=== PATIENT | female | born 1995 | race Hispanic/Latino ===

== ENCOUNTER 2018-01-03 14:25 | Emergency (ER) | payer SELFPAY ==
[2018-01-03] MEDS ORDERED: ACETAMINOPHEN 500 MG TAB ONE (14:41)
[2018-01-03 15:05] LABS: Urine Blood 2+ (NEG); Urine Glucose TRACE (NEG); Urine Protein 1+ (NEG); Urine Specific Gravity 1.015 (1.005-1.030)
[2018-01-03] MEDS ORDERED: KETOROLAC 30 MG/ML INJ ONE (15:08)
[2018-01-03] MEDS ORDERED: ONDANSETRON 4 MG/2 ML VIAL ONE (15:09)
[2018-01-03] MEDS ORDERED: NA CHLORIDE 0.9% 1,000 ML ONE (15:09)
[2018-01-03 15:26] LABS: Absolute Monocytes 1.3 K/uL (0.1-1.3); Absolute Neutrophil 11.9 K/uL (1.8-8.0); Basophils % 0.4 % (0-1.3); Eosinophils % 0.2 % (0-4.4); Hematocrit 41.2 % (36.0-45.0); Lymphocytes % 6.9 % (15.3-44.8); MCH 30.7 pg (27.0-35.0); MCV 90.1 fL (80-100); MPV 7.6 fL (7.6-11.3); RBC Red Blood Cell Count 4.57 M/uL (3.86-4.86)
[2018-01-03 15:37] LABS: Bicarbonate 29 mEq/L (21-31); Glucose Level 103 mg/dL (65-120); Potassium 3.9 mEq/L (3.6-5.0); Sodium Level 135 mEq/L (135-145)
[2018-01-03 15:38] LABS: BUN Blood Urea Nitrogen 9 mg/dL (6-20)
--- NOTE | 2018-01-03 16:20 | RAD REPORT ---
EXAM DESCRIPTION: CTAbdomen Pelvis W Contrast - 01/03/2018 4:13 pm CLINICAL HISTORY: Abdominal pain. COMPARISON: 07/21/2017, 04/25/2016 TECHNIQUE: Biphasic CT imaging of the abdomen and pelvis was performed with 100 ml non-ionic IV cont rast. All CT scans are performed using dose optimization technique as appropriate and may include automated exposure control or mA/KV adjustment according to patient size. FINDINGS: The lung bases are clear. The liver, spleen, pancreas, adrenal glands and kidneys are within normal limits. No bowel obstruction, free air, free fluid or abscess. Appendectomy clips noted. No evidence of sig nificant lymphadenopathy. No suspicious bony findings. IMPRESSION: No acute intra-abdominal or pelvic finding.
[2018-01-03 16:33] LABS: Blood Morphology Comment NOT SEEN (NOT SEEN); Platelet Estimate ADEQ; Urine White Blood Cell Casts OK
[2018-01-03 17:12] LABS: Urine Bacteria 20-50 /HPF (<20); Urine Culture Reflex Order REFLEXED
--- NOTE | 2018-01-03 17:21 | ER ---
Nurse's Notes [facility] Name: Kaela Gonzales Age: 22 yrs Sex: Female : 1995 Arrival Date: 01/03/2018 Time: 14:31 Bed 27 Private MD: Diagnosis: Urinary tract infection, site not specified Presentation: 01/03 14:32 Presenting complaint: Patient states: i am having sharp pain in my lower abdomin and my tw2 back hurts, i cant eat or drink, since tuesday. Transition of care: patient was not received from another setting of care. Onset of symptoms was January 03, 2018. Risk Assessment: Do you want to hurt yourself or someone else? Patient reports no desire to harm self or others. Care prior to arrival: None. 14:32 Method Of Arrival: Ambulatory tw 14:32 Acuity: ANNABELLE 3 tw2 15:25 Initial Sepsis Screen: Does the patient meet any 2 criteria? Temp <36.0*C (96.8*F)) or mb3 > 38.3*C (100.4*F). HR > 90 bpm. Yes Does the patient have a suspected source of infection? Yes: Dysuria/Frequency/Urgency/UTI. 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 - Social history:: Smoking status: Patient uses tobacco products, 5 cigarette a week, Patient uses street drugs, marijuana, last time i used was a week ago. - Ebola Screening: : Patient denies exposure to infectious person. Screenin:05 Abuse screen: Denies threats or abuse. Nutritional screening: No deficits noted. mb3 Tuberculosis screening: No symptoms or risk factors identified. Fall Risk None identified. Assessment: 15:01 General: Appears uncomfortable, ill, obese, Behavior is calm, cooperative, appropriate mb3 for age. Pain: Complains of pain in right lower quadrant and left lower quadrant Pain radiates to low back area, left low back and right low back. Neuro: No deficits noted. Level of Consciousness is awake, alert, obeys commands, Oriented to person, place, time, situation, Appropriate for age. Cardiovascular: No deficits noted. Heart tones S1 S2 present Capillary refill < 3 seconds Rhythm is sinus tachycardia. Respiratory: No deficits noted. Airway is patent Respiratory effort is even, unlabored, Respiratory pattern is regular, symmetrical, Breath sounds are clear bilaterally. GI: Bowel sounds present X 4 quads. Abd is soft Abdomen is tender to palpation in right lower quadrant and left lower quadrant Reports lower abdominal pain, nausea. : Reports urgency, since Tuesday, feels like she always has to go pee. EENT: No signs and/or symptoms were reported regarding the EENT system. Derm: No signs and/or symptoms reported regarding the dermatologic system. Musculoskeletal: No signs and/or symptoms reported regarding the musculoskeletal system. Capillary refill < 3 seconds, Range of motion: intact in all extremities. 16:27 Reassessment: Patient appears in no apparent distress at this time. Patient and/or mb3 family updated on plan of care and expected duration. Pain level reassessed. Patient is alert, oriented x 3, equal unlabored respirations, skin warm/dry/pink. Patient states feeling better. Patient states symptoms have improved. Vital Signs: 14:33 BP 128 / 87; Pulse 127; Resp 18; Temp 101.5(O); Pulse Ox 97% on R/A; Weight 113.4 kg tw2 (R); Height 5 ft. 6 in. (167.64 cm); Pain 8/10; 16:23 BP 117 / 76; Pulse 98; Resp 16; Temp 98.8; Pulse Ox 98% on R/A; mb3 14:33 Body Mass Index 40.35 (113.40 kg, 167.64 cm) tw2 ED Course: 14:31 Patient arrived in ED. sb2 14:33 Triage completed. tw2 14:34 Arm band placed on. tw2 14:47 Jhony High, KIZZY is Primary Nurse. mb3 14:48 Carmelina Lopez FNP-C is PHCP. kb 14:48 Antonio Sunshine MD is Attending Physician. kb 15:25 Inserted saline lock: 20 gauge in right antecubital area, using aseptic technique. mb3 Blood collected. 15:28 Patient has correct armband on for positive identification. Bed in low position. Call mb3 light in reach. Side rails up X 1. 15:[address] via wheelchair. nj 16:13 CT Abd/Pelvis - W/Contrast In Process Unspecified. EDMS 16:13 CT completed. Patient tolerated procedure well. Patient moved back from CT. nj 17:30 No provider procedures requiring assistance completed. IV discontinued, intact, mb3 bleeding controlled, No redness/swelling at site. Pressure dressing applied. Administered Medications: 14:41 Drug: Tylenol 1000 mg Route: PO; tw2 15:18 Drug: NS 0.9% 1000 ml Route: IV; Rate: 1000 ml; Site: right antecubital; mb3 17:29 Follow up: Response: No adverse reaction; IV Status: Completed infusion; IV Intake: mb3 1000ml 15:24 Drug: Zofran 4 mg Route: IVP; Site: right antecubital; mb3 17:29 Follow up: Response: No adverse reaction mb3 15:24 Drug: TORadol 30 mg Route: IVP; Site: right antecubital; mb3 17:28 Follow up: Response: No adverse reaction mb3 Intake: 17:29 IV: 1000ml; Total: 1000ml. mb3 Outcome: 17:20 Discharge ordered by . kb 17:31 Discharged to home ambulatory. mb3 17:31 Condition: stable 17:31 Discharge instructions given to patient, Instructed on discharge instructions, follow up and referral plans. medication usage, Demonstrated understanding of instructions, follow-up care, medications, Prescriptions given X 2. 17:31 Patient left the ED. mb3 Signatures: Dispatcher [employer] EDMS Carmelina Lopez, INSTRUMENT SHOP SUPERVISOR-C INSTRUMENT SHOP SUPERVISOR-Kimberly Cano RN RN tw2 Raj Melissa Sheri sb2 Jhony High RN RN mb3 Corrections: (The following items were deleted from the chart) 14:37 14:33 Pulse 127bpm; Resp 18bpm; Pulse Ox 97% RA; Temp 101.5F Oral; 113.4 kg Reported; tw2 Height 5 ft. 6 in.; BMI: 40.3; Pain 8/10; tw2
--- NOTE | 2018-01-03 17:21 | EDPHYS ---
Physician Documentation [facility] Name: Kaela Gonzales Age: 22 yrs Sex: Female : 1995 Arrival Date: 01/03/2018 Time: 14:31 Bed 27 Private MD: ED Physician Antonio Sunshine HPI: 01/03 17:00 This 22 yrs old Female presents to ER via Ambulatory with complaints of kb Abdominal Pain, Back Pain, Nausea. 17:00 The patient presents with abdominal pain in the lower abdomen. Onset: The kb symptoms/episode began/occurred 5 day(s) ago. The symptoms radiate to both flanks. Associated signs and symptoms: Pertinent positives: fever, nausea. The symptoms are described as constant. Modifying factors: The symptoms are alleviated by nothing, the symptoms are aggravated by pressure. Severity of pain: At its worst the pain was moderate in the emergency department the pain is unchanged. The patient has not experienced similar symptoms in the past. The patient has not recently seen a physician. 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 - Social history:: Smoking status: Patient uses tobacco products, 5 cigarette a week, Patient uses street drugs, marijuana, last time i used was a week ago. - Ebola Screening: : Patient denies exposure to infectious person. ROS: 16:59 Constitutional: Negative for fever, chills, and weight loss, Cardiovascular: Negative kb for chest pain, palpitations, and edema, Respiratory: Negative for shortness of breath, cough, wheezing, and pleuritic chest pain, Back: Negative for injury and pain, MS/Extremity: Negative for injury and deformity, Skin: Negative for injury, rash, and discoloration, Neuro: Negative for headache, weakness, numbness, tingling, and seizure. 16:59 Abdomen/GI: Positive for abdominal pain, nausea, Negative for vomiting, diarrhea, constipation, abdominal cramps, abdominal distension, anorexia. 16:59 : Positive for flank pain, urinary frequency. Exam: 16:59 Constitutional: This is a well developed, well nourished patient who is awake, alert, kb and in no acute distress. Head/Face: Normocephalic, atraumatic. Chest/axilla: Normal chest wall appearance and motion. Nontender with no deformity. No lesions are appreciated. Cardiovascular: Regular rate and rhythm with a normal S1 and S2. No gallops, murmurs, or rubs. Normal PMI, no JVD. No pulse deficits. Respiratory: Lungs have equal breath sounds bilaterally, clear to auscultation and percussion. No rales, rhonchi or wheezes noted. No increased work of breathing, no retractions or nasal flaring. Abdomen/GI: Soft, non-tender, with normal bowel sounds. No distension or tympany. No guarding or rebound. No evidence of tenderness throughout. Skin: Warm, dry with normal turgor. Normal color with no rashes, no lesions, and no evidence of cellulitis. MS/ Extremity: Pulses equal, no cyanosis. Neurovascular intact. Full, normal range of motion. Neuro: Awake and alert, GCS 15, oriented to person, place, time, and situation. Cranial nerves II-XII grossly intact. Motor strength 5/5 in all extremities. Sensory grossly intact. Cerebellar exam normal. Normal gait. 16:59 Back: CVA tenderness, that is moderate, is noted bilaterally. Vital Signs: 14:33 BP 128 / 87; Pulse 127; Resp 18; Temp 101.5(O); Pulse Ox 97% on R/A; Weight 113.4 kg tw2 (R); Height 5 ft. 6 in. (167.64 cm); Pain 8/10; 16:23 BP 117 / 76; Pulse 98; Resp 16; Temp 98.8; Pulse Ox 98% on R/A; mb3 14:33 Body Mass Index 40.35 (113.40 kg, 167.64 cm) tw2 MDM: 14:48 Patient medically screened. kb 16:59 Data reviewed: vital signs, nurses notes. Data interpreted: Pulse oximetry: on room air kb is 98 %. Interpretation: normal. Counseling: I had a detailed discussion with the patient and/or guardian regarding: the historical points, exam findings, and any diagnostic results supporting the discharge/admit diagnosis, lab results, radiology results, the need for outpatient follow up, a family practitioner, to return to the emergency department if symptoms worsen or persist or if there are any questions or concerns that arise at home. 01/03 14:48 Order name: Urine Microscopic Only; Complete Time: 17:14 kb 01/03 14:55 Order name: CBC with Diff; Complete Time: 16:38 kb 01/03 14:55 Order name: Basic Metabolic Panel; Complete Time: 15:38 kb 01/03 14:57 Order name: Urine Dipstick--Ancillary (enter results); Complete Time: 15:09 bd 01/03 14:57 Order name: Urine --Ancillary (enter results); Complete Time: 15:09 bd 01/03 16:33 Order name: CBC Smear Scan; Complete Time: 16:38 EDMS 01/03 14:48 Order name: Urine Test (obtain specimen); Complete Time: 15:06 kb 01/03 14:48 Order name: Urine Dipstick-Ancillary (obtain specimen); Complete Time: 15:06 kb 01/03 15:39 Order name: CT Abd/Pelvis - W/Contrast; Complete Time: 16:22 kb 01/03 17:13 Order name: Urine Culture EDHI 01/03 14:55 Order name: IV Start; Complete Time: 15:24 kb Administered Medications: 14:41 Drug: Tylenol 1000 mg Route: PO; tw2 15:18 Drug: NS 0.9% 1000 ml Route: IV; Rate: 1000 ml; Site: right antecubital; mb3 17:29 Follow up: Response: No adverse reaction; IV Status: Completed infusion; IV Intake: mb3 1000ml 15:24 Drug: Zofran 4 mg Route: IVP; Site: right antecubital; mb3 17:29 Follow up: Response: No adverse reaction mb3 15:24 Drug: TORadol 30 mg Route: IVP; Site: right antecubital; mb3 17:28 Follow up: Response: No adverse reaction mb3 Disposition: 17:41 Co-signature as Attending Physician, Antonio Sunshine MD. rn Disposition: 01/03/18 17:20 Discharged to Home. Impression: Urinary tract infection, site not specified. - Condition is Stable. - Discharge Instructions: Urinary Tract Infection, [id number]. - Prescriptions for Zofran 4 mg Oral Tablet - take 1 tablet by ORAL route every 6 hours As needed; 20 tablet. Cipro 500 mg Oral Tablet - take 1 tablet by ORAL route every 12 hours for 7 days; 14 tablet. - Medication Reconciliation Form, Thank You Letter, Antibiotic Education, Prescription Opioid Use form. - Follow up: Emergency Department; When: As needed; Reason: Worsening of condition. Follow up: Private Physician; When: 2 - 3 days; Reason: Recheck today's complaints, Continuance of care, Re-evaluation by your physician. Signatures: Dispatcher [employer] EDMS Carmelina Lopez, GROUND WOOD SUPERVISOR-C GROUND WOOD SUPERVISOR-Ckb Antonio Sunshine MD MD rn Wise, Tara, RN RN 2 Jhony High RN RN mb3 Corrections: (The following items were deleted from the chart) 17:31 17:20 01/03/2018 17:20 Discharged to Home. Impression: Urinary tract infection, site mb3 not specified. Condition is Stable. Forms are Medication Reconciliation Form, Thank You Letter, Antibiotic Education, Prescription Opioid Use. Follow up: Emergency Department; When: As needed; Reason: Worsening of condition. Follow up: Private Physician; When: 2 - 3 days; Reason: Recheck today's complaints, Continuance of care, Re-evaluation by your physician. kb
[2018-01-03 17:44] VITALS: BP 117/76; TEMP 98.8; O2SAT 98
== END 2018-01-03 17:31 | disposition home or self-care (01) ==
LOC: ER 14:25
DX: N39.0 Urinary tract infection, site not specified (principal); F17.210 Nicotine dependence, cigarettes, uncomplicated
CPT/HCPCS: 36415; 74177; 80048; 81003; 81015; 81025; 85025; 87086; 87088; 96361; 96374; 96375; 99285; J2405; J7030; Q9967

== ENCOUNTER 2018-01-06 00:50 | Emergency (ER) | payer SELFPAY ==
[2018-01-06 01:46] LABS: Absolute Lymphocytes (CBC) 1.4 K/uL (0.7-4.9); Absolute Monocytes 1.2 K/uL (0.1-1.3); Absolute Neutrophil 10.7 K/uL (1.8-8.0); Basophils % 0.2 % (0-1.3); Hematocrit 38.5 % (36.0-45.0); Lymphocytes % 10.3 % (15.3-44.8); MCH 30.1 pg (27.0-35.0); MCV 90.5 fL (80-100); Monocytes % 9.2 % (3.3-12.3); RBC Red Blood Cell Count 4.25 M/uL (3.86-4.86)
[2018-01-06] MEDS ORDERED: PROMETHAZINE 25 MG/ML VIAL ONE (01:48)
[2018-01-06] MEDS ORDERED: NA CHLORIDE 0.9% 1,000 ML ONE ×2 (01:49→02:47)
[2018-01-06] MEDS ORDERED: MORPHINE 4 MG/ML SYR ONE (01:49)
[2018-01-06 01:54] LABS: Bicarbonate 22 mEq/L (21-31); Glucose Level 108 mg/dL (65-120); Lipase 17 U/L (22-51); Potassium 3.5 mEq/L (3.6-5.0); Sodium Level 133 mEq/L (135-145)
[2018-01-06 02:00] LABS: ALT/SGPT 20 IU/L (10-60); AST/SGOT 21 IU/L (10-42); Albumin 3.9 g/dL (3.2-5.5); Alkaline Phosphatase 84 IU/L (42-121); BUN Blood Urea Nitrogen 11 mg/dL (6-20); Bilirubin Direct 0.1 mg/dL (0-0.2); Bilirubin Total 0.8 mg/dL (0.3-1.2); Protein, Total 8.4 g/dL (6.0-8.3)
[2018-01-06 02:27] LABS: Urine Blood 2+ (NEG); Urine Glucose NEGATIVE (NEG); Urine Protein 1+ (NEG)
[2018-01-06] MEDS ORDERED: CEFTRIAXONE/SWI 1gm 1 GM/10 ML SYR ONE (03:29)
[2018-01-06 03:31] LABS: Urine Culture Reflex Order NOT NEEDED
[2018-01-06 03:32] LABS: Urine Bacteria 20-50 /HPF (<20)
--- NOTE | 2018-01-06 03:39 | EDPHYS ---
Physician Documentation [facility] Name: Kaela Gonzales Age: 22 yrs Sex: Female : 1995 Arrival Date: 01/06/2018 Time: 01:00 Bed 17 Private MD: ED Physician Julain Orellana HPI: 01/06 02:53 This 22 yrs old Female presents to ER via EMS with complaints of Flank pain. pm1 02:53 The patient complains of pain in the left low back and right low back. The pain pm1 radiates to the right and left groin. Onset: The symptoms/episode began/occurred 1 week(s) ago. Modifying factors: The symptoms are alleviated by nothing. the symptoms are aggravated by nothing. Associated signs and symptoms: Pertinent positives: nausea, Vomiting x 4, Pertinent negatives: diarrhea, dysuria, fever. Severity of pain: in the emergency department the pain is actually worse. The patient has been recently seen at the [facility] Emergency Department, 3 days ago with the same complaint of bilateral flank pain with radiation to bilateral groin area. Patient with onset of nausea and vomiting today. Patient with 4 episodes of vomiting. 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 - Social history:: Smoking status: Patient/guardian denies using tobacco. - Ebola Screening: : No symptoms or risks identified at this time. ROS: 02:58 Constitutional: Negative for fever, chills, and weight loss, Eyes: Negative for injury, pm1 pain, redness, and discharge, ENT: Negative for injury, pain, and discharge, Neck: Negative for injury, pain, and swelling, Cardiovascular: Negative for chest pain, palpitations, and edema, Respiratory: Negative for shortness of breath, cough, wheezing, and pleuritic chest pain. 02:58 : Negative for injury, bleeding, discharge, and swelling, MS/Extremity: Negative for injury and deformity, Skin: Negative for injury, rash, and discoloration, Neuro: Negative for headache, weakness, numbness, tingling, and seizure. 02:58 Abdomen/GI: Positive for nausea and vomiting, Negative for abdominal pain, diarrhea, constipation. 02:58 Back: Positive for flank pain, bilaterally. Exam: 02:58 Constitutional: This is a well developed, well nourished patient who is awake, alert, pm1 and in no acute distress. Head/Face: Normocephalic, atraumatic. Eyes: Pupils equal round and reactive to light, extra-ocular motions intact. Lids and lashes normal. Conjunctiva and sclera are non-icteric and not injected. Cornea within normal limits. Periorbital areas with no swelling, redness, or edema. ENT: Nares patent. No nasal discharge, no septal abnormalities noted. Tympanic membranes are normal and external auditory canals are clear. Oropharynx with no redness, swelling, or masses, exudates, or evidence of obstruction, uvula midline. Mucous membranes moist. Neck: Trachea midline, no thyromegaly or masses palpated, and no cervical lymphadenopathy. Supple, full range of motion without nuchal rigidity, or vertebral point tenderness. No Meningismus. Chest/axilla: Normal chest wall appearance and motion. Nontender with no deformity. No lesions are appreciated. Cardiovascular: Regular rate and rhythm with a normal S1 and S2. No gallops, murmurs, or rubs. Normal PMI, no JVD. No pulse deficits. Respiratory: Lungs have equal breath sounds bilaterally, clear to auscultation and percussion. No rales, rhonchi or wheezes noted. No increased work of breathing, no retractions or nasal flaring. Abdomen/GI: Soft, non-tender, with normal bowel sounds. No distension or tympany. No guarding or rebound. No evidence of tenderness throughout. 02:58 Skin: Warm, dry with normal turgor. Normal color with no rashes, no lesions, and no evidence of cellulitis. MS/ Extremity: Pulses equal, no cyanosis. Neurovascular intact. Full, normal range of motion. 02:58 Back: CVA tenderness, that is mild, is noted bilaterally. 02:58 Neuro: Orientation: is normal, Motor: is normal, moves all fours. Vital Signs: 01:03 BP 142 / 84; Pulse 103; Resp 19 S; Temp 98.4(O); Pulse Ox 99% on R/A; Weight 126.1 kg jd3 (R); Height 5 ft. 6 in. (167.64 cm) (R); Pain 9/10; 03:00 BP 126 / 71; Pulse 80; Resp 17 S; Pulse Ox 97% on R/A; jd3 03:39 BP 126 / 69; Pulse 79; Resp 18 S; Pulse Ox 97% on R/A; Pain 0/10; jd3 01:03 Body Mass Index 44.87 (126.10 kg, 167.64 cm) jd3 MDM: 01:08 Patient medically screened. pm1 02:59 Data reviewed: vital signs. Data interpreted: Pulse oximetry: on room air is 99 %. pm1 Interpretation: normal. 03:34 ED course: Patient resting quietly in bed without any vomiting. Patient's current urine pm1 micro with 20-50 bacteria present. It was a straight cath specimen Prior urine culture contaminated with squamous epithelial cells on 01/03/2018 visit and it was a clean catch specimen. Will treat patient with Rocephin and discharge home with Augmentin pending cultures. 03:40 ED course: Patient with decreased WBC on CBC. Patient pain improved and not vomiting. pm1 Patient resting comfortably in bed. 01/06 01:15 Order name: Lipase; Complete Time: 02:13 pm01/06 01:15 Order name: Basic Metabolic Panel; Complete Time: 02:13 pm01/06 01:15 Order name: CBC with Diff; Complete Time: 01:53 pm01/06 01:15 Order name: Hepatic Function; Complete Time: 02:13 pm01/06 01:15 Order name: Urine Microscopic Only; Complete Time: 03:34 pm01/06 02:21 Order name: Urine Culture pm1 01/06 02:22 Order name: Urine Culture EDME 01/06 02:23 Order name: Urine Dipstick--Ancillary (enter results); Complete Time: 02:33 mw2 01/06 02:23 Order name: Urine --Ancillary (enter results); Complete Time: 02:33 mw2 01/06 01:15 Order name: IV Saline Lock; Complete Time: 01:16 pm01/06 01:15 Order name: Labs collected and sent; Complete Time: 01:16 pm01/06 01:15 Order name: Urine Dipstick-Ancillary (obtain specimen); Complete Time: 02:51 pm1 01/06 01:16 Order name: Urine Test (obtain specimen); Complete Time: 02:51 pm1 01/06 01:59 Order name: Straight Cath - Urine; Complete Time: 02:51 pm1 Administered Medications: 01:55 Drug: NS 0.9% 1000 ml Route: IV; Rate: 1000 ml; Site: left antecubital; jd3 03:52 Follow up: Response: No adverse reaction; IV Status: Completed infusion; IV Intake: jd3 1000ml 01:55 Drug: morphine 4 mg Route: IVP; Site: left antecubital; jd3 03:35 Follow up: Response: No adverse reaction; Pain is decreased jd3 01:55 Drug: Phenergan 12.5 mg Route: IVP; Site: left antecubital; jd3 03:35 Follow up: Response: No adverse reaction; Nausea is decreased jd3 02:51 Drug: NS 0.9% 1000 ml Route: IV; Rate: 1000 ml; Site: left antecubital; jd3 03:52 Follow up: Response: No adverse reaction; IV Status: Completed infusion; IV Intake: jd3 1000ml 03:34 Drug: Rocephin 1 grams Route: IV; Rate: calculated rate; Site: left antecubital; jd3 03:52 Follow up: Response: No adverse reaction; IV Status: Completed infusion jd3 Disposition: 04:06 Co-signature as Attending Physician, Julian Orellana MD. Disposition: 01/06/18 03:38 Discharged to Home. Impression: Urinary tract infection, site not specified. - Condition is Stable. - Discharge Instructions: Urinary Tract Infection. - Prescriptions for Augmentin 875- 125 mg Oral Tablet - take 1 tablet by ORAL route every 12 hours for 10 days; 20 tablet. Tylenol- Codeine #3 300-30 mg Oral Tablet - take 2 tablets by ORAL route every 6 hours As needed; 20 tablet. promethazine 25 mg Oral Tablet - take 1 tablet by ORAL route every 6 hours As needed; 20 tablet. - Medication Reconciliation Form, Thank You Letter, Antibiotic Education, Prescription Opioid Use form. - Follow up: Emergency Department; When: As needed; Reason: Worsening of condition. Follow up: Private Physician; When: 2 - 3 days; Reason: Recheck today's complaints, Continuance of care, Re-evaluation by your physician. - Problem is new. - Symptoms have improved. Signatures: Dispatcher [employer] EDMS Garcia Fam, CREMATORY OPERATOR CREMATORY OPERATOR pm1 Julian Orellana MD MD gs Davies, Jonathon RN RN jd3 Corrections: (The following items were deleted from the chart) 03:53 03:38 01/06/2018 03:38 Discharged to Home. Impression: Urinary tract infection, site jd3 not specified. Condition is Stable. Discharge Instructions: Urinary Tract Infection. Prescriptions for Augmentin 875-125 mg Oral Tablet - take 1 tablet by ORAL route every 12 hours for 10 days; 20 tablet, promethazine 25 mg Oral Tablet - take 1 tablet by ORAL route every 6 hours As needed; 20 tablet, Tylenol-Codeine #3 300-30 mg Oral Tablet - take 2 tablets by ORAL route every 6 hours As needed; 20 tablet. and Forms are Medication Reconciliation Form, Thank You Letter, Antibiotic Education, Prescription Opioid Use. Follow up: Emergency Department; When: As needed; Reason: Worsening of condition. Follow up: Private Physician; When: 2 - 3 days; Reason: Recheck today's complaints, Continuance of care, Re-evaluation by your physician. Problem is new. Symptoms have improved. pm1
--- NOTE | 2018-01-06 03:39 | ER ---
Nurse's Notes [facility] Name: Kaela Gonzales Age: 22 yrs Sex: Female : 1995 Arrival Date: 01/06/2018 Time: 01:00 Bed 17 Private MD: Diagnosis: Urinary tract infection, site not specified Presentation: 01/06 01:00 Presenting complaint: EMS states: "she has been having abdominal/flank pain today as jd3 well as nausea and vomiting.". Transition of care: patient was not received from another setting of care. Onset of symptoms was January 06, 2018. Risk Assessment: Do you want to hurt yourself or someone else? Patient reports no desire to harm self or others. Initial Sepsis Screen: Does the patient meet any 2 criteria? No. Patient's initial sepsis screen is negative. Does the patient have a suspected source of infection? No. Patient's initial sepsis screen is negative. Care prior to arrival: None. 01:00 Method Of Arrival: EMS: [facility] jd3 01:00 Acuity: ANNABELLE 3 jd3 MAILROOM MESSENGER: 01:03 LMP 12/09/2017 jd3 Historical: - Allergies: 01:03 No Known Allergies; jd3 - Home Meds: 01:03 None [Active]; jd3 - PMHx: 01:03 GERD; jd3 - PSHx: 01:03 Appendectomy; jd3 - Immunization history:: Adult Immunizations unknown. - Social history:: Smoking status: Patient/guardian denies using tobacco. - Ebola Screening: : No symptoms or risks identified at this time. Screenin:06 Abuse screen: Denies threats or abuse. Nutritional screening: No deficits noted. jd3 Tuberculosis screening: No symptoms or risk factors identified. Fall Risk IV access (20 points). Gait- Normal/Bed Rest/Wheelchair (0 pts) Mental Status- Oriented to own ability (0 pts). Total Camacho Fall Scale indicates No Risk (0-24 pts). Assessment: 01:04 General: Appears uncomfortable, Behavior is cooperative, appropriate for age. Pain: jd3 Complains of pain in epigastric area, anterior aspect of right lateral abdomen and anterior aspect of left lateral abdomen Pain currently is 9 out of 10 on a pain scale. Quality of pain is described as sharp, shooting, Is continuous, Also complains of nausea. Neuro: Level of Consciousness is awake, alert, obeys commands, Oriented to person, place, time, situation. Cardiovascular: Heart tones S1 S2 present Capillary refill < 3 seconds Patient's skin is warm and dry. Respiratory: Airway is patent Respiratory effort is even, unlabored, Respiratory pattern is regular, symmetrical, Breath sounds are clear bilaterally. GI: Abdomen is round obese, Bowel sounds present X 4 quads. Abd is soft and non tender X 4 quads. Reports lower abdominal pain, upper abdominal pain, diarrhea, nausea, vomiting. : No signs and/or symptoms were reported regarding the genitourinary system. EENT: No signs and/or symptoms were reported regarding the EENT system. Derm: Skin is intact, Skin is dry, Skin is normal, Skin temperature is warm. Musculoskeletal: Circulation, motion, and sensation intact. Range of motion: intact in all extremities. 02:00 Reassessment: Patient appears in no apparent distress at this time. Patient and/or jd3 family updated on plan of care and expected duration. Pain level reassessed. Patient is alert, oriented x 3, equal unlabored respirations, skin warm/dry/pink. 03:01 Reassessment: Patient appears in no apparent distress at this time. Patient and/or jd3 family updated on plan of care and expected duration. Pain level reassessed. Patient is alert, oriented x 3, equal unlabored respirations, skin warm/dry/pink. pt resting with eyes closed even and unlabored respirations, call crouch in reach, no distress noted at this time. 03:40 Reassessment: Patient appears in no apparent distress at this time. Patient and/or jd3 family updated on plan of care and expected duration. Pain level reassessed. Patient is alert, oriented x 3, equal unlabored respirations, skin warm/dry/pink. Patient states feeling better. 03:51 Reassessment: Patient appears in no apparent distress at this time. Patient and/or jd3 family updated on plan of care and expected duration. Pain level reassessed. Patient is alert, oriented x 3, equal unlabored respirations, skin warm/dry/pink. pt reported understanding of discharge instructions, even and steady gait upon discharge. Patient states feeling better. Vital Signs: 01:03 BP 142 / 84; Pulse 103; Resp 19 S; Temp 98.4(O); Pulse Ox 99% on R/A; Weight 126.1 kg jd3 (R); Height 5 ft. 6 in. (167.64 cm) (R); Pain 9/10; 03:00 BP 126 / 71; Pulse 80; Resp 17 S; Pulse Ox 97% on R/A; jd3 03:39 BP 126 / 69; Pulse 79; Resp 18 S; Pulse Ox 97% on R/A; Pain 0/10; jd3 01:03 Body Mass Index 44.87 (126.10 kg, 167.64 cm) jd3 ED Course: 01:00 Patient arrived in ED. jd3 01:01 Inserted saline lock: 22 gauge in left antecubital area, using aseptic technique. Blood mt collected. 01:02 Triage completed. jd3 01:04 Arm band placed on. jd3 01:07 Da Wills, RN is Primary Nurse. jd3 01:07 Patient has correct armband on for positive identification. Placed in gown. Bed in low jd3 position. Call light in reach. Side rails up X 1. Adult w/ patient. 01:08 Garcia Fam NP is PHCP. pm1 01:08 Julian Orellana MD is Attending Physician. pm1 03:49 No provider procedures requiring assistance completed. IV discontinued, intact, jd3 bleeding controlled, No redness/swelling at site. Pressure dressing applied. Administered Medications: 01:55 Drug: NS 0.9% 1000 ml Route: IV; Rate: 1000 ml; Site: left antecubital; jd3 03:52 Follow up: Response: No adverse reaction; IV Status: Completed infusion; IV Intake: jd3 1000ml 01:55 Drug: morphine 4 mg Route: IVP; Site: left antecubital; jd3 03:35 Follow up: Response: No adverse reaction; Pain is decreased jd3 01:55 Drug: Phenergan 12.5 mg Route: IVP; Site: left antecubital; jd3 03:35 Follow up: Response: No adverse reaction; Nausea is decreased jd3 02:51 Drug: NS 0.9% 1000 ml Route: IV; Rate: 1000 ml; Site: left antecubital; jd3 03:52 Follow up: Response: No adverse reaction; IV Status: Completed infusion; IV Intake: jd3 1000ml 03:34 Drug: Rocephin 1 grams Route: IV; Rate: calculated rate; Site: left antecubital; jd3 03:52 Follow up: Response: No adverse reaction; IV Status: Completed infusion jd3 Intake: 03:52 IV: 1000ml; Total: 1000ml. jd3 03:52 IV: 1000ml; Total: 2000ml. jd3 Outcome: 03:38 Discharge ordered by MD. pm1 03:49 Discharged to home ambulatory, with family. jd3 03:49 Condition: stable 03:49 Discharge instructions given to patient, family, Instructed on discharge instructions, follow up and referral plans. medication usage, Demonstrated understanding of instructions, follow-up care, medications, Prescriptions given X 3. 03:53 Patient left the ED. jd3 Signatures: Garcia Fam NP SOLE INKER pm1 Odilia Diaz mt, Jonathon RN RN jd3
[2018-01-06 03:57] VITALS: TEMP 98.4
[2018-01-06 03:58] VITALS: O2SAT 97
[2018-01-06 04:00] VITALS: BP 126/69
== END 2018-01-06 03:53 | disposition home or self-care (01) ==
LOC: ER 00:50
DX: N39.0 Urinary tract infection, site not specified (principal); R11.2 Nausea with vomiting, unspecified
CPT/HCPCS: 36415; 80048; 80076; 81003; 81015; 81025; 83690; 85025; 87086; 87088; 96361; 96365; 96375; 99284; J0696; J2550; J7030

== ENCOUNTER 2018-01-18 15:36 | Emergency (ER) | payer SELFPAY ==
[2018-01-18 16:14] LABS: Absolute Lymphocytes (CBC) 2.4 K/uL (0.7-4.9); Absolute Monocytes 0.8 K/uL (0.1-1.3); Basophils % 0.7 % (0-1.3); Eosinophils % 1.1 % (0-4.4); Hematocrit 40.2 % (36.0-45.0); Lymphocytes % 23.4 % (15.3-44.8); MCH 30.2 pg (27.0-35.0); MCV 89.1 fL (80-100); MPV 7.9 fL (7.6-11.3); Monocytes % 7.6 % (3.3-12.3); RBC Red Blood Cell Count 4.51 M/uL (3.86-4.86)
[2018-01-18 16:26] LABS: Bicarbonate 27 mEq/L (21-31); Glucose Level 97 mg/dL (65-120); Potassium 3.7 mEq/L (3.6-5.0); Sodium Level 136 mEq/L (135-145)
[2018-01-18 16:32] LABS: ALT/SGPT 38 IU/L (10-60); AST/SGOT 27 IU/L (10-42); Alkaline Phosphatase 69 IU/L (42-121); BUN Blood Urea Nitrogen 9 mg/dL (6-20); Bilirubin Direct 0.1 mg/dL (0-0.2); Bilirubin Total 0.5 mg/dL (0.3-1.2); Protein, Total 7.8 g/dL (6.0-8.3)
[2018-01-18 16:33] LABS: Alcohol Serum/Plasma < 10 mg/dl; Protime INR 0.99
[2018-01-18 16:42] LABS: Barbiturates NEGATIVE (NEGATIVE); Benzodiazepines NEGATIVE (NEGATIVE); Cocaine NEGATIVE (NEGATIVE); METHAMPHETAM NEGATIVE (NEGATIVE); Opiates NEGATIVE (NEGATIVE); Phencyclidine NEGATIVE (NEGATIVE); THC Cannibis POSITIVE (NEGATIVE)
--- NOTE | 2018-01-18 19:45 | EDPHYS ---
Physician Documentation [facility] Name: Kaela Gonzales Age: 22 yrs Sex: Female : 1995 Arrival Date: 01/18/2018 Time: 15:40 Bed 8 Private MD: Cammy Taveras L ED Physician Asa Lopes HPI: 01/18 16:02 This 22 yrs old Female presents to ER via Wheelchair with complaints of rn Possible Overdose. 16:02 The patient presents to the emergency department after a known overdose. Severity of rn symptoms: At their worst the symptoms were mild in the emergency department the symptoms are unchanged. The patient has not experienced similar symptoms in the past. Reports trying to harm herself today, took 11 pills, counted them, states were her anxiety medication, took approx 1 hour ago, doesn't know the name of pills, mother went back home to look for them, off her meds for some time, no hallucinations, not homicidal, no specific trigger. . COMFORT ADVISOR: 15:46 "about a month ago" dm5 Historical: - Allergies: 15:46 No Known Allergies; dm5 - PMHx: 15:46 GERD; dm5 - PSHx: 15:46 Appendectomy; dm5 - Immunization history:: Adult Immunizations up to date. - Social history:: Smoking status: Patient uses tobacco products, denies chronic smoking, but will smoke occasionally. - Ebola Screening: : Patient negative for fever greater than or equal to 101.5 degrees Fahrenheit, and additional compatible Ebola Virus Disease symptoms Patient denies exposure to infectious person Patient denies travel to an Ebola-affected area in the 21 days before illness onset No symptoms or risks identified at this time. - Family history:: not pertinent. - Hospitalizations: : No recent hospitalization is reported. ROS: 16:02 Constitutional: Negative for fever, chills, and weight loss, Eyes: Negative for injury, rn pain, redness, and discharge, Neck: Negative for injury, pain, and swelling, Cardiovascular: Negative for chest pain, palpitations, and edema, Respiratory: Negative for shortness of breath, cough, wheezing, and pleuritic chest pain, Abdomen/GI: Negative for vomiting, diarrhea, and constipation, MS/Extremity: Negative for injury and deformity, Skin: Negative for injury, rash, and discoloration, Neuro: Negative for headache, weakness, numbness, tingling, and seizure. Exam: 16:02 Constitutional: This is a well developed, well nourished patient who is awake, alert, rn and in no acute distress. Head/Face: Normocephalic, atraumatic. Eyes: Pupils equal round and reactive to light, extra-ocular motions intact. Lids and lashes normal. Conjunctiva and sclera are non-icteric and not injected. Cornea within normal limits. Periorbital areas with no swelling, redness, or edema. Cardiovascular: Regular rate and rhythm with a normal S1 and S2. No gallops, murmurs, or rubs. Normal PMI, no JVD. No pulse deficits. Respiratory: Lungs have equal breath sounds bilaterally, clear to auscultation and percussion. No rales, rhonchi or wheezes noted. No increased work of breathing, no retractions or nasal flaring. Abdomen/GI: Soft, non-tender, with normal bowel sounds. No distension or tympany. No guarding or rebound. No evidence of tenderness throughout. Skin: Warm, dry with normal turgor. Normal color with no rashes, no lesions, and no evidence of cellulitis. MS/ Extremity: Pulses equal, no cyanosis. Neurovascular intact. Full, normal range of motion. Equal circumference. Neuro: Awake and alert, GCS 15, oriented to person, place, time, and situation. Cranial nerves II-XII grossly intact. Motor strength 5/5 in all extremities. Sensory grossly intact. Cerebellar exam normal. Normal gait. Vital Signs: 15:46 BP 143 / 92; Pulse 85; Resp 18; Pulse Ox 96% on R/A; Weight 126.1 kg (R); Height 5 ft. dm5 6 in. (167.64 cm); Pain 8/10; 16:25 Temp 98.9(TE); hb 17:00 BP 118 / 84; Pulse 79; Resp 16; Temp 98.2; Pulse Ox 98% ; Pain 0/10; ap 17:30 BP 119 / 66; Pulse 68; Resp 20; Temp 97.8; Pulse Ox 98% ; Pain 8/10; ap 18:05 BP 131 / 93; Pulse 76; Resp 16; Pulse Ox 100% on R/A; hb 18:08 BP 139 / 89; Pulse 79; Resp 18; Temp 97.6; Pulse Ox 98% ; Pain 0/10; ap 18:37 BP 123 / 85; Pulse 75; Resp 19; Temp 98.4; Pulse Ox 100% ; Pain 0/10; ap 19:12 BP 133 / 82; Pulse 78; Resp 18; Temp 97.8; Pulse Ox 100% ; Pain 0/10; cc 19:44 BP 133 / 79; Pulse 73; Resp 16; Temp 97(TE); Pulse Ox 99% ; Pain 0/10; tl2 15:46 Body Mass Index 44.87 (126.10 kg, 167.64 cm) dm5 [place] Coma Score: 16:39 Eye Response: spontaneous(4). Verbal Response: oriented(5). Motor Response: obeys hb commands(6). Total: 15. MDM: 15:43 Patient medically screened. rn 16:23 ED course: Mother returned, reports took sertraline, 50mg. rn 19:43 Data reviewed: vital signs, nurses notes, lab test result(s), EKG. [facility] 01/18 15:47 Order name: Acetaminophen; Complete Time: 16:55 01/18 15:47 Order name: Basic Metabolic Panel; Complete Time: 16:55 01/18 15:47 Order name: CBC with Diff; Complete Time: 16:55 01/18 15:47 Order name: ETOH Level; Complete Time: 16:55 01/18 15:47 Order name: Hepatic Function; Complete Time: 16:55 01/18 15:47 Order name: PT-INR; Complete Time: 16:55 01/18 15:47 Order name: Ptt, Activated; Complete Time: 16:55 01/18 15:47 Order name: Salicylate; Complete Time: 16:55 01/18 15:47 Order name: Urine Drug Screen; Complete Time: 16:55 01/18 15:47 Order name: EKG; Complete Time: 15:48 01/18 15:47 Order name: EKG - Nurse/Tech; Complete Time: 17:37 01/18 15:47 Order name: IV Saline Lock; Complete Time: 17:37 01/18 15:47 Order name: Labs collected and sent; Complete Time: 17:37 rn Administered Medications: No medications were administered Disposition: 01/18/18 19:45 Discharged to Home. Impression: Suicide attempt, Suicidal ideations, Major depressive disorder, recurrent. - Condition is Stable. - Discharge Instructions: Depression, Adult, Helping Someone Who is Suicidal, No-harm Safety Contract, Depression, Adult, [id number]. - Medication Reconciliation Form, Thank You Letter, Antibiotic Education, Prescription Opioid Use form. - Follow up: Cammy Taveras MD; When: Tomorrow; Reason: Recheck today's complaints, Continuance of care, Re-evaluation by your physician. - Problem is new. - Symptoms have improved. Signatures: Dispatcher [employer] EDMS Rylee Farrar RN RN dm5 Asa Lopes MD MD cha Nieto, Roman, MD MD rn Knox, Taylor, RN RN tl2 Corrections: (The following items were deleted from the chart) 20:07 19:45 01/18/2018 19:45 Discharged to Home. Impression: Suicide attempt; Suicidal tl2 ideations; Major depressive disorder, recurrent. Condition is Stable. Forms are Medication Reconciliation Form, Thank You Letter, Antibiotic Education, Prescription Opioid Use. Follow up: Cammy Taveras; When: Tomorrow; Reason: Recheck today's complaints, Continuance of care, Re-evaluation by your physician. Problem is new. Symptoms have improved. stephania
--- NOTE | 2018-01-18 19:45 | ER ---
Nurse's Notes [facility] Name: Kaela Gonzales Age: 22 yrs Sex: Female : 1995 Arrival Date: 01/18/2018 Time: 15:40 Bed 8 Private MD: Cammy Taveras L Diagnosis: Suicide attempt;Suicidal ideations;Major depressive disorder, recurrent Presentation: 01/18 15:41 Presenting complaint: Patient states: "I took 11 "anxiety pills"". Mom is looking for dm5 the bottle of pills. Pills were prescribed to patient "a year ago but I haven't taken them". Pt states she took the pills because she was trying to kill herself. Transition of care: patient was not received from another setting of care. Onset of symptoms was January 18, 2018. Risk Assessment: Do you want to hurt yourself or someone else? Patient reports desire/thoughts of hurting themselves or someone else. Provider notified. Initial Sepsis Screen: Does the patient meet any 2 criteria? No. Patient's initial sepsis screen is negative. Does the patient have a suspected source of infection? No. Patient's initial sepsis screen is negative. Note Pt states that she took the pills about 1 hour ago. Care prior to arrival: None. 15:41 Method Of Arrival: Wheelchair dm5 15:41 Acuity: ANNABELLE 2 dm5 Triage Assessment: 15:46 General: Appears distressed, "emotional". Behavior is calm, cooperative. Pain: dm5 Complains of pain in chest and abdomen Pain currently is 8 out of 10 on a pain scale. Pain began gradually. Neuro: Level of Consciousness is awake, alert, obeys commands, Oriented to person, place, time. Cardiovascular: Denies chest pain. Respiratory: Reports shortness of breath at rest Airway is patent Respiratory effort is even, unlabored, relaxed. GI: Reports lower abdominal pain, upper abdominal pain, nausea, "i tried to throw up to fmake my stomacH feel better". CLAY MODELER: 15:46 "about a month ago" dm5 Historical: - Allergies: 15:46 No Known Allergies; dm5 - PMHx: 15:46 GERD; dm5 - PSHx: 15:46 Appendectomy; dm5 - Immunization history:: Adult Immunizations up to date. - Social history:: Smoking status: Patient uses tobacco products, denies chronic smoking, but will smoke occasionally. - Ebola Screening: : Patient negative for fever greater than or equal to 101.5 degrees Fahrenheit, and additional compatible Ebola Virus Disease symptoms Patient denies exposure to infectious person Patient denies travel to an Ebola-affected area in the 21 days before illness onset No symptoms or risks identified at this time. - Family history:: not pertinent. - Hospitalizations: : No recent hospitalization is reported. Screenin:39 Abuse screen: Denies threats or abuse. Denies injuries from another. Nutritional hb screening: No deficits noted. Tuberculosis screening: No symptoms or risk factors identified. Fall Risk No fall in past 12 months (0 pts). Secondary diagnosis (15 points) reported overdose with risk of possible seizures. IV access (20 points). Ambulatory Aid- None/Bed Rest/Nurse Assist (0 pts). Gait- Normal/Bed Rest/Wheelchair (0 pts) Mental Status- Oriented to own ability (0 pts). Total Camacho Fall Scale indicates Low Risk Score (25-44 pts). Fall prevention measures have been instituted. 1:1 attendant Assigned to Pt. Frequent Obs/Assesments occuring Family Present and informed to notify staff if they need to leave bedside. Assessment: 15:45 General: See triage assessment. jl7 16:36 Reassessment: Poison control contacted, Niru reports to watch pt for drowsiness, jl7 dizziness, N/V, tachycardic, increased liver enzymes, serotonin syndrome, seizures. Recommended baseline EKG, cardiac monitoring for 12 hours, and baseline BMP and CBC, and tox labs. 16:39 Reassessment: No changes from previously documented assessment. Patient and/or family hb updated on plan of care and expected duration. Pain level reassessed. Patient is alert, oriented x 3, equal unlabored respirations, skin warm/dry/pink. pt resting comfortably at this time. Family left room but states they will return. Sitter present at this time.. 17:30 Reassessment: Patient appears in no apparent distress at this time. No changes from hb previously documented assessment. Patient and/or family updated on plan of care and expected duration. Pain level reassessed. Patient is alert, oriented x 3, equal unlabored respirations, skin warm/dry/pink. 18:05 Reassessment: Pt c/o headache and nausea. Dr. Sunshine notified, no new orders at this hb time. Family and sitter remain at bedside. VSS. 20:04 Reassessment: Dr. Lopes stated that pt can be discharged as long as mother agrees to tl2 take pt home. Mother agreed to take pt and verbalized understanding on signs and symptoms to watch for and when to return to ED. Pt verbalized understanding as well. Vital Signs: 15:46 BP 143 / 92; Pulse 85; Resp 18; Pulse Ox 96% on R/A; Weight 126.1 kg (R); Height 5 ft. dm5 6 in. (167.64 cm); Pain 8/10; 16:25 Temp 98.9(TE); hb 17:00 BP 118 / 84; Pulse 79; Resp 16; Temp 98.2; Pulse Ox 98% ; Pain 0/10; ap 17:30 BP 119 / 66; Pulse 68; Resp 20; Temp 97.8; Pulse Ox 98% ; Pain 8/10; ap 18:05 BP 131 / 93; Pulse 76; Resp 16; Pulse Ox 100% on R/A; hb 18:08 BP 139 / 89; Pulse 79; Resp 18; Temp 97.6; Pulse Ox 98% ; Pain 0/10; ap 18:37 BP 123 / 85; Pulse 75; Resp 19; Temp 98.4; Pulse Ox 100% ; Pain 0/10; ap 19:12 BP 133 / 82; Pulse 78; Resp 18; Temp 97.8; Pulse Ox 100% ; Pain 0/10; cc 19:44 BP 133 / 79; Pulse 73; Resp 16; Temp 97(TE); Pulse Ox 99% ; Pain 0/10; tl2 15:46 Body Mass Index 44.87 (126.10 kg, 167.64 cm) dm5 [place] Coma Score: 16:39 Eye Response: spontaneous(4). Verbal Response: oriented(5). Motor Response: obeys hb commands(6). Total: 15. ED Course: 15:40 Patient arrived in ED. sb2 15:40 Cammy Taveras MD is Private Physician. sb2 15:43 Antonio Sunshine MD is Attending Physician. rn 15:44 Triage completed. dm5 15:46 Arm band placed on right wrist. dm5 16:18 EKG done, by health tech. reviewed by Antonio Sunshine MD. 3 16:30 Safety checks: Items removed: Other: vital sign chords still in room Door open/sign ap placed on door: yes. Family/friend present: yes. 16:39 Safety Checks: Items have not been removed from patient due to or because: cardiac and hb vital sign monitoring left in place due to ingestion risk. Sitter present at this time. 16:39 Patient has correct armband on for positive identification. Placed in gown. Bed in low hb position. Side rails up X 1. Adult w/ patient. monitoring analyst on. Pulse ox on. monitoring and cables left in place due to risks related to sertraline ingestion. 16:39 One on one care I have been present with patient since arrival approximately 1 hour. hb AML ANALYST from floor now present as sitter. 16:39 No provider procedures requiring assistance completed. Inserted saline lock: 20 gauge hb in left antecubital area, using aseptic technique. Blood collected. 16:45 Safety checks: Items removed: Other: vital sign chords still in room Door open/sign ap placed on door: yes. Family/friend present: no. 17:00 Safety checks: Items removed: Other: vital sign chords are still in room. Door ap open/sign placed on door: yes. Family/friend present: no. 17:15 Safety checks: Items removed: Other: vital sign chords are still in the room Door ap open/sign placed on door: yes. Family/friend present: no. 17:24 Nano Wakefield, RN is Primary Nurse. hb 17:30 Safety checks: Items removed: Other: vital sign chords are still in room Door open/sign ap placed on door: yes. Family/friend present: yes. Family/friends encouraged to stay with patient. 17:45 Safety checks: Items removed: Other: vital sign chords still in room Door open/sign ap placed on door: yes. Family/friend present: yes. Family/friends encouraged to stay with patient. 18:00 Safety checks: Items removed: Other: vital sign chords still in room Door open/sign ap placed on door: Family/friend present: yes. Family/friends encouraged to stay with patient. 18:15 Safety checks: Items removed: Other: vital sign chords still in room Door open/sign ap placed on door: yes. Family/friend present: yes. Family/friends encouraged to stay with patient. 18:30 Safety checks: Items removed: Other: vital signs chords are still in room Door ap open/sign placed on door: yes. Family/friend present: yes. Family/friends encouraged to stay with patient. 18:45 Safety checks: Items removed: Other: vital sign chords still in room Door open/sign ap placed on door: yes. Family/friend present: no. 19:00 Safety checks: Items removed: yes. Door open/sign placed on door: yes. Family/friend cc present: no. 19:14 Safety checks: Items removed: yes. Door open/sign placed on door: yes. Family/friend cc present: no. 19:20 Attending Physician role handed off by Antonio Sunshine MD cha 19:20 Asa Lopes MD is Attending Physician. [facility] 19:43 Cammy Taveras MD is Referral Physician. [facility] 19:44 IV discontinued, intact, bleeding controlled, No redness/swelling at site. Pressure tl2 dressing applied. 19:45 Safety checks: Items removed: yes. Door open/sign placed on door: yes. Family/friend cc present: no. 19:46 Safety Checks: Items have not been removed Sitter present at this time. bp Administered Medications: No medications were administered Outcome: 19:44 Discharged to home ambulatory, with family. tl2 19:44 Condition: stable 19:44 Discharge instructions given to patient, family, Instructed on discharge instructions, follow up and referral plans. safety practices, Demonstrated understanding of instructions, follow-up care. 19:45 Discharge ordered by . [facility] 20:07 Patient left the ED. tl2 Signatures: Rylee Farrar, RN RN dm5 Asa Lopes MD MD cha Nieto, Roman, MD MD rn Christian, Chelsea cc Janelle Cruz Heather, RN RN hb Knox, Taylor, RN RN tl2 Aristeo Milligan RN RN jl7 Praveen Salinas RN RN bp Rosibel Gong sb2 Lenore Lamar sm3 Corrections: (The following items were deleted from the chart) 20:05 19:44 BP 133 / 79; Pulse 73bpm; Resp 16bpm; Pulse Ox 99%; Pain 0/10; cc tl2
[2018-01-18 20:22] VITALS: BP 133/79; TEMP 97; O2SAT 99
--- NOTE | 2018-01-18 22:38 | EKG ---
Test Date: 2018-01-18 Test Time: 16:12:33 Back Maker: MEET MEASUREMENT RESULTS: Intervals: Rate: 71 OK: 140 QRSD: 82 QT: 378 QTc: 410 [place]: P: 15 OK: 140 QRS: 34 T: 47 INTERPRETIVE STATEMENTS: Normal sinus rhythm Normal ECG Compared to ECG 08/01/2015 09:11:14 Sinus tachycardia no longer present Electronically Signed On 01-18-18 22:38:22 CDT by Hunter Novoa
== END 2018-01-18 20:07 | disposition home or self-care (01) ==
LOC: ER 15:36
DX: T50.902A Poisoning by unspecified drugs, medicaments and biological substances, intentional self-harm, initial encounter (principal); Y92.019 Unspecified place in single-family (private) house as the place of occurrence of the external cause; K21.9 Gastro-esophageal reflux disease without esophagitis; F17.210 Nicotine dependence, cigarettes, uncomplicated; F33.9 Major depressive disorder, recurrent, unspecified
CPT/HCPCS: 36415; 80048; 80076; 80307; 80320; 80329; 85025; 85610; 85730; 93005; 99284

== ENCOUNTER 2019-05-30 22:28 | Emergency (ER) | payer SELFPAY ==
[2019-05-30 23:16] LABS: Urine Blood NEGATIVE (NEG); Urine Glucose NEGATIVE (NEG); Urine Protein NEGATIVE (NEG)
[2019-05-30 23:19] LABS: Absolute Lymphocytes (CBC) 3.2 K/uL (0.7-4.9); Basophils % 1.1 % (0-1.3); Hematocrit 35.5 % (36.0-45.0); Lymphocytes % 25.5 % (15.3-44.8); MPV 7.8 fL (7.6-11.3); RBC Red Blood Cell Count 3.92 M/uL (3.86-4.86)
[2019-05-30 23:28] LABS: Urine Bacteria <20 /HPF (<20); Urine Culture Reflex Order NOT NEEDED; Urine RBC <5 /HPF (NONE SEEN)
[2019-05-30 23:37] LABS: BUN Blood Urea Nitrogen 7 mg/dL (7-18); Bicarbonate 26 mmol/L (21-32); Glucose Level 117 mg/dL (74-106); HCG, Quantitative 121 mIU/mL (1-3); Potassium 3.3 mmol/L (3.5-5.1); Sodium Level 141 mmol/L (136-145)
--- NOTE | 2019-05-31 00:41 | ER ---
Nurse's Notes [facility] Name: Kaela Gonzales Age: 23 yrs Sex: Female : 1995 Arrival Date: 05/30/2019 Time: 22:31 Bed 20 Private MD: Cammy Taveras L Diagnosis: state Presentation: 05/30 22:33 Presenting complaint: Patient states: I have been having abd cramping and nausea for la1 the last 2 months, LMP in March, has not taken UPT. Transition of care: patient was not received from another setting of care. Onset of symptoms was May 30, 2019. Risk Assessment: Do you want to hurt yourself or someone else? Patient reports no desire to harm self or others. Initial Sepsis Screen: Does the patient meet any 2 criteria? No. Patient's initial sepsis screen is negative. Does the patient have a suspected source of infection? No. Patient's initial sepsis screen is negative. Care prior to arrival: None. 22:33 Method Of Arrival: Ambulatory la1 22:33 Acuity: ANNABELLE 3 la1 Triage Assessment: 22:49 General: Appears in no apparent distress. comfortable, Behavior is calm, cooperative, cc3 appropriate for age. Pain: Complains of pain in abdomen Quality of pain is described as crampy. GI: Reports lower abdominal pain, upper abdominal pain, nausea. 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 - Social history:: Smoking status: Patient/guardian denies using tobacco. - Ebola Screening: : No symptoms or risks identified at this time. Screenin:49 Abuse screen: Denies threats or abuse. Denies injuries from another. Nutritional cc3 screening: No deficits noted. Tuberculosis screening: No symptoms or risk factors identified. Fall Risk Ambulatory Aid- None/Bed Rest/Nurse Assist (0 pts). Gait- Normal/Bed Rest/Wheelchair (0 pts) Mental Status- Oriented to own ability (0 pts). Assessment: 22:49 General: Appears in no apparent distress. uncomfortable, Behavior is calm, cooperative, cc3 appropriate for age. Pain: Complains of pain in abdomen Quality of pain is described as crampy. Neuro: Level of Consciousness is awake, alert, obeys commands, Oriented to person, place, time, situation, Appropriate for age. Cardiovascular: Denies chest pain, Heart tones S1 S2 present Capillary refill < 3 seconds in bilateral fingers Patient's skin is warm and dry. Respiratory: Airway is patent Respiratory effort is even, unlabored, Respiratory pattern is regular, symmetrical, Breath sounds are clear bilaterally. GI: Abdomen is round non-distended, Bowel sounds present X 4 quads. Abd is soft and non tender X 4 quads. : No signs and/or symptoms were reported regarding the genitourinary system. EENT: No signs and/or symptoms were reported regarding the EENT system. Derm: Skin is intact, is healthy with good turgor, Skin is pink, warm \T\ dry. normal. Musculoskeletal: Circulation, motion, and sensation intact. Range of motion: intact in all extremities. 23:30 Reassessment: Patient appears in no apparent distress at this time. Patient and/or cc3 family updated on plan of care and expected duration. Pain level reassessed. Patient is alert, oriented x 3, equal unlabored respirations, skin warm/dry/pink. Patient came back from ultrasound department, awaiting result. 05/31 00:08 Reassessment: Patient appears in no apparent distress at this time. Patient and/or cc3 family updated on plan of care and expected duration. Pain level reassessed. Patient is alert, oriented x 3, equal unlabored respirations, skin warm/dry/pink. 00:50 Reassessment: Patient appears in no apparent distress at this time. Patient and/or cc3 family updated on plan of care and expected duration. Pain level reassessed. Patient is alert, oriented x 3, equal unlabored respirations, skin warm/dry/pink. KATHY Myers discharged the patient home with prescription given. IV cannula removed and patient left ER vitally stable and ambulatory with her friend. No valuables left in the patient's room. Patient denies pain at this time. Patient states feeling better. Patient states symptoms have improved. Vital Signs: 05/30 22:34 BP 141 / 86; Pulse 87; Resp 16; Temp 97.2; Pulse Ox 100% on R/A; Weight 113.4 kg; la1 Height 5 ft. 6 in. (167.64 cm); 23:30 BP 134 / 90; Pulse 95; Resp 15 S; Pulse Ox 99% on R/A; cc3 05/31 00:08 BP 136 / 65; Pulse 91; Resp 16 S; Pulse Ox 99% on R/A; cc3 00:45 BP 130 / 67; Pulse 89; Resp 15 S; Pulse Ox 99% on R/A; Pain 0/10; cc3 05/30 22:34 Body Mass Index 40.35 (113.40 kg, 167.64 cm) la1 ED Course: 05/30 22:31 Patient arrived in ED. es 22:32 Cammy Taveras MD is Private Physician. es 22:33 Triage completed. la1 22:34 Arm band placed on right wrist. la1 22:40 Lucia Sarah FNP-C is PHCP. snw 22:40 Antonio Sunshine MD is Attending Physician. snw 22:49 Chiquis Benoit is Primary Nurse. cc3 22:49 Patient has correct armband on for positive identification. Placed in gown. Bed in low cc3 position. Call light in reach. Side rails up X 1. Pulse ox on. NIBP on. 23:04 Inserted saline lock: 18 gauge in right antecubital area, using aseptic technique. cc3 Blood collected. inserted by emergency medical technician Leora. 23:32 Transvaginal Ob In Process Unspecified. EDMD 05/31 00:41 Negro Knott MD is Referral Physician. snw 00:50 No provider procedures requiring assistance completed. IV discontinued, intact, cc3 bleeding controlled, No redness/swelling at site. Pressure dressing applied. Administered Medications: No medications were administered Outcome: 00:41 Discharge ordered by . snw 00:50 Discharged to home ambulatory, with friend. cc3 00:50 Condition: stable 00:50 Discharge instructions given to patient, Instructed on discharge instructions, follow up and referral plans. medication usage, Demonstrated understanding of instructions, follow-up care, medications, Prescriptions given X 1. 00:53 Patient left the ED. cc3 Signatures: Dispatcher [employer] [facility] Lucia Sarah FNP-C MAIL DISTRIBUTION CLERK-Csnw Brenda Floyd Lee, RN RN la1 Chiquis Benoit cc3
--- NOTE | 2019-05-31 00:42 | EDPHYS ---
Physician Documentation [facility] Name: Kaela Gonzales Age: 23 yrs Sex: Female : 1995 Arrival Date: 05/30/2019 Time: 22:31 Bed 20 Private MD: Cammy Taveras L ED Physician Antonio Sunshine HPI: 05/30 23:29 This 23 yrs old Female presents to ER via Ambulatory with complaints of Fever, snw Nausea, Abdominal Cramping, LMP 03/24/19. 23:37 The patient presents with a desire for a test, abdominal cramping. Onset: The snw symptoms/episode began/occurred gradually. Modifying factors: The symptoms are alleviated by nothing. Associated signs and symptoms: Pertinent positives: no menses x 2 months. Severity of symptoms: At their worst the symptoms were very mild. The patient is sexually active. The patient has not experienced similar symptoms in the past. The patient has not recently seen a physician. 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 - Social history:: Smoking status: Patient/guardian denies using tobacco. - Ebola Screening: : No symptoms or risks identified at this time. ROS: 23:28 Constitutional: Negative for fever, chills, and weight loss, Eyes: Negative for injury, snw pain, redness, and discharge, ENT: Negative for injury, pain, and discharge, Neck: Negative for injury, pain, and swelling, Cardiovascular: Negative for chest pain, palpitations, and edema, Respiratory: Negative for shortness of breath, cough, wheezing, and pleuritic chest pain, Abdomen/GI: Positive for abdominal pain, nausea, denies vomiting, diarrhea, and constipation, Back: Negative for injury and pain, : Negative for injury, bleeding, discharge, and swelling, No menses since 04/02 MS/Extremity: Negative for injury and deformity, Skin: Negative for injury, rash, and discoloration, Neuro: Negative for headache, weakness, numbness, tingling, and seizure, Psych: Negative for depression, anxiety, suicide ideation, homicidal ideation, and hallucinations. Exam: 23:27 Constitutional: This is a well developed, well nourished patient who is awake, alert, snw and in no acute distress. Head/Face: Normocephalic, atraumatic. Eyes: Pupils equal round and reactive to light, extra-ocular motions intact. Lids and lashes normal. Conjunctiva and sclera are non-icteric and not injected. Cornea within normal limits. Periorbital areas with no swelling, redness, or edema. ENT: Nares patent. No nasal discharge, no septal abnormalities noted. Tympanic membranes are normal and external auditory canals are clear. Oropharynx with no redness, swelling, or masses, exudates, or evidence of obstruction, uvula midline. Mucous membranes moist. Neck: Trachea midline, no thyromegaly or masses palpated, and no cervical lymphadenopathy. Supple, full range of motion without nuchal rigidity, or vertebral point tenderness. No Meningismus. Chest/axilla: Normal chest wall appearance and motion. Nontender with no deformity. No lesions are appreciated. Cardiovascular: Regular rate and rhythm with a normal S1 and S2. No gallops, murmurs, or rubs. Normal PMI, no JVD. No pulse deficits. Respiratory: Lungs have equal breath sounds bilaterally, clear to auscultation and percussion. No rales, rhonchi or wheezes noted. No increased work of breathing, no retractions or nasal flaring. Abdomen/GI: Soft, non-tender, with normal bowel sounds. No distension or tympany. No guarding or rebound. No evidence of tenderness throughout. Back: No spinal tenderness. No costovertebral tenderness. Full range of motion. Skin: Warm, dry with normal turgor. Normal color with no rashes, no lesions, and no evidence of cellulitis. MS/ Extremity: Pulses equal, no cyanosis. Neurovascular intact. Full, normal range of motion. Neuro: Awake and alert, GCS 15, oriented to person, place, time, and situation. Cranial nerves II-XII grossly intact. Motor strength 5/5 in all extremities. Sensory grossly intact. Cerebellar exam normal. Normal gait. Psych: Awake, alert, with orientation to person, place and time. Behavior, mood, and affect are within normal limits. Vital Signs: 22:34 BP 141 / 86; Pulse 87; Resp 16; Temp 97.2; Pulse Ox 100% on R/A; Weight 113.4 kg; la1 Height 5 ft. 6 in. (167.64 cm); 23:30 BP 134 / 90; Pulse 95; Resp 15 S; Pulse Ox 99% on R/A; cc3 05/31 00:08 BP 136 / 65; Pulse 91; Resp 16 S; Pulse Ox 99% on R/A; cc3 00:45 BP 130 / 67; Pulse 89; Resp 15 S; Pulse Ox 99% on R/A; Pain 0/10; cc3 05/30 22:34 Body Mass Index 40.35 (113.40 kg, 167.64 cm) la1 MDM: 05/30 22:42 Patient medically screened. snw 05/31 00:45 Data reviewed: vital signs, nurses notes. Data interpreted: Pulse oximetry: on room air snw is 99 %. Interpretation: normal. Counseling: I had a detailed discussion with the patient and/or guardian regarding: the historical points, exam findings, and any diagnostic results supporting the discharge/admit diagnosis, lab results, radiology results, the need for outpatient follow up, to return to the emergency department if symptoms worsen or persist or if there are any questions or concerns that arise at home. Special discussion: Based on the history and exam findings, there is no indication for further emergent testing or inpatient evaluation. I discussed with the patient/guardian the need to see the OB Gyne specialist for further evaluation of the symptoms. I discussed with the patient/guardian the need to see the primary care provider for further evaluation of the symptoms. 05/30 22:41 Order name: Urine Culture snw 05/30 22:41 Order name: Urine Microscopic Only; Complete Time: 23:38 snw 05/30 22:51 Order name: Quantitative Hcg; Complete Time: 23:38 snw 05/30 22:51 Order name: Abo/rh Typing; Complete Time: 00:40 snw 05/30 22:51 Order name: Basic Metabolic Panel; Complete Time: 23:38 snw 05/30 22:51 Order name: CBC with Diff; Complete Time: 23:25 snw 05/30 22:41 Order name: Urine Test (obtain specimen); Complete Time: 22:50 snw 05/30 22:41 Order name: Urine Dipstick-Ancillary (obtain specimen); Complete Time: 22:51 snw 05/30 22:51 Order name: US Transvaginal Ob snw 05/30 22:51 Order name: IV Saline Lock; Complete Time: 23:22 snw 05/30 22:51 Order name: Labs collected and sent; Complete Time: 23:22 snw 05/30 22:51 Order name: NPO; Complete Time: 22:53 snw 05/30 22:56 Order name: Urine Dipstick--Ancillary (enter results); Complete Time: 23:23 mw2 05/30 22:56 Order name: Urine --Ancillary (enter results); Complete Time: 23:23 mw2 Administered Medications: No medications were administered Disposition: : Co-signature as Attending Physician, Antonio Sunshine MD. rn Disposition: 05/31/19 00:41 Discharged to Home. Impression: state. - Condition is Stable. - Discharge Instructions: Abdominal Pain During , First Trimester of . - Prescriptions for Vitamin 27- 0.8 mg Oral Tablet - take 1 tablet by ORAL route once daily; 60 tablet. - Medication Reconciliation Form, Thank You Letter, Antibiotic Education, Prescription Opioid Use form. - Follow up: Negro Knott; When: 2 - 3 days; Reason: Recheck today's complaints, Continuance of care. Signatures: Dispatcher [employer] [facility] Lucia Sarah, TIM-C CRIME SCENE EXAMINER-Csnw Antonio Sunshine MD MD rn Attema, Lee, RN RN la1 Chiquis Benoit cc3 Corrections: (The following items were deleted from the chart) 00:53 00:41 05/31/2019 00:41 Discharged to Home. Impression: state. Condition is cc3 Stable. Discharge Instructions: Abdominal Pain During , First Trimester of . Prescriptions for Vitamin 27-0.8 mg Oral Tablet - take 1 tablet by ORAL route once daily; 60 tablet. and Forms are Medication Reconciliation Form, Thank You Letter, Antibiotic Education, Prescription Opioid Use. Follow up: Negro Knott; When: 2 - 3 days; Reason: Recheck today's complaints, Continuance of care. snw
[2019-05-31 00:59] VITALS: TEMP 97.2
[2019-05-31 01:01] VITALS: O2SAT 99
[2019-05-31 01:02] VITALS: BP 136/65
--- NOTE | 2019-05-31 08:00 | RAD REPORT ---
EXAM DESCRIPTION: US - Transvaginal OB - 05/30/2019 11:32 pm CLINICAL HISTORY: Abdominal pain, pelvic pain, positive test, beta HCG not available COMPARISON: None. FINDINGS: Thickened endometrium at 1.8 cm noted. No gestational sac or sac remnant identified. No he matoma or other endometrial abnormality. No myometrial mass. No blood or fluid in the cul de sac. Both ovaries are identifiable. Normal blood flow seen in the ovarian stroma on Doppler evaluation. A 2.3 centimeter left ovarian cyst is identified. No suspicious adnexal mass. Nabothian cyst is seen. IMPRESSION: Thickened 18 millimeter endometrium with no gestational sac, sac remnant or hematoma. No suspicious adnexal finding to suspect ectopic
== END 2019-05-31 00:53 | disposition home or self-care (01) ==
LOC: ER 22:28
DX: O26.891 Other specified pregnancy related conditions, first trimester (principal)
CPT/HCPCS: 36415; 76817; 80048; 81003; 81015; 81025; 84702; 85025; 86900; 86901; 87086; 87088; 99284

== ENCOUNTER 2019-08-18 20:42 | Emergency (ER) | payer OTHER ==
[2019-08-18 21:56] LABS: Urine Blood NEGATIVE (NEG); Urine Glucose NEGATIVE (NEG); Urine Protein TRACE (NEG); Urine Specific Gravity 1.025 (1.005-1.030)
[2019-08-18 22:09] LABS: Urine Bacteria 20-50 /HPF (<20); Urine RBC NONE SEEN /HPF (NONE SEEN)
[2019-08-18 22:10] LABS: Urine Amorphous Sediment 2+ /HPF (NONE SEEN); Urine Culture Reflex Order REFLEXED
[2019-08-18 22:16] LABS: Absolute Lymphocytes (CBC) 1.9 K/uL (0.7-4.9); Basophils % 0.3 % (0-1.3); Hematocrit 35.8 % (36.0-45.0); Lymphocytes % 16.3 % (15.3-44.8); MPV 7.9 fL (7.6-11.3); RBC Red Blood Cell Count 3.89 M/uL (3.86-4.86)
[2019-08-18] MEDS ORDERED: FAMOTIDINE 20 MG/2 ML VIAL IV ONE (22:17)
[2019-08-18] MEDS ORDERED: ONDANSETRON 4 MG/2 ML VIAL ONE (22:17)
[2019-08-18 22:36] LABS: ALT/SGPT 23 U/L (12-78); AST/SGOT 11 U/L (15-37); Albumin 3.1 g/dL (3.4-5.0); Alkaline Phosphatase 78 U/L (45-117); BUN Blood Urea Nitrogen 5 mg/dL (7-18); Bicarbonate 26 mmol/L (21-32); Bilirubin Direct 0.1 mg/dL (0-0.2); Bilirubin Total 0.2 mg/dL (0.2-1.0); Glucose Level 96 mg/dL (74-106); Lipase 35 U/L (73-393); Potassium 3.5 mmol/L (3.5-5.1); Protein, Total 7.8 g/dL (6.4-8.2); Sodium Level 138 mmol/L (136-145)
[2019-08-18] MEDS ORDERED: ACETAMINOPHEN 325 MG TABLET ONE (23:38)
--- NOTE | 2019-08-19 00:23 | ER ---
Nurse's Notes [facility] Name: Kaela Gonzales Age: 23 yrs Sex: Female : 1995 Arrival Date: 08/18/2019 Time: 20:44 Bed 6 Private MD: Diagnosis: Cholelithiasis; related conditions, unspecified, second trimester Presentation: 08/18 21:00 Presenting complaint: Patient states: 16 weeks , epigastric pain that began ph today, also reports N/V x 1 this am, denies V/D or fever, states, " I can't eat anything because it hurts worse.". Transition of care: patient was not received from another setting of care. Onset of symptoms was August 18, 2019. Risk Assessment: Do you want to hurt yourself or someone else? Patient reports no desire to harm self or others. Initial Sepsis Screen: Does the patient meet any 2 criteria? No. Patient's initial sepsis screen is negative. Does the patient have a suspected source of infection? No. Patient's initial sepsis screen is negative. Care prior to arrival: None. 21:00 Method Of Arrival: Ambulatory ph 21:00 Acuity: ANNABELLE 3 ph COMPARISON SHOPPER: 21:00 Verified wh Historical: - Allergies: 21:03 No Known Allergies; ph - Home Meds: 21:03 Vitamin Oral [Active]; ph - PMHx: 21:03 GERD; ph - PSHx: 21:03 None; ph - Immunization history:: Adult Immunizations unknown. - Social history:: Smoking status: Patient/guardian denies using tobacco. - Ebola Screening: : Patient negative for fever greater than or equal to 101.5 degrees Fahrenheit, and additional compatible Ebola Virus Disease symptoms Patient denies exposure to infectious person. Screenin:35 Abuse screen: Denies threats or abuse. Denies injuries from another. Nutritional aa1 screening: No deficits noted. Tuberculosis screening: No symptoms or risk factors identified. Fall Risk None identified. Assessment: 21:35 General: Appears in no apparent distress. comfortable, Behavior is calm, cooperative, aa1 appropriate for age. Pain: Complains of pain in abdomen Pain began 1 day ago. Aggravated by eating, drinking. Neuro: Level of Consciousness is awake, alert, obeys commands, Oriented to person, place, time, situation, Moves all extremities. Full function Gait is steady. Respiratory: Airway is patent Respiratory effort is even, unlabored, Respiratory pattern is regular, symmetrical. GI: Abdomen is non-distended, Abd is soft and non tender X 4 quads. Reports nausea, vomiting. : No signs and/or symptoms were reported regarding the genitourinary system. EENT: No signs and/or symptoms were reported regarding the EENT system. Derm: Skin is intact, is healthy with good turgor, Skin is pink, warm \\T\\ dry. Musculoskeletal: Circulation, motion, and sensation intact. Capillary refill < 3 seconds, Range of motion: intact in all extremities. 22:00 GI: Bowel sounds present X 4 quads. wh 22:59 Reassessment: Patient appears in no apparent distress at this time. Patient and/or aa1 family updated on plan of care and expected duration. Pain level reassessed. Patient is alert, oriented x 3, equal unlabored respirations, skin warm/dry/pink. Awaiting u/s. 08/19 00:20 Reassessment: Patient appears in no apparent distress at this time. Patient and/or family updated on plan of care and expected duration. Pain level reassessed. Patient is alert, oriented x 3, equal unlabored respirations, skin warm/dry/pink. Patient states feeling better. Patient states symptoms have improved. 15:21 Reassessment: Macrobid called in to [facility] pharmacy per MELODIE Govea who has spoken ss to patient. Vital Signs: 08/18 21:02 BP 144 / 74; Pulse 98; Resp 18; Temp 97.8; Pulse Ox 98% on R/A; Weight 118.39 kg; ph Height 5 ft. 6 in. (167.64 cm); 21:50 BP 125 / 73; Pulse 98; Resp 18; Pulse Ox 100% on R/A; aa1 22:58 BP 108 / 80; Pulse 80; Resp 16; Pulse Ox 100% on R/A; Pain 0/10; aa1 08/19 00:33 BP 120 / 92; Pulse 89; Resp 18; Pulse Ox 100% on R/A; wh 08/18 21:02 Body Mass Index 42.13 (118.39 kg, 167.64 cm) ph ED Course: 08/18 20:44 Patient arrived in ED. cf2 21:00 Arm band placed on right wrist. 21:02 Triage completed. ph 21:30 Twyla Torres, RN is Primary Nurse. aa1 21:35 Patient has correct armband on for positive identification. Placed in gown. Bed in low aa1 position. Call light in reach. Pulse ox on. NIBP on. Warm blanket given. 21:45 Urine collected: clean catch specimen. aa1 21:47 Asa Salamanca PA is PHCP. cp 21:47 Juan Sauer MD is Attending Physician. cp 22:00 Inserted saline lock: 22 gauge in right antecubital area, using aseptic technique. Blood collected. 23:26 US Abdomen Limited: RUQ/epigastric area In Process Unspecified. EDMS 23:26 US OB Limited In Process Unspecified. [facility] 08/19 00:18 Roman Pittman MD is Referral Physician. cp 00:21 No provider procedures requiring assistance completed. IV discontinued, intact, bleeding controlled, No redness/swelling at site. Administered Medications: 08/18 22:19 Drug: Zofran 4 mg Route: IVP; Site: right antecubital; aa 08/19 00:33 Follow up: Response: No adverse reaction; Nausea is decreased 08/18 22:19 Drug: Pepcid 20 mg Route: IVP; Site: right antecubital; aa 08/19 00:33 Follow up: Response: No adverse reaction 08/18 23:36 Drug: Tylenol 650 mg Route: PO; 08/19 00:33 Follow up: Response: No adverse reaction; Pain is decreased Outcome: 00:19 Discharge ordered by . cp 00:25 Discharged to home ambulatory, with family. 00:25 Condition: stable 00:25 Discharge instructions given to patient, family, Instructed on discharge instructions, follow up and referral plans. medication usage, POC Demonstrated understanding of instructions, follow-up care, medications, POC Prescriptions given X 2. 00:34 Patient left the ED. Signatures: Dispatcher [employer] EDN[facility] Twyla Torres RN RN aa1 Merna Morrow RN RN Malina Martin RN RN Asa Salamanca PA PA Lydia Evans Catalan, Celesta cf2
--- NOTE | 2019-08-19 00:25 | EDPHYS ---
Physician Documentation [facility] Name: Kaela Gonzales Age: 23 yrs Sex: Female : 1995 Arrival Date: 08/18/2019 Time: 20:44 Bed 6 Private MD: ED Physician Juan Sauer HPI: 08/18 22:00 This 23 yrs old Female presents to ER via Ambulatory with complaints of cp Abdominal Pain, Decreased Appetite, Nausea, 16WKS . 22:00 The patient presents with abdominal pain in the upper abdomen. Onset: The cp symptoms/episode began/occurred today. 22:00 The symptoms do not radiate. cp 22:00 Associated signs and symptoms: Pertinent positives: nausea and vomiting, Pertinent cp negatives: constipation, diarrhea, fever, active vomiting. Modifying factors: the symptoms are aggravated by pressure. Severity of pain: in the emergency department the pain is unchanged despite home interventions. Patient reports she is approximately 16 weeks gestation and OB is DR Knott. Patient reports she has not had US yet. 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 - Social history:: Smoking status: Patient/guardian denies using tobacco. - Ebola Screening: : Patient negative for fever greater than or equal to 101.5 degrees Fahrenheit, and additional compatible Ebola Virus Disease symptoms Patient denies exposure to infectious person. ROS: 22:05 Constitutional: Negative for body aches, chills, fever, poor PO intake. cp 22:05 Eyes: Negative for injury, pain, redness, and discharge. cp 22:05 Cardiovascular: Negative for chest pain, palpitations. 22:05 Respiratory: Negative for cough, shortness of breath, wheezing. 22:05 Abdomen/GI: Positive for abdominal pain, nausea and vomiting, Negative for diarrhea, constipation, hematemesis. 22:05 Back: Negative for pain at rest, pain with movement, radiated pain. 22:05 : Negative for urinary symptoms, vaginal bleeding, vaginal discharge. 22:05 Skin: Negative for rash. 22:05 Neuro: Negative for altered mental status, headache, weakness. 22:05 All other systems are negative. Exam: 22:15 Constitutional: The patient appears in no acute distress, alert, awake, non-toxic, well cp developed, well nourished, obese. 22:15 Head/Face: Normocephalic, atraumatic. cp 22:15 Eyes: Periorbital structures: appear normal, Conjunctiva: normal, no exudate, no cp injection, Sclera: no appreciated abnormality, Lids and lashes: appear normal, bilaterally. 22:15 ENT: External ear(s): are unremarkable, Nose: is normal, Mouth: Lips: moist, Oral cp mucosa: pink and intact, moist, Posterior pharynx: is normal, airway is patent, no erythema, no exudate. 22:15 Chest/axilla: Inspection: normal, Palpation: is normal, no crepitus, no tenderness. 22:15 Cardiovascular: Rate: normal, Rhythm: regular, Edema: is not appreciated, JVD: is not appreciated. 22:15 Respiratory: the patient does not display signs of respiratory distress, Respirations: normal, no use of accessory muscles, no retractions, no splinting, no tachypnea, labored breathing, is not present, Breath sounds: are clear throughout, no decreased breath sounds, no stridor, no wheezing. 22:15 Abdomen/GI: Inspection: abdomen appears normal, Bowel sounds: active, all quadrants, Palpation: soft, in all quadrants, mild abdominal tenderness, in the epigastric area, right upper quadrant and left upper quadrant, rebound tenderness, is not appreciated, voluntary guarding, is not appreciated, involuntary guarding, is not appreciated. 22:15 Back: pain, is absent, ROM is normal. Vital Signs: 21:02 BP 144 / 74; Pulse 98; Resp 18; Temp 97.8; Pulse Ox 98% on R/A; Weight 118.39 kg; ph Height 5 ft. 6 in. (167.64 cm); 21:50 BP 125 / 73; Pulse 98; Resp 18; Pulse Ox 100% on R/A; aa1 22:58 BP 108 / 80; Pulse 80; Resp 16; Pulse Ox 100% on R/A; Pain 0/10; aa1 08/19 00:33 BP 120 / 92; Pulse 89; Resp 18; Pulse Ox 100% on R/A; wh 01/04 21:02 Body Mass Index 42.13 (118.39 kg, 167.64 cm) ph MDM: 08/18 21:54 Patient medically screened. cp 08/19 00:00 Differential diagnosis: cholecystitis, Cholelithiasis, pancreatitis, Peptic Ulcer cp Disease, Perf. Duodenal Ulcer, Perf. Gastric Ulcer, Ureterolithiasis, urinary tract infection. 00:18 Data reviewed: vital signs, nurses notes, lab test result(s), radiologic studies, cp ultrasound. 00:18 Response to treatment: the patient's symptoms have markedly improved after treatment, cp and as a result, I will discharge patient. 00:18 Counseling: I had a detailed discussion with the patient and/or guardian regarding: the cp historical points, exam findings, and any diagnostic results supporting the discharge/admit diagnosis, lab results, radiology results, the need for outpatient follow up, a general surgeon, to return to the emergency department if symptoms worsen or persist or if there are any questions or concerns that arise at home. 00:18 Special discussion: Based on the patient's Hx, exam, and Dx evaluation, there is no cp indication for emergent surgery or inpatient Tx. It is understood by the patient/guardian that if the Sx's persist or worsen they need to return immediately for re-evaluation. 15:20 ED course: Spoke with patient concerning urine results. RX for Macrobid 100 mg bid for cp 7 days will be called int [facility] in [place]. 08/18 21:45 Order name: Urine Microscopic Only; Complete Time: 22:42 cm6 08/18 22:42 Interpretation: Normal except: UWBC TNTC; UBACT 20-50. cp 08/18 21:51 Order name: Urine Dipstick--Ancillary (enter results); Complete Time: 22:42 cm6 08/18 22:43 Interpretation: Normal except: UESTR 1+. cp 08/18 21:51 Order name: Urine --Ancillary (enter results) [facility] 08/18 21:54 Order name: Basic Metabolic Panel; Complete Time: 22:42 cp 08/18 21:54 Order name: CBC with Diff; Complete Time: 22:42 cp 08/18 22:44 Interpretation: Normal except: WBC 11.7; HGB 11.9; HCT 35.8; SHAYAN% 78.2; NEUT A 9.2. 08/18 21:54 Order name: Creatinine for Radiology; Complete Time: 22:42 cp 08/18 21:54 Order name: Hepatic Function; Complete Time: 22:42 cp 08/18 22:44 Interpretation: Normal except: AST 11; ALB 3.1; GLOB 4.7; A/G 0.7. cp 08/18 21:54 Order name: Lipase; Complete Time: 22:42 cp 08/18 22:43 Interpretation: LIP 35; Reviewed. 08/18 21:57 Order name: Urine --Ancillary [facility] 08/18 22:16 Order name: Urine Culture EDKS 08/18 22:42 Order name: US Abdomen Limited: RUQ/epigastric area 08/18 22:42 Order name: US OB Limited 08/18 21:31 Order name: Urine Dipstick-Ancillary (obtain specimen); Complete Time: 21:49 aa 08/18 21:31 Order name: Urine Test (obtain specimen); Complete Time: 21:49 [facility] 08/18 21:54 Order name: IV Saline Lock; Complete Time: 22:09 08/18 21:54 Order name: Labs collected and sent; Complete Time: 22:09 cp Administered Medications: 08/18 22:19 Drug: Zofran 4 mg Route: IVP; Site: right antecubital; [facility] 08/19 00:33 Follow up: Response: No adverse reaction; Nausea is decreased 08/18 22:19 Drug: Pepcid 20 mg Route: IVP; Site: right antecubital; [facility] 08/19 00:33 Follow up: Response: No adverse reaction 08/18 23:36 Drug: Tylenol 650 mg Route: PO; 08/19 00:33 Follow up: Response: No adverse reaction; Pain is decreased Disposition: 07:02 Co-signature as Attending Physician, Juan Sauer MD Available for consultation at ps1 all times. Signing chart for administrative purposes. Not an endorsement of care. . Disposition: 08/19/19 00:19 Discharged to Home. Impression: Cholelithiasis, related conditions, unspecified, second trimester. - Condition is Stable. - Discharge Instructions: Abdominal Pain During , Biliary Colic, Adult, Cholelithiasis, Second Trimester of , [id number]. - Prescriptions for Pepcid 20 mg Oral Tablet - take 1 tablet by ORAL route every 12 hours for 10 days; 20 tablet. promethazine 25 mg Oral Tablet - take 1 tablet by ORAL route every 6 hours As needed; 20 tablet. - Medication Reconciliation Form, Thank You Letter, Antibiotic Education, Prescription Opioid Use form. - Follow up: Roman Pittman MD; When: 1 - 2 days; Reason: cholelithiasis. - Problem is new. - Symptoms have improved. Signatures: Dispatcher [employer] EDMS Twyla Torres RN RN aa1 Malina Martin RN RN ph Page, Asa, PA PA cp Lydia Evans Juan Sauer MD MD ps1 Corrections: (The following items were deleted from the chart) 08/18 22:44 22:43 Normal except: WBC 11.7; HGB 11.9; HCT 35.8. cp cp 08/19 00:20 00:19 08/19/2019 00:19 Discharged to Home. Impression: Cholelithiasis. Condition is cp Stable. Forms are Medication Reconciliation Form, Thank You Letter, Antibiotic Education, Prescription Opioid Use. Follow up: Roman Pittman; When: 1 - 2 days; Reason: cholelithiasis. Problem is new. Symptoms have improved. cp 00:34 00:20 08/19/2019 00:19 Discharged to Home. Impression: Cholelithiasis; wh related conditions, unspecified, second trimester. Condition is Stable. Discharge Instructions: Biliary Colic, Adult, Cholelithiasis, Abdominal Pain During , Second Trimester of , [id number]. Prescriptions for Pepcid 20 mg Oral Tablet - take 1 tablet by ORAL route every 12 hours for 10 days; 20 tablet, promethazine 25 mg Oral Tablet - take 1 tablet by ORAL route every 6 hours As needed; 20 tablet. and Forms are Medication Reconciliation Form, Thank You Letter, Antibiotic Education, Prescription Opioid Use. Follow up: Roman Pittman; When: 1 - 2 days; Reason: cholelithiasis. Problem is new. Symptoms have improved. cp
[2019-08-19 00:44] VITALS: TEMP 97.8
[2019-08-19 00:45] VITALS: O2SAT 100
[2019-08-19 00:49] VITALS: BP 120/92
--- NOTE | 2019-08-19 11:40 | RAD REPORT ---
EXAM DESCRIPTION: US - Abdomen Exam Limited - 08/18/2019 11:25 pm CLINICAL HISTORY: ABD PAIN COMPARISON: ABDOMINAL EXAM COMPLETE dated 10/31/2013 FINDINGS: The gallbladder demonstrates cholelithiasis is noted with a small gallstone seen in the ga llbladder neck. No pericholecystic fluid or gallbladder wall thickening. The common bile duct is norm al measuring 3 mm. The liver demonstrates no findings of intrahepatic biliary dilatation. IMPRESSION: Cholelithiasis.
--- NOTE | 2019-08-19 11:44 | RAD REPORT ---
EXAM DESCRIPTION: US - OB Limited - 08/18/2019 11:25 pm CLINICAL HISTORY: ABD PAIN age. COMPARISON: Transvaginal OB dated 05/30/2019 FINDINGS: A limited examination was requested by the ER provider. A single cephalic presenting gestation is identified. Heart rate normal. Placenta is posterior without evidence of placenta previa or abruption. Amniotic fluid is subjectivel y normal.
== END 2019-08-19 00:34 | disposition home or self-care (01) ==
LOC: ER 20:42
DX: O99.612 Diseases of the digestive system complicating pregnancy, second trimester (principal); Z3A.16 16 weeks gestation of pregnancy
CPT/HCPCS: 87088; 85025; 87086; 80048; 36415; 81025; 80076; 83690; 76705; 76815; 96375; 96374; 99284; J2405; 81003; 81015

== ENCOUNTER 2019-09-02 20:51 | Emergency (ER) | payer OTHER ==
[2019-09-02 21:20] LABS: Urine Blood NEGATIVE (NEG); Urine Glucose NEGATIVE (NEG); Urine Protein NEGATIVE (NEG); Urine Specific Gravity 1.015 (1.005-1.030); Urine pH 6.5 (5.0-7.0)
--- NOTE | 2019-09-02 21:52 | ER ---
Nurse's Notes [facility] Name: Kaela Gonzales Age: 24 yrs Sex: Female : 1995 Arrival Date: 09/02/2019 Time: 20:54 Bed 5 Private MD: Diagnosis: Vomiting; related conditions, unspecified, second trimester Presentation: 09/02 21:06 Presenting complaint: Patient states: she ate some semi-cooked chicken at about 1900 dm5 then has vomited x 3 and has abdominal pain pt is 18 weeks . Transition of care: patient was not received from another setting of care. Onset of symptoms was September 02, 2019. Risk Assessment: Do you want to hurt yourself or someone else? Patient reports no desire to harm self or others. Initial Sepsis Screen: Does the patient meet any 2 criteria? No. Patient's initial sepsis screen is negative. Does the patient have a suspected source of infection? No. Patient's initial sepsis screen is negative. Care prior to arrival: None. 21:06 Method Of Arrival: Ambulatory dm5 21:06 Acuity: ANNABELLE 3 dm5 Triage Assessment: 21:18 General: Appears in no apparent distress. Behavior is calm, cooperative. GI: Reports rv lower abdominal pain, upper abdominal pain. 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 - Social history:: Smoking status: Patient denies any tobacco usage or history of. - Ebola Screening: : No symptoms or risks identified at this time. - Family history:: not pertinent. Screenin:17 Abuse screen: Denies threats or abuse. Denies injuries from another. Nutritional rv screening: No deficits noted. Tuberculosis screening: No symptoms or risk factors identified. Fall Risk None identified. Assessment: 21:17 General: Appears in no apparent distress. comfortable. Pain: Complains of pain in rv abdomen. Neuro: Level of Consciousness is awake, alert, obeys commands, Oriented to person, place, time, situation. Cardiovascular: Patient's skin is warm and dry. Respiratory: Airway is patent. GI: Abdomen is round non-distended. Derm: Skin is intact. Vital Signs: 21:08 BP 132 / 76; Pulse 87; Resp 14 S; Temp 98.2(O); Pulse Ox 100% on R/A; Weight 118.39 kg dm5 (R); Height 5 ft. 5 in. (165.10 cm) (R); Pain 7/10; 22:17 BP 119 / 64; Pulse 84; Resp 18; Pulse Ox 100% on R/A; rv 21:08 Body Mass Index 43.43 (118.39 kg, 165.10 cm) dm5 Vitals: 22:17 Heart Tones 160s. rv ED Course: 20:54 Patient arrived in ED. cl3 21:07 Triage completed. dm5 21:08 Arm band placed on Patient placed in an exam room, on a stretcher, on pulse oximetry. dm5 21:09 Israel Daily, KIZZY is Primary Nurse. rv 21:17 Patient has correct armband on for positive identification. Pulse ox on. NIBP on. rv 21:21 Asa Lopes MD is Attending Physician. stephania 21:52 Negro Knott MD is Referral Physician. stephania 22:18 No provider procedures requiring assistance completed. Patient did not have IV access rv during this emergency room visit. Administered Medications: 22:09 Drug: Zofran 4 mg Route: PO; rv 22:18 Follow up: Response: Nausea is decreased rv Outcome: 21:51 Discharge ordered by . stephania 22:19 Discharged to home ambulatory, with friend. rv 22:19 Condition: good 22:19 Discharge instructions given to patient, Instructed on discharge instructions, follow up and referral plans. medication usage, Demonstrated understanding of instructions, follow-up care, medications, Prescriptions given X 3. 22:23 Patient left the ED. rv Signatures: Rylee Farrar RN RN [facility] Asa Lopes MD MD cha Vicente, Ronaldo, RN RN Gisell Jackson cl3
--- NOTE | 2019-09-02 21:52 | EDPHYS ---
Physician Documentation [facility] Name: Kaela Gonzales Age: 24 yrs Sex: Female : 1995 Arrival Date: 09/02/2019 Time: 20:54 Bed 5 Private MD: ED Physician Asa Lopes HPI: 09/02 21:48 This 24 yrs old Female presents to ER via Ambulatory with complaints of Other, stephania Vomiting, 18Weeks . 21:48 The patient presents to the emergency department with nausea, vomiting, that is stephania continuous. Onset: The symptoms/episode began/occurred just prior to arrival. Possible causes: bad food exposure, chicken. The symptoms are aggravated by nothing. The symptoms are alleviated by nothing. Associated signs and symptoms: The patient has no apparent associated signs or symptoms. Severity of symptoms: At their worst the symptoms were mild in the emergency department the symptoms are unchanged. The patient has not experienced similar symptoms in the past. 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 - Social history:: Smoking status: Patient denies any tobacco usage or history of. - Ebola Screening: : No symptoms or risks identified at this time. - Family history:: not pertinent. ROS: 21:48 Constitutional: Negative for fever, chills, and weight loss, Eyes: Negative for injury, stephania pain, redness, and discharge, ENT: Negative for injury, pain, and discharge, Neck: Negative for injury, pain, and swelling, Cardiovascular: Negative for chest pain, palpitations, and edema, Respiratory: Negative for shortness of breath, cough, wheezing, and pleuritic chest pain, Back: Negative for injury and pain, : Negative for injury, bleeding, discharge, and swelling, MS/Extremity: Negative for injury and deformity, Skin: Negative for injury, rash, and discoloration, Neuro: Negative for headache, weakness, numbness, tingling, and seizure, Psych: Negative for depression, anxiety, suicide ideation, homicidal ideation, and hallucinations, Allergy/Immunology: Negative for hives, rash, and allergies, Endocrine: Negative for neck swelling, polydipsia, polyuria, polyphagia, and marked weight changes, Hematologic/Lymphatic: Negative for swollen nodes, abnormal bleeding, and unusual bruising. 21:48 Abdomen/GI: Positive for nausea and vomiting. 21:50 : Negative for urinary symptoms, urinary frequency, pelvic pain, vaginal bleeding, no stephania ctx, vag bleeding, no lof. Exam: 21:48 Constitutional: This is a well developed, well nourished patient who is awake, alert, stephania and in no acute distress. Head/Face: Normocephalic, atraumatic. Eyes: Pupils equal round and reactive to light, extra-ocular motions intact. Lids and lashes normal. Conjunctiva and sclera are non-icteric and not injected. Cornea within normal limits. Periorbital areas with no swelling, redness, or edema. ENT: Nares patent. No nasal discharge, no septal abnormalities noted. Tympanic membranes are normal and external auditory canals are clear. Oropharynx with no redness, swelling, or masses, exudates, or evidence of obstruction, uvula midline. Mucous membranes moist. Neck: Trachea midline, no thyromegaly or masses palpated, and no cervical lymphadenopathy. Supple, full range of motion without nuchal rigidity, or vertebral point tenderness. No Meningismus. Chest/axilla: Normal chest wall appearance and motion. Nontender with no deformity. No lesions are appreciated. Cardiovascular: Regular rate and rhythm with a normal S1 and S2. No gallops, murmurs, or rubs. Normal PMI, no JVD. No pulse deficits. Respiratory: Lungs have equal breath sounds bilaterally, clear to auscultation and percussion. No rales, rhonchi or wheezes noted. No increased work of breathing, no retractions or nasal flaring. Back: No spinal tenderness. No costovertebral tenderness. Full range of motion. Female : Normal external genitalia. Skin: Warm, dry with normal turgor. Normal color with no rashes, no lesions, and no evidence of cellulitis. MS/ Extremity: Pulses equal, no cyanosis. Neurovascular intact. Full, normal range of motion. Neuro: Awake and alert, GCS 15, oriented to person, place, time, and situation. Cranial nerves II-XII grossly intact. Motor strength 5/5 in all extremities. Sensory grossly intact. Cerebellar exam normal. Normal gait. Psych: Awake, alert, with orientation to person, place and time. Behavior, mood, and affect are within normal limits. 21:48 Abdomen/GI: Inspection: abdomen appears normal, distension, gravid appearance, is noted, Bowel sounds: normal, Palpation: nontender, in all quadrants, Liver: no appreciated palpable abnormalities, Hernia: not appreciated. Vital Signs: 21:08 BP 132 / 76; Pulse 87; Resp 14 S; Temp 98.2(O); Pulse Ox 100% on R/A; Weight 118.39 kg dm5 (R); Height 5 ft. 5 in. (165.10 cm) (R); Pain 7/10; 22:17 BP 119 / 64; Pulse 84; Resp 18; Pulse Ox 100% on R/A; rv 21:08 Body Mass Index 43.43 (118.39 kg, 165.10 cm) dm5 MDM: 21:21 Patient medically screened. [facility] 21:50 Data reviewed: vital signs, nurses notes. [facility] 09/02 21:17 Order name: Urine Dipstick--Ancillary (enter results); Complete Time: 21:47 ne 09/02 21:17 Order name: Urine --Ancillary (enter results); Complete Time: 21:47 ne 09/02 21:47 Order name: FHT's; Complete Time: 22:18 [facility] Administered Medications: 22:09 Drug: Zofran 4 mg Route: PO; rv 22:18 Follow up: Response: Nausea is decreased rv Disposition: 09/02/19 21:51 Discharged to Home. Impression: Vomiting, related conditions, unspecified, second trimester. - Condition is Stable. - Discharge Instructions: Nausea and Vomiting, Adult, Nausea and Vomiting, Adult, [id number]. - Prescriptions for Diclegis 10- 10 mg Oral tablet,delayed release (DR/EC) - take 1 tablet by ORAL route 3 times per day and 2 tablets at bedtime; 60 tablet. Zofran 4 mg Oral Tablet - take 1 tablet by ORAL route every 12 hours As needed; 20 tablet. Vitamin 27- 0.8 mg Oral Tablet - take 1 tablet by ORAL route once daily; 30 tablet. - Medication Reconciliation Form, Thank You Letter, Antibiotic Education, Prescription Opioid Use form. - Follow up: Private Physician; When: 2 - 3 days; Reason: Recheck today's complaints, Continuance of care, Re-evaluation by your physician. Follow up: Negro Knott MD; When: 2 - 3 days; Reason: Recheck today's complaints, Continuance of care, Re-evaluation by your physician. - Problem is new. - Symptoms have improved. Signatures: Dispatcher [employer] EDMS Rylee Farrar, RN RN dmAsa Ortiz MD MD cha Vicente, Ronaldo RN RN rv Corrections: (The following items were deleted from the chart) 21:52 21:51 09/02/2019 21:51 Discharged to Home. Impression: Vomiting; related stephania conditions, unspecified, second trimester. Condition is Stable. Forms are Medication Reconciliation Form, Thank You Letter, Antibiotic Education, Prescription Opioid Use. Follow up: Private Physician; When: 2 - 3 days; Reason: Recheck today's complaints, Continuance of care, Re-evaluation by your physician. Problem is new. Symptoms have improved. stephania 22:23 21:52 09/02/2019 21:51 Discharged to Home. Impression: Vomiting; related rv conditions, unspecified, second trimester. Condition is Stable. Forms are Medication Reconciliation Form, Thank You Letter, Antibiotic Education, Prescription Opioid Use. Follow up: Private Physician; When: 2 - 3 days; Reason: Recheck today's complaints, Continuance of care, Re-evaluation by your physician. Follow up: Negro Knott; When: 2 - 3 days; Reason: Recheck today's complaints, Continuance of care, Re-evaluation by your physician. Problem is new. Symptoms have improved. stephania
[2019-09-02] MEDS ORDERED: ONDANSETRON 4 MG (ODT) TAB ONE (22:07)
[2019-09-02 23:57] VITALS: BP 119/64; O2SAT 100
== END 2019-09-02 22:23 | disposition home or self-care (01) ==
LOC: ER 20:51
DX: O26.892 Other specified pregnancy related conditions, second trimester (principal)
CPT/HCPCS: 81003; 81025; 99284

== ENCOUNTER 2020-01-27 19:32 | Inpatient (IN) | payer OTHER ==
[2020-01-27] MEDS ORDERED: BUTORPHANOL 1 MG/ML INJ IV PRN (19:48)
[2020-01-27] MEDS ORDERED: CARBOPROST TROME 250 MCG/ML IM PRN (19:48)
[2020-01-27] MEDS ORDERED: PROMETHAZINE INJ 25 MG/ML AMP IM PRN (19:48)
[2020-01-27] MEDS ORDERED: Ringers Lactate 1,000 ML IV PRN (19:48)
[2020-01-27] MEDS ORDERED: METHYLERGONOVINE 0.2MG/ML AMP IM PRN (19:48)
[2020-01-27] MEDS ORDERED: Ringers Lactate 1,000 ML IV SCH (20:00)
[2020-01-27] MEDS ORDERED: OXYTOCIN/LR 20 UNIT/1,000 ML BAG IV SCH (20:00)
[2020-01-27 20:27] VITALS: BMI 42.3
[2020-01-27 20:43] LABS: Absolute Lymphocytes (CBC) 1.4 K/uL (0.7-4.9); Basophils % 0.3 % (0-1.3); Hematocrit 32.5 % (36.0-45.0); Lymphocytes % 12.2 % (15.3-44.8); MPV 7.7 fL (7.6-11.3)
[2020-01-28] MEDS ORDERED: ROPIVACAINE HCL 100 ML IV PRN (05:28)
[2020-01-28] MEDS ORDERED: FENTANYL CITR 100 MCG/2 ML IV ONE (05:28)
[2020-01-28] MEDS ORDERED: ROPIVACAINE HCL 0.2% 20ML AMP SQ ONE (05:30)
[2020-01-28] MEDS ORDERED: ROPIVACAINE HCL 100 ML IV ONE (06:22)
--- NOTE | 2020-01-28 07:43 | PREOPHP ---
Date of Admission: 01/27/2020 24-year-old primigravida, scheduled to be induced this morning. Came in last night with ruptured mem branes. During the night, received 2 doses of Stadol 1 mg and Phenergan 25 mg. Nurses reported that she was 4 cm and in a good station and wanted epidural. This was instituted. On my check this morn ing, patient is 3.5 and the baby is -2 to -3 station. She has been started on light Pitocin. Estima myriam weight I think is 8 pounds or less. If she makes no progress, we will get an ultrasound an d get estimated size. She is O positive. Rubella immune. Negative beta strep screen. Has a history of herpes, herpes-free interval. JIM/VÍCTOR Voice ID: [id number]
[2020-01-28] MEDS ORDERED: METHYLERGONOVINE 0.2MG/ML AMP IM ONE (08:41)
[2020-01-28] MEDS ORDERED: LIDOCAINE 1% MPF 30 ML VIAL ONE (08:41)
[2020-01-28] MEDS ORDERED: CARBOPROST TROME 250 MCG/ML IM ONE (08:41)
[2020-01-28] MEDS: CEFAZOLIN/SWI 2gm 2 GM/20 ML SYR IV ONE ×2 (09:32→09:45)
[2020-01-28] MEDS ORDERED: ACETAMINOPHEN 500 MG TAB PO PRN (09:49)
[2020-01-28] MEDS ORDERED: BISACODYL 10 MG RECTAL SUPP RC PRN (09:49)
[2020-01-28] MEDS ORDERED: DIPHENHYDRAMINE 25 MG TAB/CAP PO PRN (09:49)
[2020-01-28] MEDS ORDERED: Oxycodone HCl/Acetaminophen 1 TAB TAB PO PRN (09:49)
[2020-01-28] MEDS ORDERED: DOCUSATE NA/SENNA CONC 1 TAB PO PRN (09:49)
[2020-01-28] MEDS: DOCUSATE NA 100 MG CAP PO SCH ×2 (09:58→21:30)
[2020-01-28] MEDS ORDERED: OXYTOCIN/LR 20 UNIT/1,000 ML BAG IV SCH (10:00)
[2020-01-28] MEDS: Oxycodone HCl/Acetaminophen 1 TAB TAB PO PRN (12:47)
[2020-01-28] MEDS: IBUPROFEN 600 MG TAB PO PRN ×2 (15:31→21:30)
--- NOTE | 2020-01-28 21:22 | OP ---
Surgeon: Negro Knott MD History: A 24-year-old primigravida, at 38 weeks 6 days, had rupture of membranes, clear fluid, came into Labor and Delivery. Overnight, went into more active labor pattern. Received 2 mg Stadol 1 mg each time, 25 mg of Phenergan each time. When patient was reported to be 4 cm, she received epidura l anesthesia. On my exam, patient is 3-1/2, the baby was still -2 station at least. Started on Pitocin augmentatio n. The patient went to complete fairly rapidly, second stage of about 30 minutes. Spontaneous vagin al delivery of an estimated 7-pound male infant, Apgars 9 and 9. First degree laceration on the righ t side of the labia minora sutured with multiple stitches of 2-0 chromic, small hematoma at that poin t. Fourth degree midline laceration repaired with 3-0 chromic for the rectal mucosa, interrupted sti tches to reapproximate the sphincter muscle and then routine repair with 2-0 chromic. 2 g of Ancef o rdered for prophylaxis. Schultze delivery of the placenta prior to repair. Estimated blood loss 350 -400 mL. Baby had a nuchal cord very loosely. Final Diagnoses: Term intrauterine 39 weeks, vaginal delivery. Epidural anesthesia. Nuch al cord, fourth degree laceration and repair. Ancef for prophylaxis. JIM/VÍCTOR Voice ID: [id number] Report ID: [id number]
[2020-01-29 00:55] LABS: RPR (Rapid Plasma Reagin) NON-REACT (NON-REACT)
[2020-01-29] MEDS: IBUPROFEN 600 MG TAB PO PRN (04:10)
[2020-01-29] MEDS: Oxycodone HCl/Acetaminophen 1 TAB TAB PO PRN (04:10)
[2020-01-29 07:38] VITALS: BP 100/59; TEMP 98
--- NOTE | 2020-01-29 08:01 | DS ---
Hospital Course: Kaela Gonzales, 24-year-old primigravida, 39 weeks at time of delivery, came in ear ly labor with spontaneous rupture of membranes, clear fluid at 38 weeks 6 days. Had epidural anesthe alex during the labor, delivered 7-pound male , Apgars 9 and 9. First degree laceration on the right side of the introitus. Upper portion of the labia minora, and a fourth degree midline lacerati on which was repaired with 3-0 and 2-0 chromic approximating ruptured mucosa and the sphincter muscle s and then routine repair. Schultze delivery of the placenta, which was inspected, and noted to be i ntact and normal. 400 cc estimated blood loss. Nuchal cord loosely at the time of delivery. Rh posi tive, immune to Rubella. Negative beta strep screen. ; afebrile, ambulating, and voiding. Lochia is normal. The patient will be dismissed later today to report back to my office in 6 weeks for followup, to report any temperature elevation of 100 degrees or greater, severe pain, heavy blee ding, or any other type of abnormalities at her request. Dismissed with tramadol, she knows this ten ds to cause constipation and she is to take them judiciously, only given 15 tablets. Also dismissed w ith Colace to be taken twice a day for the next 3-4 weeks. She knows it is important to have good pe rineal hygiene and to take the Colace. Fourth degree will repair properly. She has had her Tdap imm unization during the . She has no post epidural problems. Final Diagnoses: Term intrauterine at 39 weeks. Vaginal delivery. Nuchal cord loosely. Fourth degree perineal laceration. JIM/VÍCTOR Voice ID: [id number] Report ID: [id number]
[2020-01-29] MEDS: DOCUSATE NA 100 MG CAP PO SCH (09:00)
[2020-01-31 03:28] LABS: HBsAG Nonreactive (Nonreactive)
== END 2020-01-29 11:00 | disposition home or self-care (01) | DRG 768 ==
LOC: 2ND-WC 19:32
PROVIDERS: ADMIT Specialist; ATTEND Specialist
PROC: 0DQP0ZZ Repair Rectum, Open Approach (ICD-10-PCS; principal; 2020-01-28)
PROC: 10E0XZZ Delivery of Products of Conception, External Approach (ICD-10-PCS; 2020-01-28)
PROC: 3E033VJ Introduction of Other Hormone into Peripheral Vein, Percutaneous Approach (ICD-10-PCS; 2020-01-28)
DX: O70.3 Fourth degree perineal laceration during delivery (principal); Z37.0 Single live birth; O98.32 Other infections with a predominantly sexual mode of transmission complicating childbirth; A60.09 Herpesviral infection of other urogenital tract; Z3A.39 39 weeks gestation of pregnancy
CPT/HCPCS: 36415; 85025; 86592; 86901; 87340; J0595; J0690; J2210; J2550; J2590; J2795; J3010; J7120

== ENCOUNTER 2020-07-07 03:28 | Emergency (ER) | payer OTHER ==
--- OUTSIDE RECORDS SUMMARY | 2020-07-07 03:30 | XMS REPORT | Summary of Care ---
:1995 Author Organization [facility] Address [address] [place] [address] Care Team Providers Name Role Phone Pcp, Patient Does Not Have A Primary Care Provider +1-000-00 0-0000 Reason for Visit Reason Comments New Evaluation vaginal/pelvic pain Encounter Details Date Type Department Care Team Description 05/16/2020 Office Visit [facility] Marcelino-Syd, Incontinence of GASTROENTEROLOGY -[facility] , ANP feces, unspecified [facility] [address] fecal incontinence 2240 [facility] So [facility] type (Primary Dx) [place], [place] [address] [address] [place], [place] [phone] [address] [phone] Allergies No Known Allergiesdocumented as of this encounter (statuses as of 05/16/2020) Medications No known medicationsdocumented as of this encounter (statuses as of 05/16/2020) Active Problems No known active problemsdocumented as of this encounter (statuses as of 05/16/2020) Social History Tobacco Use Types Packs/Day Years Used Date Never Smoker Smokeless Tobacco: Never Used Sex Assigned at Date Recorded Not on file COVID-19 Exposure Response Date Recorded In the last month, have you been in contact with No / Unsure 05/16/2020 1:36 PM CDT someone who was confirmed or suspected to have Coronavirus / COVID-19? documented as of this encounter Last Filed Vital Signs Vital Sign Reading Time Taken Comments Blood Pressure 122/85 05/16/2020 1:56 PM CDT Pulse 99 05/16/2020 1:56 PM CDT Temperature 37.5 C (99.5 F) 05/16/2020 1:56 PM CDT Respiratory Rate - - Oxygen Saturation - - Inhaled Oxygen Concentration - - Weight 107 kg (236 lb) 05/16/2020 1:56 PM CDT Height 167.6 cm (5' 6") 05/16/2020 1:56 PM CDT Body Mass Index 38.09 05/16/2020 1:56 PM CDT documented in this encounter Progress Notes Arely Alexis LVN - 05/16/2020 1:30 PM CDT Anal Ultrasound ordered. To be scheduled @ [facility] endoscopy unit. Patient to be contacted with arrival time by [facility]. Verbal and printed prep instructions given. List of medications to avoid prior to procedure explained. Patient verbalized understanding. Facility location and telephone provided. Written consent has been obtained from patient by nurse practioner. 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 Oden History of Present Illness: Kaela Gonzales is a 24 year old female presents in the clinic for anal US recommended by Dr. Oden for SP recent vaginal delivery complicated with 4th degree laceration, primary repaired attempted outside [facility]. She developed incontinence after tear. About 4 months ago, patient had laceration during delivery of her baby after which her doctor sutured the laceration. Subsequently, she started to have intermittent fecal incontinence and states that she has no sensation of needing to have a BM; occurs at most 1-2 times per week. She denies rectal bleeding or black/tarry stools. She denies abd or rectal pain. She was seen by Dr. Oden and she was noted to have a decreased anal tone; no fistula observed. She denies n/v, reflux or problems swallowing. She denies fever, chills, NS or UWL. Past Medical History: No past medical history on file. Past Surgical History: She has no past surgical history on file. Social History: Her reports that she has never smoked. She has never used smokeless tobacco., , Family History: She family history is not on file. Allergies: has No Known Allergies. Medications: Scheduled Medications: No current outpatient medications on file. No current facility-administered medications for this visit. Review of Systems: General: No recent fever or chills, no recent weight loss nor weight gain HEENT: No visual disturbances, hearing loss, tinnitus, nor vertigo CVS: No chest pain, palpitations, orthopnea, nor PND Resp: No dyspnea, asthma, chronic cough, nor hemoptysis GI: SEE HPI : No dysuria, hematuria, nor nocturia Musculoskeletal: No joint swelling, joint pain, cramping nor weakness Derm: No rash, suspicious skin lesions, skin cancer nor skin ulcers Neuro: No seizures, nor stroke Endo: No diabetes nor thyroid disease Heme: No abnormal bruising or bleeding Allergy: No urticaria, allergic rash, nor recurrent infections Psych: No depression, anxiety, nor mood swings Physical Exam: BP: ()/() Arterial Line BP: ()/() Arterial Line 2 BP: ()/() @LASTSAO2(3)@ General: Alert, awake, calm, in no acute respiratory distress Skin: no vascular spiders, no jaundice, no vitiligo, no rash, no excoriations Head: normocephalic, atraumatic, no wasting of temporalis or masseter musculature Mouth/Throat: no bleeding from mucous membranes, no oropharyngeal ulcers Neck: supple, midline trachea, no thyromegaly, no jugular venous distension, no carotid bruits Lymph Nodes: no palpable cervical, supraclavicular, axillary, or inguinal lymphadenopathy Chest: no spinal or renal angle tenderness, no chest wall abnormality, no kyphosis or scoliosis Lungs: clear to percussion and auscultation Heart: regular rate and rhythm, normal S1 and S2, no murmur, gallop or rub Abdomen: soft, nondistended, nontender, no palpable liver or spleen, no ascites, no bruit, normal bowel sounds Musculoskeletal: no muscle tenderness or masses Extremities: no cyanosis, clubbing, edema, palmar rubor, or Dupuytren contracture Pulses: intact in upper extremities, intact in lower extremities Neurological: no asterixis or tremor Psychiatric: oriented to place, time, and person, normal affect. Labs: @CBC@ No results found for: WBC, RBC, PLT, HGB, HCT CMP No results found for: NA, K, CA, CL, BUN, CREAT, GLU, TCO2, ALB, TPRO, BILIT, BILIUNCON, BILICONJ, ALT, AST, ALKPHOS Assessment and Plan: Kaela Gonzales is a 24 year old female presents in the clinic for anal US recommended by Dr. Oden for SP recent vaginal delivery complicated with 4th degree laceration, primary repaired attempted outside [facility]. She developed incontinence after tear. About 4 months ago, patient had laceration during delivery of her baby after which her doctor sutured the laceration. Subsequently, she started to have intermittent fecal incontinence and states that she has no sensation of needing to have a BM; occurs at most 1-2 times per week. She denies rectal bleeding or black/tarry stools. She denies abd or rectal pain. She was seen by Dr. Oden and she was noted to have a decreased anal tone; no fistula observed. Obstetric tear Fecal incontinence -Will plan anal US with Dr. Coates and then patient is to f/u with Dr. Oden -Prep will be the same as with Flex sig (enemas) and instructions given to patient -Consent obtained F/U after the procedure Signed: Hanh Sabillon DNP-C Department of Internal Medicine - Gastroenterology and Hepatology documented in this encounter Plan of Treatment Date Type Specialty Care Team Description 06/20/2020 Office Visit Gastroenterology Hanh Sabillon ANP [address] [facility] [address] [place] [address] [phone] Health Maintenance Due Date Last Done Comments VARICELLA VACCINES (1 of 2 - 2-dose 1998 childhood series) MENINGOCOCCAL B VACCINES (1 of 2 - 2007 Risk Bexsero 2-dose series) HPV VACCINES (1 - 2-dose series) 2008 Depression Screening 2009 CHLAMYDIA SCREENING 2013 DTaP,Tdap,and Td Vaccines (1 - 2016 Tdap) PAP SMEAR 2018 INFLUENZA VACCINE (#1) 2020 MENINGOCOCCAL VACCINE Aged Out No longer eligible based on patient's age to complete this topic PNEUMOCOCCAL 0-64 YEARS COMBINED Aged Out No longer eligible based on SERIES patient's age to complete this topic documented as of this encounter Results Not on filedocumented in this encounter Visit Diagnoses Diagnosis Incontinence of feces, unspecified fecal incontinence type - Primary documented in this encounter Insurance Payer Benefit Plan / Subscriber ID Effective Phone Address T ype Group [facility] [id number] 2019-[address] Medic aid HEALTH CHOICE - [place] [id number] 1 MANAGED MEDICAID [place], [place] MEDICAID [id number] ([place]) [place] [address] documented as of this encounter
--- OUTSIDE RECORDS SUMMARY | 2020-07-07 03:30 | XMS REPORT | Summary of Care ---
:1995 Author Organization [facility] - [address] [address] Care Team Providers Name Role Phone Pcp, Patient Does Not Have A Primary Care Provider +1-000-00 0-0000 Reason for Visit Reason Comments FECAL INCONTINENCE (Routine) Status Reason Specialty Diagnoses / Referred By Referred To Procedures Contact Contact Closed OG-FEMALE PELVIC Diagnoses New pt/ 4 degree laceration with fistula/ Chronic rectocele Negro Velasquez Gokhan, MEDICINE AND Procedures CONSULT/REFERRAL UROGYN NEW GYNECOLOGY PROBLEM B MD RECONSTRUCTIVE SURGERY [address] / Obstetrics & SELMA A [id number] [place] [address] Phone: Fax: Encounter Details Date Type Department Care Team Description 04/22/2020 Office Visit [facility] Pelvic Sivakumar Oden, Jaye nence of feces, [facility]- [facility] unspecified fecal [address] incontinence type 2240 [facility] [id number] (Primary Dx) [place] [phone] Allergies No Known Allergiesdocumented as of this encounter (statuses as of 05/02/2020) Medications No known medicationsdocumented as of this encounter (statuses as of 05/02/2020) Active Problems No known active problemsdocumented as of this encounter (statuses as of 05/02/2020) Social History Tobacco Use Types Packs/Day Years Used Date Never Smoker Smokeless Tobacco: Never Used Sex Assigned at Date Recorded Not on file documented as of this encounter Last Filed Vital Signs Vital Sign Reading Time Taken Comments Blood Pressure 133/87 04/22/2020 2:18 PM CDT Pulse 71 04/22/2020 2:18 PM CDT Temperature - - Respiratory Rate 18 04/22/2020 2:18 PM CDT Oxygen Saturation 99% 04/22/2020 2:18 PM CDT Inhaled Oxygen Concentration - - Weight 109.8 kg (242 lb) 04/22/2020 2:18 PM CDT Height 167.6 cm (5' 6") 04/22/2020 2:18 PM CDT Body Mass Index 39.06 04/22/2020 2:18 PM CDT documented in this encounter Progress Notes Sivakumar Oden MD - 04/22/2020 2:00 PM CDT 05/02/2020 Visit Type: Clinic Note / History and Physical Primary M.D.: PATIENT DOES NOT HAVE A PCP Kaela Gonzales is a 24 year old female, No obstetric history on file.. Sp recent vaginal delivery complicated with 4th degree laceration, primary repaired attempted outside [facility] MEDICATIONS none HISTORY No Known Allergies Social History Tobacco Use Smoking status: Never Smoker Smokeless tobacco: Never Used Substance Use Topics Alcohol use: Not on file Drug use: Not on file History reviewed. No pertinent family history. History reviewed. No pertinent past medical history. History reviewed. No pertinent surgical history. Review of Systems Constitutional: Negative. HENT: Negative. Eyes: Negative. Respiratory: Negative. Breasts: Negative. Cardiovascular: Negative. Gastrointestinal: Positive for abdominal pain and constipation. Anal incontinence Genitourinary: Positive for vaginal pain and pelvic pain. Negative for bladder incontinence, dysuria, urgency, frequency, hematuria, flank pain, vaginal bleeding, enuresis, difficulty urinating, genital sores, menstrual problem and nocturia. Musculoskeletal: Negative. Skin: Negative. Neurological: Negative. Psychiatric/Behavioral: Negative. Endocrine: Endocrine negative Physical Exam Vitals reviewed. Constitutional: She is oriented to person, place, and time. She appears well-developed. Neck: No mass. Cardiovascular: Regular rate and rhythm. Pulmonary/Chest: Normal inspiratory effort. Abdominal: Abdomen is soft. Neuro/Psychiatric: She has a normal mood and affect. She is oriented to person, place, and time. Skin: Skin normal. Lymphadenopathy: No inguinal adenopathy present. Rectal: Anal tone tone not intact Between 10 to 2 O Clock Pb 1 cm No fistula observed POP-Q EXAM Not Done ASSESSMENT/PLAN Total time of visit: 60 minutes I spent greater than 50% of the visit counseling and coordinating with the patient regarding Sp 4 th degree. Anal US requested from GI . RTC afterward to finilize the treatment Lucinda Elliott MA - 04/22/2020 2:00 PM CDTExamination chaperoned by Lucinda Elliott MA. documented in this encounter Plan of Treatment Health Maintenance Due Date Last Done Comments [...] Payer Benefit Plan / Subscriber ID Effective Dates Phone Addre ss Type Group [facility] STAR [id number] 2020-Present Medicaid COMM PLAN - MANAGED MEDICAID ([place]) [place] [address] documented as of this encounter
--- OUTSIDE RECORDS SUMMARY | 2020-07-07 03:30 | XMS REPORT | Summary of Care ---
:1995 Author Organization [address] [address] Care Team Providers Name Role Phone Pcp, Patient Does Not Have A Primary Care Provider +1-000-00 0-0000 Reason for Referral (Routine) Status Reason Specialty Diagnoses / Referred By Referred To Procedures Contact Contact New Request Diagnoses Disruption of perineal wound, Sivakumar Oden MD Procedures ENDO-LOWER EUS [address] [place] [address] Reason for Visit Reason Comments Other Testing Encounter Details Date Type Department Care Team Description 04/24/2020 Case Management [facility] Pelvic Sivakumar Oden MD Other (Testing) [facility]- [address] [phone] Allergies No Known Allergiesdocumented as of this encounter (statuses as of 04/24/2020) Medications Not on filedocumented as of this encounter (statuses as of 04/24/2020) Active Problems Not on filedocumented as of this encounter (statuses as of 04/24/2020) Social History Tobacco Use Types Packs/Day Years Used Date Never Smoker Smokeless Tobacco: Never Used Sex Assigned at Date Recorded Not on file documented as of this encounter Last Filed Vital Signs Not on filedocumented in this encounter Progress Notes Deidre Schumacher RN - 04/24/2020 4:14 PM CDTLower EUS has been ordered per Dr. Oden. documented in this encounter Plan of Treatment Name Type Priority Associated Diagnoses Order S chedule ENDO-LOWER EUS PROCEDURES Routine Disruption of perineal wou nd, Ordered: 04/24/2020 Health Maintenance Due Date Last Done Comments [...] filedocumented in this encounter Visit Diagnoses Diagnosis Disruption of perineal wound, - Primary documented in this encounter Insurance Payer Benefit Plan / Subscriber ID Effective Dates Phone Addre ss Type Group [facility] STAR [id number] 2020-Present Medicaid COMM PLAN - MANAGED MEDICAID documented as of this encounter
--- OUTSIDE RECORDS SUMMARY | 2020-07-07 03:30 | XMS REPORT | Summary of Care ---
:1995 Author Organization [facility] - [address] [address] Care Team Providers Name Role Phone Pcp, [...] B MD RECONSTRUCTIVE SURGERY [address] / Obstetrics & SELMA A [id number] [place] [address] Phone: Fax: Encounter Details Date Type Department Care Team Description 04/22/2020 Office Visit [facility] Pelvic Sivakumar Oden, Jaye nence of feces, [facility] unspecified fecal [address] incontinence type 2240 [facility] [id number] (Primary Dx) [place] [phone] Allergies No Known Allergiesdocumented as of this [...] Effective Dates Phone Addre ss Type Group [facility] STAR [id number] 2020-Present Medicaid COMM PLAN - MANAGED MEDICAID ([place]) [place] [address] documented as of this encounter
--- OUTSIDE RECORDS SUMMARY | 2020-07-07 03:30 | XMS REPORT | Summary of Care ---
:1995 Author Organization [facility] Address [address] [place] [address] Care Team Providers Name Role Phone Pcp, Patient Does Not Have A Primary Care Provider +1-000-00 0-0000 Reason for Visit Reason Comments Rectal Problem Encounter Details Date Type Department Care Team Description 07/02/2020 Office Visit [facility] Marcelino-Syd, Incontinence of GASTROENTEROLOGY -[facility] Hanh , ANP feces, unspecified [place] [address] fecal incontinence 2240 [facility] So [facility] type (Primary Dx) [place], [place] [address] [address] [place], [place] [phone] [address] [phone] Allergies No Known Allergiesdocumented as of this encounter (statuses as of 07/02/2020) Medications No known medicationsdocumented as of this encounter (statuses as of 07/02/2020) Active Problems No known active problemsdocumented as of this encounter (statuses as of 07/02/2020) Social History Tobacco Use Types Packs/Day Years Used Date Never Smoker Smokeless Tobacco: Never Used Sex Assigned at Date Recorded Not on file COVID-19 Exposure Response Date Recorded In the last month, have you been in contact with No / Unsure 07/02/2020 1:52 PM FINANCIAL CENTER MANAGER someone who was confirmed or suspected to have Coronavirus / COVID-19? documented as of this encounter Last Filed Vital Signs Vital Sign Reading Time Taken Comments Blood Pressure 133/88 07/02/2020 1:58 PM FINANCIAL CENTER MANAGER Pulse 79 07/02/2020 1:58 PM FINANCIAL CENTER MANAGER Temperature 36.9 C (98.4 F) 07/02/2020 1:58 PM FINANCIAL CENTER MANAGER Respiratory Rate 18 07/02/2020 1:58 PM FINANCIAL CENTER MANAGER Oxygen Saturation 97% 07/02/2020 1:58 PM FINANCIAL CENTER MANAGER Inhaled Oxygen Concentration - - Weight 109.8 kg (242 lb) 07/02/2020 1:58 PM FINANCIAL CENTER MANAGER Height 167.6 cm (5' 6") 07/02/2020 1:58 PM FINANCIAL CENTER MANAGER Body Mass Index 39.06 07/02/2020 1:58 PM FINANCIAL CENTER MANAGER documented in this encounter Progress Notes Ridge, Hanh, ABDULLAHI - 07/02/2020 3:30 PM CST GI Clinic Note Date: 07/02/2020 14:06 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 Oden Date: 05/16/2020 13:37 History of Present Illness: Kaela Gonzales is a 24 year old female presents in the clinic for anal US recommended by Dr. Oden for SP recent vaginal delivery complicated with 4th degree laceration, primary repaired attempted outside [facility]. She developed incontinence after tear. About 4 [...] She denies fever, chills, NS or UWL. Follow up 07/02/2020 Patient with h/o fecal incontinence that developed after laceration post presents for f/u. Patient denies constipation, diarrhea, BRB or black/tarry stools. She still has on-going fecal incontinence occurring four times per week; and with fecal urgency. She denies rectal pain. She denies n/v, reflux or problems swallowing. [...] depression, anxiety, nor mood swings Physical Exam: Temp: [36.9 C (98.4 F)] Pulse: [79] Resp: [18] BP: (133)/(88) @LASTSAO2(3)@ General: Alert, awake, calm, in no [...] BILICONJ, ALT, AST, ALKPHOS Assessment and Plan: Patient with h/o fecal incontinence that developed after laceration post presents for f/u. H/O Obstetric tear Fecal incontinence Patient denies constipation, diarrhea, BRB or black/tarry stools. She still has on-going fecal incontinence occurring four times per week; and with fecal urgency. She denies rectal pain. She denies n/v, reflux or problems swallowing. She denies fever, chills, NS or UWL. - Discussed high fiber/low fat diet. Goal of fiber is 30 gm per day - Increase water intake >64 ounces of water daily - Increase activity level as tolerated - Start Benefiber or Citrucel (obtain over the counter) 2 Tablespoon daily -Will plan anorectal manometry and then patient is to f/u with Dr. North -Prep will be the same as with Flex sig (enemas) and instructions given to patient -Consent obtained F/U with Dr. North after anorectal manometry Signed: Hanh ANDREWSC Department of Internal Medicine - Gastroenterology and Hepatology NCIAL CENTER MANAGER documented in this encounter Plan of Treatment [...] / Subscriber ID Effective Phone Address T e Group [facility] [id number] 2019-Orlin BAI Medic aid HEALTH CHOICE - HEALTH CHOICE nt [id number] 1 MANAGED MEDICAID [place], [place] [phone] ([place]) [place] [address] documented as of this encounter
--- OUTSIDE RECORDS SUMMARY | 2020-07-07 03:30 | XMS REPORT | Continuity of Care Document ---
:1995 Author Organization [facility] t Address [address] [place] [address] Dr. Dupree. [address] [place] [address] Care Team Providers Name Role Phone Hanh Fernandez Attending Clinician [phone] Problems This patient has no known problems. Allergies, Adverse Reactions, Alerts This patient has no known allergies or adverse reactions. Medications This patient has no known medications. Procedures This patient has no known procedures. Encounters Start End Encounter Admission Attending Care Care Encounter Source Date/Time Date/Time Type Type Clinicians Facility Department ID 2020-07-02 2020-07-02 Office Renato [facility] [id number] 13:52:32 14:16:39 Visit elda, SPECIALTY [id number] Hanh KIRAN [id number] CENTER AT [phone] [address] Results This patient has no known results.
--- OUTSIDE RECORDS SUMMARY | 2020-07-07 03:30 | XMS REPORT | Summary of Care ---
:1995 Author Organization [facility] Address [address] [place] [address] Care Team Providers Name Role Phone Pcp, Patient Does Not Have A Primary Care Provider +1-000-00 0-0000 Reason for Visit Reason Comments New Evaluation vaginal/pelvic pain Encounter Details Date Type Department Care Team Description 05/16/2020 Office Visit [facility] Marcelino-Syd, Incontinence of GASTROENTEROLOGY -[facility] , ANP feces, unspecified [facility] [address] [place] fecal incontinence [address] [facility] So [facility] type (Primary Dx) [place], [place] [address] [address] [place], [place] [phone] [address] [phone] Allergies No Known Allergiesdocumented as of this [...] Anal Ultrasound ordered. To be scheduled @ [facility] endoscopy unit. Patient to be contacted with arrival time by dora unit. Verbal and printed prep instructions given. List of medications to avoid prior to procedure explained. Patient verbalized understanding. Facility location and telephone provided. Written consent has been obtained from patient by nurse practioner. 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 Oden History of Present Illness: Kaela Gonzales is a 24 year old female presents in the clinic for anal US recommended by Dr. Oden for SP recent vaginal delivery complicated with 4th degree laceration, primary repaired attempted outside [facility]. She developed incontinence after tear. [...] 4th degree laceration, primary repaired attempted outside [facility]. She developed incontinence after tear. [...] Office Visit Gastroenterology Hanh Sabillon ANP [address] [facility] [address] [place] [address] [phone] Health Maintenance Due Date Last Done Comments [...] ID Effective Phone Address T ype Group [facility] [id number] 2019-[address]lin [address] Medic aid HEALTH CHOICE - [place] nt [id number] 1 MANAGED MEDICAID [place], [place] [phone] ([place]) [place] [address] documented as of this encounter
--- OUTSIDE RECORDS SUMMARY | 2020-07-07 03:30 | XMS REPORT | Summary of Care ---
:1995 Author Organization [facility] - Health Address [address] [place] [address] Care Team Providers Name Role Phone Pcp, Patient Does Not Have A Primary Care Provider +1-000-00 0-0000 Encounter Details Date Type Department Care Team Description 05/16/2020 Orders Only [facility] Doctor Unassigned, No [address] [facility] [place] [address] [address] [place] [address] Allergies No Known Allergiesdocumented as of this encounter (statuses as of 06/03/2020) Medications No known medicationsdocumented as of this encounter (statuses as of 06/03/2020) Active Problems No known active problemsdocumented as of this encounter (statuses as of 06/03/2020) Social History Tobacco Use Types Packs/Day Years [...] Signs Not on filedocumented in this encounter Plan of Treatment Date Type Specialty Care Team Description 06/20/2020 Office Visit Gastroenterology Hanh Sabillon, ANP [address] [facility] [address] [place] [address] [phone] Health Maintenance Due Date Last Done Comments [...] this topic documented as of this encounter Procedures Procedure Name Priority Date/Time Associated Diagnosis Comme nts DISCLOSURE AND CONSENT, Routine 05/16/2020 12:01 AM MEDICAL AND SURGICAL CDT PROCEDURES documented in this encounter Results Not on filedocumented in this encounter Insurance Payer Benefit Plan / Subscriber ID Effective Phone Address [facility] [id number] 2019-Prese [address] Medic aid HEALTH CHOICE - HEALTH CHOICE nt [id number] 1 MANAGED MEDICAID [place], [place] [phone] documented as of this encounter
--- OUTSIDE RECORDS SUMMARY | 2020-07-07 03:30 | XMS REPORT | Summary of Care ---
:1995 Author Organization [facility] - [address] [address] Care Team Providers Name Role Phone Pcp, [...] B MD RECONSTRUCTIVE SURGERY [address] [place] [address] / Obstetrics & SELMA A [id number] [place] [address] Phone: Fax: Encounter Details Date Type Department Care Team Description 04/22/2020 Office Visit [facility] Pelvic Sivakumar Oden, Jaye nence of feces, [facility]- [facility] unspecified fecal [address] incontinence type [address] [facility] [id number] (Primary Dx) [place] [phone] Allergies No Known Allergiesdocumented as of this [...] Effective Dates Phone Addre ss Type Group [facility] STAR [id number] 2020-Present Medicaid COMM PLAN - MANAGED MEDICAID ([place]) [place] [address] documented as of this encounter
--- OUTSIDE RECORDS SUMMARY | 2020-07-07 03:30 | XMS REPORT | Summary of Care ---
:1995 Author Organization [facility] Address [address] [place] [address] Care Team Providers Name Role Phone Pcp, Patient Does Not Have A Primary Care Provider +1-000-00 0-0000 Reason for Visit Reason Comments Rectal Problem Encounter Details Date Type Department Care Team Description 07/02/2020 Office Visit [facility] Marcelino-Syd, Incontinence of GASTROENTEROLOGY -[facility] Hanh , ANP feces, unspecified [place] [address] [place] fecal incontinence [address] [facility] So [facility] type (Primary Dx) [place], [place] [phone] [place], [place] [phone] [address] [phone] Allergies No Known Allergiesdocumented as of this [...] with No / Unsure 07/02/2020 1:52 PM SPORTS ANNOUNCER someone who was confirmed or suspected to have Coronavirus / COVID-19? documented as of this encounter Last Filed Vital Signs Vital Sign Reading Time Taken Comments Blood Pressure 133/88 07/02/2020 1:58 PM SPORTS ANNOUNCER Pulse 79 07/02/2020 1:58 PM SPORTS ANNOUNCER Temperature 36.9 C (98.4 F) 07/02/2020 1:58 PM SPORTS ANNOUNCER Respiratory Rate 18 07/02/2020 1:58 PM SPORTS ANNOUNCER Oxygen Saturation 97% 07/02/2020 1:58 PM SPORTS ANNOUNCER Inhaled Oxygen Concentration - - Weight 109.8 kg (242 lb) 07/02/2020 1:58 PM SPORTS ANNOUNCER Height 167.6 cm (5' 6") 07/02/2020 1:58 PM SPORTS ANNOUNCER Body Mass Index 39.06 07/02/2020 1:58 PM SPORTS ANNOUNCER documented in this encounter [facility] [employer] [place], Hanh, ABDULLAHI - 07/02/2020 3:30 PM CST GI Clinic Note Date: 07/02/2020 14:06 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 Oden Date: 05/16/2020 13:37 History of Present Illness: Kaela Gonzales is a 24 year old female presents in the clinic for anal US recommended by Dr. Oden for SP recent vaginal delivery complicated with 4th degree laceration, primary repaired attempted outside [facility]. She developed incontinence after tear. About 4 [...] of Internal Medicine - Gastroenterology and Hepatology TS ANNOUNCER documented in this encounter Plan of Treatment [...] ID Effective Phone Address [facility] [id number] 2019-Orlin BAI Medic aid HEALTH CHOICE - HEALTH CHOICE nt [id number] 1 MANAGED MEDICAID [place], [place] MEDICAID [phone] ([place]) [place] [address] documented as of this encounter
[2020-07-07 04:10] LABS: Absolute Lymphocytes (CBC) 2.3 K/uL (0.7-4.9); Basophils % 0.8 % (0-1.3); Hematocrit 33.8 % (36.0-45.0); Lymphocytes % 24.9 % (15.3-44.8); MPV 7.4 fL (7.6-11.3); RBC Red Blood Cell Count 4.03 M/uL (3.86-4.86)
[2020-07-07] MEDS ORDERED: ONDANSETRON 4 MG/2 ML VIAL ONE (04:16)
[2020-07-07] MEDS ORDERED: NA CHLORIDE 0.9% 1,000 ML ONE (04:16)
[2020-07-07] MEDS ORDERED: FAMOTIDINE 20 MG/2 ML VIAL IV ONE (04:16)
[2020-07-07] MEDS ORDERED: MORPHINE 2 MG/ML SYR ONE (04:16)
[2020-07-07 04:26] LABS: ALT/SGPT 17 U/L (12-78); AST/SGOT 13 U/L (15-37); Albumin 3.3 g/dL (3.4-5.0); Alkaline Phosphatase 117 U/L (45-117); BUN Blood Urea Nitrogen 13 mg/dL (7-18); Bicarbonate 28 mmol/L (21-32); Bilirubin Direct < 0.1 mg/dL (0-0.2); Bilirubin Total 0.2 mg/dL (0.2-1.0); Glucose Level 125 mg/dL (74-106); Lipase 52 U/L (73-393); Potassium 3.4 mmol/L (3.5-5.1); Protein, Total 7.4 g/dL (6.4-8.2); Sodium Level 141 mmol/L (136-145)
[2020-07-07 06:35] LABS: Urine Blood TRACE (NEG); Urine Glucose NEGATIVE (NEG); Urine Protein NEGATIVE (NEG); Urine Specific Gravity 1.025 (1.005-1.030); Urine pH 7.5 (5.0-7.0)
--- NOTE | 2020-07-07 07:01 | EDPHYS ---
Physician Documentation [facility] Name: Kaela Gonzales Age: 24 yrs Sex: Female : 1995 Arrival Date: 07/07/2020 Time: 03:31 Bed 5 Private MD: ED Physician Ehsan Kasper HPI: 07/07 03:56 This 24 yrs old Female presents to ER via EMS with complaints of Abdominal mh7 Pain. 03:56 The patient presents with abdominal pain in the upper abdomen. Onset: The mh7 symptoms/episode began/occurred today, at 00:00. The symptoms do not radiate. Associated signs and symptoms: Pertinent positives: nausea, Pertinent negatives: anorexia, blood in stools, chest pain, constipation, diarrhea, dysuria, fever, headache, hematuria, palpitations, shortness of breath, vaginal discharge, vomiting, vomiting blood. The symptoms are described as intermittent, vague, waxing/waning. Modifying factors: The symptoms are alleviated by nothing, the symptoms are aggravated by food. Severity of pain: At its worst the pain was moderate today, in the emergency department the pain is unchanged. [facility] CONSULTANT: 03:37 LMP 06/2020 Historical: - Allergies: 03:35 No Known Allergies; wh - PMHx: 03:35 GERD; - PSHx: 03:35 Appendectomy; - Immunization history:: Adult Immunizations not up to date. - Social history:: Smoking status: Patient/guardian denies using. ROS: 03:56 Constitutional: Negative for fever, chills, and weight loss, Eyes: Negative for injury, mh7 pain, redness, and discharge, ENT: Negative for injury, pain, and discharge, Neck: Negative for injury, pain, and swelling, Cardiovascular: Negative for chest pain, palpitations, and edema, Respiratory: Negative for shortness of breath, cough, wheezing, and pleuritic chest pain, Back: Negative for injury and pain, : Negative for injury, bleeding, discharge, and swelling, MS/Extremity: Negative for injury and deformity, Skin: Negative for injury, rash, and discoloration, Neuro: Negative for headache, weakness, numbness, tingling, and seizure, Psych: Negative for depression, anxiety, suicide ideation, homicidal ideation, and hallucinations, Allergy/Immunology: Negative for hives, rash, and allergies, Endocrine: Negative for neck swelling, polydipsia, polyuria, polyphagia, and marked weight changes, Hematologic/Lymphatic: Negative for swollen nodes, abnormal bleeding, and unusual bruising. Exam: 03:56 Constitutional: This is a well developed, well nourished patient who is awake, alert, mh7 and in no acute distress. Head/Face: Normocephalic, atraumatic. Eyes: Pupils equal round and reactive to light, extra-ocular motions intact. Lids and lashes normal. Conjunctiva and sclera are non-icteric and not injected. Cornea within normal limits. Periorbital areas with no swelling, redness, or edema. Neck: Trachea midline, no thyromegaly or masses palpated, and no cervical lymphadenopathy. Supple, full range of motion without nuchal rigidity, or vertebral point tenderness. No Meningismus. Chest/axilla: Normal chest wall appearance and motion. Nontender with no deformity. No lesions are appreciated. Cardiovascular: Regular rate and rhythm with a normal S1 and S2. No gallops, murmurs, or rubs. Normal PMI, no JVD. No pulse deficits. Respiratory: Lungs have equal breath sounds bilaterally, clear to auscultation and percussion. No rales, rhonchi or wheezes noted. No increased work of breathing, no retractions or nasal flaring. 03:56 Back: No spinal tenderness. No costovertebral tenderness. Full range of motion. Skin: Warm, dry with normal turgor. Normal color with no rashes, no lesions, and no evidence of cellulitis. MS/ Extremity: Pulses equal, no cyanosis. Neurovascular intact. Full, normal range of motion. Neuro: Awake and alert, GCS 15, oriented to person, place, time, and situation. Cranial nerves II-XII grossly intact. Motor strength 5/5 in all extremities. Sensory grossly intact. Cerebellar exam normal. Normal gait. Psych: Awake, alert, with orientation to person, place and time. Behavior, mood, and affect are within normal limits. 03:56 Abdomen/GI: Inspection: obese Bowel sounds: normal, in all quadrants, Palpation: moderate abdominal tenderness, in the epigastric area, Rectal exam: the exam is deferred, because of patient request, Indicators: McBurney's point is not tender, Steven's sign is negative, Rovsing's sign is negative, Obturator sign is negative, Psoas sign is negative, Liver: no appreciated palpable abnormalities, Hernia: not appreciated. Vital Signs: 03:31 BP 126 / 67; Pulse 65; Resp 18; Temp 97.6; Pulse Ox 98% ; Weight 109.77 kg; Height 5 wh ft. 6 in. (167.64 cm); Pain 9/10; 05:00 BP 116 / 72; Pulse 63; Resp 18; Pulse Ox 100% on R/A; wh 06:30 BP 119 / 74; Pulse 57; Resp 18; Pulse Ox 100% on R/A; wh 07:07 BP 113 / 78; Pulse 56; Resp 17; Temp 98; Pulse Ox 100% ; bp 03:31 Body Mass Index 39.06 (109.77 kg, 167.64 cm) wh MDM: 06:58 Differential diagnosis: bowel obstruction, cholecystitis, Cholelithiasis, [facility] diverticulitis, gastritis, gastroesophageal reflux disease, non-specific abd pain, pancreatitis, Peptic Ulcer Disease, Pyelonephritis, Ureterolithiasis, urinary tract infection. Data reviewed: vital signs, nurses notes, old medical records, lab test result(s), CBC, electrolytes, urinalysis, UPT: radiologic studies, CT scan. Data interpreted: Pulse oximetry: on room air is 98 %. Interpretation: normal. Counseling: I had a detailed discussion with the patient and/or guardian regarding: the historical points, exam findings, and any diagnostic results supporting the discharge/admit diagnosis, lab results, radiology results, the need for outpatient follow up, to return to the emergency department if symptoms worsen or persist or if there are any questions or concerns that arise at home. Response to treatment: the patient's symptoms have resolved after treatment, the patient's blood pressure is in an acceptable range, mental status has returned to baseline, the patient no longer shows bradycardia, the patient is not short of breath, the patient is not tachycardic, the patient's pain is gone, the patient's temperature has normalized. 07:00 Patient medically screened. [facility] 07/07 03:45 Order name: Basic Metabolic Panel; Complete Time: 05:06 [facility] 07/07 03:45 Order name: CBC with Diff; Complete Time: 05: [facility] 07/07 03:45 Order name: Hepatic Function; Complete Time: 05:06 [facility] 07/07 03:45 Order name: Lipase; Complete Time: 05:06 [facility] 07/07 04:10 Order name: Urine Culture 07/07 04:18 Order name: Urine Dipstick--Ancillary (enter results); Complete Time: 06:57 [facility] 07/07 03:45 Order name: IV Saline Lock; Complete Time: 03:58 [facility] 07/07 03:45 Order name: Labs collected and sent; Complete Time: 03:58 [facility] 07/07 04:18 Order name: Urine --Ancillary (enter results); Complete Time: 06:57 [facility] 07/07 05:07 Order name: CT Abd/Pelvis - IV Contrast Only [facility] 07/07 03:45 Order name: Urine Dipstick-Ancillary (obtain specimen); Complete Time: 04:09 [facility] 07/07 03:45 Order name: Urine Test (obtain specimen); Complete Time: 04:09 [facility] Administered Medications: 04:02 Drug: NS 0.9% 1000 ml Route: IV; Rate: 1000 ml; Site: right antecubital; 07:00 Follow up: Response: No adverse reaction; IV Status: Completed infusion 04:04 Drug: morphine 2 mg {Note: RASS 0.} Route: IVP; Site: right antecubital; 07:00 Follow up: Response: No adverse reaction; Pain is decreased; RASS: Alert and Calm (0) 04:06 Drug: Pepcid 20 mg Route: IVP; Site: right antecubital; 07:00 Follow up: Response: No adverse reaction 04:08 Drug: Zofran (Ondansetron) 4 mg Route: IVP; Site: right antecubital; 07:00 Follow up: Response: No adverse reaction; Nausea is decreased Disposition: 07/07/20 07:00 Discharged to Home. Impression: Cholelithiasis. - Condition is Stable. - Discharge Instructions: Cholelithiasis, [id number]. - Prescriptions for Zofran ODT 4 mg Oral tablet,disintegrating - place 1 tablet by TRANSLINGUAL route every 8 hours As needed; 6 tablet. Bentyl 20 mg Oral Tablet - take 1 tablet by ORAL route every 6 hours As needed; 20 tablet. Pepcid 20 mg Oral Tablet - take 1 tablet by ORAL route every 12 hours for 5 days; 10 tablet. - Medication Reconciliation Form, Thank You Letter, Antibiotic Education, Prescription Opioid Use form. - Follow up: Private Physician; When: 1 - 2 days; Reason: Worsening of condition, Recheck today's complaints, Continuance of care, Re-evaluation by your physician. Follow up: Billy Ballesteros MD; When: 1 - 2 days; Reason: Worsening of condition, Recheck today's complaints. - Problem is an acute exacerbation. - Symptoms have improved. Signatures: Dispatcher [employer] EDKY Lydia Evans Brian, RN RN Ehsan Wells MD MD mh7 Corrections: (The following items were deleted from the chart) 07:09 07:00 07/07/2020 07:00 Discharged to Home. Impression: Cholelithiasis. Condition is bp Stable. Forms are Medication Reconciliation Form, Thank You Letter, Antibiotic Education, Prescription Opioid Use. Follow up: Private Physician; When: 1 - 2 days; Reason: Worsening of condition, Recheck today's complaints, Continuance of care, Re-evaluation by your physician. Follow up: Billy Ballesteros; When: 1 - 2 days; Reason: Worsening of condition, Recheck today's complaints. Problem is an acute exacerbation. Symptoms have improved. mh7
--- NOTE | 2020-07-07 07:01 | ER ---
Nurse's Notes [facility] Name: Kaela Gonzales Age: 24 yrs Sex: Female : 1995 Arrival Date: 07/07/2020 Time: 03:31 Bed 5 Private MD: Diagnosis: Cholelithiasis Presentation: 07/07 03:31 Chief complaint: EMS states: Pt C/O upper abdominal pain and nausea started 2 hours wh ago. Pt states HX of Gallstones. Coronavirus screen: Client denies travel out of the [place] in the last 14 days. nausea. Ebola Screen: Patient negative for fever greater than or equal to 101.5 degrees Fahrenheit, and additional compatible Ebola Virus Disease symptoms Patient denies exposure to infectious person. Initial Sepsis Screen: Does the patient meet any 2 criteria? No. Patient's initial sepsis screen is negative. Does the patient have a suspected source of infection? Yes: Acute abdominal pain. Risk Assessment: Do you want to hurt yourself or someone else? Patient reports no desire to harm self or others. Onset of symptoms was July 07, 2020. Care prior to arrival: Medication(s) given: Tylenol, 1000 mg, zofran 4 mg, IV initiated. 20 GA, in the right antecubital area. 03:31 Method Of Arrival: EMS: [facility] 03:31 Acuity: ANNABELLE 3 NURSE STAFF [facility]: 03:37 LMP 06/2020 Historical: - Allergies: 03:35 No Known Allergies; - PMHx: 03:35 GERD; - PSHx: 03:35 Appendectomy; - Immunization history:: Adult Immunizations not up to date. - Social history:: Smoking status: Patient/guardian denies using. Screenin:35 Abuse screen: Denies threats or abuse. Denies injuries from another. Nutritional screening: No deficits noted. Tuberculosis screening: No symptoms or risk factors identified. Fall Risk None identified. Assessment: 03:35 General: Appears in no apparent distress. uncomfortable, Behavior is calm, cooperative, wh appropriate for age. Pain: Complains of pain in epigastric area, right upper quadrant and left upper quadrant Pain currently is 9 out of 10 on a pain scale. Pain began 2 hours ago. Neuro: Level of Consciousness is awake, alert, obeys commands, Oriented to person, place, time, situation, Appropriate for age. Cardiovascular: Heart tones S1 S2. Respiratory: Airway is patent Respiratory effort is even, unlabored, Respiratory pattern is regular, symmetrical, Breath sounds are clear bilaterally. GI: Abdomen is non-distended, Bowel sounds present X 4 quads. Abd is soft Abdomen is tender to palpation in right upper quadrant and left upper quadrant Reports nausea. : No signs and/or symptoms were reported regarding the genitourinary system. EENT: No signs and/or symptoms were reported regarding the EENT system. Derm: Skin is intact, is healthy with good turgor, Skin is pink, warm \T\ dry. normal. Musculoskeletal: Circulation, motion, and sensation intact. 05:00 Reassessment: Patient appears in no apparent distress at this time. No changes from previously documented assessment. Patient and/or family updated on plan of care and expected duration. Pain level reassessed. Patient is alert, oriented x 3, equal unlabored respirations, skin warm/dry/pink. 06:30 Reassessment: Patient appears in no apparent distress at this time. Patient and/or family updated on plan of care and expected duration. Pain level reassessed. Patient is alert, oriented x 3, equal unlabored respirations, skin warm/dry/pink. 07:07 Reassessment: PT D/C HOME AMBULATORY, DX WITH CHOLELITHIASIS. bp Vital Signs: 03:31 BP 126 / 67; Pulse 65; Resp 18; Temp 97.6; Pulse Ox 98% ; Weight 109.77 kg; Height 5 ft. 6 in. (167.64 cm); Pain 9/10; 05:00 BP 116 / 72; Pulse 63; Resp 18; Pulse Ox 100% on R/A; 06:30 BP 119 / 74; Pulse 57; Resp 18; Pulse Ox 100% on R/A; 07:07 BP 113 / 78; Pulse 56; Resp 17; Temp 98; Pulse Ox 100% ; bp 03:31 Body Mass Index 39.06 (109.77 kg, 167.64 cm) ED Course: 03:31 Patient arrived in ED. 03:34 Triage completed. 03:35 Patient has correct armband on for positive identification. Bed in low position. Call light in reach. Side rails up X 1. Pulse ox on. NIBP on. 03:37 Ehsan Kasper MD is Attending Physician. [facility] 03:37 Arm band placed on right wrist. 03:40 Maintain EMS IV. Dressing intact. Good blood return noted. Site clean \T\ dry. 03:46 Lydia Evans is Primary Nurse. 06:01 CT Abd/Pelvis - IV Contrast Only In Process Unspecified. EDMS 06:59 Primary Nurse role handed off by Lydia Evans 06:59 Praveen Salinas, RN is Primary Nurse. bp 06:59 Billy Ballesteros MD is Referral Physician. [facility] 07:07 No provider procedures requiring assistance completed. IV discontinued, intact, bp bleeding controlled, No redness/swelling at site. Pressure dressing applied. Administered Medications: 04:02 Drug: NS 0.9% 1000 ml Route: IV; Rate: 1000 ml; Site: right antecubital; 07:00 Follow up: Response: No adverse reaction; IV Status: Completed infusion 04:04 Drug: morphine 2 mg {Note: RASS 0.} Route: IVP; Site: right antecubital; 07:00 Follow up: Response: No adverse reaction; Pain is decreased; RASS: Alert and Calm (0) 04:06 Drug: Pepcid 20 mg Route: IVP; Site: right antecubital; 07:00 Follow up: Response: No adverse reaction 04:08 Drug: Zofran (Ondansetron) 4 mg Route: IVP; Site: right antecubital; 07:00 Follow up: Response: No adverse reaction; Nausea is decreased Outcome: 07:00 Discharge ordered by . [facility] 07:07 Discharged to home ambulatory, with family. bp 07:07 Condition: stable 07:07 Discharge instructions given to patient, Instructed on discharge instructions, follow up and referral plans. medication usage, Demonstrated understanding of instructions, follow-up care, medications, Prescriptions given X 3. 07:09 Patient left the ED. bp Signatures: Dispatcher [employer] EDMS Lydia Evans Praveen Salinas, RN RN bp Ehsan Kasper MD MD [facility]
--- NOTE | 2020-07-07 11:50 | RAD REPORT ---
EXAM DESCRIPTION: CT Abdomen and Pelvis With Intravenous Contrast CLINICAL HISTORY: The patient is 24 years old and is Female; ABD PAIN TECHNIQUE: Axial computed tomography images of the abdomen and pelvis with intravenous contrast. S agittal and coronal reformatted images were created and reviewed. This CT exam was performed using one or more of the following dose reduction techniques: automated exposure control, adjustment of t he mA and/or kV according to patient size, and/or use of iterative reconstruction technique. COMPARISON: CT of the abdomen and pelvis January 03, 2018 FINDINGS: LUNG BASES: Unremarkable. No mass. No consolidation. ABDOMEN: LIVER: Unremarkable. No mass. GALLBLADDER AND BILE DUCTS: The gallbladder is not well distended. A few punctate gallstones are present. There is no ductal dilatation. PANCREAS: No ductal dilation. No mass. SPLEEN: Unremarkable. ADRENALS: Unremarkable. No mass. KIDNEYS AND URETERS: Unremarkable. The kidneys enhance symmetrically. No obstructing renal or ur eteral calculus is seen. No hydronephrosis or hydroureter. No perinephric fluid or stranding. STOMACH AND BOWEL: The stomach is distended with food contents. The small bowel is normal in cecelia iber. A moderate amount of stool is present throughout the colon. There is no mucosal thickening or e vidence of bowel obstruction. PELVIS: APPENDIX: The appendix is surgically absent. BLADDER: Unremarkable. No mass. REPRODUCTIVE: Unremarkable as visualized. ABDOMEN and PELVIS: INTRAPERITONEAL SPACE: Unremarkable. No free air. No significant fluid collection. BONES/JOINTS: No acute fracture. SOFT TISSUES: The soft tissues are normal. VASCULATURE: Unremarkable. No abdominal aortic aneurysm. LYMPH NODES: Unremarkable. No enlarged lymph nodes. IMPRESSION: 1. Cholelithiasis without findings to suggest cholecystitis. 2. No bowel obstruction. Electronically signed by: Lori Hernandez MD 07/07/2020 6:07 AM DEPENDENCY CASE MANAGER Due to temporary technical issues with the PACS/Fluency reporting system, reports are being signed by the in house radiologist without review as a courtesy to ensure prompt reporting. The interpreting r adiologist is fully responsible for the content of the report.
[2020-07-07 12:32] VITALS: O2SAT 100
[2020-07-07 12:36] VITALS: BP 113/78; TEMP 98
== END 2020-07-07 07:09 | disposition home or self-care (01) ==
LOC: ER 03:28
DX: K80.20 Calculus of gallbladder without cholecystitis without obstruction (principal)
CPT/HCPCS: 96361; 87088; 85025; 87086; 80048; 36415; 81025; 80076; 81003; 83690; 74177; 96375; 96374; 99284; Q9967; J2270; J7030; J2405

== ENCOUNTER 2020-10-24 08:20 | Emergency (ER) | payer OTHER ==
--- OUTSIDE RECORDS SUMMARY | 2020-10-24 08:22 | XMS REPORT | Continuity of Care Document ---
:1995 Author Organization [facility] t Address [address] [place] [address] Dr. Dupree. [address] [place] [address] Care Team Providers Name Role Phone Mary Castle Attending Clinician [phone] Problems This patient has no known problems. Allergies, Adverse Reactions, Alerts This patient has no known allergies or adverse reactions. Medications This patient has no known medications. Procedures This patient has no known procedures. Encounters Start End Encounter Admission Attending Care Care Encounter Source Date/Time Date/Time Type Type Clinicians Facility Department ID 2020-09-18 2020-09-18 Telephone MAGDALENA Vivas [id number] 00:00:00 00:00:00 Mary Salazar PLATFORM SUPERVISOR [id number] [facility] [id number] MATERNAL [id number] & CHILD [address] [place] [address] Results This patient has no known results.
--- NOTE | 2020-10-24 12:22 | ER ---
Nurse's Notes [facility] Name: Kaela Gonzales Age: 25 yrs Sex: Female : 1995 Arrival Date: 10/24/2020 Time: 08:24 Bed Waiting Private MD: Diagnosis: Presentation: 10/24 08:53 Chief complaint: Patient states: "I have a gallbladder stone." Pt c/o epigastric pain. ss Was seen in ER and told to follow up with surgeon, but they would not take her insurance. Coronavirus screen: Client denies travel out of the [place] in the last 14 days. Ebola Screen: Patient denies exposure to infectious person. Patient denies travel to an Ebola-affected area in the 21 days before illness onset. Initial Sepsis Screen: Does the patient meet any 2 criteria? No. Patient's initial sepsis screen is negative. Does the patient have a suspected source of infection? No. Patient's initial sepsis screen is negative. Risk Assessment: Do you want to hurt yourself or someone else? Patient reports no desire to harm self or others. Onset of symptoms is unknown. 08:53 Method Of Arrival: Ambulatory 08:53 Acuity: ANNABLELE 3 ss Historical: - Allergies: 08:55 No Known Allergies; ss - Home Meds: 08:55 None [Active]; ss - PMHx: 08:55 GERD; ss - PSHx: 08:55 None; ss - Immunization history:: Adult Immunizations up to date. - Social history:: Smoking status: Patient denies any tobacco usage or history of. Assessment: 09:30 Reassessment: called to exam room. No answer. Unable to locate patient. 10:30 Reassessment: Called to exam room. No answer. Unable to locate patient. Vital Signs: 08:53 BP 118 / 84; Pulse 73; Resp 14; Temp 98.2(O); Pulse Ox 99% on R/A; Weight 109.77 kg; ss Height 5 ft. 6 in. (167.64 cm); Pain 9/10; 08:53 Body Mass Index 39.06 (109.77 kg, 167.64 cm) ED Course: 08:24 Patient arrived in ED. mr 08:55 Triage completed. ss 08:55 Arm band placed on right wrist. ss 09:26 Mickail, Kaushal, PA is PHCP. [facility] 09:26 Jovany Armenta MD is Attending Physician. aristeo 10:43 Jovany Armenta MD is Attending Physician. tw4 Administered Medications: No medications were administered Outcome: 12:19 Eloped from waiting room. 12:21 Patient left the ED. ss Signatures: Kaushal Ferguson PA PA [facility] Amin, Niru Merna Mendez, RN RN Jovany Armenta MD MD tw4
[2020-10-24 12:41] VITALS: BP 118/84; TEMP 98.2; O2SAT 99
== END 2020-10-24 12:21 | disposition left against medical advice (07) ==
LOC: ER 08:20
DX: R10.13 Epigastric pain (principal); K21.9 Gastro-esophageal reflux disease without esophagitis; Z53.21 Procedure and treatment not carried out due to patient leaving prior to being seen by health care provider
CPT/HCPCS: 99281

== ENCOUNTER 2020-11-01 03:13 | Emergency (ER) | payer OTHER ==
--- OUTSIDE RECORDS SUMMARY | 2020-11-01 03:16 | XMS REPORT | Continuity of Care Document ---
:1995 Author Organization [facility] t Address [address] [place] [address] Dr. Dupree. [address] [place] [address] Care Team Providers Name Role Phone Mary Castle Attending Clinician [phone] Problems This patient has no known problems. Allergies, Adverse Reactions, Alerts This patient has no known allergies or adverse reactions. Medications This patient has no known medications. Procedures This patient has no known procedures. Encounters Start End Encounter Admission Attending Care Care Encounter Source Date/Time Date/Time Type Type Clinicians Facility Department ID 2020-09-18 2020-09-18 Telephone MAGDALENA Vivas [id number] 00:00:00 00:00:00 Mary Salazar ENGLISH INSTRUCTOR [id number] [facility] [id number] MATERNAL [id number] & CHILD [address] [place] [address] Results This patient has no known results.
[2020-11-01 03:38] LABS: Absolute Lymphocytes (CBC) 2.6 K/uL (0.7-4.9); Basophils % 0.6 % (0-1.3); Lymphocytes % 17.9 % (15.3-44.8); RBC Red Blood Cell Count 4.26 M/uL (3.86-4.86)
[2020-11-01 03:43] LABS: Urine Blood TRACE (NEG); Urine Glucose NEGATIVE (NEG); Urine Protein 1+ (NEG); Urine Specific Gravity 1.025 (1.005-1.030)
[2020-11-01 03:54] LABS: ALT/SGPT 56 U/L (12-78); AST/SGOT 66 U/L (15-37); Albumin 3.6 g/dL (3.4-5.0); Alkaline Phosphatase 108 U/L (45-117); BUN Blood Urea Nitrogen 10 mg/dL (7-18); Bicarbonate 27 mmol/L (21-32); Bilirubin Direct 0.2 mg/dL (0-0.2); Bilirubin Total 0.3 mg/dL (0.2-1.0); Glucose Level 103 mg/dL (74-106); Lipase 50 U/L (73-393); Protein, Total 8.1 g/dL (6.4-8.2); Sodium Level 141 mmol/L (136-145)
[2020-11-01] MEDS ORDERED: FAMOTIDINE 20 MG/2 ML VIAL IV ONE (04:02)
[2020-11-01] MEDS ORDERED: MORPHINE 4 MG/ML SYR ONE (04:02)
[2020-11-01] MEDS ORDERED: NA CHLORIDE 0.9% 1,000 ML ONE (04:02)
[2020-11-01] MEDS ORDERED: ONDANSETRON 4 MG/2 ML VIAL ONE (04:02)
--- NOTE | 2020-11-01 07:47 | EDPHYS ---
Physician Documentation [facility] Name: Kaela Gonzales Age: 25 yrs Sex: Female : 1995 Arrival Date: 11/01/2020 Time: 03:18 Bed 15 Private MD: ED Physician Asa Lopes HPI: 11/01 03:49 This 25 yrs old Female presents to ER via EMS with complaints of Abdominal mh7 Pain. 03:49 The patient presents with abdominal pain in the upper abdomen. Onset: The mh7 symptoms/episode began/occurred yesterday. The symptoms do not radiate. Associated signs and symptoms: Pertinent positives: diarrhea, nausea, Pertinent negatives: anorexia, blood in stools, chest pain, constipation, dysuria, fever, headache, hematuria, palpitations, shortness of breath, vaginal discharge, vomiting, vomiting blood. The symptoms are described as intermittent, vague, waxing/waning. Modifying factors: The symptoms are alleviated by nothing, the symptoms are aggravated by nothing. Severity of pain: At its worst the pain was moderate yesterday, in the emergency department the pain is unchanged. 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 - Social history:: Smoking status: Patient denies any tobacco usage or history of. Patient/guardian denies using alcohol, street drugs, IV drugs. ROS: 03:49 Constitutional: Negative for fever, chills, and weight loss, Eyes: Negative for injury, mh7 pain, redness, and discharge, Neck: Negative for injury, pain, and swelling, Cardiovascular: Negative for chest pain, palpitations, and edema, Respiratory: Negative for shortness of breath, cough, wheezing, and pleuritic chest pain. 03:49 Back: Negative for injury and pain, : Negative for injury, bleeding, discharge, and swelling, MS/Extremity: Negative for injury and deformity, Skin: Negative for injury, rash, and discoloration, Neuro: Negative for headache, weakness, numbness, tingling, and seizure, Psych: Negative for depression, anxiety, suicide ideation, homicidal ideation, and hallucinations, Allergy/Immunology: Negative for hives, rash, and allergies, Endocrine: Negative for neck swelling, polydipsia, polyuria, polyphagia, and marked weight changes, Hematologic/Lymphatic: Negative for swollen nodes, abnormal bleeding, and unusual bruising. 03:49 Abdomen/GI: Exam: 03:49 Constitutional: This is a well developed, well nourished patient who is awake, alert, mh7 and in no acute distress. Head/Face: Normocephalic, atraumatic. Eyes: Pupils equal round and reactive to light, extra-ocular motions intact. Lids and lashes normal. Conjunctiva and sclera are non-icteric and not injected. Cornea within normal limits. Periorbital areas with no swelling, redness, or edema. Neck: Trachea midline, no thyromegaly or masses palpated, and no cervical lymphadenopathy. Supple, full range of motion without nuchal rigidity, or vertebral point tenderness. No Meningismus. Chest/axilla: Normal chest wall appearance and motion. Nontender with no deformity. No lesions are appreciated. Cardiovascular: Regular rate and rhythm with a normal S1 and S2. No gallops, murmurs, or rubs. Normal PMI, no JVD. No pulse deficits. Respiratory: Lungs have equal breath sounds bilaterally, clear to auscultation and percussion. No rales, rhonchi or wheezes noted. No increased work of breathing, no retractions or nasal flaring. 03:49 Back: No spinal tenderness. No costovertebral tenderness. Full range of motion. Skin: Warm, dry with normal turgor. Normal color with no rashes, no lesions, and no evidence of cellulitis. MS/ Extremity: Pulses equal, no cyanosis. Neurovascular intact. Full, normal range of motion. Neuro: Awake and alert, GCS 15, oriented to person, place, time, and situation. Cranial nerves II-XII grossly intact. Motor strength 5/5 in all extremities. Sensory grossly intact. Cerebellar exam normal. Normal gait. Psych: Awake, alert, with orientation to person, place and time. Behavior, mood, and affect are within normal limits. 03:49 Abdomen/GI: Inspection: obese Bowel sounds: normal, in all quadrants, Palpation: moderate abdominal tenderness, in the epigastric area, right upper quadrant and left upper quadrant, mass, is not appreciated, rebound tenderness, is not appreciated, voluntary guarding, is not appreciated, involuntary guarding, is not appreciated, no appreciated organomegaly, Rectal exam: the exam is deferred, because of patient request, Indicators: McBurney's point is not tender, Steven's sign is negative, Rovsing's sign is negative, Obturator sign is negative, Psoas sign is negative, Liver: no appreciated palpable abnormalities, Hernia: not appreciated. Vital Signs: 03:24 BP 131 / 88; Pulse 69; Resp 18; Temp 98.1; Pulse Ox 100% on R/A; Weight 109.77 kg; rr5 Height 5 ft. 6 in. (167.64 cm); Pain 9/10; 04:43 BP 130 / 80; Pulse 69; Resp 16; Pulse Ox 98% ; Pain 4/10; rr5 05:37 BP 127 / 86; Pulse 62; Resp 17; Pulse Ox 98% ; rr5 03:24 Body Mass Index 39.06 (109.77 kg, 167.64 cm) rr5 MDM: 07:12 Patient medically screened. [facility] 11/01 03:24 Order name: Basic Metabolic Panel; Complete Time: 05:17 11/01 03:24 Order name: CBC with Diff; Complete Time: 05:17 11/01 03:24 Order name: Hepatic Function; Complete Time: 05:17 11/01 03:24 Order name: Lipase; Complete Time: 05:17 11/01 03:41 Order name: Urine Dipstick--Ancillary (enter results); Complete Time: 05:17 11/01 03:41 Order name: Urine --Ancillary (enter results); Complete Time: 05:17 11/01 03:24 Order name: IV Saline Lock; Complete Time: 03:30 [facility] 11/01 03:24 Order name: Labs collected and sent; Complete Time: 03:30 [facility] 11/01 05:18 Order name: CT Abd/Pelvis - IV Contrast Only [facility] 11/01 07:36 Order name: US Abdomen Limited [facility] 11/01 03:24 Order name: Urine Dipstick-Ancillary (obtain specimen); Complete Time: 03:39 [facility] 11/01 03:24 Order name: Urine Test (obtain specimen); Complete Time: 03:39 rr5 Administered Medications: 03:50 Drug: Pepcid 20 mg Route: IVP; Site: right antecubital; rr5 04:40 Follow up: Response: No adverse reaction rr5 03:50 Drug: NS 0.9% 1000 ml Route: IV; Rate: 1000 ml; Site: right antecubital; rr5 03:52 Drug: Zofran (Ondansetron) 4 mg Route: IVP; Site: right antecubital; rr5 04:44 Follow up: Response: No adverse reaction rr5 03:54 Drug: morphine 4 mg {Note: rass 0.} Route: IVP; Site: right antecubital; rr5 04:45 Follow up: Response: No adverse reaction; Pain is decreased; RASS: Alert and Calm (0) rr5 Disposition: 11/01/20 07:45 Discharged to Home. Impression: Cholelithiasis, Abdominal tenderness. - Condition is Stable. - Discharge Instructions: Abdominal Pain, Adult, Cholelithiasis, Cholelithiasis, [id number], Abdominal Pain, Adult, [id number]. - Prescriptions for Bentyl 20 mg Oral Tablet - take 1 tablet by ORAL route every 6 hours As needed; 20 tablet. Pepcid 20 mg Oral Tablet - take 1 tablet by ORAL route every 12 hours for 10 days; 20 tablet. Zofran 4 mg Oral Tablet - take 1 tablet by ORAL route every 12 hours As needed; 20 tablet. - Medication Reconciliation Form, Thank You Letter, Antibiotic Education, Prescription Opioid Use form. - Follow up: Private Physician; When: 2 - 3 days; Reason: Recheck today's complaints, Continuance of care, Re-evaluation by your physician. Follow up: Mark Oliveira MD; When: 2 - 3 days; Reason: Recheck today's complaints, Re-evaluation by your physician. - Problem is new. - Symptoms have improved. Signatures: Dispatcher [employer] EDMS Francisco Beltran RN RN sg Anderson, Corey, MD MD cha Williams, Irene, RN RN Julien Sanchez RN RN rr5 Ehsan Kasper MD MD mh7 Corrections: (The following items were deleted from the chart) 09:13 07:45 11/01/2020 07:45 Discharged to Home. Impression: Cholelithiasis; Abdominal iw tenderness. Condition is Stable. Forms are Medication Reconciliation Form, Thank You Letter, Antibiotic Education, Prescription Opioid Use. Follow up: Private Physician; When: 2 - 3 days; Reason: Recheck today's complaints, Continuance of care, Re-evaluation by your physician. Follow up: Dr. Mark Oliveira; When: 2 - 3 days; Reason: Recheck today's complaints, Re-evaluation by your physician. Problem is new. Symptoms have improved. stephania
--- NOTE | 2020-11-01 07:47 | ER ---
Nurse's Notes [facility] Name: Kaela Gonzales Age: 25 yrs Sex: Female : 1995 Arrival Date: 11/01/2020 Time: 03:18 Bed 15 Private MD: Diagnosis: Cholelithiasis;Abdominal tenderness Presentation: 11/01 03:24 Chief complaint: EMS states: she has epigastric pain and nausea since 4 hours ago. she sg had fried shrimp for dinner last night. she was diagnosed with gall stones 6 months ago and was supposed to see Dr Aguirre ( surgery) but he don't take her insurance. Coronavirus screen: Client denies travel out of the [place] in the last 14 days. At this time, the client does not indicate any symptoms associated with coronavirus-19. Ebola Screen: No symptoms or risks identified at this time. Initial Sepsis Screen: Does the patient meet any 2 criteria? No. Patient's initial sepsis screen is negative. Does the patient have a suspected source of infection? No. Patient's initial sepsis screen is negative. Risk Assessment: Do you want to hurt yourself or someone else? Patient reports no desire to harm self or others. Onset of symptoms was November 01, 2020. 03:24 Method Of Arrival: EMS: [facility] 03:24 Acuity: ANNABELLE 3 sg Triage Assessment: 03:28 General: Appears in no apparent distress. comfortable, Behavior is calm, cooperative. sg Pain: Complains of pain in epigastrium. EENT: No signs and/or symptoms were reported regarding the EENT system. Neuro: Level of Consciousness is awake, alert, obeys commands, Oriented to person, place, time, situation. Cardiovascular: Capillary refill < 3 seconds Patient's skin is warm and dry. Respiratory: Airway is patent Respiratory effort is even, unlabored, Respiratory pattern is regular, symmetrical. GI: Reports diarrhea, epigastric pain, nausea. : No signs and/or symptoms were reported regarding the genitourinary system. Derm: Skin is intact, is healthy with good turgor, Skin is pink, warm \T\ dry. normal. Musculoskeletal: Circulation, motion, and sensation intact. Capillary refill < 3 seconds. CASE BRIEFER: 03:29 LMP 09/2020 sg Historical: - Allergies: 03:27 No Known Allergies; sg - Home Meds: 03:27 None [Active]; sg - PMHx: 03:27 GERD; sg - PSHx: 03:27 Appendectomy; sg - Immunization history:: Flu vaccine status is unknown. - Social history:: Smoking status: Patient denies any tobacco usage or history of. Patient/guardian denies using alcohol, street drugs, IV drugs. Screenin:29 Abuse screen: Denies threats or abuse. Denies injuries from another. Nutritional sg screening: No deficits noted. Tuberculosis screening: No symptoms or risk factors identified. Fall Risk IV access (20 points). Assessment: 03:29 General: see triage assessment. sg 04:44 Reassessment: Patient appears in no apparent distress at this time. Patient is alert, rr5 oriented x 3, equal unlabored respirations, skin warm/dry/pink. awaiting for results Patient states feeling better. Patient states symptoms have improved. 05:36 Reassessment: Patient appears in no apparent distress at this time. Patient is alert, rr5 oriented x 3, equal unlabored respirations, skin warm/dry/pink. resting, awaiting for review. 08:25 Reassessment: US at bedside, results pending before d/c home. aa5 Vital Signs: 03:24 BP 131 / 88; Pulse 69; Resp 18; Temp 98.1; Pulse Ox 100% on R/A; Weight 109.77 kg; rr5 Height 5 ft. 6 in. (167.64 cm); Pain 9/10; 04:43 BP 130 / 80; Pulse 69; Resp 16; Pulse Ox 98% ; Pain 4/10; rr5 05:37 BP 127 / 86; Pulse 62; Resp 17; Pulse Ox 98% ; rr5 03:24 Body Mass Index 39.06 (109.77 kg, 167.64 cm) rr5 ED Course: 03:18 Patient arrived in ED. sg 03:19 Ehsan Kasper MD is Attending Physician. [facility] 03:23 Julien Sanchez, RN is Primary Nurse. rr5 03:27 Triage completed. sg 03:27 Arm band placed on. sg 03:29 Patient has correct armband on for positive identification. sg 03:29 No provider procedures requiring assistance completed. Inserted saline lock: 20 gauge sg in right antecubital area, using aseptic technique. Blood collected. by KIZZY Victoria. 06:22 CT Abd/Pelvis - IV Contrast Only In Process Unspecified. EDMS 07:12 Attending Physician role handed off by Ehsan Kasper MD stephania 07:12 Asa Lopes MD is Attending Physician. stephania 07:45 Mark Oliveira MD is Referral Physician. stephania 08:47 US Abdomen Limited In Process Unspecified. EDMS 09:12 Primary Nurse role handed off by Julien Sanchez RN iw 09:12 Cely Ferguson RN is Primary Nurse. iw Administered Medications: 03:50 Drug: Pepcid 20 mg Route: IVP; Site: right antecubital; rr5 04:40 Follow up: Response: No adverse reaction rr5 03:50 Drug: NS 0.9% 1000 ml Route: IV; Rate: 1000 ml; Site: right antecubital; rr5 03:52 Drug: Zofran (Ondansetron) 4 mg Route: IVP; Site: right antecubital; rr5 04:44 Follow up: Response: No adverse reaction rr5 03:54 Drug: morphine 4 mg {Note: rass 0.} Route: IVP; Site: right antecubital; rr5 04:45 Follow up: Response: No adverse reaction; Pain is decreased; RASS: Alert and Calm (0) rr5 Outcome: 07:45 Discharge ordered by . stephania 09:13 Patient left the ED. iw Signatures: Dispatcher [employer] EDMS Francisco Beltran RN RN sg Anderson, Corey, MD MD cha Williams, Irene, RN RN Nupur Reddy RN RN aa5 Julien Sanchez RN RN rr5 Ehsan Kasper MD MD 7 Corrections: (The following items were deleted from the chart) 03:57 03:24 BP 131 / 88; Resp 18bpm; Pulse Ox 100% RA; Temp 98.1F; 109.77 kg; Height 5 ft. 6 rr5 in.; BMI: 39.0; Pain 9/10; sg
[2020-11-01 09:22] VITALS: TEMP 98.1
[2020-11-01 09:29] VITALS: O2SAT 98
[2020-11-01 09:36] VITALS: BP 127/86
--- NOTE | 2020-11-01 11:20 | RAD REPORT ---
EXAM DESCRIPTION: US - Abdomen Exam Limited - 11/01/2020 8:47 am CLINICAL HISTORY: ABD PAIN COMPARISON: Abdomen Exam Limited dated 08/18/2019 FINDINGS: The gallbladder demonstrates small shadowing gallstones. No pericholecystic fluid or gallb ladder wall thickening. The common bile duct is normal measuring 2 mm. The liver demonstrates no findings of intrahepatic biliary dilatation. IMPRESSION: Cholelithiasis.
--- NOTE | 2020-11-01 12:02 | RAD REPORT ---
EXAM DESCRIPTION: CT Abdomen and Pelvis COMPARISON: CT abdomen pelvis July 07, 2020 CLINICAL HISTORY: [facility] MAIN ABD PAIN TECHNIQUE: CT of the abdomen and pelvis was acquired with IV contrast material. Coronal and sagitt al reconstructions were obtained. Automated exposure control was utilized on this examination as a dose lowering technique. FINDINGS: Lung bases: Clear. Liver: Normal. Gallbladder and biliary: A 4 mm gallstone is noted. Unremarkable biliary tree. Pancreas: Normal. Spleen: Normal. Adrenal glands: Normal adrenal glands. Kidneys: Normal kidneys Stomach and Small Bowel: The stomach and small bowel are normal. Urinary bladder: Normal. Uterus and Adnexa: Normal. Colon and Appendix: The colon is unremarkable. Appendectomy. Retroperitoneum and lymph nodes: Normal. Vascular: Normal. Peritoneal cavity: No ascites or free air. Musculoskeletal and soft tissues: Soft tissues are unremarkable. No aggressive bone lesions. No com pression fracture. IMPRESSION: 1. No acute intra-abdominal abnormality. 2. Cholelithiasis. Electronically signed by: Bobby Soriano MD 11/01/2020 6:31 AM CDT Due to temporary technical issues with the PACS/Fluency reporting system, reports are being signed by the in house radiologist without review as a courtesy to ensure prompt reporting. The interpreting r adiologist is fully responsible for the content of the report.
== END 2020-11-01 09:13 | disposition home or self-care (01) ==
LOC: ER 03:13
DX: K80.20 Calculus of gallbladder without cholecystitis without obstruction (principal)
CPT/HCPCS: 85025; 80048; 36415; 81025; 80076; 81003; 83690; 74177; 76705; Q9967; J7030; J2405; 96374; 96375; 99284

== ENCOUNTER 2020-11-14 07:40 | Day surgery (SDC) | payer OTHER ==
[2020-11-14] MEDS ORDERED: FENTANYL CITR 100 MCG/2 ML ONE (08:32)
[2020-11-14] MEDS ORDERED: ROCURONIUM 50 MG/5 ML VIAL IV ONE (08:32)
[2020-11-14] MEDS ORDERED: propofoL 200 MG/20 ML VIAL IV ONE (08:32)
[2020-11-14] MEDS ORDERED: LIDOCAINE 2% MPF 5 ML VIAL ONE (08:33)
[2020-11-14] MEDS ORDERED: MIDAZOLAM HCL 2 MG/2 ML INJ ONE (08:33)
[2020-11-14 08:40] LABS: Absolute Lymphocytes (CBC) 2.3 K/uL (0.7-4.9); Basophils % 0.3 % (0-1.3); Hematocrit 37.2 % (36.0-45.0); Lymphocytes % 24.9 % (15.3-44.8); MPV 8.2 fL (7.6-11.3); RBC Red Blood Cell Count 4.13 M/uL (3.86-4.86)
[2020-11-14 08:45] LABS: Specific Gravity 1.025 (1.005-1.030)
[2020-11-14 08:53] LABS: ALT/SGPT 18 U/L (12-78); Albumin 3.8 g/dL (3.4-5.0); Alkaline Phosphatase 82 U/L (45-117); Amylase 14 U/L (25-115); BUN Blood Urea Nitrogen 8 mg/dL (7-18); Bicarbonate 28 mmol/L (21-32); Bilirubin Direct 0.1 mg/dL (0-0.2); Bilirubin Total 0.4 mg/dL (0.2-1.0); Glucose Level 93 mg/dL (74-106); Potassium 3.6 mmol/L (3.5-5.1); Protein, Total 7.9 g/dL (6.4-8.2); Sodium Level 141 mmol/L (136-145)
[2020-11-14 08:54] LABS: AST/SGOT < 3 U/L (15-37)
[2020-11-14] MEDS ORDERED: CEFOXITIN/SWI 1gm 1 GM/10 ML SYR ONE (09:02)
[2020-11-14] MEDS ORDERED: Ringers Lactate 1,000 ML IV ONE ×2 (09:02→10:39)
[2020-11-14] MEDS ORDERED: CELECOXIB 100 MG CAPSULE ONE (09:13)
[2020-11-14] MEDS ORDERED: ACETAMINOPHEN 500 MG TAB ONE (09:14)
[2020-11-14] MEDS ORDERED: KETOROLAC 30 MG/ML INJ ONE (10:17)
[2020-11-14] MEDS ORDERED: dexAMETHasone 10 MG/ML VIAL ONE (10:17)
[2020-11-14] MEDS ORDERED: ONDANSETRON 4 MG/2 ML VIAL ONE ×2 (10:19→11:00)
[2020-11-14] MEDS ORDERED: GLYCOPYRROLATE 0.2 MG/ML SYR ONE (10:33)
[2020-11-14] MEDS ORDERED: NEOSTIGMINE 1 MG/ML -5 ML ONE (10:33)
[2020-11-14 10:39] VITALS: O2SAT 100
[2020-11-14] MEDS ORDERED: PROMETHAZINE INJ 25 MG/ML AMP ONE (11:00)
[2020-11-14] MEDS ORDERED: HYDROMORPHONE HCL 1 MG/ML INJ ONE (11:05)
[2020-11-14 11:25] VITALS: BP 146/93; TEMP 96.9
[2020-11-14] MEDS ORDERED: HYDROCODONE/APAP 7.5/325 MG TAB ONE (11:57)
[2020-11-14] MEDS ORDERED: HYDROCODONE/APAP 7.5/325 MG TAB PO ONE (12:00)
--- NOTE | 2020-11-14 12:16 | OP ---
Date of Procedure: 11/14/2020 Surgeon: Mark Oliveira MD Materials Director: TRESA Alford. Preoperative Diagnosis: Symptomatic cholelithiasis. Postoperative Diagnosis: Symptomatic cholelithiasis. Procedure: Laparoscopic cholecystectomy. Estimated Blood Loss: Minimal. Specimen: Gallbladder. Findings: As above. Anesthesia: General. Complications: None. Disposition And Condition: The patient tolerated the procedure in stable condition, taken to Recover y in good general condition. Procedure In Detail: The patient was brought to the OR and placed in supine position. General anest hesia was begun. The patient was prepped and draped in the usual sterile fashion. Marcaine 0.5% was infiltrated locally. A 15-blade was used to make a 2 cm supraumbilical midline incision. Subcutane ous tissue was divided. Fascia was identified and divided. A #1 Vicryl stay suture was placed. Per itoneal cavity was entered with sharp and blunt dissection. A 12 mm trocar was placed into the perit gibbs cavity under direct vision. Pneumoperitoneum was established and then three [address] d, 1 in the epigastrium just to the right of midline and 2 in the right subcostal region. Laparoscop y revealed chronic inflammation of the gallbladder. Fundus retracted superiorly. Infundibulum was i dentified and retracted inferolaterally. Cystic duct and cystic artery were clearly identified with blunt dissection. Clips were placed. Both structures were divided. Cautery was used to remove the gallbladder from the liver bed. There was some oozing noted on the liver bed. Avitene was used at t he end of the case, but there was no further bleeding or oozing noted. No evidence of any bile leaka ge. Gallbladder was retrieved through the umbilicus via an EndoCatch bag. Right upper quadrant jordan n. No evidence of bleeding or bile leakage appreciated again. Then, all trocars were removed under direct vision. Stay sutures were tied to each other to reapproximate the fascial defect. Subcutaneo us wounds were irrigated. Bleeding was controlled with cautery. A 3-0 chromic was used to approxima te subcutaneous tissue and to close skin. Sterile dressing was applied. The patient was awakened an d taken to Recovery in good general condition. Discharge Note: The patient will go to Day Surgery and home when stable. Disposition: Home. Condition: Stable. Discharge Instructions: Resume home medications and diet. Activity as tolerated. No heavy lifting. Remove outer dressing in 2 days. Shower. Keep wound clean and dry. Keep Steri-Strips on at all t imes. Incentive spirometry as ordered. Tylenol No. 4 one tablet p.o. q.4 p.r.n. pain. Follow up in my office in 1 week. Call for appointment. FRANCISCO/VÍCTOR Voice ID: [id number] Report ID: [id number]
== END 2020-11-14 12:45 | disposition home or self-care (01) ==
LOC: OR 07:40
PROVIDERS: ATTEND Surgery
PROC: 0FT44ZZ Resection of Gallbladder, Percutaneous Endoscopic Approach (ICD-10-PCS; principal; 2020-11-14 09:00)
DX: K80.10 Calculus of gallbladder with chronic cholecystitis without obstruction (principal)
CPT/HCPCS: 85025; 80048; 36415; 82150; 81025; 80076; 88304; 47562; J2704; J2550; J2250; J3010; J1100; J1170; J2710; J7120 ×2; J2405 ×2

== ENCOUNTER 2021-05-03 21:29 | Emergency (ER) | payer OTHER ==
[2021-05-03 22:27] LABS: Absolute Lymphocytes (CBC) 1.9 K/uL (0.7-4.9); Basophils % 0.2 % (0-1.3); Hematocrit 34.1 % (36.0-45.0); Lymphocytes % 19.9 % (15.3-44.8); MPV 7.3 fL (7.6-11.3); RBC Red Blood Cell Count 3.76 M/uL (3.86-4.86)
[2021-05-03 22:40] LABS: BUN Blood Urea Nitrogen 7 mg/dL (7-18); Bicarbonate 24 mmol/L (21-32); Glucose Level 105 mg/dL (74-106); Potassium 3.5 mmol/L (3.5-5.1); Sodium Level 139 mmol/L (136-145)
[2021-05-03] MEDS ORDERED: NA CHLORIDE 0.9% 1,000 ML ONE (22:49)
[2021-05-03] MEDS ORDERED: ONDANSETRON 4 MG/2 ML VIAL ONE (22:49)
--- NOTE | 2021-05-03 23:49 | EDPHYS ---
Physician Documentation [facility] Name: Kaela Gonzales Age: 25 yrs Sex: Female : 1995 Arrival Date: 05/03/2021 Time: 21:31 Bed 15 Private MD: ED Physician Ehsan Kasper HPI: 05/03 23:46 This 25 yrs old Female presents to ER via Ambulatory with complaints of 18wks kb , Abdominal Pain. 23:46 The patient presents to the emergency department with nausea, vomiting, diarrhea. kb Onset: The symptoms/episode began/occurred 2 day(s) ago. Possible causes: sick contacts. The symptoms are aggravated by nothing. The symptoms are alleviated by nothing. Associated signs and symptoms: Pertinent positives: abdominal pain, diarrhea, nausea, vomiting. Severity of symptoms: At their worst the symptoms were mild in the emergency department the symptoms are unchanged. The patient has not experienced similar symptoms in the past. The patient has not recently seen a physician. pt reports n/v/d for 2 days. States son has same symptoms at home and was diagnosed with a virus. 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 - Social history:: Smoking status: Patient denies any tobacco usage or history of. ROS: 23:43 Constitutional: Negative for fever, chills, and weight loss. kb 23:43 Abdomen/GI: Positive for abdominal pain, nausea, vomiting, and diarrhea. 23:43 All other systems are negative. Exam: 23:44 Constitutional: This is a well developed, well nourished patient who is awake, alert, kb and in no acute distress. Head/Face: Normocephalic, atraumatic. ENT: Moist Mucous membranes Cardiovascular: Regular rate and rhythm with a normal S1 and S2. No gallops, murmurs, or rubs. No pulse deficits. Respiratory: Respirations even and unlabored. No increased work of breathing, no retractions or nasal flaring. Skin: Warm, dry with normal turgor. Normal color. MS/ Extremity: Pulses equal, no cyanosis. Neurovascular intact. Full, normal range of motion. Neuro: Awake and alert, GCS 15, oriented to person, place, time, and situation. Moves all extremities. Normal gait. Psych: Awake, alert, with orientation to person, place and time. Behavior, mood, and affect are within normal limits. 23:44 Abdomen/GI: Inspection: obese Bowel sounds: normal, in all quadrants, Palpation: soft, in all quadrants, mild abdominal tenderness, in the right upper quadrant and right lower quadrant. Vital Signs: 21:53 BP 122 / 53; Pulse 93; Resp 18; Temp 98.6(O); Pulse Ox 99% on R/A; Weight 113.4 kg (R); lp1 Height 5 ft. 6 in. (167.64 cm); 21:53 Body Mass Index 40.35 (113.40 kg, 167.64 cm) lp1 MDM: 21:59 Patient medically screened. kb 23:43 Data reviewed: vital signs, nurses notes. Data interpreted: Pulse oximetry: on room air kb is 99 %. Interpretation: normal. Counseling: I had a detailed discussion with the patient and/or guardian regarding: the historical points, exam findings, and any diagnostic results supporting the discharge/admit diagnosis, lab results, the need for outpatient follow up, an OB/Gyne specialist, to return to the emergency department if symptoms worsen or persist or if there are any questions or concerns that arise at home. ED course: Pt tolerating po intake. 05/03 22:10 Order name: CBC with Diff; Complete Time: 22:30 kb 05/03 22:10 Order name: Basic Metabolic Panel; Complete Time: 22:43 kb 05/03 22:10 Order name: IV Start; Complete Time: 22:12 kb 05/03 22:24 Order name: FHT's; Complete Time: 23:31 kb 05/03 22:44 Order name: PO challenge; Complete Time: 00:08 kb Administered Medications: 23:31 Drug: NS 0.9% 1000 ml Route: IV; Rate: 1000 ml; Site: right antecubital; bs2 23:31 Drug: Zofran (Ondansetron) 4 mg Route: IVP; Site: right antecubital; bs2 23:32 Follow up: Response: No adverse reaction bs2 Disposition: 05/04 05:52 Co-signature as Attending Physician, Ehsan Kasper MD. 7 Disposition Summary: 05/03/21 23:48 Discharge Ordered Location: Home kb Condition: Stable kb Diagnosis - Nausea with vomiting, unspecified kb - Diarrhea, unspecified kb Followup: kb - With: Emergency Department - When: As needed - Reason: Worsening of condition Followup: kb - With: Private Physician - When: 2 - 3 days - Reason: Recheck today's complaints, Continuance of care, Re-evaluation by your physician Discharge Instructions: - Discharge Summary Sheet kb - Food Choices to Help Relieve Diarrhea, Adult kb - Nausea and Vomiting, Adult, Vmhm-kc-Iclk kb - Diarrhea, Adult, Liws-be-Llns kb Forms: - Medication Reconciliation Form kb - Thank You Letter kb - Antibiotic Education kb - Prescription Opioid Use kb Prescriptions: - Zofran 4 mg Oral Tablet - take 1 tablet by ORAL route every 6 hours As needed; 20 tablet; Refills: 0, kb Product Selection Permitted Signatures: Dispatcher [employer] EDMS Carmelina Lopez, ADMISSIONS ADVISOR-C ADMISSIONS ADVISOR-CkEmma Luther RN RN lp1 Ehsan Kasper MD MD 7 Aleisha Ag RN RN bs2 Corrections: (The following items were deleted from the chart) 05/03 23:47 23:46 pt reports n/v/d for 2 days. States son has same symptoms at home. . kb kb
--- NOTE | 2021-05-03 23:49 | ER ---
Nurse's Notes [facility] Name: Kaela Gonzales Age: 25 yrs Sex: Female : 1995 Arrival Date: 05/03/2021 Time: 21:31 Bed 15 Private MD: Diagnosis: Nausea with vomiting, unspecified;Diarrhea, unspecified Presentation: 05/03 21:51 Chief complaint: Patient states: Reports abdominal/pelvic pain, vomiting x 2 days; lp1 denies vaginal bleeding; Reports son had similar symptoms; Currently 18 weeks . Coronavirus screen: diarrhea, fatigue, fever, nausea, vomiting. Ebola Screen: No symptoms or risks identified at this time. Risk Assessment: Do you want to hurt yourself or someone else? Patient reports no desire to harm self or others. Onset of symptoms was May 03, 2021. 21:51 Method Of Arrival: Ambulatory lp1 21:51 Acuity: ANNABELLE 3 lp1 21:53 Initial Sepsis Screen: Does the patient meet any 2 criteria? No. Patient's initial lp1 sepsis screen is negative. Does the patient have a suspected source of infection? No. Patient's initial sepsis screen is negative. 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 - Social history:: Smoking status: Patient denies any tobacco usage or history of. Screenin:56 Abuse screen: Denies threats or abuse. Denies injuries from another. Nutritional lp1 screening: No deficits noted. Tuberculosis screening: No symptoms or risk factors identified. Vital Signs: 21:53 BP 122 / 53; Pulse 93; Resp 18; Temp 98.6(O); Pulse Ox 99% on R/A; Weight 113.4 kg (R); lp1 Height 5 ft. 6 in. (167.64 cm); 21:53 Body Mass Index 40.35 (113.40 kg, 167.64 cm) lp1 ED Course: 21:31 Patient arrived in ED. wm 21:46 Carmelina Lopez FNP-C is [facility]. kb 21:46 Ehsan Kasper MD is Attending Physician. kb 21:53 Triage completed. lp1 21:53 Arm band placed on. lp1 22:37 Aleisha Ag, RN is Primary Nurse. bs2 Administered Medications: 23:31 Drug: NS 0.9% 1000 ml Route: IV; Rate: 1000 ml; Site: right antecubital; bs2 23:31 Drug: Zofran (Ondansetron) 4 mg Route: IVP; Site: right antecubital; bs2 23:32 Follow up: Response: No adverse reaction bs2 Outcome: 23:48 Discharge ordered by . kb 05/04 00:09 Patient left the ED. bs2 Signatures: Carmelina Lopez FNP-C FNP-Emma Melendrez RN RN lp1 Nadia Miner Aleisha Ag, KIZZY RN bs2
[2021-05-04 00:28] VITALS: BP 122/53; TEMP 98.6; O2SAT 99
== END 2021-05-04 00:09 | disposition home or self-care (01) ==
LOC: ER 21:29
DX: O21.9 Vomiting of pregnancy, unspecified (principal); R19.7 Diarrhea, unspecified; Z3A.18 18 weeks gestation of pregnancy
CPT/HCPCS: 85025; 80048; 36415; 96374; 99282; J7030; J2405

== ENCOUNTER 2022-03-08 17:48 | Emergency (ER) | payer OTHER ==
--- OUTSIDE RECORDS SUMMARY | 2022-03-08 17:51 | XMS REPORT | Continuity of Care Document ---
:1995 Author Organization [facility] t Address [address] [place] [address] Care Team Providers Name Role Phone BROOKE JUAN Primary Care Physician Unavailable BROOKE JUAN Attending Clinician Unavailable Brooke Juan MD Attending Clinician Doctor Unassigned, Name Attending Clinician Unavailable Martin Castle Attending Clinician Payers Payer Name Policy Type Policy Number Effective Date Expiration Date [facility] [id number] 2019 CHOICE MEDICAID 00:00:00 Problems Condition Condition Condition Status Onset Resolution Last Treating Co mments Source Name Details Category Date Date Treatment Clinician Date Nexplanon Nexplanon Disease Active Uni vers in place in place 3-16 ity of 00:00: [place] [address] Medical Branch History of History of Disease Active U nivers herpes herpes 1-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 See scanned records 07/2019, patient pending repeat pap Incontinen Incontinen Disease Active Overview : Univers ce of ce of 1-12 Formattin ity of feces, feces, 00:00: g of this [place] unspecifie unspecifie 00 note Me dical d fecal d fecal might be Branch incontinen incontinen different ce type ce type from the original. Added automatic ally from request for surgery [id number] Allergies, Adverse Reactions, Alerts Allergy Allergy Status Severity Reaction(s) Onset Inactive Treating Comm ents Source Name Type Date Date Clinician NO KNOWN Drug Active Univers ALLERGIE Class ity of S [facility] Social History Social Habit Start Date Stop Date Quantity Comments Source Exposure to Not sure [facility] SARS-CoV-2 [place] [facility] (event) Branch Alcohol intake 2021-10-28 2021-10-28 Current drinker Unive rsity of 00:00:00 00:00:00 of alcohol [facility] (finding) Branch Alcohol Comment 2021-03-24 2021-03-24 SPECIAL Universit y of 00:00:00 00:00:00 OCCASSIONS [place] [facility] History SDOH 2020-07-17 2020-07-17 99 University o f Alcohol Frequency 00:00:00 00:00:00 [place] M edical Branch History SDOH 2020-07-17 2020-07-17 99 University o f Alcohol Std 00:00:00 00:00:00 [place] [facility] Drinks Branch History SDOH 2020-07-17 2020-07-17 99 University o f Alcohol Binge 00:00:00 00:00:00 [place] [facility] Tobacco use and 2020-04-22 2020-04-22 Never used Universit y of exposure 00:00:00 00:00:00 [facility] Sex Ass[birth year] Universit y of 00:00:00 00:00:00 [facility] Smoking Status Start Date Stop Date Source Never smoker [facility] Medications Ordered Filled Start Stop Current Ordering Indication Dosage Frequency Signature Comments Components Source Medication Medication Date Date Medication? Clinician (SIG) Name Name etonogestre 2021- No [id number] 68mg Univers L 10-28 ity of (NEXPLANON) 23:15: 22:14 [place] implant 68 00 :00 [facility] etonogestre 202- No [id number] 68mg 68 mg, Univers L 10-28 Subdermal, ity of (NEXPLANON) 23:15: 22:14 ONCE NOW, [place] implant 68 00 :00 1 dose, On Med ical mg [facility] 10/28/21 at 1815, Routine
Use approved by: PRINTER OPERATOR SERTraline Yes [id number] 50mg Take 1 U nivers (ZOLOFT) 50 3-09 tablet by ity of mg tablet 00:00: mouth [place] 00 daily. [facility] SERTraline Yes [id number] 50mg Take 1 U nivers (ZOLOFT) 50 3-09 tablet by ity of mg tablet 00:00: mouth [place] 00 daily. [facility] hydroCHLORO Yes [id number] 25mg Take 2 Univers thiazide 2-15 capsules ity of 12.5 mg 00:00: by mouth [place] capsule 00 daily. [facility] hydroCHLORO Yes [id number] 25mg Take 2 Univers thiazide 2-15 capsules ity of 12.5 mg 00:00: by mouth [place] capsule 00 daily. [facility] Yes [id number] 1{tbl} Take 1 Univers vitamin 2-14 tablet by ity of w/FA tablet 00:00: mouth [place] 00 daily. [facility] Yes [id number] 1{tbl} Take 1 Univers vitamin 2-14 tablet by ity of w/FA tablet 00:00: mouth [place] 00 daily. [facility] Immunizations Ordered Filled Immunization Date Status Comments [facility] e Immunization Name Name Influenza Virus 2021-08-20 Completed Universit y of Vaccine Quad IM, 00:00:00 [place] Me dical Preserv and ABX Branch Free 6 MO-64 YRS Influenza Virus 2021-08-20 Completed Universit y of Vaccine Quad IM, 00:00:00 [place] Me dical Preserv and ABX Branch Free 6 MO-64 YRS TDAP 2021-08-06 Completed [facility] 00:00:00 [facility] TDAP 2021-08-06 Completed [facility] 00:00:00 [facility] Vital Signs Vital Name Observation Time Observation Value Comments Source Systolic blood 2021-10-28 15:59:00 124 mm[Hg] Univer sity of pressure [facility] Diastolic blood 2021-10-28 15:59:00 78 mm[Hg] Unive rsity of [facility] Heart rate 2021-10-28 15:59:00 86 /min [facility] Body temperature 2021-10-28 15:59:00 36.89 [facility]thia [facility] Res[facility] rate 2021-10-28 15:59:00 18 /min [facility] Body height 2021-10-28 15:59:00 167.6 cm [facility] Body weight 2021-10-28 15:59:00 113.853 kg [facility] BMI 2021-10-28 15:59:00 40.51 kg/m2 [facility] Procedures Procedure Date / Time Performing Clinician Source Performed CONSENT FOR 2021-10-28 05:01:00 Doctor Unamckay, Albina [facility] POCT TEST 2021-10-28 00:00:00 Nabila Juan [facility] Encounters Start End Encounter Admission Attending Care Care Encounter Source Date/Time Date/Time Type Type Clinicians Facility Department ID 2021-12-03 2021-12-03 Outpatient R NABILA JUAN [facility] [id number] [facility] [place] [facility] 13:30[facility]00 [facility] 2021-10-28 2021-10-28 Office Nabila Juan NDGASTON [id number] Univers 10:30:00 11:24:27 Visit Brooke BAPTISTE [id number] i ty [facility] [id number] [place] PROFESSIO [id number] Nm dical NAL [address] Branch BUILDING 2021-10-28 2021-10-28 Orders Doctor PALACIOS [id number] Univers 00:00:00 00:00:00 Only UnassJULIANO shi [id number] [facility] [id number] Eduardo as [id number] [address] 2020-09-18 2020-09-18 Telephone Ortega [facility] [id number] 00:00:00 00:00:00 Mary Salazar PRINTER OPERATOR [id number] [facility] [id number] MATERNAL [id number] & CHILD [address] [place] [address] Results Test Description Test Time Test Comments Results Result Comments Source POCT TEST 2021-10-28 15:57:00 Test Item Value Reference Range Interpretation Comme nts POCT PREG (test code = 1605) Negative On board controls acceptable with C Line (test code = 3574) Yes POCT PREG LOT # (test code = 3575) POCT PREG TEST DATE (test code = 3576) [facility]
[2022-03-08 19:20] LABS: Urine Blood Trace-intact (Negative); Urine Glucose Negative (Negative); Urine Protein Negative (Negative); Urine Specific Gravity 1.025 (1.005-1.030)
[2022-03-08 19:22] LABS: Absolute Lymphocytes (CBC) 2.8 K/uL (0.7-4.9); Hematocrit 36.4 % (36.0-45.0); Lymphocytes % 26.5 % (15.3-44.8); MCV 85.1 fL (80-100); MPV 6.9 fL (7.6-11.3); RBC Red Blood Cell Count 4.28 M/uL (3.86-4.86)
[2022-03-08 19:38] LABS: Albumin 3.9 g/dL (3.4-5.0); Bilirubin Total 0.3 mg/dL (0.2-1.0); Potassium 3.5 mmol/L (3.5-5.1); Protein, Total 8.2 g/dL (6.4-8.2)
[2022-03-08 19:40] LABS: Urine Bacteria >50 /HPF (<20); Urine RBC <5 /HPF (None Seen)
[2022-03-08] MEDS ORDERED: ONDANSETRON 4 MG/2 ML VIAL ONE (19:40)
[2022-03-08] MEDS ORDERED: PANTOPRAZOLE 40 MG INJ ONE (19:40)
--- NOTE | 2022-03-08 20:26 | RAD REPORT ---
EXAM DESCRIPTION: CT - Abdomen Pelvis W Contrast - 03/08/2022 8:12 pm CLINICAL HISTORY: epigastric pain COMPARISON: <Comparisons> TECHNIQUE: Biphasic, helical CT imaging of the abdomen and pelvis was performed following 100 ml non -ionic IV contrast. No oral contrast administered. All CT scans are performed using dose optimization technique as appropriate and may include automated exposure control or mA/KV adjustment according to patient size. FINDINGS: No suspicious findings in the lung bases. The liver, spleen, and pancreas show no suspicious findings. Cholecystectomy clips are present. No bi liary tree dilatation. Symmetric renal function is seen with no hydronephrosis or suspicious renal mass. No pyelonephritis o r acute parenchymal process. No bladder abnormalities. No adrenal abnormalities. Uterus and ovaries s how no suspicious findings. No gastric dilatation, gastric wall thickening or edema. No stranding in the fatty tissues near the s tomach. Large and small bowel show no acute findings. Appendectomy clips in place. No free air, free fluid or inflammatory stranding. No hernia, mass or bulky lymphadenopathy. No suspicious bony findings. No significant change from prior imaging. IMPRESSION: Contrast enhanced CT abdomen and pelvis showing no acute or emergent finding.
--- NOTE | 2022-03-08 20:51 | ER ---
Nurse's Notes [facility] Name: Kaela Gonzales Age: 26 yrs Sex: Female : 1995 Arrival Date: 03/08/2022 Time: 17:49 Bed 20 Private MD: Diagnosis: Epigastric pain;UTI/ Urinary tract infection, site not specified Presentation: 03/08 17:51 Chief complaint: Patient states: Epigastric pain x 2 weeks, nausea after eating. jl7 Coronavirus screen: At this time, the client does not indicate any symptoms associated with coronavirus-19. Ebola Screen: No symptoms or risks identified at this time. Initial Sepsis Screen: Does the patient meet any 2 criteria? No. Patient's initial sepsis screen is negative. Does the patient have a suspected source of infection? No. Patient's initial sepsis screen is negative. Risk Assessment: Do you want to hurt yourself or someone else? Patient reports no desire to harm self or others. Onset of symptoms was February 22, 2022. 17:51 Method Of Arrival: Ambulatory jl 17:51 Acuity: ANNABELLE 3 jl7 Triage Assessment: 17:52 General: Appears in no apparent distress. uncomfortable, Behavior is calm, cooperative, jl7 appropriate for age. Pain: Complains of pain in epigastric area Pain currently is 8 out of 10 on a pain scale. GI: Reports epigastric pain. 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 - Social history:: Smoking status: Patient denies any tobacco usage or history of. Screenin:00 Abuse screen: Denies threats or abuse. Nutritional screening: No deficits noted. ke1 Tuberculosis screening: No symptoms or risk factors identified. Fall Risk None identified. Assessment: 18:00 General: Appears comfortable, Behavior is calm, cooperative. Pain: Complains of pain in ha1 diaphragm and epigastric area Pain does not radiate. Pain at worst was 9 out of 10 on a pain scale. Quality of pain is described as burning, Pain began 2 weeks ago Is intermittent, Alleviated by medications. 18:00 Neuro: Level of Consciousness is awake, alert, obeys commands, Oriented to person, ha1 place, time, situation, Cardiovascular: Heart tones S1 S2 present Capillary refill < 3 seconds. Respiratory: Airway is patent Breath sounds are clear bilaterally. GI: Abdomen is non-distended, Bowel sounds present X 4 quads. Abd is soft and non tender X 4 quads. Reports mid epigastric pain. : Reports reports taking Azo medication to self treat a possible UTI. denies any pain with urination. urine collected in urine cup. urine color clear yellow. EENT: No signs and/or symptoms were reported regarding the EENT system. Derm: Skin Skin is dry, Skin is pink, warm \T\ dry. Musculoskeletal: No signs and/or symptoms reported regarding the musculoskeletal system. Capillary refill < 3 seconds, Range of motion: intact in all extremities. Vital Signs: 17:51 Weight 109.77 kg; Height 5 ft. 6 in. (167.64 cm); Pain 8/10; jl7 18:00 BP 124 / 63; Pulse 76; Resp 16; Pulse Ox 100% on R/A; Pain 9/10; bm7 17:51 Body Mass Index 39.06 (109.77 kg, 167.64 cm) jl7 ED Course: 17:49 Patient arrived in ED. rg4 17:52 Triage completed. jl7 17:52 Arm band placed on right wrist. jl7 17:55 Asa Salamanca PA is PHCP. cp 17:55 Asa Lopes MD is Attending Physician. cp 18:24 Yue Montes, KIZZY is Primary Nurse. ha1 19:00 Bed in low position. ke1 19:09 Inserted saline lock: 20 gauge in right antecubital area, using aseptic technique. ld1 Blood collected. 19:24 Urine collected: clean catch specimen. ha1 20:14 CT Abd/Pelvis - IV Contrast Only In Process Unspecified. EDMS 21:00 No provider procedures requiring assistance completed. ke1 21:01 IV discontinued. ke1 Administered Medications: 19:37 Drug: Zofran (Ondansetron) 4 mg Route: IVP; Site: left antecubital; ke1 21:04 Follow up: Response: Marked relief of symptoms ke1 19:37 Drug: ProTONIX (pantoprazole) 40 mg Route: IVP; Site: left antecubital; ke1 21:03 Follow up: Response: Marked relief of symptoms ke1 20:59 Drug: Rocephin (cefTRIAXone) 1 grams Route: IV; Rate: calculated rate; Site: left ld1 antecubital; 20:59 Follow up: Response: No adverse reaction ld1 21:04 Follow up: Response: No adverse reaction; Medication administered at discharge. ke1 Medication: 21:01 VIS not applicable for this client. ke1 Outcome: 20:50 Discharge ordered by . min 21:00 Discharged to home ambulatory. ke1 21:00 Condition: good 21:00 Discharge instructions given to patient. 21:04 Patient left the ED. ke1 Signatures: Dispatcher [employer] EDMS Asa Salamanca PA PA cp Garcia, Rubi rg4 Aristeo Milligan RN RN jl7 Lin Causey RN RN bm7 Nicolette Yanes RN RN ld1 Jenelle Arce RN RN ke1 Yue Montes RN RN ha1
--- NOTE | 2022-03-08 20:51 | EDPHYS ---
Physician Documentation [facility] Name: Kaela Gonzales Age: 26 yrs Sex: Female : 1995 Arrival Date: 03/08/2022 Time: 17:49 Bed 20 Private MD: Asa Rivas HPI: 03/08 18:05 This 26 yrs old Female presents to ER via Ambulatory with complaints of cp Abdominal Pain. 18:05 The patient presents with abdominal pain in the epigastric area. Onset: The cp symptoms/episode began/occurred 1 week(s) ago. 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 - Social history:: Smoking status: Patient denies any tobacco usage or history of. ROS: 18:10 Constitutional: Negative for body aches, chills, fever, poor PO intake. cp 18:10 Eyes: Negative for injury, pain, redness, and discharge. cp 18:10 Respiratory: Negative for cough, shortness of breath, wheezing. 18:10 Abdomen/GI: Positive for abdominal pain, nausea and vomiting, Negative for diarrhea, constipation, anorexia. Exam: 18:15 Head/Face: Normocephalic, atraumatic. cp 18:15 Constitutional: The patient appears in no acute distress, alert, awake, comfortable, non-toxic, well developed, well nourished. 18:15 Eyes: Periorbital structures: appear normal, Conjunctiva: normal, no exudate, no injection, Sclera: no appreciated abnormality, Lids and lashes: appear normal, bilaterally. 18:15 ENT: External ear(s): are unremarkable, Nose: is normal, Mouth: Lips: moist, Oral mucosa: pink and intact, moist, Posterior pharynx: Airway: no evidence of obstruction, patent. 18:15 Neck: ROM/movement: is normal, is supple, without pain, no range of motions limitations. 18:15 Chest/axilla: Inspection: normal. 18:15 Cardiovascular: Rate: normal, Rhythm: regular. 18:15 Respiratory: the patient does not display signs of respiratory distress, Respirations: normal, no use of accessory muscles, no retractions, labored breathing, is not present, Breath sounds: are clear throughout, no decreased breath sounds, no stridor, no wheezing. 18:15 Abdomen/GI: Inspection: abdomen appears normal, Bowel sounds: active, all quadrants, Palpation: soft, in all quadrants, mild abdominal tenderness, in the epigastric area, rebound tenderness, is not appreciated, voluntary guarding, is not appreciated, involuntary guarding, is not appreciated. 18:15 Back: CVA tenderness, is absent. 18:15 Neuro: Orientation: to person, place \T\ time. Mentation: is normal, Motor: moves all fours, strength is normal, Sensation: is normal. Vital Signs: 17:51 Weight 109.77 kg; Height 5 ft. 6 in. (167.64 cm); Pain 8/10; jl7 18:00 BP 124 / 63; Pulse 76; Resp 16; Pulse Ox 100% on R/A; Pain 9/10; bm7 17:51 Body Mass Index 39.06 (109.77 kg, 167.64 cm) jl7 MDM: 17:56 Patient medically screened. cp 19:00 Differential diagnosis: gastritis, gastroesophageal reflux disease, pancreatitis, cp Peptic Ulcer Disease, Perf. Duodenal Ulcer, Perf. Gastric Ulcer, Ureterolithiasis, urinary tract infection, choledocholithiasis. 20:50 Data reviewed: vital signs, nurses notes, lab test result(s), radiologic studies, CT cp scan. 20:50 Counseling: I had a detailed discussion with the patient and/or guardian regarding: the cp historical points, exam findings, and any diagnostic results supporting the discharge/admit diagnosis, lab results, radiology results, to return to the emergency department if symptoms worsen or persist or if there are any questions or concerns that arise at home. Response to treatment: the patient's symptoms have markedly improved after treatment. Special discussion: Based on the patient's Hx, exam, and Dx evaluation, there is no indication for emergent surgery or inpatient Tx. It is understood by the patient/guardian that if the Sx's persist or worsen they need to return immediately for re-evaluation. 03/08 18:21 Order name: CBC with Diff; Complete Time: 20:44 cp 03/08 20:44 Interpretation: Normal except: MCV 85.1; MPV 6.9. cp 03/08 18:21 Order name: CMP; Complete Time: 20:44 03/08 20:45 Interpretation: Normal except: AST 8; A/G 0.9; GLOB 4.3. cp 03/08 18:21 Order name: Lipase; Complete Time: 20:44 cp 03/08 18:21 Order name: Urine Microscopic Only; Complete Time: 20:44 cp 03/08 19:21 Order name: Urine Dipstick-Ancillary; Complete Time: 20:44 EDKY 03/08 20:45 Interpretation: Normal except: UBLD Trace-intact; UESTR Trace. cp 03/08 19:43 Order name: Urine Culture [facility] 03/08 18:21 Order name: IV Saline Lock; Complete Time: 19:10 03/08 18:21 Order name: Labs collected and sent; Complete Time: 19:23 cp 03/08 18:21 Order name: Urine Dipstick-Ancillary (obtain specimen); Complete Time: 19:23 03/08 19:06 Order name: CT Abd/Pelvis - IV Contrast Only; Complete Time: 20:44 03/08 19:47 Order name: Urine --Ancillary (enter results) [facility] 03/08 18:21 Order name: Urine Test (obtain specimen); Complete Time: 19:23 cp Administered Medications: 19:37 Drug: Zofran (Ondansetron) 4 mg Route: IVP; Site: left antecubital; ke1 21:04 Follow up: Response: Marked relief of symptoms ke1 19:37 Drug: ProTONIX (pantoprazole) 40 mg Route: IVP; Site: left antecubital; ke1 21:03 Follow up: Response: Marked relief of symptoms ke1 20:59 Drug: Rocephin (cefTRIAXone) 1 grams Route: IV; Rate: calculated rate; Site: left ld1 antecubital; 20:59 Follow up: Response: No adverse reaction ld1 21:04 Follow up: Response: No adverse reaction; Medication administered at discharge. ke1 Disposition Summary: 03/08/22 20:50 Discharge Ordered Location: Home cp Problem: new cp Symptoms: have improved cp Condition: Stable cp Diagnosis - Epigastric pain cp - UTI/ Urinary tract infection, site not specified cp Followup: cp - With: Private Physician - When: 2 - 3 days - Reason: Recheck today's complaints Discharge Instructions: - Discharge Summary Sheet cp - Abdominal Pain, Adult cp - Urinary Tract Infection, Adult cp Forms: - Medication Reconciliation Form cp - Thank You Letter cp - Antibiotic Education cp - Prescription Opioid Use cp Prescriptions: - Protonix 40 mg Oral Tablet - take 1 tablet by ORAL route once daily; 30 tablet; Refills: 0, Product cp Selection Permitted - Zofran 4 mg Oral Tablet - take 1 tablet by ORAL route every 12 hours As needed; 20 tablet; Refills: 0, cp Product Selection Permitted - Macrobid 100 mg Oral Capsule - take 1 capsule by ORAL route every 12 hours for 7 days; 14 capsule; Refills: 0, cp Product Selection Permitted Signatures: Dispatcher [employer] EDMS Asa Salamanca PA PA cp Leal, Jahala RN RN jl7 Nicolette Yanes RN RN ld1 Jenelle Arce RN RN ke1 Yue Montes RN RN ha1 Corrections: (The following items were deleted from the chart) 18:07 18:06 The patient presents with abdominal pain in the epigastric area, cp cp 18:07 18:06 Onset: The symptoms/episode began/occurred 1 week(s) ago, cp cp 18:07 18:06 This 26 yrs old Female presents to ER via Ambulatory with complaints of cp Abdominal Pain. cp 20:45 20:44 Normal except: AST 8. cp cp 03/09 12:03/08 17:50 Constitutional: The patient appears in no acute distress, alert, awake, cp comfortable, non-toxic, well developed, well nourished, cp 03/09 12:03/08 17:50 Head/Face: Normocephalic, atraumatic. cp cp 03/09 12:03/08 17:50 Eyes: Periorbital structures: appear normal, Conjunctiva: normal, no cp exudate, no injection, Sclera: no appreciated abnormality, Lids and lashes: appear normal, bilaterally, cp 03/09 12:59 03/08 17:50 ENT: External ear(s): are unremarkable, Nose: is normal, Mouth: Lips: cp moist, Oral mucosa: pink and intact, moist, Posterior pharynx: Airway: no evidence of obstruction, patent, cp 03/09 12:03/08 17:50 Neck: ROM/movement: is normal, is supple, without pain, no range of motions cp limitations, cp 03/09 12:03/08 17:50 Chest/axilla: Inspection: normal, cp cp 03/09 12:03/08 17:50 Cardiovascular: Rate: normal, Rhythm: regular, cp cp 03/09 12:03/08 17:50 Respiratory: the patient does not display signs of respiratory distress, cp Respirations: normal, no use of accessory muscles, no retractions, labored breathing, is not present, Breath sounds: are clear throughout, no decreased breath sounds, no stridor, no wheezing, cp 03/09 12:03/08 17:50 Abdomen/GI: Inspection: abdomen appears normal, Bowel sounds: active, all cp quadrants, Palpation: soft, in all quadrants, mild abdominal tenderness, in the epigastric area, rebound tenderness, is not appreciated, voluntary guarding, is not appreciated, involuntary guarding, is not appreciated, cp 03/09 12:03/08 17:50 Back: CVA tenderness, is absent, cp cp 03/09 12:03/08 17:50 Neuro: Orientation: to person, place \T\ time. Mentation: is normal, Motor: cp moves all fours, strength is normal, Sensation: is normal, cp
[2022-03-08] MEDS ORDERED: CEFTRIAXONE 1000 MG/VIAL ONE (21:03)
[2022-03-08 21:06] LABS: Urine Specific Gravity/Preg 1.025 (1.005-1.030)
[2022-03-08 21:13] VITALS: BP 124/63; O2SAT 100
== END 2022-03-08 21:04 | disposition home or self-care (01) ==
LOC: ER 17:48
DX: N39.0 Urinary tract infection, site not specified (principal)
CPT/HCPCS: 87088; 85025; 87086; 36415; 81025; 83690; 80053; 74177; Q9967; C9113; J2405; 81003; 81015; 96374; 96375; 99284

== ENCOUNTER 2022-09-13 14:30 | Emergency (ER) | payer OTHER ==
--- OUTSIDE RECORDS SUMMARY | 2022-09-13 14:34 | XMS REPORT | Continuity of Care Document ---
:1995 Author Organization [facility] t Address [address] [place] [address] Care Team Providers Name Role Phone NABILA JUAN Primary Care Physician Unavailable MILLER PELAEZ Attending Clinician Unavailable HODAN CRAWFORD Attending Clinician Unavailable NABILA JUAN Attending Clinician Unavailable 2, [facility] Attending Clinician Unavailable Nabila Juan MD Attending Clinician Doctor Unassigned, [place] Attending Clinician Unavailable Sergio Brantley MD Attending Clinician [phone] Tata Hardwick RN Attending Clinician Unavailable Jacqueline Biswas PA-C Attending Clinician JACQUELINE BISWAS Attending Clinician Unavailable Ultrasound, [facility] Attending Clinician Unavailable Elizabeth Barraza MD Attending Clinician ELIZABETH BARRAZA Attending Clinician Unavailable ELIZABETH BARRAZA Attending Clinician Unavailable Asa Garzon DO Attending Clinician MARY SALAS Attending Clinician Unavailable Mary Castle Attending Clinician [phone] OSITO LACY Attending Clinician Unavailable OSITO LACY Attending Clinician Unavailable LOUANN DOMINIQUE Attending Clinician Unavailable NABILA JUAN Admitting Clinician Unavailable MILLER PELAEZ Admitting Clinician Unavailable Nabila Juan MD Admitting Clinician Payers Payer Name Policy Type Policy Number Effective Date Expiration Date Rashawn tur[facility] [id number] 2019 CHOICE MEDICAID 00:00:00 [facility] [place] [id number] 2020 00:00:00 Problems Condition Condition Condition Status Onset Resolution Last Treating Co mments Source Name Details Category Date Date Treatment Clinician Date Nexplanon Nexplanon Disease Active Uni vers in place in place 3-16 ity of 00:00: [place] 00 Medical Branch History of History of Disease Active U nivers herpes herpes 1-20 [place] Morbid Morbid Disease Active Univers [...] of feces, feces, 00:00: g of this [place] unspecifie unspecifie 00 note Me dical d fecal d fecal might be Branch incontinen incontinen different ce type ce type from the original. Added automatic ally from request for surgery [id number] Allergies, Adverse Reactions, Alerts Allergy Allergy Status Severity Reaction(s) Onset Inactive Treating Comm ents Source Name Type Date Date Clinician NO KNOWN Drug Active Univers ALLERGIE Class ity of S [facility] Social History Social Habit Start Date Stop Date Quantity Comments Source Exposure to Not sure University of SARS-CoV-2 [facility] (event) Branch Alcohol intake 2021-10-28 2021-10-28 Current drinker Unive rsity of 00:00:00 00:00:00 of alcohol [facility] (finding) Branch Alcohol Comment 2021-03-24 2021-03-24 SPECIAL Universit y of 00:00:00 00:00:00 OCCASSIONS [place] [facility] History SDOH 2020-07-17 2020-07-17 99 University o f Alcohol Frequency 00:00:00 00:00:00 [place] M edical Branch History SDOH 2020-07-17 2020-07-17 99 University o f Alcohol Std 00:00:00 00:00:00 [place] Medical Drinks Branch History SDOH 2020-07-17 2020-07-17 99 University o f Alcohol Binge 00:00:00 00:00:00 [place] Medic al Branch Tobacco use and 2020-04-22 2020-04-22 Never used Universit y of exposure 00:00:00 00:00:00 [facility] Sex Assigned At [birth year] Universit y of 00:00:00 00:00:00 [facility] Smoking Status Start Date Stop Date Source Never smoker [facility] Medications Ordered Filled Start Stop Current Ordering Indication Dosage Frequency Signature Comments Components Source Medication Medication Date Date Medication? Clinician (SIG) Name Name etonogestre 2021- No [id number] 68mg Univers L 10-2816 ity of (NEXPLANON) 23:15: 22:14 [place] implant 68 00 :00 [facility] Branch etonogestre 2021- No [id number] 68mg 68 mg, Univers L 10-2816 Subdermal, ity of (NEXPLANON) 23:15: 22:14 ONCE NOW, [place] implant 68 00 :00 1 dose, On Med ical mg [facility] Branch 10/28/21 at 1815, Routine
Use approved by: PLANT MANAGER SERTraline Yes [id number] 50mg Take 1 U nivers (ZOLOFT) 50 3-09 tablet by ity of mg tablet 00:00: mouth [place] 00 daily. Medical Branch SERTraline Yes [id number] 50mg Take 1 U nivers (ZOLOFT) 50 3-09 tablet by ity of mg tablet 00:00: mouth [place] 00 daily. Medical Branch hydroCHLORO Yes [id number] 25mg Take 2 Univers thiazide 2-15 capsules ity of 12.5 mg 00:00: by mouth [place] capsule 00 daily. Medical Branch hydroCHLORO Yes [id number] 25mg Take 2 Univers thiazide 2-15 capsules ity of 12.5 mg 00:00: by mouth [place] capsule 00 daily. Medical Branch Yes [id number] 1{tbl} Take 1 Univers vitamin 2-14 tablet by ity of w/FA tablet 00:00: mouth [place] 00 daily. Medical Branch Yes [id number] 1{tbl} Take 1 Univers vitamin 2-14 tablet by ity of w/FA tablet 00:00: mouth [place] 00 daily. [facility] Immunizations Ordered Filled Immunization Date Status Comments [facility] e Immunization Name Name Influenza Virus 2021-08-20 Completed Universit y of Vaccine Quad IM, 00:00:00 [place] Me dical Preserv and ABX Branch Free 6 MO-64 YRS Influenza Virus 2021-08-20 Completed Universit y of Vaccine Quad IM, 00:00:00 [facility] dical Preserv and ABX Branch Free 6 MO-64 YRS TDAP 2021-08-06 Completed University 00:00:00 [facility] TDAP 2021-08-06 Completed [facility] 00:00:00 [facility] Vital Signs Vital Name Observation Time Observation Value Comments Source Systolic blood 2021-10-28 15:59:00 124 mm[Hg] Univer sity of pressure [facility] Diastolic blood 2021-10-28 15:59:00 78 mm[Hg] [facility] Heart rate 2021-10-28 15:59:00 86 /min [facility] Body temperature 2021-10-28 15:59:00 36.89 Cynthia [facility] Respiratory rate 2021-10-28 15:59:00 18 /min [facility] Body height 2021-10-28 15:59:00 167.6 cm [facility] Body weight 2021-10-28 15:59:00 113.853 kg [facility] BMI 2021-10-28 15:59:00 40.51 kg/m2 [facility] Procedures Procedure Date / Time Performing Clinician Source Performed CONSENT FOR 2021-10-28 05:01:00 Doctor Unassigned, No Univer sity of [place] CONTRACEPTION Name [facility] POCT TEST 2021-10-28 00:00:00 Nabila Juan Universi ty of [facility] Encounters Start End Encounter Admission Attending Care Care Encounter Source Date/Time Date/Time Type Type Clinicians Facility Department ID 2021-09-25 Outpatient P [facility] BARBIE [id number] Univers 23:27:44 ity [facility] 2021-06-13 [facility] [id number] Univers 17:00:34 MILLER ity [facility] 2022-06-30 2022-06-30 Outpatient R TEOFILO [facility] [id number] Univers 09:30:00 09:30:00 ISE, ity [facility] 2021-12-03 2021-12-03 Outpatient R NABILA JUAN [facility] [id number] Univers 13:30:00 13:30:00 ity [facility] 2021-10-28 2021-10-28 Importer Or Exporter 2, Adc Lab [facility] 1.2.840.114 [id number] Univers 11:45:00 12:00:00 Visit Nabila Juan 350.1.13.10 ity of [place] [id number] Nv dical NAL [address] [facility] 2021-10-28 2021-10-28 Outpatient R NABILA JUAN [facility] [id number] Univers 10:30:00 11:24:27 ity [facility] 2021-10-28 2021-10-28 Office Nabila Juan [facility] 1.2.801.024 [id number] Univers 10:30:00 11:24:27 Visit Vishal BAPTISTE 350.1.13.10 i ty of [place] 4.2.7.2.[place] [id number] Nv dical NAL [facility] 2021-10-28 2021-10-28 Orders Doctor PALACIOS 1.2.840.114 [id number] Univers 00:00:00 00:00:00 Only Unassigned, JULIANO 350.1.13.10 ity of [place] [facility] 4.2.7.2.686 Eduardo as [phone] [address] 2021-10-21 2021-10-21 Outpatient R NABILA JUAN [facility] [id number] Univers 13:00:00 13:25:55 ity of [facility] 2021-10-21 2021-10-21 Routine Nabila Juan [facility] [id number] Univers 13:00:00 13:25:55 Cam [place] 350.1.13.10 ity of [place] 4[place].2.[place] [id number] Nv dical [address] 2021-10-09 2021-10-09 Outpatient R [facility] [id number] Univers 15:00:00 15:00:00 ity of [facility] 2021-10-06 2021-10-06 Outpatient R [facility] [id number] Univers 15:00:00 15:00:00 ity [facility] 2021-09-27 2021-09-29 Inpatient X NABILA JUAN [facility] BARBIE [id number] Univers 10:56:00 21:30:00 ity of [facility] 2021-09-27 2021-09-29 Hospital Nabila Juan [facility] 1.2.840.114 [id number] Univers 10:56:00 21:30:00 Encounter Cam OLIVA 350.1.13.10 ity of [facility] 4.2.7.2.686 [place] [id number] [place] [address] [place] 2021-09-28 2021-09-28 Anesthesia [facility] 1.2.840.114 [id number] Univers 20:00:03 20:00:03 Event OLIVA ibarra 350.1.13.10 i ty of Sergio FARIAS 4.2.7.2.686 Eduardo as CAMPUS [id number] [address] 2021-09-27 2021-09-27 Anesthesia [facility] 1.2.840.114 [id number] Univers 14:58:00 19:49:00 Event OLIVA ibarra 350.1.13.10 i ty of Sergio FARIAS 4.2.7.2.686 Eduardo as CAMPUS [id number] [facility] 083 Branch 2021-09-27 2021-09-27 Inpatient X NABILA JUAN [facility] [id number] Univers 10:56:00 10:56:00 ity of [facility] 2021-09-27 2021-09-27 Orders Doctor PALACIOS 1.2.840.114 [id number] Univers 00:00:00 00:00:00 Only Unassigned, JULIANO 350.1.13.10 ity of [place] [address]686 Eduardo as [phone] [facility] 009 Branch 2021-09-25 2021-09-25 Outpatient P NABILA JUAN [facility] [id number] Univers 21:18:00 23:19:00 ity of [facility] 2021-09-25 2021-09-25 [facility] 1.2.840.114 [id number] Univers 21:18:00 23:19:00 Encounter Vishal BAPTISTE 350.1.13.10 ity of [place] 4.2.7.2.[place] [id number] [place] [address] [place] 2021-09-25 2021-09-25 Nurse SUZANNE Hardwick 1.2.840.114 [id number] Univers 00:00:00 00:00:00 Triage Tata HENAO 350.1.13.10 ity of [place] [address]806.2.7.2.686 Eduardo as [id number] [facility] 019 Branch 2021-09-23 2021-09-23 Outpatient R NABILA JUAN [facility] [id number] Univers 16:00:00 17:01:09 ity of [facility] 2021-09-23 2021-09-23 Routine Jozef [facility] 1.2.003.570 [id number] Univers 16:00:00 17:01:09 Cam OLIVA 350.1.13.10 ity of Visit [place] 4[place].2.[place] [id number] Nv dical [address] 2021-09-23 2021-09-23 Orders Doctor PALACIOS 1.2.840.114 [id number] Univers 00:00:00 00:00:00 Only Unassigned, JULIANO 350.1.13.10 ity of [place] [facility] 4.2.7.2.686 Eduardo as [id number] [address] 2021-09-17 2021-09-17 [facility] 1.2.923.331 [id number] Univers 16:30:00 16:30:00 Jacqueline BAPTISTE 350.1.13.10 ity of [place] 4[place]2.7.2.[place] [id number] [facility] 2021-09-17 2021-09-17 Outpatient R ZULAY [facility] [id number] Univers 16:30:00 15:05:02 JACQUELINE espinosa [facility] 2021-09-17 2021-09-17 Outpatient R ZULAY [facility] [id number] Univers 11:30:00 11:30:00 [facility] 2021-09-10 2021-09-10 Importer Or Exporter 2, Adc Lab [facility] 1.2.840.114 [id number] Univers 14:00:00 14:00:00 Visit Nabila Juan 350.1.13.10 ity of [place] 4[place].2.[place] [id number] [facility] 353 [facility] 2021-09-10 2021-09-10 Outpatient R NABILA JUAN [facility] [id number] Univers 13:00:00 13:46:24 ity of [facility] 2021-09-10 2021-09-10 Routine Nabila Juan [facility] 1.2.453.995 [id number] Univers 13:00:00 13:46:24 Vishal BAPTISTE 350.1.13.10 ity of [place] 4[place].2.[place] [id number] [facility] 2021-09-10 2021-09-10 Orders Doctor PALACIOS 1.2.840.114 [id number] Univers 00:00:00 00:00:00 Only Unassigned, JULIANO 350.1.13.10 ity of [place] [facility] 4.2.7.2.686 Eduardo as [id number] [address] 2021-09-03 2021-09-03 Outpatient R NABILA JUAN [facility] [id number] Univers 16:00:00 16:45:26 ity of [facility] 2021-09-03 2021-09-03 Routine Nabila Juan [facility] 1.2.867.580 [id number] Univers 16:00:00 16:45:26 [place] 350.1.13.10 ity of [place] 4[place] [id number] Nv dical NAL [address] [place] [address] 2021-09-03 2021-09-03 Outpatient R NABILA JUAN [facility] [id number] Univers 16:00:00 16:00:00 ity of [facility] 2021-09-01 2021-09-01 Importer Or Exporter Ultrasound, [facility] 1.2 .840.114 [id number] Univers 09:45:00 10:15:00 Visit Elizabeth Barraza 350.1.13.10 ity [place] 4[place]2.[place].2.[place] [id number] Nv dicks NAL [address] [place] [address] 2021-09-01 2021-09-01 Outpatient P ELIZABETH BARRAZA [facility] [id number] Univers 09:45:00 09:45:00 ELIZABETH BARRAZA ity of [facility] 2021-09-01 2021-09-01 Case Nabila Juan [facility] 1.2.385.405 [id number] Univers 00:00:00 00:00:00 Management Cam [place] 350.1.13.10 ity of [facility] 4.2.7.2.686 [place] [id number] Nv dical NAL [address] [place] [address] 2021-08-27 2021-08-27 Case Nabila Juan [facility] 1.2.456.651 [id number] Univers 00:00:00 00:00:00 Management Cam [place] 350.1.13.10 ity of [facility] 4.2.7.2.686 [place] [id number] [address] 2021-08-26 2021-08-26 Orders Doctor SUZNANE 1.2.840.114 [id number] Univers 00:00:00 00:00:00 Only Unassigned, JULIANO 350.1.13.10 ity of [place] [facility] 4.2.7.2.686 Eduardo as [phone] [address] 2021-08-25 2021-08-25 Outpatient R ZULAY [facility] [id number] Univers 16:00:00 16:33:08 JACQUELINE jesús [facility] 2021-08-25 2021-08-25 [facility]ine [facility] 1.2.811.336 [id number] Univers 16:00:00 16:33:08 Jacqueline BAPTISTE 350.1.13.10 ity of [place] 4[place] [id number] [address] 2021-08-24 2021-08-24 Nabila Eagle [facility] 1.2.840.114 [id number] Univers 00:00:00 00:00:00 Vishal BAPTISTE 350.1.13.10 i ty of [place] 4[place]2.7.2.[place] [id number] [address] 2021-08-20 2021-08-20 Outpatient Kaylee BISWAS [facility] [id number] Univers 16:00:00 16:13:45 JACQUELINE espinosa [facility] 2021-08-20 2021-08-20 [facility]ine [facility] 1.2.817.573 [id number] Univers 16:00:00 16:13:45 Jacqueline BAPTISTE 350.1.13.10 ity of [place] 4[place]2.7.2.[place] [id number] [address] 2021-08-13 2021-08-13 Outpatient R NABILA JUAN [facility] [id number] Univers 08:15:00 08:15:00 ity of [facility] 2021-08-13 2021-08-13 Importer Or Exporter 2, Adc Lab [facility] 1.2.840.114 [id number] Univers 08:15:00 08:15:00 Visit Nabila JuanADAMA 350.1.13.10 ity of [place] 4.2.7.2.[place] [id number] [address] 2021-08-12 2021-08-12 [facility] 1.2.840.114 [id number] Univers 00:00:00 00:00:00 Vishal BAPTISTE 350.1.13.10 i ty of [facility] 4.2.7.2.686 [place] [id number] [address] 2021-08-11 2021-08-11 Outpatient R MARYJANE JUANEN [facility] [id number] Univers 10:30:00 10:30:00 ity of [facility] 2021-08-11 2021-08-11 Importer Or Exporter 2, Adc Lab [facility] 1.2.840.114 [id number] Univers 10:30:00 10:30:00 Visit Nabila JuanADAMA 350.1.13.10 ity of [facility] 4.2.7.2.686 [place] [id number] [address] 2021-08-11 2021-08-11 Case [facility] 1.2.127.725 [id number] Univers 00:00:00 00:00:00 Management Jacqueline OLIVA 350.1.13.10 ity of [facility] 4.2.7.2.686 [place] [id number] [address] 2021-08-06 2021-08-06 Outpatient R MARYJANE JUANEN [facility] [id number] Univers 16:00:00 16:07:53 ity of [facility] 2021-08-06 2021-08-06 [facility] 1.2.005.498 [id number] Univers 16:00:00 16:07:53 Vishal BAPTISTE 350.1.13.10 ity of [facility] 4.2.7.2.[place] [id number] Me dical [address] 2021-06-16 2021-06-16 Outpatient R NABILA JUAN [facility] [id number] Univers 15:30:00 15:30:00 ity of [facility] 2021-06-09 2021-06-09 Importer Or Exporter Ultrasound, Adc [facility] 1.2 .840.114 [id number] Univers 08:08:34 09:08:34 Visit Asa Garzon 350.1.13.10 ity of [place] 4[place].7.2.[place] Profess[place] [phone] Nv dic[address] 2021-06-09 2021-06-09 Outpatient P [facility] [id number] Univers 08:00:00 08:00:00 ity of [facility] 2021-06-05 2021-06-05 Orders Doctor PALACIOS 1.2.840.114 [id number] Univers 00:00:00 00:00:00 Only Unassigned, JULIANO 350.1.13.10 ity of [place] [facility] 4.2.7.2.686 Eduardo as [id number] [address] 2021-05-19 2021-05-19 Routine Jacqueline Biswas [facility] 1.2.840.11 [id number] Univers 15:50:33 16:24:43 Nabila Juanton 350.1.13.10 ity of Visit [place] 4[place]2.7.2.[place] Profess[place] [id number] Nv dic[address] 2021-05-19 2021-05-19 Outpatient R NABILA JUAN [facility] [id number] Univers 16:00:00 16:00:00 ity of [facility] 2021-05-19 2021-05-19 Orders Doctor PALACIOS 1.2.840.114 [id number] Univers 00:00:00 00:00:00 Only Unassigned, JULIANO 350.1.13.10 ity of [place] [facility] 4.2.7.2.686 Eduardo as [id number] [address] 2021-05-15 2021-05-15 Outpatient P [facility] [id number] Univers 10:00:00 10:00:00 ity of [facility] 2021-04-21 2021-04-21 Importer Or Exporter 2, Adc Lab [facility] 1.2.840.114 [id number] Univers 11:39:14 11:54:14 Visit Jacqueline Biswas 350.1.13.10 ity of [place] 4[place].2.[place] Profess[place] [id number] Nv dical nal 353 [facility] 2021-04-21 2021-04-21 Routine Zulay [facility] 1.2.585.455 [id number] Univers 10:48:23 11:36:52 Jacquelinepawel Baptiste 350.1.13.10 ity of [place] 4.2.[place].2.[place] Profess[place] [id number] Nv dical nal 134 [facility] 2021-04-21 2021-04-21 Outpatient R ZULYA [facility] [id number] Univers 10:45:00 10:45:00 JACQUELINE ity [facility] 2021-03-30 2021-03-30 Orders Doctor SUZANNE 1.2.840.114 [id number] Univers 00:00:00 00:00:00 Only Unassigned, JULIANO 350.1.13.10 ity of [place] [facility] 4.2.7.2.686 Eduardo as [id number] [address] 2021-03-24 2021-03-24 Outpatient NABILA GREGORIO [facility] [id number] Univers 10:00:00 10:00:00 ity of [facility] 2021-03-19 2021-03-19 Outpatient R NABILA JUAN [facility] [id number] Univers 10:00:00 10:00:00 ity [facility] 2020-10-09 2020-10-09 Outpatient R JOSUE [facility] [id number] Univers 15:30:00 15:30:00 MARY espinosa o f [facility] 2020-09-23 2020-09-23 Outpatient R JOSUE [facility] [id number] Univers 13:30:00 13:30:00 MARYTASHA espinosa o f [facility] 2020-09-18 2020-09-18 Telephone [facility] 1.2.840.114 [id number] 00:00:00 00:00:00 Mary Salazar PLANT MANAGER 350.1.13.10 [facility] 4.2.7.2.686 MATERNAL [id number] & CHILD [address] [place] [address] 2020-08-29 2020-08-29 Outpatient R BAMBIMORENITAOSITO [facility] [id number] Univers 15:45:00 15:45:00 VARINDREAlonso OSITO [facility] 2020-07-17 2020-07-17 [facility] [id number] Univers 15:45:00 15:45:00 MARY clancyjames correia [facility] 2020-07-14 2020-07-14 Outpatient [facility] [id number] Univers 14:30:00 14:30:00 MARY clancyjames cid [facility] 2020-07-02 2020-07-02 Outpatient R [facility] [id number] Univers 15:30:00 15:30:00 ISE, ity [facility] 2020-06-20 2020-06-20 Outpatient R [facility] [id number] Univers 14:00:00 14:00:00 ISRobert, astony [facility] 2020-05-16 2020-05-16 Outpatient R [facility] [id number] Univers 13:30:00 13:30:00 AGUSTO astony [facility] 2020-04-22 2020-04-22 Outpatient R [facility] [id number] Univers 14:00:00 14:00:00 LOUANN [facility] Results Test Description Test Time Test Comments Results Result Comments Source POCT TEST 2021-10-28 15:57:00 Test Item Value Reference Range Interpretation Comme nts POCT PREG (test code = 1605) Negative On board controls acceptable with C Line (test code = 3574) Yes POCT PREG LOT # (test code = 3575) POCT PREG TEST DATE (test code = 3576) [facility]
[2022-09-13] MEDS ORDERED: MAGNES/ALUMIN/SIMET 30ML UCUP ONE (16:13)
[2022-09-13] MEDS ORDERED: LIDOCAINE VISCOUS 2% SOLN 15 ML UDC ONE (16:13)
[2022-09-13 16:21] LABS: Urine Blood 1+ (Negative); Urine Glucose Negative (Negative); Urine Protein Trace (Negative); Urine Specific Gravity 1.025 (1.005-1.030)
[2022-09-13 16:25] LABS: Urine Specific Gravity/Preg 1.025 (1.005-1.030)
[2022-09-13 16:29] LABS: Absolute Lymphocytes (CBC) 2.1 K/uL (0.7-4.9); Hematocrit 38.6 % (36.0-45.0); Lymphocytes % 18.9 % (15.3-44.8); MCV 87.4 fL (80-100); MPV 7.2 fL (7.6-11.3); RBC Red Blood Cell Count 4.42 M/uL (3.86-4.86)
[2022-09-13 16:48] LABS: Albumin 3.7 g/dL (3.4-5.0); Bilirubin Total 0.3 mg/dL (0.2-1.0); Potassium 3.7 mmol/L (3.5-5.1); Protein, Total 8.2 g/dL (6.4-8.2)
--- NOTE | 2022-09-13 17:12 | RAD REPORT ---
EXAM DESCRIPTION: CTAbdomen Pelvis W Contrast - 09/13/2022 5:04 pm CLINICAL HISTORY: abdominal pain, vomiting, diarrhea COMPARISON: Abdomen Pelvis W Contrast dated 05/20/2022; Abdomen Pelvis W Contrast dated 03/08/2022 ; Abdomen Pelvis W Contrast dated 11/01/2020; Abdomen Pelvis W Contrast dated 07/07/2020 TECHNIQUE: CT of the abdomen and pelvis was performed with IV contrast. All CT scans are performed using dose optimization technique as appropriate and may include automated exposure control or mA/KV adjustment according to patient size. FINDINGS: Lower chest: No acute abnormality. Liver: No acute abnormality or suspicious lesions. Biliary: No biliary ductal dilatation. Cholecystectomy Stomach: No significant focal abnormality. Duodenum: No significant focal abnormality. Pancreas: No significant abnormality. Spleen: No significant abnormality. Adrenal: No suspicious lesions. Kidney/ureter: No hydronephrosis. No renal calculi. Retroperitoneum: No retroperitoneal adenopathy. Vascular: No aneurysm. Bowel: No significant focal abnormality. Appendectomy . Peritoneum: No ascites or free air. Bladder: Grossly unremarkable. Reproductive: No adnexal masses. Bones: No acute fracture. Other: n/a IMPRESSION: No acute intra-abdominal or pelvic finding. Cholecystectomy appendectomy.
--- NOTE | 2022-09-13 18:21 | EDPHYS ---
Physician Documentation [facility] Name: Kaela Gonzales Age: 27 yrs Sex: Female : 1995 Arrival Date: 09/13/2022 Time: 14:33 Bed 10 Private MD: ED Physician Antonio Sunshine HPI: 09/13 14:55 This 27 yrs old Female presents to ER via Ambulatory with complaints of jmm Epigastric Pain. 14:55 The patient presents with abdominal pain. Onset: The symptoms/episode began/occurred jmm gradually, 3 week(s) ago. This is a 27-year-old female with history of GERD the presents emerged part with complaints of epigastric abdominal pain began approximately 3 weeks ago with multiple episodes of nausea, diarrhea. Patient denies weakness. Denies fever. Patient has had a surgical history of laparoscopic cholecystectomy and laparoscopic appendectomy performed. Denies any dysuria. Denies any lower abdominal pain or vaginal discharge.. 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 Historical: - Allergies: 16:31 No Known Allergies; ap3 - PMHx: 14:42 GERD; jh5 - PSHx: 14:42 Cholecystectomy; Appendectomy; 5 - Immunization history:: Adult Immunizations up to date. - Social history:: Smoking status: Patient denies any tobacco usage or history of. ROS: 14:55 Constitutional: Negative for fever, chills, and weight loss, Cardiovascular: Negative jmm for chest pain, palpitations, and edema, Respiratory: Negative for shortness of breath, cough, wheezing, and pleuritic chest pain. 14:55 Abdomen/GI: Positive for abdominal pain, nausea and vomiting, diarrhea. 14:55 All other systems are negative. Exam: 14:55 Constitutional: This is a well developed, well nourished patient who is awake, alert, jmm and in no acute distress. Head/Face: atraumatic. Eyes: EOMI, no conjunctival erythema appreciated ENT: Moist Mucus Membranes Neck: Trachea midline, Supple Chest/axilla: Normal chest wall appearance and motion. Cardiovascular: Regular rate and rhythm. No edema appreciated Respiratory: Normal respirations, no respiratory distress appreciated 14:55 Back: Normal ROM Skin: General appearance color normal MS/ Extremity: Moves all extremities, no obvious deformities appreciated, no edema noted to the lower extremities Neuro: Awake and alert Psych: Behavior is normal, Mood is normal, Patient is cooperative and pleasant 14:55 Abdomen/GI: Inspection: obese Bowel sounds: normal, Palpation: soft, mild abdominal tenderness, in the epigastric area. Vital Signs: 14:39 BP 125 / 85; Pulse 79; Resp 18; Temp 98.2; Pulse Ox 100% ; Weight 122.92 kg; Height 5 5 ft. 6 in. (167.64 cm); Pain 9/10; 14:39 Body Mass Index 43.74 (122.92 kg, 167.64 cm) 5 MDM: 14:55 Patient medically screened. [facility] 18:19 Data reviewed: vital signs, nurses notes. Consideration of Admission/Observation. I vishal considered the following discharge prescriptions or medication management in the emergency department Medications were administered in the Emergency Department. See MAR. Counseling: I had a detailed discussion with the patient and/or guardian regarding: the historical points, exam findings, and any diagnostic results supporting the discharge/admit diagnosis, lab results, radiology results, the need for outpatient follow up, to return to the emergency department if symptoms worsen or persist or if there are any questions or concerns that arise at home. ED course: Differential of patient's pain would include gastritis, gastroenteritis, pancreatitis. Labs are unremarkable. CT is negative. Patient may have gastritis due to relief of symptoms after GI cocktail. Patient is advised to follow-up with GI and otherwise given strict return precautions. Patient understood agrees plan of care. 09/13 15:01 Order name: CBC with Diff; Complete Time: 16:36 [facility] 09/13 15:01 Order name: CMP; Complete Time: 16:49 [facility] 09/13 15:01 Order name: Lipase; Complete Time: 16:49 [facility] 09/13 15:02 Order name: CT Abd/Pelvis - IV Contrast Only; Complete Time: 17:21 [facility] 09/13 16:21 Order name: Urine Dipstick-Ancillary; Complete Time: 16:24 [facility] 09/13 16:22 Order name: Urine --Ancillary (enter results); Complete Time: 16:26 09/13 15:01 Order name: IV Saline Lock; Complete Time: 16:23 [facility] 09/13 15:01 Order name: Labs collected and sent; Complete Time: 16:23 [facility] 09/13 15:01 Order name: Urine Dipstick-Ancillary (obtain specimen); Complete Time: 16:23 [facility] 09/13 15:01 Order name: Urine Test (obtain specimen); Complete Time: 16:23 [facility] Administered Medications: 16:23 Drug: GI Cocktail without - (Maalox Suspension 30 ml, Lidocaine Liquid 2 % 15 ap3 ml) Route: PO; 17:19 Follow up: Response: No adverse reaction ap3 Disposition: 09/14 07:01 Co-signature as Attending Physician, Antonio Sunshine MD I reviewed the patient's care rn provided by the Advanced Practice Provider and agree with the diagnosis and treatment plan. Disposition Summary: 09/13/22 18:20 Discharge Ordered Location: Home [facility] Condition: Stable [facility] Diagnosis - Epigastric pain [facility] Followup: [facility] - With: Claudio Hennessy MD - When: 2 - 3 days - Reason: Recheck today's complaints, Continuance of care, Re-evaluation by your physician Discharge Instructions: - Discharge Summary Sheet [facility] - Abdominal Pain, Adult [facility] Forms: - Medication Reconciliation Form [facility] - Thank You Letter [facility] - Antibiotic Education [facility] - Prescription Opioid Use [facility] Prescriptions: - Carafate 1 gram Oral Tablet - take 1 tablet by ORAL route 4 times per day take on an empty stomach, beginning [facility] on waking and last dose at bedtime; 100 tablet; Refills: 0, Product Selection Permitted - Pepcid 20 mg Oral Tablet - take 1 tablet by ORAL route every 12 hours for 10 days; 20 tablet; Refills: 0, [facility] Product Selection Permitted - dicyclomine 20 mg Oral Tablet - take 1 tablet by ORAL route 4 times per day As needed; 30 tablet; Refills: 0, [facility] Product Selection Permitted Signatures: Dispatcher [employer] EDKaushal Corona PA PA [facility] Antonio Sunshine MD MD rn Conchita Hoffmann RN RN ap3 Monica Luque RN RN jh5
--- NOTE | 2022-09-13 18:21 | ER ---
Nurse's Notes [facility] Name: Kaela Gonzales Age: 27 yrs Sex: Female : 1995 Arrival Date: 09/13/2022 Time: 14:33 Bed 10 Private MD: Diagnosis: Epigastric pain Presentation: 09/13 14:39 Chief complaint: Patient states: epigastric pain x3 weeks, gallbladder removed x2 years jh5 ago. Pain worse after eating, doesn't want to eat at all. Coronavirus screen: Vaccine status: Patient reports receiving the 1st dose of the Covid vaccine. Client denies travel out of the [place] in the last 14 days. Ebola Screen: Patient negative for fever greater than or equal to 101.5 degrees Fahrenheit, and additional compatible Ebola Virus Disease symptoms Patient denies exposure to infectious person. Patient denies travel to an Ebola-affected area in the 21 days before illness onset. Initial Sepsis Screen: Does the patient meet any 2 criteria? No. Patient's initial sepsis screen is negative. Does the patient have a suspected source of infection? No. Patient's initial sepsis screen is negative. Risk Assessment: Do you want to hurt yourself or someone else? Patient reports no desire to harm self or others. 14:39 Method Of Arrival: Ambulatory [facility] 14:39 Acuity: ANNABLELE 3 [facility] 16:07 Onset of symptoms was August 23, 2022. ap3 Triage Assessment: 14:42 General: Appears in no apparent distress. uncomfortable, well groomed, well developed, jh5 well nourished, Behavior is calm, cooperative, appropriate for age. Pain: Complains of pain in abdomen. GI: Reports upper abdominal pain, bloating, indigestion. 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 - Social history:: Smoking status: Patient denies any tobacco usage or history of. Screenin:44 [facility] ED Fall Risk Assessment (Adult) History of falling in the last 3 months, [facility] including since admission No falls in past 3 months (0 pts) Confusion or Disorientation No (0 pts) Intoxicated or Sedated No (0 pts) Impaired Gait No (0 pts) Mobility Assist Device Used No (0 pt) Altered Elimination No (0 pt) Score/Fall Risk Level 0 - 2 = Low Risk. Abuse screen: Denies threats or abuse. Denies injuries from another. Nutritional screening: No deficits noted. Tuberculosis screening: No symptoms or risk factors identified. Assessment: 16:23 General: Appears in no apparent distress. Behavior is calm, cooperative. Pain: ap3 Complains of pain in epigastric area Pain began gradually, over the last 3 weeks. Neuro: Level of Consciousness is awake, alert, obeys commands, Oriented to person, place, time, situation, Gait is steady, Speech is normal. Cardiovascular: Patient's skin is warm and dry. Respiratory: Airway is patent Respiratory effort is even, unlabored. 17:19 Reassessment: Patient and/or family updated on plan of care and expected duration. Pain ap3 level reassessed. Patient is alert, oriented x 3, equal unlabored respirations, skin warm/dry/pink. Patient states symptoms have improved. Vital Signs: 14:39 BP 125 / 85; Pulse 79; Resp 18; Temp 98.2; Pulse Ox 100% ; Weight 122.92 kg; Height 5 jh5 ft. 6 in. (167.64 cm); Pain 9/10; 14:39 Body Mass Index 43.74 (122.92 kg, 167.64 cm) [facility] ED Course: 14:33 Patient arrived in ED. am2 14:42 Triage completed. [facility] 14:42 Arm band placed on right wrist. [facility] 14:44 Kaushal Ferguson PA [facility] 14:44 Antonio Sunshine MD is Attending Physician. [facility] 14:44 Patient has correct armband on for positive identification. [facility] 14:44 No provider procedures requiring assistance completed. [facility] 16:03 Conchita Hoffmann, KIZZY is Primary Nurse. ap3 16:23 Inserted saline lock: 20 gauge in right antecubital area, using aseptic technique. ap3 Blood collected. 17:05 CT Abd/Pelvis - IV Contrast Only In Process Unspecified. EDMS 18:20 Claudio Hennessy MD is Referral Physician. [facility] 18:33 IV discontinued, intact, bleeding controlled, No redness/swelling at site. Pressure ap3 dressing applied. Administered Medications: 16:23 Drug: GI Cocktail without - (Maalox Suspension 30 ml, Lidocaine Liquid 2 % 15 ap3 ml) Route: PO; 17:19 Follow up: Response: No adverse reaction ap3 Medication: 16:06 VIS not applicable for this client. ap3 Outcome: 18:20 Discharge ordered by MD. rodgers 18:33 Discharged to home ambulatory. ap3 18:33 Condition: good 18:33 Discharge instructions given to patient, Instructed on discharge instructions, follow up and referral plans. medication usage, Demonstrated understanding of instructions, follow-up care, medications, Prescriptions given X 3. 18:33 Patient left the ED. ap3 Signatures: Dispatcher [employer] EDMS Kaushal Ferguson PA PA jmm Moreno, Amanda am2 Prokisch, Amanda, RN RN ap3 Monica Luque RN RN jh5
[2022-09-13 19:34] VITALS: BP 125/85; TEMP 98.2; O2SAT 100
== END 2022-09-13 18:33 | disposition home or self-care (01) ==
LOC: ER 14:30
DX: R10.13 Epigastric pain (principal); Z20.822 Contact with and (suspected) exposure to COVID-19
CPT/HCPCS: 85025; 36415; 81025; 81003; 83690; 80053; 74177; Q9967

== ENCOUNTER 2022-09-15 16:06 | Emergency (ER) | payer OTHER ==
--- OUTSIDE RECORDS SUMMARY | 2022-09-15 16:10 | XMS REPORT | Continuity of Care Document ---
:1995 Author Organization [facility] t Address [address] [place] [address] Care Team Providers Name Role Phone NABILA JUAN Primary Care Physician Unavailable MILLER PELAEZ Attending Clinician Unavailable HODAN CRAWFORD Attending Clinician Unavailable NABILA JUAN Attending Clinician Unavailable 2, [facility] Lab Attending Clinician Unavailable Nabila Juan MD Attending Clinician Doctor Unassigned, [place] Attending Clinician Unavailable Sergio Brantley MD Attending Clinician [phone] Tata Hardwick RN Attending Clinician Unavailable Jacqueline Biswas PA-C Attending Clinician JACQUELINE BISWAS Attending Clinician Unavailable Ultrasound, Ad[facility] Attending Clinician Unavailable Elizabeth Barraza MD Attending Clinician ELIZABETH BARRAZA Attending Clinician Unavailable ELIZABETH BARRAZA Attending Clinician Unavailable Asa Garzon DO Attending Clinician MARY SALAS Attending Clinician Unavailable Mray Castle Attending Clinician [phone] OSITO LACY Attending Clinician Unavailable OSITO LACY Attending Clinician Unavailable LOUANN DOMINIQUE Attending Clinician Unavailable NABILA JUAN Admitting Clinician Unavailable MILLER PELAEZ Admitting Clinician Unavailable Nabila Juan MD Admitting Clinician Payers Payer Name Policy Type Policy Number Effective Date Expiration Date Rashawn turk [facility] [id number] 2019 CHOICE MEDICAID 00:00:00 [facility] [id number] 2020 00:00:00 Problems Condition Condition Condition Status [...] of feces, feces, 00:00: g of this [place] unspecifie unspecifie 00 note Me dical d fecal d fecal might be Branch incontinen incontinen different ce type ce type from the original. Added automatic ally from request for surgery [id number] Allergies, Adverse Reactions, Alerts Allergy Allergy Status Severity Reaction(s) Onset Inactive Treating Comm ents Source Name Type Date Date Clinician NO KNOWN Drug Active Univers ALLERGIE Class ity of S [facility] Social History Social Habit Start Date Stop Date Quantity Comments Source Exposure to Not sure University of SARS-CoV-2 [facility] (event) Branch Alcohol intake 2021-10-28 2021-10-28 Current drinker Unive rsity of 00:00:00 00:00:00 of alcohol [facility] (finding) Branch Alcohol Comment 2021-03-24 2021-03-24 SPECIAL Universit y of 00:00:00 00:00:00 OCCASSIONS [place] [facility] History SDOH 2020-07-17 2020-07-17 99 University o f Alcohol Frequency 00:00:00 00:00:00 [place] M edical Branch History SDOH 2020-07-17 2020-07-17 99 University o f Alcohol Std 00:00:00 00:00:00 [place] Medical Drinks Branch History SDOH 2020-07-17 2020-07-17 99 University o f Alcohol Binge 00:00:00 00:00:00 [place] Medic al Branch Tobacco use and 2020-04-22 2020-04-22 Never used Universit y of exposure 00:00:00 00:00:00 [facility] Sex Assigned At [birth year] Universit y of 00:00:00 00:00:00 [facility] Smoking Status Start Date Stop Date Source Never smoker [facility] Medications Ordered Filled Start Stop Current Ordering Indication Dosage Frequency Signature Comments Components Source Medication Medication Date Date Medication? Clinician (SIG) Name Name etonogestre 2021- No [id number] 68mg Univers L 10-2816 ity of (NEXPLANON) 23:15: 22:14 [place] implant 68 00 :00 [facility] Branch etonogestre 2021- No [id number] 68mg 68 mg, Univers L 10-2816 Subdermal, ity of (NEXPLANON) 23:15: 22:14 ONCE NOW, [place] implant 68 00 :00 1 dose, On Med ical mg [facility] Branch 10/28/21 at 1815, Routine
Use approved by: BILINGUAL MEDICAL RECEPTIONIST SERTraline Yes [id number] 50mg Take 1 U nivers (ZOLOFT) 50 3-09 tablet by ity of mg tablet 00:00: mouth [place] 00 daily. Medical Branch SERTraline Yes [id number] 50mg Take 1 U nivers (ZOLOFT) 50 3-09 tablet by ity of mg tablet 00:00: mouth [place] 00 daily. Medical Branch hydroCHLORO Yes [id number] 25mg Take 2 Univers thiazide 2-15 capsules ity of 12.5 mg 00:00: by mouth [place] capsule 00 daily. Medical Branch hydroCHLORO Yes [id number] 25mg Take 2 Univers thiazide 2-15 capsules ity of 12.5 mg 00:00: by mouth [place] capsule 00 daily. Medical Branch Yes [id number] 1{tbl} Take 1 Univers vitamin 2-14 tablet by ity of w/FA tablet 00:00: mouth [place] 00 daily. Medical Branch Yes [id number] 1{tbl} Take 1 Univers vitamin 2-14 tablet by ity of w/FA tablet 00:00: mouth [place] 00 daily. [facility] Immunizations Ordered Filled Immunization Date Status Comments [facility] e Immunization Name Name Influenza Virus 2021-08-20 Completed Universit y of Vaccine Quad IM, 00:00:00 [place] Me dical Preserv and ABX Branch Free 6 MO-64 YRS Influenza Virus 2021-08-20 Completed Universit y of Vaccine Quad IM, 00:00:00 [facility] dical Preserv and ABX Branch Free 6 MO-64 YRS TDAP 2021-08-06 Completed University 00:00:00 [facility] TDAP 2021-08-06 Completed [facility] 00:00:00 [facility] Vital Signs Vital Name Observation Time Observation Value Comments Source Systolic blood 2021-10-28 15:59:00 124 mm[Hg] Univer sity of pressure [facility] Diastolic blood 2021-10-28 15:59:00 78 mm[Hg] [facility] Heart rate 2021-10-28 15:59:00 86 /min [facility] Body temperature 2021-10-28 15:59:00 36.89 Cynthia [facility] Respiratory rate 2021-10-28 15:59:00 18 /min [facility] Body height 2021-10-28 15:59:00 167.6 cm [facility] Body weight 2021-10-28 15:59:00 113.853 kg [facility] BMI 2021-10-28 15:59:00 40.51 kg/m2 [facility] Procedures Procedure Date / Time Performing Clinician Source Performed CONSENT FOR 2021-10-28 05:01:00 Doctor Unassigned, No Univer sity of [place] CONTRACEPTION Name [facility] POCT TEST 2021-10-28 00:00:00 Nabila Juan Universi ty [facility] Encounters Start End Encounter Admission Attending Care Care Encounter Source Date/Time Date/Time Type Type Clinicians Facility Department ID 2021-09-25 Outpatient P [facility] [id number] Univers [facility] [id number] Univers 17:00:34 [facility] 2022-09-15 2022-09-15 Outpatient R [facility] [id number] Univers 14:30:00 14:30:00 IS, y [facility] 2022-06-30 2022-06-30 Outpatient R [facility] [id number] Univers 09:30:00 09:30:00 ISE, ity [facility] 2021-12-03 2021-12-03 Outpatient R NABILA JUAN [facility] [id number] Univers 13:30:00 13:30:00 [facility] 2021-10-28 2021-10-28 Storm Chaser 2, Adc Lab [facility] 1.2.840.114 [id number] Univers 11:45:00 12:00:00 Visit Nabila Juan 350.1.13.10 ity [facility] [place] [phone] Me dical NAL 353 [facility] 2021-10-28 2021-10-28 Outpatient R NABILA JUAN [facility] [id number] Univers 10:30:00 11:24:27 [facility] 2021-10-28 2021-10-28 Office Nabila Juan [facility] 1.2.641.362 [id number] Univers 10:30:00 11:24:27 Visit Vishal BAPTISTE 350.1.13.10 i [facility] 4.2.7.2.[place] [phone] Me dical NAL 134 [facility] 2021-10-28 2021-10-28 Orders Doctor PALACIOS 1.2.840.114 [id number] Univers 00:00:00 00:00:00 Only Unassigned, JULIANO 350.1.13.10 ity of [place] [facility] 4.2.7.2.686 Eduardo as [phone] [address] 2021-10-21 2021-10-21 Outpatient R NABILA JUAN [facility] [id number] Univers 13:00:00 13:25:55 ity of [facility] 2021-10-21 2021-10-21 Routine Nabila Juan [facility] 1.2.325.123 [id number] Univers 13:00:00 13:25:55 Cam OLIVA 350.1.13.10 ity of [place] [phone] [place] dical [address] 2021-10-09 2021-10-09 Outpatient R [facility] [id number] Univers 15:00:00 15:00:00 ity of [facility] 2021-10-06 2021-10-06 Outpatient R [facility] [id number] Univers 15:00:00 15:00:00 ity of [facility] 2021-09-27 2021-09-29 Inpatient X NABILA JUAN [facility] [id number] Univers 10:56:00 21:30:00 ity of [facility] 2021-09-27 2021-09-29 Hospital Nabila Juan [facility] 1.2.840.114 [id number] Univers 10:56:00 21:30:00 Encounter Cam OLIVA 350.1.13.10 ity of [place] [id number] [address] 2021-09-28 2021-09-28 [facility]est[facility] 1.2.840.114 [id number] Univers 20:00:03 20:00:03 Event staceyOLIVA waite 350.1.13.10 i ty of Sergio [facility] 4.2.7.2.686 Eduardo as CAMPUS [id number] [address] 2021-09-27 2021-09-27 Anesthesia Alquicira-M [facility] 1.2.840.114 [id number] Univers 14:58:00 19:49:00 Event OLIVA ibarra 350.1.13.10 i ty of Sergio [place] 4.2.7.2.686 Eduardo as CAMPUS [id number] [facility] 0[address] [place] 2021-09-27 2021-09-27 Inpatient X [facility] [id number] Univers 10:56:00 10:56:00 ity of [facility] 2021-09-27 2021-09-27 Orders Doctor SUZANNE 1.2.840.114 [id number] Univers 00:00:00 00:00:00 Only Unassigned, JULIANO 350.1.13.10 ity of [place] [id number] Eduardo as [phone] [facility] 009 [place] 2021-09-25 2021-09-25 Outpatient P [facility] [id number] Univers 21:18:00 23:19:00 ity of [facility] 2021-09-25 2021-09-25 Hospital [facility] 1.2.840.114 [id number] Univers 21:18:00 23:19:00 Encounter Cam OLIVA 350.1.13.10 ity of [place]2.7.2.[place] [id number] [place] 020423 [place] 2021-09-25 2021-09-25 Nurse SUZANNE Hardwick 1.2.840.114 [id number] Univers 00:00:00 00:00:00 Triage Qujean HENAO 350.1.13.10 ity of [facility] 4.2.7.2.686 Eduardo as [phone] [facility] 019 Branch 2021-09-23 2021-09-23 Outpatient R [facility] [id number] Univers 16:00:00 17:01:09 ity of [facility] 2021-09-23 2021-09-23 Routine [facility] 1.2.651.312 [id number] Univers 16:00:00 17:01:09 Cam OLIVA 350.1.13.10 ity of [place].2.[place] [phone] [place] dical NAL 134 [facility] 2021-09-23 2021-09-23 Orders Doctor SUZANNE 1.2.840.114 [id number] Univers 00:00:00 00:00:00 Only Unassigned, JULIAON 350.1.13.10 ity of [place] [facility] 4.2.7.2.686 Eduardo as [id number] [address] 2021-09-17 2021-09-17 Routine Zulay [facility] 1.2.884.920 [id number] Univers 16:30:00 16:30:00 Jacqueline BAPTISTE 350.1.13.10 ity of [place] 4.[place].2.[place] [id number] [place] dical NAL [address] [place] [address] 2021-09-17 2021-09-17 Outpatient R ZULAY [facility] [id number] Univers 16:30:00 15:05:02 JACQUELINE espinosa [facility] 2021-09-17 2021-09-17 Outpatient R ZULAY [facility] [id number] Univers 11:30:00 11:30:00 [facility] 2021-09-10 2021-09-10 Storm Chaser 2, Adc Lab [facility] 1.2.840.114 [id number] Univers 14:00:00 14:00:00 Visit Nabila Juan 350.1.13.10 ity of [place].2.[place] [id number] [place] dical NAL 353 [facility] 2021-09-10 2021-09-10 Outpatient R NABILA JUAN [facility] [id number] Univers 13:00:00 13:46:24 ity [facility] 2021-09-10 2021-09-10 Routine Nabila Juan [facility] 1.2.605.217 [id number] Univers 13:00:00 13:46:24 Vishal OLIVA 350.1.13.10 ity of [place] 4[place].2.[place] [phone] [place] dical NAL 134 [facility] 2021-09-10 2021-09-10 Orders Doctor SUZANNE 1.2.840.114 [id number] Univers 00:00:00 00:00:00 Only Unassigned, JULIANO 350.1.13.10 ity of [facility] 4.2.7.2.686 Eduardo as [id number] [address] 2021-09-03 2021-09-03 Outpatient R DRAKE [facility] [id number] Univers 16:00:00 16:45:26 ity of [facility] 2021-09-03 2021-09-03 Routine [facility] 1.2.602.131 [id number] Univers 16:00:00 16:45:26 Cam OLIVA 350.1.13.10 ity of [place].2.[place] [id number] [place] dical [address] 2021-09-03 2021-09-03 Outpatient R [facility] [id number] Univers 16:00:00 16:00:00 ity of [facility] 2021-09-01 2021-09-01 Storm Chaser Ultrasound, [facility] 1.2 .840.114 [id number] Univers 09:45:00 10:15:00 Visit Elizabeth Barraza 350.1.13.10 ity [facility] [place]2.7.2.[place] [id number] [place] dical [address] 2021-09-01 2021-09-01 Outpatient P ELIZABETH BARRAZA [facility] [id number] Univers 09:45:00 09:45:00 ELIZABETH BARRAZA ity [facility] 2021-09-01 2021-09-01 Case Drake Nabila [facility] 1.2.345.883 [id number] Univers 00:00:00 00:00:00 Management Cam OLIVA 350.1.13.10 ity [facility] 4.2.7.2.[place] [phone] T[place] dical NAL [address] [place] [address] 2021-08-27 2021-08-27 Case Drake Nabila [facility] 1.2.394.206 [id number] Univers 00:00:00 00:00:00 Management Cam OLIVA 350.1.13.10 ity of [place] 4.2.7.2.[place] [id number] Tx dical NAL [address] [place] [address] 2021-08-26 2021-08-26 Orders Doctor SUZANNE 1.2.840.114 [id number] Univers 00:00:00 00:00:00 Only Unassigned, JULIANO 350.1.13.10 [facility] 4.2.7.2.686 Eduardo as [phone] [address] 2021-08-25 2021-08-25 Outpatient R ZULAY [facility] [id number] Univers 16:00:00 16:33:08 JACQUELINE ity [facility] 2021-08-25 2021-08-25 [facility] 1.2.219.072 [id number] Univers 16:00:00 16:33:08 Jacqueline BAPTISTE 350.1.13.10 ity of [place] 4.2.7.2.[place] [phone] T[place] dical NAL [address] [place] [address] 2021-08-24 2021-08-24 Telephone Nabila Juan [facility] 1.2.840.114 [id number] Univers 00:00:00 00:00:00 Cam OLIVA 350.1.13.10 i ty of [place] 4.2.7.2.[place] [phone] Tx dical NAL [address] [place] [address] 2021-08-20 2021-08-20 Outpatient R ZULAY [facility] [id number] Univers 16:00:00 16:13:45 JACQUELINE espinosa [facility] 2021-08-20 2021-08-20 [facility] 1.2.052.895 [id number] Univers 16:00:00 16:13:45 Jacqueline BAPTISTE 350.1.13.10 ity of [place] 4.2.7.2.[place] [id number] Tx dical NAL [address] [place] [address] 2021-08-13 2021-08-13 Outpatient R NABILA JUAN [facility] [id number] Univers 08:15:00 08:15:00 ity of [facility] 2021-08-13 2021-08-13 Storm Chaser 2, Adc Lab [facility] 1.2.840.114 [id number] Univers 08:15:00 08:15:00 Visit Nabila Juan 350.1.13.10 ity of [facility] 4.2.7.2.686 [place] [phone] [place] dical NAL [address] [place] [address] 2021-08-12 2021-08-12 Telephone [facility] 1.2.840.114 [id number] Univers 00:00:00 00:00:00 Vishal BAPTISTE 350.1.13.10 i ty of [place] 4.2.7.2.686 [place] [phone] Tx dical NAL [address] [place] [address] 2021-08-11 2021-08-11 Outpatient R DRAKE [facility] [id number] Univers 10:30:00 10:30:00 ity of [facility] 2021-08-11 2021-08-11 Storm Chaser 2, [facility] Lab [facility] 1.2.840.114 [id number] Univers 10:30:00 10:30:00 Visit Nabila Juan 350.1.13.10 ity of [place] 4.2.7.2.[place] [id number] [address] 2021-08-11 2021-08-11 Case Zulay [facility] 1.2.385.462 [id number] Univers 00:00:00 00:00:00 Management Jacqueline OLIVA 350.1.13.10 ity of [place] 4.2.7.2.686 [place] [id number] Tx dic[address] 2021-08-06 2021-08-06 Outpatient R NABILA JUAN [facility] [id number] Univers 16:00:00 16:07:53 ity [facility] 2021-08-06 2021-08-06 Routine [facility] 1.2.100.999 [id number] Univers 16:00:00 16:07:53 Vishal BAPTISTE 350.1.13.10 ity of [place] 4[place].2.[place] [id number] [address] 2021-06-16 2021-06-16 Outpatient NABILA GREGORIO [facility] [id number] Univers 15:30:00 15:30:00 ity of [facility] 2021-06-09 2021-06-09 Storm Chaser Ultrasound, Adc [facility] 1.2 .840.114 [id number] Univers 08:08:34 09:08:34 Visit Asa Garzon [place] 350.1.13.10 ity of [place].2.[place] Profess[place] [id number] [address] 2021-06-09 2021-06-09 Outpatient P [facility] [id number] Univers 08:00:00 08:00:00 ity of [facility] 2021-06-05 2021-06-05 Orders Doctor SUZANNE 1.2.840.114 [id number] Univers 00:00:00 00:00:00 Only Unassigned, JULIANO 350.1.13.10 ity of [place] [facility] 4.2.7.2.686 Eduardo as [phone] [address] 2021-05-19 2021-05-19 Routine Jacqueline Biswas [facility] 1.2.840.11 [id number] Univers 15:50:33 16:24:43 Nabila Juan Vishal Baptiste 350.1.13.10 ity of [place].2.[place] Profess[place] [id number] [address] 2021-05-19 2021-05-19 Outpatient NABILA GREGORIO [facility] [id number] Univers 16:00:00 16:00:00 ity [facility] 2021-05-19 2021-05-19 Orders Doctor PALACIOS 1.2.840.114 [id number] Univers 00:00:00 00:00:00 Only Unassigned, JULIANO 350.1.13.10 ity of [place] [facility] 4.2.7.2.686 Eduardo as [id number] [address] 2021-05-15 2021-05-15 Outpatient P [facility] [id number] Univers 10:00:00 10:00:00 ity of [facility] 2021-04-21 2021-04-21 Storm Chaser 2, Adc Lab [facility] 1.2.840.114 [id number] Univers 11:39:14 11:54:14 Visit Jacqueline Biswas 350.1.13.10 ity of [place].2.[place] Profess[place] [id number] Tx dical nal 353 [facility] 2021-04-21 2021-04-21 Routine Zulay [facility] 1.2.814.213 [id number] Univers 10:48:23 11:36:52 Jacqueline Baptiste 350.1.13.10 ity of [place].2.[place] [phone] T[place] dical nal 134 [facility] 2021-04-21 2021-04-21 Outpatient R ZULAY [facility] [id number] Univers 10:45:00 10:45:00 JACQUELINE espinosa [facility] 2021-03-30 2021-03-30 Orders Doctor SUZANNE 1.2.840.114 [id number] Univers 00:00:00 00:00:00 Only Unassigned, JULIANO 350.1.13.10 ity of [facility] 4.2.7.2.686 Eduardo as [phone] [address] 2021-03-24 2021-03-24 Outpatient R NABILA JUAN [facility] [id number] Univers 10:00:00 10:00:00 ity of [facility] 2021-03-19 2021-03-19 Outpatient R NABILA JUAN [facility] [id number] Univers 10:00:00 10:00:00 ity of [facility] 2020-10-09 2020-10-09 Outpatient R ORTEGA [facility] [id number] Univers 15:30:00 15:30:00 MARY correia [facility] 2020-09-23 2020-09-23 Outpatient R ORTEGA [facility] [id number] Univers 13:30:00 13:30:00 MARY correia [facility] 2020-09-18 2020-09-18 [facility] 1.2.840.114 [id number] 00:00:00 00:00:00 Mary Salazar BILINGUAL MEDICAL RECEPTIONIST 350.1.13.10 [facility] 4.2.7.2.686 MATERNAL [id number] & CHILD [address] [place] [address] 2020-08-29 2020-08-29 Outpatient R BAMBIMORENITAOSITO [facility] [id number] Univers 15:45:00 15:45:[address] [facility] 2020-07-17 2020-07-17 [facility] [id number] Univers 15:45:00 15:45:00 MARY cid [facility] 2020-07-14 2020-07-14 Outpatient R ORTEGA, [facility] [id number] Univers 14:30:00 14:30:00 MARY cid [facility] 2020-07-02 2020-07-02 [facility] [id number] Univers 15:30:00 15:30:00 AGUTSO astonjames [facility] 2020-06-20 2020-06-20 Outpatient [facility] [id number] Univers 14:00:00 14:00:00 jesús LIZ [facility] 2020-05-16 2020-05-16 Outpatient [facility] [id number] Univers 13:30:00 13:30:00 jesús LIZ [facility] 2020-04-22 2020-04-22 Out[facility] [id number] Univers 14:00:00 14:00:[address] [facility] Results Test Description Test Time Test Comments Results Result Comments Source POCT TEST 2021-10-28 15:57:00 Test Item Value Reference Range Interpretation Comme nts POCT PREG (test code = 1605) Negative On board controls acceptable with C Line (test code = 3574) Yes POCT PREG LOT # (test code = 3575) POCT PREG TEST DATE (test code = 3576) [facility]
[2022-09-15] MEDS ORDERED: MAGNES/ALUMIN/SIMET 30ML UCUP ONE (17:11)
[2022-09-15] MEDS ORDERED: LIDOCAINE VISCOUS 2% SOLN 15 ML UDC ONE (17:12)
[2022-09-15] MEDS ORDERED: ONDANSETRON 4 MG (ODT) TAB ONE (17:12)
[2022-09-15 17:55] LABS: Hematocrit 40.8 % (36.0-45.0); Lymphocytes % 18.5 % (15.3-44.8); MCV 88.1 fL (80-100); MPV 7.3 fL (7.6-11.3); RBC Red Blood Cell Count 4.63 M/uL (3.86-4.86)
[2022-09-15 18:06] LABS: Albumin 3.8 g/dL (3.4-5.0); Bilirubin Total 0.3 mg/dL (0.2-1.0); Potassium 3.8 mmol/L (3.5-5.1); Protein, Total 8.5 g/dL (6.4-8.2)
--- NOTE | 2022-09-15 18:11 | ER ---
Nurse's Notes [facility] [place] [place] Name: Kaela Gonzales Age: 27 yrs Sex: Female : 1995 Arrival Date: 09/15/2022 Time: 16:08 Bed 4 Private MD: Diagnosis: Abdominal pain, unspecified Presentation: 09/15 16:11 Chief complaint: Patient states: Still has abd pain with N/V/D since her last visit ll1 here 2 days ago. Has had abd pains for 3 weeks. Coronavirus screen: Vaccine status: Patient reports receiving the 1st dose of the Covid vaccine. Client denies travel out of the [place] in the last 14 days. At this time, the client does not indicate any symptoms associated with coronavirus-19. Ebola Screen: Patient denies travel to an Ebola-affected area in the 21 days before illness onset. Initial Sepsis Screen: Does the patient meet any 2 criteria? No. Patient's initial sepsis screen is negative. Does the patient have a suspected source of infection? Yes: Acute abdominal pain. Risk Assessment: Do you want to hurt yourself or someone else? Patient reports no desire to harm self or others. Onset of symptoms was August 24, 2022. 16:11 Method Of Arrival: Ambulatory [facility] 16:11 Acuity: ANNABELLE 3 ll1 Triage Assessment: 16:13 General: Appears uncomfortable, ill, Behavior is calm, cooperative, appropriate for 3 age. Pain: Complains of pain in abdomen Quality of pain is described as aching. GI: Reports upper abdominal pain, diarrhea, intolerance of food, nausea, vomiting. Historical: - Allergies: 16:11 No Known Allergies; ll1 - PMHx: 16:11 GERD; ll1 - PSHx: 16:11 Appendectomy; Cholecystectomy; ll1 - Immunization history:: Client reports receiving the 1st dose of the Covid vaccine. - Social history:: Smoking status: Reported history of juuling and/or vaping. Screenin:[address] [facility] ED Fall Risk Assessment (Adult) History of falling in the last 3 months, eh3 including since admission No falls in past 3 months (0 pts) Confusion or Disorientation No (0 pts) Intoxicated or Sedated No (0 pts) Impaired Gait No (0 pts) Mobility Assist Device Used No (0 pt) Altered Elimination Yes (1 pt) Score/Fall Risk Level 0 - 2 = Low Risk. Abuse screen: Denies threats or abuse. Denies injuries from another. Nutritional screening: No deficits noted. Tuberculosis screening: No symptoms or risk factors identified. Assessment: 17:00 General: Appears in no apparent distress. uncomfortable, Behavior is calm, cooperative, eh3 appropriate for age. Pain: Complains of pain in abdomen. Neuro: Level of Consciousness is awake, alert, obeys commands, Oriented to person, place, time, situation. Cardiovascular: Capillary refill < 3 seconds Patient's skin is warm and dry. Respiratory: Airway is patent Respiratory effort is even, unlabored, Respiratory pattern is regular, symmetrical. GI: Abdomen is round non-distended, Bowel sounds present X 4 quads. Abd is soft X 4 quads Abdomen is tender to palpation X 4 quads. : No signs and/or symptoms were reported regarding the genitourinary system. EENT: No signs and/or symptoms were reported regarding the EENT system. Derm: No signs and/or symptoms reported regarding the dermatologic system. Skin is pink, warm \T\ dry. Musculoskeletal: No signs and/or symptoms reported regarding the musculoskeletal system. Circulation, motion, and sensation intact. Range of motion: intact in all extremities. Vital Signs: 16:11 BP 154 / 83; Pulse 72; Resp 16; Temp 97.2; Pulse Ox 98% ; Weight 122.47 kg; Height 5 ll1 ft. 6 in. (167.64 cm); Pain 10/10; 17:00 BP 136 / 73; Pulse 68; Resp 16; Pulse Ox 99% on R/A; eh3 16:11 Body Mass Index 43.58 (122.47 kg, 167.64 cm) ll1 ED Course: 16:08 Patient arrived in ED. rg4 16:13 Triage completed. ll1 16:13 Arm band placed on. ll1 16:39 Kaushal Ferguson PA is PHCP. [facility] 16:39 Bobby Flores MD is Attending Physician. [facility] 16:52 Diana Martin RN is Primary Nurse. eh3 16:55 Patient placed in an exam room, on a stretcher. ll1 17:00 Patient has correct armband on for positive identification. Bed in low position. Call eh3 light in reach. Side rails up X2. Adult w/ patient. Pulse ox on. NIBP on. Door closed. Noise minimized. 17:30 Inserted saline lock: 22 gauge in left antecubital area, using aseptic technique. Blood eh3 collected. 18:15 No provider procedures requiring assistance completed. IV discontinued, intact, eh3 bleeding controlled, No redness/swelling at site. Pressure dressing applied. Administered Medications: 17:00 Drug: Ondansetron 4 mg Route: PO; eh3 18:00 Follow up: Response: Nausea is decreased eh3 17:00 Drug: GI Cocktail without - (Maalox Suspension 30 ml, Lidocaine Liquid 2 % 15 eh3 ml) Route: PO; 18:00 Follow up: Response: Pain is decreased eh3 Medication: 18:15 VIS not applicable for this client. eh3 Outcome: 18:10 Discharge ordered by MD. rodgers 18:22 Discharged to home ambulatory, with significant other. eh3 18:22 Condition: stable 18:22 Discharge instructions given to patient, Instructed on discharge instructions, follow up and referral plans. medication usage, Demonstrated understanding of instructions, follow-up care, medications, Prescriptions given X 2. 18:22 Patient left the ED. eh3 Signatures: Kaushal Ferguson PA PA jmm Garcia, Rubi rg4 Octaviano Jackson, RN RN 1 Diana Martin RN RN eh3
--- NOTE | 2022-09-15 18:12 | EDPHYS ---
Physician Documentation [facility] Name: Kaela Gonzales Age: 27 yrs Sex: Female : 1995 Arrival Date: 09/15/2022 Time: 16:08 Bed 4 Private MD: ED Physician Bobby Flores HPI: 09/15 16:44 This 27 yrs old Female presents to ER via Ambulatory with complaints of jmm Abdominal Pain. 16:44 The patient presents with abdominal pain. Onset: The symptoms/episode began/occurred jmm gradually, 3 week(s) ago. The symptoms do not radiate. Is a 27-year-old female with history of GERD the presents emergency room with complaints of ongoing epigastric abdominal pain beginning approximately 3 weeks ago. Patient was seen at the ED a few days ago with negative imaging studies. Patient has a surgical history for lap radha and lap appendectomy. Denies any fever. Denies any diarrhea. Patient does have some nausea with the abdominal pain.. Historical: - Allergies: 16:11 No Known Allergies; ll1 - PMHx: 16:11 GERD; ll1 - PSHx: 16:11 Appendectomy; Cholecystectomy; ll1 - Immunization history:: Client reports receiving the 1st dose of the Covid vaccine. - Social history:: Smoking status: Reported history of juuling and/or vaping. ROS: 16:44 Constitutional: Negative for fever, chills, and weight loss, Cardiovascular: Negative jmm for chest pain, palpitations, and edema, Respiratory: Negative for shortness of breath, cough, wheezing, and pleuritic chest pain. 16:44 Abdomen/GI: Positive for abdominal pain, nausea. 16:44 All other systems are negative. Exam: 16:44 Constitutional: This is a well developed, well nourished patient who is awake, alert, jmm and in no acute distress. Head/Face: atraumatic. Eyes: EOMI, no conjunctival erythema appreciated ENT: Moist Mucus Membranes Neck: Trachea midline, Supple Chest/axilla: Normal chest wall appearance and motion. Cardiovascular: Regular rate and rhythm. No edema appreciated Respiratory: Normal respirations, no respiratory distress appreciated Abdomen/GI: Non distended Back: Normal ROM Skin: General appearance color normal MS/ Extremity: Moves all extremities, no obvious deformities appreciated, no edema noted to the lower extremities Neuro: Awake and alert Psych: Behavior is normal, Mood is normal, Patient is cooperative and pleasant Vital Signs: 16:11 BP 154 / 83; Pulse 72; Resp 16; Temp 97.2; Pulse Ox 98% ; Weight 122.47 kg; Height 5 ll1 ft. 6 in. (167.64 cm); Pain 10/10; 17:00 BP 136 / 73; Pulse 68; Resp 16; Pulse Ox 99% on R/A; eh3 16:11 Body Mass Index 43.58 (122.47 kg, 167.64 cm) ll1 MDM: 16:[address] [facility] 18:09 Data reviewed: vital signs, nurses notes. I considered the following discharge [facility] prescriptions or medication management in the emergency department Medications were administered in the Emergency Department. See MAR. Counseling: I had a detailed discussion with the patient and/or guardian regarding: the historical points, exam findings, and any diagnostic results supporting the discharge/admit diagnosis, lab results, the need for outpatient follow up, to return to the emergency department if symptoms worsen or persist or if there are any questions or concerns that arise at home. ED course: No abdominal pain on palpation. I do not currently suspect an acute abdomen. Patient's pain is alleviated after GI cocktail. Patient will follow-up with GI for further evaluation.. 02 16:44 Order name: CBC with Diff; Complete Time: 18:09 [facility] 09/15 16:44 Order name: CMP; Complete Time: 18:07 [facility] 09/15 16:44 Order name: Lipase; Complete Time: 18:07 [facility] 09/15 16:44 Order name: IV Saline Lock; Complete Time: 17:38 [facility] 09/15 16:44 Order name: Labs collected and sent; Complete Time: 17:38 [facility] Administered Medications: 17:00 Drug: Ondansetron 4 mg Route: PO; eh3 18:00 Follow up: Response: Nausea is decreased eh3 17:00 Drug: GI Cocktail without - (Maalox Suspension 30 ml, Lidocaine Liquid 2 % 15 eh3 ml) Route: PO; 18:00 Follow up: Response: Pain is decreased eh3 Disposition: 18:23 Co-signature as Attending Physician, Bobby Flores MD I agree with the assessment and kdr plan of care. Disposition Summary: 09/15/22 18:10 Discharge Ordered Location: Home jmm Condition: Stable jmm Diagnosis - Abdominal pain, unspecified jmm Followup: jmm - With: Private Physician - When: 2 - 3 days - Reason: Recheck today's complaints, Continuance of care, Re-evaluation by your physician Discharge Instructions: - Discharge Summary Sheet jmm - Clear Liquid Diet, Adult jmm Forms: - Medication Reconciliation Form jmm - Thank You Letter jmm - Antibiotic Education jmm - Prescription Opioid Use jm Prescriptions: - Ultracet 37.5-325 mg Oral Tablet - take 1 tablet by ORAL route every 6 hours As needed - for up to 5 days; do not jmm exceed 8 tablets per day.; 12 tablet; Refills: 0, Product Selection Permitted - Protonix 40 mg Oral Tablet - take 1 tablet by ORAL route once daily; 30 tablet; Refills: 0, Product jmm Selection Permitted Signatures: Dispatcher [employer] Bobby Wills MD MD kdr Mickail, Joel, PA PA jmm Lewis, Lynsay RN RN ll1 Diana Martin RN RN eh3
[2022-09-15 18:31] VITALS: TEMP 97.2
[2022-09-15 18:42] VITALS: BP 136/73; O2SAT 99
== END 2022-09-15 18:22 | disposition home or self-care (01) ==
LOC: ER 16:06
DX: R10.13 Epigastric pain (principal); K21.9 Gastro-esophageal reflux disease without esophagitis
CPT/HCPCS: 85025; 36415; 83690; 80053; Q0162

== ENCOUNTER 2022-10-14 23:09 | Emergency (ER) | payer OTHER ==
--- OUTSIDE RECORDS SUMMARY | 2022-10-14 23:13 | XMS REPORT | Continuity of Care Document ---
:1995 Author Organization [facility] [place] [facility] t Address [address] [facility] [place] [address] Care Team Providers Name Role Phone NABILA JUAN Primary Care Physician Unavailable MILLER PELAEZ Attending Clinician Unavailable NABILA JUAN Attending Clinician Unavailable HODAN CRAWFORD Attending Clinician Unavailable 2, [facility] Attending Clinician Unavailable Nabila Juan MD Attending Clinician Doctor Unassigned, [place] Attending Clinician Unavailable Sergio Brantley MD Attending Clinician [phone] Tata Hardwick RN Attending Clinician Unavailable Jacqueline Biswas PA-C Attending Clinician JACQUELINE BISWAS Attending Clinician Unavailable Ultrasound, [facility] Attending Clinician Unavailable Elizabeth Barraza MD Attending Clinician ELIZABETH BARRAZA Attending Clinician Unavailable ELIZABETH BARRAZA Attending Clinician Unavailable Asa Garzon DO Attending Clinician MARY SALAS Attending Clinician Unavailable Mary Castle Attending Clinician [phone] OSITO LACY Attending Clinician Unavailable OSITO LACY Attending Clinician Unavailable LOUANN DOMINIQUE Attending Clinician Unavailable NABILA JUAN Admitting Clinician Unavailable MILLER PELAEZ Admitting Clinician Unavailable Nabila Juan MD Admitting Clinician Payers Payer Name Policy Type Policy Number Effective Date Expiration Date Rashawn turk [facility] [id number] 2019 CHOICE MEDICAID 00:00:00 [facility] OUMAR MILROY [id number] 2020 00:00:00 Problems Condition Condition Condition Status [...] of feces, feces, 00:00: g of this [place] unspecifie unspecifie 00 note Me dical d fecal d fecal might be Branch incontinen incontinen different ce type ce type from the original. Added automatic ally from request for surgery [id number] Allergies, Adverse Reactions, Alerts Allergy Allergy Status Severity Reaction(s) Onset Inactive Treating Comm ents Source Name Type Date Date Clinician NO KNOWN Drug Active Univers ALLERGIE Class ity of S [facility] Social History Social Habit Start Date Stop Date Quantity Comments Source Exposure to Not sure University of SARS-CoV-2 [facility] [place] (event) Branch Alcohol intake 2021-10-28 2021-10-28 Current drinker Unive rsity of 00:00:00 00:00:00 of alcohol [facility] [place] (finding) Branch Alcohol Comment 2021-03-24 2021-03-24 SPECIAL Universit y of 00:00:00 00:00:00 OCCASSIONS [place] [facility] History SDOH 2020-07-17 2020-07-17 99 University o f Alcohol Frequency 00:00:00 00:00:00 [place] M edical [facility] History SDOH 2020-07-17 2020-07-17 99 University o f Alcohol Std 00:00:00 00:00:00 [place] [facility] Branch History SDOH 2020-07-17 2020-07-17 99 University o f Alcohol Binge 00:00:00 00:00:00 [place] [facility] Tobacco use and 2020-04-22 2020-04-22 Never used Universit y of exposure 00:00:00 00:00:00 [facility] Sex Assigned At [birth year] Universit y of 00:00:00 00:00:00 [facility] Smoking Status Start Date Stop Date Source Never smoker [facility] Medications Ordered Filled Start Stop Current Ordering Indication Dosage Frequency Signature Comments Components Source Medication Medication Date Date Medication? Clinician (SIG) Name Name etonogestre 2021- No [id number] 68mg Univers L 10-2816 ity of (NEXPLANON) 23:15: 22:14 [place] implant 68 00 :00 [facility] Branch etonogestre 2021- No [id number] 68mg 68 mg, Univers L 10-2816 Subdermal, ity of (NEXPLANON) 23:15: 22:14 ONCE NOW, [place] implant 68 00 :00 1 dose, On Med ical mg [facility] Branch 10/28/21 at 1815, Routine
Use approved by: ANATOMY TEACHER SERTraline Yes [id number] 50mg Take 1 U nivers (ZOLOFT) 50 3-09 tablet by ity of mg tablet 00:00: mouth [place] 00 daily. Medical Branch SERTraline Yes [id number] 50mg Take 1 U nivers (ZOLOFT) 50 3-09 tablet by ity of mg tablet 00:00: mouth [place] 00 daily. Medical Branch hydroCHLORO Yes [id number] 25mg Take 2 Univers thiazide 2-15 capsules ity of 12.5 mg 00:00: by mouth [place] capsule 00 daily. Medical Branch hydroCHLORO Yes [id number] 25mg Take 2 Univers thiazide 2-15 capsules ity of 12.5 mg 00:00: by mouth [place] capsule 00 daily. Medical Branch Yes [id number] 1{tbl} Take 1 Univers vitamin 2-14 tablet by ity of w/FA tablet 00:00: mouth [place] 00 daily. Medical Branch Yes [id number] 1{tbl} Take 1 Univers vitamin 2-14 tablet by ity of w/FA tablet 00:00: mouth [place] [address] [facility] Immunizations Ordered Filled Immunization Date Status Comments [facility] e Immunization Name Name Influenza Virus 2021-08-20 Completed Universit y of Vaccine Quad IM, 00:00:00 [place] Me dical Preserv and ABX Branch Free 6 MO-64 YRS Influenza Virus 2021-08-20 Completed Universit y of Vaccine Quad IM, 00:00:00 [facility] dical Preserv and ABX Branch Free 6 MO-64 YRS TDAP 2021-08-06 Completed University 00:00:00 [facility] TDAP 2021-08-06 Completed [facility] 00:00:00 [facility] Vital Signs Vital Name Observation Time Observation Value Comments Source Systolic blood 2021-10-28 15:59:00 124 mm[Hg] Univer sity of pressure [facility] Diastolic blood 2021-10-28 15:59:00 78 mm[Hg] [facility] Heart rate 2021-10-28 15:59:00 86 /min [facility] Body temperature 2021-10-28 15:59:00 36.89 [facility] Respiratory rate 2021-10-28 15:59:00 18 /min [facility] Body height 2021-10-28 15:59:[address] [facility] Body weight 2021-10-28 15:59:[address] [facility] BMI 2021-10-28 15:59:00 40.51 kg/m2 [facility] Procedures Procedure Date / Time Performing Clinician Source Performed CONSENT FOR 2021-10-28 05:01:00 Doctor Unassigned, No Univer sity of [place] CONTRACEPTION Name [facility] POCT TEST 2021-10-28 00:00:00 Nabila Juan Universi ty [facility] Encounters Start End Encounter Admission Attending Care Care Encounter Source Date/Time Date/Time Type Type Clinicians Facility Department ID 2021-09-25 Outpatient P [facility] [id number] Univers [facility] 2021-06[facility]13 [facility] [id number] Univers 17:00:34 [facility] 2022-09-15 2022-09-15 Outpatient [facility] [id number] Univers 14:30:00 14:30:00 IS, y [facility] 2022-06-30 2022-06-30 Outpatient R [facility] [id number] Univers 09:30:00 09:30:00 ISE, ity [facility] 2021-12-03 2021-12-03 Outpatient R NABILA JUAN [facility] [id number] Univers 13:30:00 13:30:00 [facility] 2021-10-28 2021-10-28 Client Delivery Specialist 2, Adc Lab [facility] 1.2.840.114 [id number] Univers 11:45:00 12:00:00 Visit Nabila Juan 350.1.13.10 ity [facility] [id number] [place] [phone] Me dical NAL [address] [facility] 2021-10-28 2021-10-28 Outpatient R NABILA JUAN [facility] [id number] Univers 10:30:00 11:24:27 [facility] 2021-10-28 2021-10-28 Office Nabila Juan [facility] [id number] Univers 10:30:00 11:24:27 Visit Vishal BAPTISTE 350.1.13.10 i [facility] 4.2.7.2.686 [place] [phone] Me dical NAL [address] [facility] 2021-10-28 2021-10-28 Orders Doctor PALACIOS 1.2.840.114 [id number] Univers 00:00:00 00:00:00 Only Unassigned, JULIANO 350.1.13.[address] [place] [facility] 4.2.7.2.686 Eduardo as [id number] [address] 2021-10-21 2021-10-21 Outpatient R NABILA JUAN [facility] [id number] Univers 13:00:00 13:25:55 ity of [facility] 2021-10-21 2021-10-21 Routine Nabila Juan [facility] [id number] Univers 13:00:00 13:25:55 Cam OLIVA 350.1.13.10 ity of Visit [place] 4[place]2.7.2.[place] [phone] Fl dical [address] 2021-10-09 2021-10-09 Outpatient R [facility] [id number] Univers 15:00:00 15:00:00 ity of [facility] 2021-10-06 2021-10-06 Outpatient R [facility] [id number] Univers 15:00:00 15:00:00 ity of [facility] 2021-09-27 2021-09-29 Inpatient X NABILA JUAN [facility] [id number] Univers 10:56:00 21:30:00 ity of [facility] 2021-09-27 2021-09-29 Hospital Nabila Juan [facility] 1.2.840.114 [id number] Univers 10:56:00 21:30:00 Encounter Cam OLIVA 350.1.13.10 ity of [place] 4.2.7.2.[place] [id number] [address] 2021-09-28 2021-09-28 Anesthesia [facility] 1.2.840.114 [id number] Univers 20:00:03 20:00:03 Event staceyOLIVA waite 350.1.13.10 i ty of Sergio [facility] 4.2.7.2.686 Eduardo as CAMPUS [id number] [address] 2021-09-27 2021-09-27 Anesthesia Alquicira-M [facility] 1.2.840.114 [id number] Univers 14:58:00 19:49:00 Event OLIVA ibarra 350.1.13.10 i ty of Sergio [place] 4.2.7.2.686 Eduardo as CAMPUS [id number] [facility] [address] [place] 2021-09-27 2021-09-27 Inpatient X [facility] [id number] Univers 10:56:00 10:56:00 ity of [facility] 2021-09-27 2021-09-27 Orders Doctor SUZANNE 1.2.840.114 [id number] Univers 00:00:00 00:00:00 Only Unassigned, JULIANO 350.1.13.10 ity of [place] [id number] Eduardo as [phone] [facility] [address] [place] 2021-09-25 2021-09-25 Outpatient P [facility] [id number] Univers 21:18:00 23:19:00 ity of [facility] 2021-09-25 2021-09-25 Hospital [facility] 1.2.840.114 [id number] Univers 21:18:00 23:19:00 Encounter Cam OLIVA 350.1.13.10 ity of [place] 4.2.7.2.[place] [id number] [place] [id number] [place] 2021-09-25 2021-09-25 Nurse SUZANNE Hardwick 1.2.840.114 [id number] Univers 00:00:00 00:00:00 Triage Qujean HENAO 350.1.13.[address] [facility] 4.2.7.2.686 Eduardo as [id number] [facility] 019 Branch 2021-09-23 2021-09-23 Outpatient R [facility] [id number] Univers 16:00:00 17:01:09 ity of [facility] 2021-09-23 2021-09-23 Routine [facility] [id number] Univers 16:00:00 17:01:09 Cam OLIVA 350.1.13.10 ity of [place] 4[place]2.[place].2.[place] [phone] Fl dical NAL 134 [facility] 2021-09-23 2021-09-23 Orders Doctor SUZANNE 1.2.840.114 [id number] Univers 00:00:00 00:00:00 Only Unassigned, JULIANO 350.1.13.[address] [place] [facility] 4.2.7.2.686 Eduardo as [id number] [address] 2021-09-17 2021-09-17 Routine Zulay [facility] 1.2.152.127 [id number] Univers 16:30:00 16:30:00 Jacqueline BAPTISTE 350.1.13.10 ity of Visit [place] 4.2.7.2.[place] [id number] Fl dical NAL [address] [place] [address] 2021-09-17 2021-09-17 Outpatient R ZULAY [facility] [id number] Univers 16:30:00 15:05:02 JACQUELINE espinosa [facility] 2021-09-17 2021-09-17 Outpatient R ZULAY [facility] [id number] Univers 11:30:00 11:30:00 [facility] 2021-09-10 2021-09-10 Client Delivery Specialist 2, Adc Lab [facility] 1.2.840.114 [id number] Univers 14:00:00 14:00:00 Visit Nabila Juan 350.1.13.10 ity of [place] 4[place]2.7.2.[place] [id number] Fl dical NAL 353 [facility] 2021-09-10 2021-09-10 Outpatient R NABILA JUAN [facility] [id number] Univers 13:00:00 13:46:24 ity [facility] 2021-09-10 2021-09-10 Routine Nabila Juan [facility] 1.2.682.175 [id number] Univers 13:00:00 13:46:24 Vishal OLIVA 350.1.13.10 ity of Visit [place] 4[place]2.[place].2.[place] [id number] Fl dical NAL 134 [facility] 2021-09-10 2021-09-10 Orders Doctor SUZANNE 1.2.840.114 [id number] Univers 00:00:00 00:00:00 Only Unassigned, JULIANO 350.1.13.10 ity of [facility] 4.2.7.2.686 Eduardo as [phone] [address] 2021-09-03 2021-09-03 Outpatient R [facility] [id number] Univers 16:00:00 16:45:26 ity of [facility] 2021-09-03 2021-09-03 Routine Drake [facility] 1.2.709.975 [id number] Univers 16:00:00 16:45:26 Cam OLIVA 350.1.13.10 ity of Visit [place] 4[place]2.7.2.[place] [id number] Fl dical [address] 2021-09-03 2021-09-03 Outpatient R [facility] [id number] Univers 16:00:00 16:00:00 ity of [facility] 2021-09-01 2021-09-01 Client Delivery Specialist Ultrasound, [facility] 1.2 .840.114 [id number] Univers 09:45:00 10:15:00 Visit Elizabeth Barraza 350.1.13.10 ity [facility] 4.2.7.2.[place] [phone] Fl dical [address] 2021-09-01 2021-09-01 Outpatient P ELIZABETH BARRAZA [facility] [id number] Univers 09:45:00 09:45:00 ELIZABETH BARRAZA ity [facility] 2021-09-01 2021-09-01 Case Drake Nabila [facility] 1.2.889.413 [id number] Univers 00:00:00 00:00:00 Management Cam OLIVA 350.1.13.10 ity [facility] 4.2.7.2.[place] [phone] Fl dical NAL [address] [place] [address] 2021-08-27 2021-08-27 Case Drake Nabila [facility] 1.2.454.483 [id number] Univers 00:00:00 00:00:00 Management Cam OLIVA 350.1.13.10 ity of [place] 4.2.7.2.[place] [id number] Fl dical NAL [address] [place] [address] 2021-08-26 2021-08-26 Orders Doctor SUZANNE 1.2.840.114 [id number] Univers 00:00:00 00:00:00 Only Unassigned, JULIANO 350.1.13.10 [facility] 4.2.7.2.686 Eduardo as [phone] [address] 2021-08-25 2021-08-25 Outpatient R ZULAY [facility] [id number] Univers 16:00:00 16:33:08 JACQUELINE ity [facility] 2021-08-25 2021-08-25 Routine [facility] [id number] Univers 16:00:00 16:33:08 Jacqueline BAPTISTE 350.1.13.10 ity of Visit [place] 4.2.7.2.[place] [id number] Fl dical NAL [address] [place] [address] 2021-08-24 2021-08-24 Telephone Nabila Juan [facility] 1.2.840.114 [id number] Univers 00:00:00 00:00:00 Cam OLIVA 350.1.13.10 i ty of [place] 4.2.7.2.686 [place] [id number] Fl dical NAL [address] [place] [address] 2021-08-20 2021-08-20 Outpatient R ZULAY [facility] [id number] Univers 16:00:00 16:13:45 JACQUELINE espinosa [facility] 2021-08-20 2021-08-20 [facility]ine [facility] 1.2.934.437 [id number] Univers 16:00:00 16:13:45 Jacqueline BAPTISTE 350.1.13.10 ity of Visit [place] 4.2.7.2.686 [place] [id number] Fl dical NAL [address] [place] [address] 2021-08-13 2021-08-13 Outpatient R ANBILA JUAN [facility] [id number] Univers 08:15:00 08:15:00 ity of [facility] 2021-08-13 2021-08-13 Client Delivery Specialist 2, Adc Lab [facility] 1.2.840.114 [id number] Univers 08:15:00 08:15:00 Visit Nabila Juan 350.1.13.10 ity of [facility] 4.2.7.2.[place] [id number] Fl dical NAL [address] [place] [address] 2021-08-12 2021-08-12 [facility] 1.2.840.114 [id number] Univers 00:00:00 00:00:00 Vishal BAPTISTE 350.1.13.10 i ty of [place] 4.2.7.2.686 [place] [id number] Fl dical NAL [address] [place] [address] 2021-08-11 2021-08-11 Outpatient R DRAKE [facility] [id number] Univers 10:30:00 10:30:00 ity of [facility] 2021-08-11 2021-08-11 Client Delivery Specialist 2, [facility] Lab [facility] 1.2.840.114 [id number] Univers 10:30:00 10:30:00 Visit Nabila Juan 350.1.13.10 ity of [place] 4.2.7.2.686 [place] [id number] [address] 2021-08-11 2021-08-11 Case Zulay [facility] [id number] Univers 00:00:00 00:00:00 Management Jacqueline OLIVA 350.1.13.10 ity of [place] 4.2.7.2.686 [place] [phone] Fl dic[address] 2021-08-06 2021-08-06 Outpatient R NABILA JUAN [facility] [id number] Univers 16:00:00 16:07:53 ity [facility] 2021-08-06 2021-08-06 Routine Drake [facility] 1.2.271.298 [id number] Univers 16:00:00 16:07:53 Vishal BAPTISTE 350.1.13.10 ity of [place] 4.2.7.2.[place] [id number] [address] 2021-06-16 2021-06-16 Outpatient NABILA GREGORIO [facility] [id number] Univers 15:30:00 15:30:00 ity of [facility] 2021-06-09 2021-06-09 Client Delivery Specialist Ultrasound, Adc [facility] 1.2 .840.114 [id number] Univers 08:08:34 09:08:34 Visit Asa Garzon [place] 350.1.13.10 ity of [place] 4.2.7.2.[place] Profess[place] [phone] [address] 2021-06-09 2021-06-09 Outpatient P [facility] [id number] Univers 08:00:00 08:00:00 ity of [facility] 2021-06-05 2021-06-05 Orders Doctor SUZANNE 1.2.840.114 [id number] Univers 00:00:00 00:00:00 Only Unassigned, JULIANO 350.1.13.[address] [place] [facility] 4.2.7.2.686 Eduardo as [phone] [address] 2021-05-19 2021-05-19 Routine Jacqueline Biswas [facility] 1.2.840.11 [id number] Univers 15:50:33 16:24:43 Nabila Juan Vishal Baptiste 350.1.13.10 ity of Visit [place] 4.2.7.2.686 [place] Profess[place] [id number] [address] 2021-05-19 2021-05-19 Outpatient NABILA GREGORIO [facility] [id number] Univers 16:00:00 16:00:00 ity [facility] 2021-05-19 2021-05-19 Orders Doctor PALACIOS 1.2.840.114 [id number] Univers 00:00:00 00:00:00 Only Unassigned, JULIANO 350.1.13.[address] [place] [facility] 4.2.7.2.686 Eduardo as [phone] [address] 2021-05-15 2021-05-15 Outpatient P [facility] [id number] Univers 10:00:00 10:00:00 ity of [facility] 2021-04-21 2021-04-21 Client Delivery Specialist 2, Adc Lab [facility] 1.2.840.114 [id number] Univers 11:39:14 11:54:14 Visit Jacqueline Biswas 350.1.13.10 ity of [place] 4.2.7.2.[place] [id number] Fl dical nal 353 [facility] 2021-04-21 2021-04-21 Routine Zulay [facility] 1.2.413.854 [id number] Univers 10:48:23 11:36:52 Jacqueline Baptiste 350.1.13.10 ity of Visit [place] 4.2.7.2.[place] Profess[place] [id number] Fl dical nal 134 [facility] 2021-04-21 2021-04-21 Outpatient R ZULAY [facility] [id number] Univers 10:45:00 10:45:00 JACQUELINE espinosa [facility] 2021-03-30 2021-03-30 Orders Doctor SUZANNE 1.2.840.114 [id number] Univers 00:00:00 00:00:00 Only Unassigned, JULIANO 350.1.13.10 ity of [facility] 4.2.7.2.686 Eduardo as [id number] [address] 2021-03-24 2021-03-24 Outpatient R NABILA JUAN [facility] [id number] Univers 10:00:00 10:00:00 ity of [facility] 2021-03-19 2021-03-19 Outpatient R NABILA JUAN [facility] [id number] Univers 10:00:00 10:00:00 ity of [facility] 2020-10-09 2020-10-09 Outpatient R ORTEGA [facility] [id number] Univers 15:30:00 15:30:00 MARY correia [facility] 2020-09-23 2020-09-23 Outpatient R ORTEGA [facility] [id number] Univers 13:30:00 13:30:00 MARY correia [facility] 2020-09-18 2020-09-18 Telephone [facility] 1.2.840.114 [id number] 00:00:00 00:00:00 Mary Salazar ANATOMY TEACHER 350.1.13.10 [facility] 4.2.7.2.686 MATERNAL [phone] & CHILD [address] [place] [address] 2020-08-29 2020-08-29 Outpatient R BAMBIMORENITAOSITO [facility] [id number] Univers 15:45:00 15:45:00 BAMBI OSITO [facility] 2020-07-17 2020-07-17 [facility] [id number] Univers 15:45:00 15:45:00 MARY cid [facility] 2020-07-14 2020-07-14 Outpatient R ORTEGA, [facility] [id number] Univers 14:30:00 14:30:00 MARY cid [facility] 2020-07-02 2020-07-02 [id number] Univers 15:30:00 15:30:00 AGUSTO astonjames [facility] 2020-06-20 2020-06-20 [facility] [id number] Univers 14:00:00 14:00:00 jesús LIZ [facility] 2020-05-16 2020-05-16 Out[facility] [id number] Univers 13:30:00 13:30:00 jesús LIZ [facility] 2020-04-22 2020-04-22 [facility]patient [facility] [id number] Univers 14:00:00 14:00:00 LOUANN [facility] Results Test Description Test Time Test Comments Results Result Comments Source POCT TEST 2021-10-28 15:57:00 Test Item Value Reference Range Interpretation Comme nts POCT PREG (test code = 1605) Negative On board controls acceptable with C Line (test code = 3574) Yes POCT PREG LOT # (test code = 3575) POCT PREG TEST DATE (test code = 3576) [facility]
[2022-10-15] MEDS ORDERED: KETOROLAC 30 MG/ML INJ ONE (00:35)
--- NOTE | 2022-10-15 01:24 | ER ---
Nurse's Notes [facility] Name: Kaela Gonzales Age: 27 yrs Sex: Female : 1995 Arrival Date: 10/14/2022 Time: 23:12 Bed 7 Private MD: Diagnosis: Trismus Presentation: 10/14 23:20 Chief complaint: Patient states: "Its been 2 days that my jaw has been locked, I can vc1 barely open my mouth.". Coronavirus screen: Vaccine status: Patient reports receiving the 1st dose of the Covid vaccine. doesn't remember tube roller At this time, the client does not indicate any symptoms associated with coronavirus-19. Ebola Screen: Patient negative for fever greater than or equal to 101.5 degrees Fahrenheit, and additional compatible Ebola Virus Disease symptoms Patient denies exposure to infectious person. Patient denies travel to an Ebola-affected area in the 21 days before illness onset. No symptoms or risks identified at this time. Initial Sepsis Screen: Does the patient meet any 2 criteria? No. Patient's initial sepsis screen is negative. Does the patient have a suspected source of infection? No. Patient's initial sepsis screen is negative. Risk Assessment: Do you want to hurt yourself or someone else? Patient reports no desire to harm self or others. Onset of symptoms was October 12, 2022. 23:20 Method Of Arrival: Ambulatory vc1 23:20 Acuity: ANNABELLE 4 vc1 Triage Assessment: 23:23 General: Appears in no apparent distress. uncomfortable, Behavior is calm, cooperative, vc1 appropriate for age. Pain: Complains of pain in left submandibular area Pain does not radiate. Pain currently is 7 out of 10 on a pain scale. EENT: Reports unable to open mouth. Neuro: Level of Consciousness is awake, alert, obeys commands, Oriented to person, place, time, situation, Appropriate for age. Cardiovascular: No deficits noted. Respiratory: Airway is patent Respiratory effort is even, unlabored, Respiratory pattern is regular, symmetrical. GI: No deficits noted. No signs and/or symptoms were reported involving the gastrointestinal system. : No deficits noted. No signs and/or symptoms were reported regarding the genitourinary system. Derm: No deficits noted. No signs and/or symptoms reported regarding the dermatologic system. Musculoskeletal: Reports pain in left submandibular area. 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 - Social history:: Smoking status: Reported history of juuling and/or vaping. Screenin:24 Abuse screen: Denies threats or abuse. Nutritional screening: No deficits noted. vc1 Tuberculosis screening: No symptoms or risk factors identified. 10/15 01:27 [facility] ED Fall Risk Assessment (Adult) Score/Fall Risk Level 0 - 2 = Low Risk. as6 Vital Signs: 10/14 23:20 BP 93 / 77; Pulse 88; Resp 16; Temp 97.9; Pulse Ox 100% ; Weight 122.92 kg; Height 5 vc1 ft. 6 in. (167.64 cm); Pain 7/10; 23:20 Body Mass Index 43.74 (122.92 kg, 167.64 cm) vc1 ED Course: 23:12 Patient arrived in ED. ja2 23:21 Jai Mercado MD is Attending Physician. rt 23:22 Triage completed. vc1 23:24 Arm band placed on right wrist. vc1 10/15 00:17 Corrina Pineda, KIZZY is Primary Nurse. kd3 01:26 Bed in low position. Call light in reach. as6 01:31 No provider procedures requiring assistance completed. Patient did not have IV access as6 during this emergency room visit. Administered Medications: 00:33 Drug: Ketorolac 30 mg Route: IM; Site: left ventrogluteal; kd3 01:27 Follow up: Response: No adverse reaction as6 Medication: 01:27 VIS not applicable for this client. as6 Outcome: 01:24 Discharge ordered by . rt 01:30 Discharged to home ambulatory. as6 01:30 Condition: stable 01:30 Discharge instructions given to patient, Instructed on discharge instructions, follow up and referral plans. medication usage, Demonstrated understanding of instructions, follow-up care, medications, Prescriptions given X 1. 01:31 Patient left the ED. as6 Signatures: Monica Parham Ashby, RN RN as6 Corrina Pineda, RN RN kd3 Yris Villegas, RN RN vc1 Jai Mercado MD MD rt
--- NOTE | 2022-10-15 01:24 | EDPHYS ---
Physician Documentation [facility] Name: Kaela Gonzales Age: 27 yrs Sex: Female : 1995 Arrival Date: 10/14/2022 Time: 23:12 Bed 7 Private MD: ED Physician Jai Mercado HPI: 10/15 01:04 This 27 yrs old Female presents to ER via Ambulatory with complaints of Jaw rt Pain. 01:04 . rt 01:04 Patient presents to the ED with difficulty opening her mouth for about 2 days now. She rt reports pain to her bilateral jaws. Denies any trauma. Denies any dental pain. Denies difficulty swallowing, sore throat, other acute complaints. Symptoms are moderate severity, no other aggravating alleviating factors. Pain is aching nature, nonradiating.. 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 - Social history:: Smoking status: Reported history of juuling and/or vaping. ROS: 10/15 01:04 Constitutional: Negative for fever, chills, and weight loss, Neck: Negative for injury, rt pain, and swelling, Skin: Negative for injury, rash, and discoloration, Neuro: Negative for headache, weakness, numbness, tingling, and seizure, Psych: Negative for depression, anxiety, suicide ideation, homicidal ideation, and hallucinations. ENT: Positive for Trismus, negative for sore. Exam: 01:04 Constitutional: This is a well developed, well nourished patient who is awake, alert, rt and in no acute distress. Head/Face: Normocephalic, atraumatic. Chest/axilla: Normal chest wall appearance and motion. Nontender with no deformity. No lesions are appreciated. Cardiovascular: Regular rate and rhythm with a normal S1 and S2. No gallops, murmurs, or rubs. Normal PMI, no JVD. No pulse deficits. Respiratory: Lungs have equal breath sounds bilaterally, clear to auscultation and percussion. No rales, rhonchi or wheezes noted. No increased work of breathing, no retractions or nasal flaring. Abdomen/GI: Soft, non-tender, with normal bowel sounds. No distension or tympany. No guarding or rebound. No evidence of tenderness throughout. 01:04 ENT: Mild pain at the bilateral TMJs, no obvious jaw dislocation, no posterior pharyngeal erythema.. Vital Signs: 10/14 23:20 BP 93 / 77; Pulse 88; Resp 16; Temp 97.9; Pulse Ox 100% ; Weight 122.92 kg; Height 5 vc1 ft. 6 in. (167.64 cm); Pain 7/10; 23:20 Body Mass Index 43.74 (122.92 kg, 167.64 cm) vc1 MDM: 10/15 00:25 Patient medically screened. rt 01:30 Differential diagnosis: Trismus, abscess, jaw dislocation. Data reviewed: vital signs, rt nurses notes, radiologic studies. Test considered but Not performed: Labs: Stable vital signs, low suspicion for abscess, infectious process, labs not indicated.. Counseling: I had a detailed discussion with the patient and/or guardian regarding: the historical points, exam findings, and any diagnostic results supporting the discharge/admit diagnosis, radiology results, the need for outpatient follow up. 10/15 00:29 Order name: Facial Bones W/O Con CT rt Administered Medications: 00:33 Drug: Ketorolac 30 mg Route: IM; Site: left ventrogluteal; kd3 01:27 Follow up: Response: No adverse reaction as6 Disposition Summary: 10/15/22 01:24 Discharge Ordered Location: Home rt Problem: new rt Symptoms: are unchanged rt Condition: Stable rt Diagnosis - Trismus rt Followup: rt - With: Private Physician - When: 2 - 3 days - Reason: Discharge Instructions: - Discharge Summary Sheet rt - Jaw Range of Motion Exercises rt Forms: - Medication Reconciliation Form rt - Thank You Letter rt - Antibiotic Education rt - Prescription Opioid Use rt Prescriptions: - Cyclobenzaprine 10 mg Oral Tablet - take 1 tablet by ORAL route every 8 hours As needed; 30 tablet; Refills: 0, rt Product Selection Permitted Signatures: Dispatcher Froont Corrina Bruno RN RN kd3 Yris Villegas RN RN vc1 Jai Mercado MD MD rt Jarett Pittman RN as6
[2022-10-15 02:38] VITALS: TEMP 97.9
[2022-10-15 02:47] VITALS: BP 169/121; O2SAT 99
--- NOTE | 2022-10-15 13:51 | RAD REPORT ---
EXAM DESCRIPTION: CT - Facial Bones W/ Mpr - 10/15/2022 6:17 am CLINICAL HISTORY: FACIAL PAIN COMPARISON: None. TECHNIQUE: CT MAXILLOFACIAL WITHOUT IV CONTRAST on 10/15/2022 12:29 AM REPAIRER KILN CAR This exam was performed according to our departmental dose-optimization program, which includes autom ated exposure control, adjustment of the mA and/or kV according to patient size and/or use of iterati ve reconstruction technique. FINDINGS: There is no acute fracture. The paranasal sinuses are clear. Orbits and globes are unremar kable. Mastoid air cells are clear. Temporomandibular joints are intact. There are no significant sof t tissue abnormalities. IMPRESSION: No post-traumatic findings. Electronically signed by: Ronnie Santana MD 10/15/2022 1:09 AM REPAIRER KILN CAR Due to temporary technical issues with the PACS/Fluency reporting system, reports are being signed by the in house radiologists without review as a courtesy to insure prompt reporting. The interpreting radiologist is fully responsible for the content of the report
== END 2022-10-15 01:31 | disposition home or self-care (01) ==
LOC: ER 23:09
DX: R25.2 Cramp and spasm (principal)
CPT/HCPCS: 70486; 76377; 96372; 99283

== ENCOUNTER 2023-04-13 21:05 | Emergency (ER) | payer OTHER ==
--- OUTSIDE RECORDS SUMMARY | 2023-04-13 21:29 | XMS REPORT | Continuity of Care Document ---
:1995 Author Organization [facility] t Address [address] [place] [address] Care Team Providers Name Role Phone Nabila Juan MD Primary Care Physician MILLER PELAEZ Attending Clinician Unavailable LAXMI BAILEY Attending Clinician Unavailable LAXMI BAILEY Attending Clinician Unavailable Doctor Unassigned, [place] Attending Clinician Unavailable NABILA JUAN Attending Clinician Unavailable HODAN CRAWFORD Attending Clinician Unavailable 2, [facility] Attending Clinician Unavailable Nabila Juan MD Attending Clinician Sergio Brantley MD Attending Clinician [phone] Tata Hardwick RN Attending Clinician Unavailable Jacqueline Biswas PA-C Attending Clinician JACQUELINE BISWAS Attending Clinician Unavailable Ultrasound, [facility] Attending Clinician Unavailable Elizabeth Barraza MD Attending Clinician ELIZABETH BARRAZA Attending Clinician Unavailable ELIZABETH BARRAZA Attending Clinician Unavailable Asa Garzon DO Attending Clinician MARY SALAS Attending Clinician Unavailable Mary Castle Attending Clinician [phone] OSITO LACY Attending Clinician Unavailable OSITO LACY Attending Clinician Unavailable LOUANN DOMINIQUE Attending Clinician Unavailable NABILA JUAN Admitting Clinician Unavailable MILLER PELAEZ Admitting Clinician Unavailable Nabila Juan MD Admitting Clinician Payers Payer Name Policy Type Policy Number Effective Date Expiration Date Rashawn turk [facility] [id number] 2019 CHOICE MEDICAID 00:00:00 [facility] [id number] 2020 00:00:00 Problems Condition Condition Condition Status Onset Resolution Last Treating Co mments Source Name Details Category Date Date Treatment Clinician Date Mood Mood Disease Active Univers altered altered 6-14 ity of 00:00: [place] [facility] Left upper Left upper Disease Active U nivers arm pain arm pain 6-14 ity of 00:00: [place] [address] Medical Branch Nexplanon Nexplanon Disease Active Uni vers removal removal 3-16 ity of 00:00: [place] [facility] History of History of Disease Active U nivers herpes herpes 1-20 [place] of genital[place] BMI BMI Disease Active Univers 45.0-49.9, 45.0-49.9, 8-10 it y of adult adult 00:00: [place] 00 Medical Branch General General Disease Active Univers counseling counseling 2-09 it y of [place] 00 [facility] contracept contracept Br anch ion ion LGSIL Pap LGSIL Pap Disease Active Overview: Univers smear of smear of 2-04 Formattin ity of vagina vagina 00:00: g of this [place] 00 note Medical might be Branch different from the original. See scanned records 07/2019, patient pending repeat pap Incontinen Incontinen Disease Active Overview : Univers ce of ce of 1-12 Formattin ity of feces, feces, 00:00: g of this [place] unspecifie unspecifie 00 note Me dical d fecal d fecal might be Branch incontinen incontinen different ce type ce type from the original. Added automatic ally from request for surgery [id number] Allergies, Adverse Reactions, Alerts Allergy Allergy Status Severity Reaction(s) Onset Inactive Treating Comm ents Source Name Type Date Date Clinician NO KNOWN Drug Active Univers ALLERGIE Class ity of S [place] [facility] [place] Social History Social Habit Start Date Stop Date Quantity Comments Source Exposure to Not sure University SARS-CoV-2 [place] [facility] (event) Branch Tobacco use and 2023-01-26 2023-01-26 Smokeless tobacco Un iversity of exposure 00:00:00 00:00:00 non-user [facility] Alcohol intake 2023-01-26 2023-01-26 Current drinker Unive rsity of 00:00:00 00:00:00 of alcohol [facility] (finding) Branch Alcohol Comment 2021-03-24 2021-03-24 SPECIAL Universit y of 00:00:00 00:00:00 OCCASSIONS [place] [facility] History [facility] 2020-07-17 2020-07-17 99 University o f Alcohol Frequency 00:00:00 00:00:00 [place] M ed[facility] History [facility] 2020-07-17 2020-07-17 99 University o f Alcohol Std 00:00:00 00:00:00 [place] [facility] Drinks Branch History SDAL 2020-07-17 2020-07-17 99 University o f Alcohol Binge 00:00:00 00:00:00 [place] [facility] Sex Assigned At [birth year] Universit y of 00:00:00 00:00:00 [facility] Smoking Status Start Date Stop Date Source Never smoked tobacco [facility] Medications Ordered Filled Start Stop Current Ordering Indication Dosage Frequency Signature Comments Components Source Medication Medication Date Date Medication? Clinician (SIG) Name Name etonogestre 2021- No [id number] 68mg Univers L 10-28 ity of (NEXPLANON) 23:15: 22:14 [place] implant 68 00 :00 Medical mg Branch etonogestre 2021- No [id number] 68mg 68 mg, Univers L 10-28 Subdermal, ity of (NEXPLANON) 23:15: 22:14 ONCE NOW, [place] implant 68 00 :00 1 dose, On Med ical mg Wed Branch 10/28/21 at 1815, Routine
Use approved by: FEED CRUSHER OPERATOR SERTraline Yes [id number] 50mg Take 1 U nivers (ZOLOFT) 50 3-09 tablet by ity of mg tablet 00:00: mouth [place] 00 daily. [facility] Branch SERTraline Yes [id number] 50mg Take 1 U nivers (ZOLOFT) 50 3-09 tablet by ity of mg tablet 00:00: mouth [place] 00 daily. [facility] Branch SERTraline Yes [id number] 50mg Take 1 U nivers (ZOLOFT) 50 3-09 tablet by ity of mg tablet 00:00: mouth [place] 00 daily. [facility] SERTraline Yes [id number] 50mg Take 1 U nivers (ZOLOFT) 50 3-09 tablet by ity of mg tablet 00:00: mouth [place] 00 daily. [facility] SERTraline Yes [id number] 50mg Take 1 U nivers (ZOLOFT) 50 3-09 tablet by ity of mg tablet 00:00: mouth [place] 00 daily. [facility] hydroCHLORO Yes [id number] 25mg Take 2 Univers thiazide 2-15 capsules ity of 12.5 mg 00:00: by mouth [place] capsule 00 daily. [facility] Branch hydroCHLORO Yes [id number] 25mg Take 2 Univers thiazide 2-15 capsules ity of 12.5 mg 00:00: by mouth [place] capsule 00 daily. [facility] Branch hydroCHLORO Yes [id number] 25mg Take 2 Univers thiazide 2-15 capsules ity of 12.5 mg 00:00: by mouth [place] capsule 00 daily. [facility] Branch hydroCHLORO Yes [id number] 25mg Take 2 Univers thiazide 2-15 capsules ity of 12.5 mg 00:00: by mouth [place] capsule 00 daily. [facility] hydroCHLORO Yes [id number] 25mg Take 2 Univers thiazide 2-15 capsules ity of 12.5 mg 00:00: by mouth [place] capsule 00 daily. [facility] Yes [id number] 1{tbl} Take 1 Univers vitamin 2-14 tablet by ity of w/FA tablet 00:00: mouth [place] 00 daily. [facility] Yes [id number] 1{tbl} Take 1 Univers vitamin 2-14 tablet by ity of w/FA tablet 00:00: mouth [place] 00 daily. Medical Branch 0 Yes [id number] 1{tbl} Take 1 Univers vitamin 2-14 tablet by ity of w/FA tablet 00:00: mouth [place] 00 daily. Medical Branch 0 Yes [id number] 1{tbl} Take 1 Univers vitamin 2-14 tablet by ity of w/FA tablet 00:00: mouth [place] 00 daily. Medical Branch 0 Yes [id number] 1{tbl} Take 1 Univers vitamin 2-14 tablet by ity of w/FA tablet 00:00: mouth [place] 00 daily. Medical Branch Immunizations Ordered Filled Immunization Date Status Comments [facility] e Immunization Name Name Influenza Virus 2021-08-20 Completed Universit y of Vaccine [facility] IM, 00:00:00 [place] Me dical Preserv and ABX Branch Free 6 MO-64 YRS Influenza Virus 2021-08-20 Completed Universit y of Vaccine [place] [facility], 00:00:00 [place] Me dical Preserv and ABX Branch Free 6 MO-64 YRS Influenza Virus 2021-08-20 Completed Universit y of Vaccine [place] [facility], 00:00:00 [place] Me dical Preserv and ABX Branch Free 6 MO-64 YRS Influenza Virus 2021-08-20 Completed Universit y of Vaccine [place] [facility], 00:00:00 [place] Me dical Preserv and ABX Branch Free 6 MO-64 YRS Influenza Virus 2021-08-20 Completed Universit y of Vaccine [place] [facility], 00:00:00 [place] Me dical Preserv and ABX Branch Free 6 MO-64 YRS TDAP 2021-08-06 Completed University of 00:00:00 [facility] TDAP 2021-08-06 Completed University of 00:00:00 [facility] TDAP 2021-08-06 Completed University of 00:00:00 [facility] TDAP 2021-08-06 Completed University of 00:00:00 [facility] TDAP 2021-08-06 Completed University of 00:00:00 [facility] Vital Signs Vital Name Observation Time Observation Value Comments Source Systolic blood 2023-01-26 18:26:00 122 mm[Hg] Univer sity of pressure [facility] Diastolic blood 2023-01-26 18:26:00 83 mm[Hg] Unive rsity of pressure [place] [facility] Heart rate 2023-01-26 18:26:00 98 /min Universi ty of [place] [facility] Respiratory rate 2023-01-26 18:26:00 18 /min Univ ersity of [facility] Body height 2023-01-26 18:26:00 167.6 cm Universi ty of [place] [facility] Body weight 2023-01-26 18:26:00 128.368 kg Universi ty of [facility] BMI 2023-01-26 18:26:00 45.68 kg/m2 Universi ty of [facility] Branch Systolic blood 2021-10-28 15:59:00 124 mm[Hg] Univer sity of [facility] Diastolic blood 2021-10-28 15:59:00 78 mm[Hg] Unive rsity of [facility] Heart rate 2021-10-28 15:59:00 86 /min Universi ty of [place] [facility] [place] Body temperature 2021-10-28 15:59:00 36.89 [facility]thia [facility] Respiratory rate 2021-10-28 15:59:00 18 /min Univ ersity of [place] [facility] Body height 2021-10-28 15:59:00 167.6 cm Universi ty of [place] [facility] [place] Body weight 2021-10-28 15:59:00 113.853 kg Universi ty of [facility] BMI 2021-10-28 15:59:00 40.51 kg/m2 Universi ty of [facility] Branch Procedures Procedure Date / Time Performing Clinician Source Performed ASSIGNMENT OF BENEFITS 2023-01-26 18:14:24 Doctor Unassigned, No [facility] CONSENT FOR 2021-10-28 05:01:00 Doctor Unassigned, No [facility] [place] [facility] CONTRACEPTION [facility] POCT TEST 2021-10-28 00:00:00 [facility] Encounters Start End Encounter Admission Attending Care Care Encounter Source Date/Time Date/Time Type Type Clinicians Facility Department ID 2021-09-25 Outpatient P [facility] BARBIE [id number] Univers 23:27[facility] 2021-06-13 Outpatient R BENIGNO NVGASTON GIRobert [id number] Univers 17:00:34 MILLER [place] [facility] 2023-01-26 2023-01-26 Office Tritschler, [facility] [id number] [id number] Univers 16:00:00 16:00:00 Visit Laxmi MAY 350.1.13.10 it y of W[place] [id number] [facility] 134 Branch 2023-01-26 2023-01-26 Outpatient R LAXMI BAILEY [facility] B [id number] Univers 16:00:00 14:02:03 TRILAXMI MENDOZA ity [facility] 2023-01-26 2023-01-26 Orders Doctor SUZANNE 1.2.840.114 [id number] Univers 00:00:00 00:00:00 Only Unassigned, JULIANO 350.1.13.10 ity of [place] [facility] 4.2.7.2.686 Eduardo as [id number] [facility] 009 Branch 2022-09-15 2022-09-15 Outpatient R [facility] [id number] Univers 14:30:00 14:30:00 ISE, ity [facility] 2022-06-30 2022-06-30 Outpatient R [facility] 004 [id number] Univers 09:30:00 09:30:00 ISE, ity [facility] 2021-12-03 2021-12-03 Outpatient R NABILA JUAN [facility] [id number] Univers 13:30:00 13:30:00 ity [facility] 2021-10-28 2021-10-28 Wood Grinder 2, Adc Lab [facility] 1.2.840.114 [id number] Univers 11:45:00 12:00:00 Visit Nabila Juan 350.1.13.10 ity of [facility] 4.2.[place].2.[place] [phone] [address] 2021-10-28 2021-10-28 Outpatient R NABILA JUAN [facility] [id number] Univers 10:30:00 11:24:27 ity [facility] 2021-10-28 2021-10-28 Office Nabila Juan [facility] [id number] Univers 10:30:00 11:24:27 Visit Cam [place] 350.1.13.10 i ty of [place] 4[place].2.[place] [id number] De dical NAL [address] [facility] 2021-10-28 2021-10-28 Orders Doctor SUZANNE 1.2.840.114 [id number] Univers 00:00:00 00:00:00 Only Unassigned, JULIANO 350.1.13.10 ity of [place] [facility] 4.2.7.2.686 Eduardo as [id number] [facility] 009 Branch 2021-10-21 2021-10-21 Outpatient R NABILA JUAN [facility] [id number] Univers 13:00:00 13:25:55 ity of [facility] 2021-10-21 2021-10-21 [facility] [id number] Univers 13:00:00 13:25:55 Cam [place] 350.1.13.10 ity of [place] [phone] De dic[address] 2021-10-09 2021-10-09 Outpatient R [facility] [id number] Univers 15:00:00 15:00:00 ity of [facility] 2021-10-06 2021-10-06 Outpatient R [facility] [id number] Univers 15:00:00 15:00:00 ity of [facility] 2021-09-27 2021-09-29 Inpatient X [facility] [id number] Univers 10:56:00 21:30:00 ity of [facility] 2021-09-27 2021-09-29 [facility] 1.2.840.114 [id number] Univers 10:56:00 21:30:00 Encounter Cam [place] 350.1.13.10 ity [place] [id number] [facility] 083 Branch 2021-09-28 2021-09-28 Anesthesia Alquicira-M [facility] 1.2.840.114 [id number] Univers 20:00:03 20:00:03 Event OLIVA ibarra 350.1.13.10 i ty of Sergio [facility] 4.2.7.2.686 Eduardo as CAMPUS [id number] [place] [address] [place] 2021-09-27 2021-09-27 Anesthesia Alquicira-M [facility] 1.2.840.114 [id number] Univers 14:58:00 19:49:00 Event OLIVA ibarra 350.1.13.10 i ty of Sergio [facility] 4.2.7.2.686 Eduardo as CAMPUS [id number] [address] 2021-09-27 2021-09-27 Inpatient X NABILA JUAN [facility] [id number] Univers 10:56:00 10:56:00 ity of [facility] 2021-09-27 2021-09-27 Orders Doctor PALACIOS 1.2.840.114 [id number] Univers 00:00:00 00:00:00 Only Unassigned, JULIANO 350.1.13.10 ity of [place] HOSPITAL 4.2.7.2.686 Eduardo as [phone] [facility] 009 Branch 2021-09-25 2021-09-25 Outpatient P NABILA JUAN [facility] [id number] Univers 21:18:00 23:19:00 ity of [facility] 2021-09-25 2021-09-25 [facility] 1.2.840.114 [id number] Univers 21:18:00 23:19:00 Encounter Vishal BAPTISTE 350.1.13.10 ity [place] [id number] [place] [address] Branch 2021-09-25 2021-09-25 Nurse SUZANNE Hardwick 1.2.840.114 [id number] Univers 00:00:00 00:00:00 Triage Tata HENAO 350.1.13.10 ity of [facility] 4.2.7.2.686 Eduardo as [id number] [facility] 019 Branch 2021-09-23 2021-09-23 Outpatient R NABILA JUAN [facility] [id number] Univers 16:00:00 17:01:09 ity of [facility] 2021-09-23 2021-09-23 Routine Nabila Juan [facility] [id number] Univers 16:00:00 17:01:09 Vishal BAPTISTE 350.1.13.10 ity of [place]2.[place] [id number] De dical NAL 134 [facility] 2021-09-23 2021-09-23 Orders Doctor SUZANNE 1.2.840.114 [id number] Univers 00:00:00 00:00:00 Only Unassigned, JULIANO 350.1.13.10 ity of [facility] 4.2.7.2.686 Eduardo as [id number] [address] 2021-09-17 2021-09-17 Routine Zulay [facility] [id number] Univers 16:30:00 16:30:00 Jacqueline BAPTISTE 350.1.13.10 ity of [place] [id number] De dical NAL 134 [facility] 2021-09-17 2021-09-17 Outpatient Kaylee BISWAS [facility] [id number] Univers 16:30:00 15:05:02 JACQUELINE espinosa [facility] 2021-09-17 2021-09-17 Outpatient Kaylee BISWAS [facility] [id number] Univers 11:30:00 11:30:00 JACQUELINE espinosa [facility] 2021-09-10 2021-09-10 Wood Grinder 2, Adc Lab [facility] 1.2.840.114 [id number] Univers 14:00:00 14:00:00 Visit Nabila Juan 350.1.13.10 ity of [place] [id number] De dical NAL 353 [facility] 2021-09-10 2021-09-10 Outpatient R NABILA JUAN [facility] [id number] Univers 13:00:00 13:46:24 ity of [facility] 2021-09-10 2021-09-10 [facility] [id number] [id number] Univers 13:00:00 13:46:24 [place] 350.1.13.10 ity of [place] 4[place] [id number] De dic[address] 2021-09-10 2021-09-10 Orders Doctor SUZANNE 1.2.840.114 [id number] Univers 00:00:00 00:00:00 Only Unassigned, JULIANO 350.1.13.10 ity of [place] [facility] 4.2.7.2.686 Eduardo as [id number] [address] 2021-09-03 2021-09-03 Outpatient R DRAKE NABILA [facility] [id number] Univers 16:00:00 16:45:26 ity of [facility] 2021-09-03 2021-09-03 Routine [facility] [id number] Univers 16:00:00 16:45:26 [place] 350.1.13.10 ity of [place] 4[place]2.[place].2.[place] [id number] De dic[address] 2021-09-03 2021-09-03 Outpatient [facility] [id number] Univers 16:00:00 16:00:00 ity of [facility] 2021-09-01 2021-09-01 Wood Grinder Ultrasound, [facility] 1.2 .840.114 [id number] Univers 09:45:00 10:15:00 Visit Elizabeth Barraza 350.1.13.10 ity [place] 4[place].2.[place] [phone] De dical [address] 2021-09-01 2021-09-01 Outpatient P ELIZABETH BARRAZA [facility] [id number] Univers 09:45:00 09:45:00 ELIZABETH BARRAZA itjames [facility] 2021-09-01 2021-09-01 Case Nabila Juan [facility] [id number] [id number] Univers 00:00:00 00:00:00 Management Cam [place] 350.1.13.10 ity of [facility] 4.2.7.2.[place] [id number] De dical NAL 134 [facility] 2021-08-27 2021-08-27 Case Nabila Juan [facility] [id number] Univers 00:00:00 00:00:00 Management Cam [place] 350.1.13.10 ity of [facility] 4.2.7.2.[place] [id number] De dical NAL [address] [place] [address] 2021-08-26 2021-08-26 Orders Doctor SUZANNE 1.2.840.114 [id number] Univers 00:00:00 00:00:00 Only Unassigned, JULIANO 350.1.13.10 ity of [place] [facility] 4.2.7.2.686 Eduardo as [id number] [address] 2021-08-25 2021-08-25 Outpatient Kaylee BISWAS [facility] [id number] Univers 16:00:00 16:33:08 JACQUELINE espinosa [facility] 2021-08-25 2021-08-25 [facility] [id number] Univers 16:00:00 16:33:08 Jacqueline BAPTIST[place] 350.1.13.10 ity of [place] 4.2.[place].2.[place] [id number] De dical NAL [address] [place] [address] 2021-08-24 2021-08-24 Telephone Nabila Juan [facility] 1.2.840.114 [id number] Univers 00:00:00 00:00:00 Cam [place] 350.1.13.10 i ty of [place] 4[place]2.7.2.[place] [id number] De dical NAL [address] [place] [address] 2021-08-20 2021-08-20 Outpatient Kaylee BISWAS [facility] [id number] Univers 16:00:00 16:13:45 JACQUELINE espinosa [facility] 2021-08-20 2021-08-20 Routine Zulay [facility] [id number] Univers 16:00:00 16:13:45 Jacqueline BAPTIST[place] 350.1.13.10 ity of Visit [facility] 4.2.7.2.[place] [id number] [address] 2021-08-13 2021-08-13 Outpatient R DRAKE NABILA [facility] [id number] Univers 08:15:00 08:15:00 ity of [facility] 2021-08-13 2021-08-13 Wood Grinder 2, Adc Lab [facility] 1.2.840.114 [id number] Univers 08:15:00 08:15:00 Visit Nabila Juan OLIVA 350.1.13.10 ity of [facility] 4.2.7.2.[place] [id number] [address] 2021-08-12 2021-08-12 Telephone Maryjane Juanen [facility] 1.2.840.114 [id number] Univers 00:00:00 00:00:00 Vishal BAPTIST[place] 350.1.13.10 i ty of [facility] 4.2.7.2.[place] [id number] [facility] [address] 2021-08-11 2021-08-11 Outpatient R MARYJANE JUANEN [facility] [id number] Univers 10:30:00 10:30:00 ity of [facility] 2021-08-11 2021-08-11 Wood Grinder 2, Adc Lab [facility] 1.2.840.114 [id number] Univers 10:30:00 10:30:00 Visit Nabila Juan OLIV[place] 350.1.13.10 ity of [place] 4.2.7.2.[place] [phone] [address] 2021-08-11 2021-08-11 Case Zulay [facility] [id number] Univers 00:00:00 00:00:00 Management Jacqueline BAPTISTE 350.1.13.10 ity of [facility] 4.2.7.2.[place] [id number] De dical [address] 2021-08-06 2021-08-06 Outpatient R NABILA JUAN [facility] [id number] Univers 16:00:00 16:07:53 ity of [facility] 2021-08-06 2021-08-06 Routine Drake [facility] [id number] Univers 16:00:00 16:07:53 Vishal BAPTISTE 350.1.13.10 ity of [place] 4[place] [phone] De dical [address] 2021-06-16 2021-06-16 Outpatient R NABILA JUAN [facility] [id number] Univers 15:30:00 15:30:00 ity of [facility] 2021-06-09 2021-06-09 Wood Grinder Ultrasound, [facility] 1.2 .840.114 [id number] Univers 08:08:34 09:08:34 Visit Asa Garzon 350.1.13.10 ity [place] [id number] [address] 2021-06-09 2021-06-09 Outpatient P [facility] [id number] Univers 08:00:00 08:00:00 ity of [facility] 2021-06-05 2021-06-05 Orders Doctor PALACIOS 1.2.840.114 [id number] Univers 00:00:00 00:00:00 Only Unassigned, JULIANO 350.1.13.10 ity of [place] [facility] 4.2.7.2.686 Eduardo as [phone] [address] 2021-05-19 2021-05-19 Routine Jacqueline Biswas [facility] 1.2.840.11 [id number] Univers 15:50:33 16:24:43 Nabila Juan [place] 350.1.13.10 ity of Visit [place] [phone] De dic[address] 2021-05-19 2021-05-19 Outpatient R NABILA JUAN [facility] [id number] Univers 16:00:00 16:00:00 ity of [facility] 2021-05-19 2021-05-19 Orders Doctor SUZANNE 1.2.840.114 [id number] Univers 00:00:00 00:00:00 Only Unassigned, JULIANO 350.1.13.10 ity of [place] [facility] 4.2.7.2.686 Eduardo as [phone] [address] 2021-05-15 2021-05-15 Outpatient P [facility] [id number] Univers 10:00:00 10:00:00 ity of [facility] 2021-04-21 2021-04-21 Wood Grinder 2, Adc Lab [facility] [id number] Univers 11:39:14 11:54:14 Visit Jacqueline Biswas [id number] [id number] [phone] De dical nal [address] [facility] 2021-04-21 2021-04-21 Routine Zulay [facility] [id number] Univers 10:48:23 11:36:52 Jacqueline Baptiste [id number] it[place] of [id number] [phone] De dical nal [address] [facility] 2021-04-21 2021-04-21 Outpatient R ZULAY [facility] [id number] Univers 10:45:00 10:45:00 JACQUELINE ity of [facility] 2021-03-30 2021-03-30 Orders Doctor PALACIOS [id number] Univers 00:00:00 00:00:00 Only Unassigned, JULIANO [id number] ity of [place] [id number] Eduardo as [phone] [address] 2021-03-24 2021-03-24 Outpatient R NABILA JUAN [facility] [id number] Univers 10:00:00 10:00:00 ity [facility] 2021-03-19 2021-03-19 Outpatient R NABILA JUAN [facility] [id number] Univers 10:00:00 10:00:00 ity [facility] 2020-10-09 2020-10-09 Outpatient R AKINSIPE, [facility] [id number] Univers 15:30:00 15:30:[address] [facility] 2020-09-23 2020-09-23 Outpatient R AKINSIPE, [facility] [id number] Univers 13:30:00 13:30:[address] [facility] 2020-09-18 2020-09-18 [facility] [id number] 00:00:00 00:00:00 Mary Salazar FEED CRUSHER OPERATOR [id number] [facility] [id number] MATERNAL [phone] & CHILD [address] [place] [address] 2020-08-29 2020-08-29 Outpatient R VARINDERAlonsoMORENITAOSITO [facility] [id number] Univers 15:45:00 15:45:00 BAMBI OSITO [facility] 2020-07-17 2020-07-17 Outpatient R SHARONPE, [facility] [id number] Univers 15:45:00 15:45:[address] [facility] 2020-07-14 2020-07-14 Outpatient R AKINSIPE, [facility] [id number] Univers 14:30:00 14:30:00 MARY ity o f [facility] 2020-07-02 2020-07-02 [facility] [id number] Univers 15:30:00 15:30:00 ISjesús Jones [facility] 2020-06-20 2020-06-20 Outpatient R [facility] [id number] Univers 14:00:00 14:00:00 ISjesú[address] Jonse [facility] 2020-05-16 2020-05-16 Outpatient R [facility] [id number] Univers 13:30:00 13:30:00 jesú[address] LIZ [facility] 2020-04-22 2020-04-22 Outpatient Kaylee DOMINIQUE [facility] [id number] [facility] 14:00:00 14:00:00 [facility] Results Test Description Test Time Test Comments Results Result Comments Source POCT TEST 2021-10-28 15:57:00 Test Item Value Reference Range Interpretation Comme nts POCT PREG (test code = 1605) Negative On board controls acceptable with C Line (test code = 3574) Yes POCT PREG LOT # (test code = 3575) POCT PREG TEST DATE (test code = 3576) [facility]
[2023-04-13] MEDS ORDERED: ASPIRIN 81 MG CHEWABLE TABLET ONE (22:29)
[2023-04-13] MEDS ORDERED: DIAZEPAM 5 MG TABLET ONE (22:29)
[2023-04-13 23:32] LABS: Specific Gravity 1.038 (1.005-1.030)
--- NOTE | 2023-04-14 00:36 | ER ---
Nurse's Notes [facility] Name: Kaela Gonzales Age: 27 yrs Sex: Female : 1995 Arrival Date: 04/13/2023 Time: 21:05 Bed 10 Private MD: Diagnosis: Anxiety disorder, unspecified;Acute anxiety attack Presentation: 04/13 21:36 Chief complaint: Patient states: i have anxiety and radu been feeling really nervous and lg3 anxious all day today and my chest feels heavy. i had medication prescribed but im scared to take pills. Coronavirus screen: Client denies travel out of the [place] in the last 14 days. At this time, the client does not indicate any symptoms associated with coronavirus-19. Ebola Screen: No symptoms or risks identified at this time. Initial Sepsis Screen: Does the patient meet any 2 criteria? No. Patient's initial sepsis screen is negative. Does the patient have a suspected source of infection? No. Patient's initial sepsis screen is negative. Risk Assessment: Do you want to hurt yourself or someone else? Patient reports no desire to harm self or others. Onset of symptoms was April 13, 2023. 21:36 Method Of Arrival: Ambulatory lg3 21:36 Acuity: ANNABELEL 4 lg3 Triage Assessment: 21:39 General: Appears in no apparent distress. comfortable, Behavior is cooperative, lg3 anxious. Pain: Denies pain. EENT: No deficits noted. No signs and/or symptoms were reported regarding the EENT system. Neuro: No deficits noted. Lee Agitation-Sedation Scale (RASS): 0 - Alert and Calm Level of Consciousness is awake, alert, obeys commands, Oriented to person, place, time, situation. Cardiovascular: Reports pressure. Respiratory: No deficits noted. Airway is patent Respiratory effort is even, unlabored, Respiratory pattern is regular, symmetrical. GI: No deficits noted. No signs and/or symptoms were reported involving the gastrointestinal system. : No deficits noted. No signs and/or symptoms were reported regarding the genitourinary system. Derm: No deficits noted. No signs and/or symptoms reported regarding the dermatologic system. Musculoskeletal: No deficits noted. No signs and/or symptoms reported regarding the musculoskeletal system. 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 - Social history:: Smoking status: Patient denies any tobacco usage or history of. Patient uses alcohol, occasionally. - Family history:: not pertinent. Screenin/31 00:42 [facility] ED Fall Risk Assessment (Adult) History of falling in the last 3 months, kl including since admission No falls in past 3 months (0 pts) Confusion or Disorientation No (0 pts) Intoxicated or Sedated No (0 pts) Impaired Gait No (0 pts) Mobility Assist Device Used No (0 pt) Altered Elimination Score/Fall Risk Level 0 - 2 = Low Risk Oriented to surroundings, Maintained a safe environment. Abuse screen: Denies injuries from another. Nutritional screening: No deficits noted. Tuberculosis screening: No symptoms or risk factors identified. Assessment: 00:42 Reassessment: Patient appears in no apparent distress at this time. Patient states kl feeling better. Patient states symptoms have improved. Pain: Denies pain. Vital Signs: 04/13 21:36 BP 117 / 88; Pulse 73; Resp 19 S; Temp 98.2(O); Pulse Ox 100% on R/A; Weight 127.01 kg lg3 (R); Height 5 ft. 6 in. (R); 21:36 Body Mass Index 45.19 (127.01 kg, 167.64 cm) lg3 ED Course: 21:08 Patient arrived in ED. cc5 21:39 Triage completed. lg3 21:39 Arm band placed on right wrist. lg3 21:56 Osorio Suero MD is Attending Physician. sp4 22:20 Test, Urine Sent. kl 23:35 No apparent distress. Resting quietly. Appears to be sleeping. kl 04/14 00:43 No provider procedures requiring assistance completed. Patient did not have IV access kl during this emergency room visit. Patient maintains SpO2 saturation greater than 95% on room air. Administered Medications: 04/13 22:23 Drug: Diazepam PO 10 mg Route: PO; kl 04/14 00:42 Follow up: Response: No adverse reaction; Marked relief of symptoms 04/13 22:23 Drug: Aspirin PO Chewable Tablet 324 mg Route: PO; 04/14 00:42 Follow up: Response: No adverse reaction Outcome: 00:36 Discharge ordered by sp4 00:43 Discharged to home ambulatory. 00:43 Condition: improved 00:43 Discharge instructions given to patient, Instructed on discharge instructions, follow up and referral plans. medication usage, Demonstrated understanding of instructions, follow-up care, medications, Prescriptions given X 1. 00:43 Patient left the ED. Signatures: Nemo Jackson RN RN Maddison Durán RN RN lg3 Castro, Clarissa cc5 Potepalov, Sergey, MD MD sp4
--- NOTE | 2023-04-14 00:36 | EDPHYS ---
Physician Documentation [facility] Name: Kaela Gonzales Age: 27 yrs Sex: Female : 1995 Arrival Date: 04/13/2023 Time: 21:05 Bed 10 Private MD: ED Physician Osorio Suero HPI: 04/13 21:56 This 27 yrs old Female presents to ER via Ambulatory with complaints of Chest sp4 Pressure. 22:50 Patient is a very pleasant 27-year-old female past medical history of GERD and anxiety. sp4 Patient presents with symptoms of shortness of breath, chest pressure nervousness and anxiety starting this morning. Patient reports that she was prescribed anxiety medication by her primary MD but she has not taken it yet. Patient cannot recall name of her medication.. 22:51 Patient has history of 21 prior ER visits for various complaints.. . 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 - Social history:: Smoking status: Patient denies any tobacco usage or history of. Patient uses alcohol, occasionally. - Family history:: not pertinent. ROS: 22:51 Constitutional: Negative for fever, chills, and weight loss, positive chest pressure, sp4 dyspnea, nervousness, anxiety. Eyes: Negative for injury, pain, redness, and discharge. 22:51 All other systems are negative. Exam: 22:51 Constitutional: This is a well developed, well nourished patient who is awake, alert, sp4 and in no acute distress. Head/Face: Normocephalic, atraumatic. Eyes: Pupils equal round and reactive to light, extra-ocular motions intact. Lids and lashes normal. Conjunctiva and sclera are not injected. Cornea within normal limits. Periorbital areas with no swelling, redness, or edema. ENT: Nares patent. No nasal discharge, no septal abnormalities noted. Tympanic membranes are normal and external auditory canals are clear. Oropharynx with no redness, swelling, or masses, exudates, or evidence of obstruction, uvula midline. Mucous membranes moist. Neck: Trachea midline, no thyromegaly or masses palpated, and no cervical lymphadenopathy. Supple, full range of motion without nuchal rigidity, or vertebral point tenderness. Chest/axilla: Normal chest wall appearance and motion. Nontender with no deformity. No lesions are appreciated. Cardiovascular: Regular rate and rhythm with a normal S1 and S2. No gallops, murmurs, or rubs. Normal PMI, no JVD. No pulse deficits. Respiratory: Lungs have equal breath sounds bilaterally, clear to auscultation and percussion. No rales, rhonchi or wheezes noted. No increased work of breathing, no retractions or nasal flaring. Abdomen/GI: Soft, non-tender, with normal bowel sounds. No distension or tympany. No guarding or rebound. No evidence of tenderness throughout. Back: No spinal tenderness. No costovertebral tenderness. Skin: Warm, dry with normal turgor. Normal color with no rashes, no lesions, and no evidence of cellulitis. MS/ Extremity: Pulses equal, no cyanosis. Neurovascular intact. Full, normal range of motion. Neuro: Awake and alert, GCS 15, oriented to person, place, time, and situation. Cranial nerves II-XII grossly intact. Motor strength 5/5 in all extremities. Sensory grossly intact. Psych: Awake, alert, with orientation to person, place and time. Behavior, mood, and affect are within normal limits 22:51 ECG was reviewed by the Attending Physician. EKG at 2221, there is normal sinus rhythm sp4 at rate of 67, no ST elevation or depression, no ectopy, normal intervals, normal EKG Vital Signs: 21:36 BP 117 / 88; Pulse 73; Resp 19 S; Temp 98.2(O); Pulse Ox 100% on R/A; Weight 127.01 kg lg3 (R); Height 5 ft. 6 in. (R); 21:36 Body Mass Index 45.19 (127.01 kg, 167.64 cm) lg3 MDM: 21:56 Patient medically screened. sp4 04/14 00:34 Differential diagnosis: abnormal EKG, acute pericarditis, anxiety, coronary artery sp4 disease chest wall pain. Data reviewed: vital signs, nurses notes, lab test result(s), UPT: negative. Consideration of Admission/Observation Escalation of care including admission/observation considered. ED course: EKG is normal today urine test is negative. Will prescribe as needed Valium for anxiety attacks at home. . 04/13 21:56 Order name: Test, Urine; Complete Time: 00:33 sp4 04/13 22:10 Order name: EKG; Complete Time: 22:10 sp4 04/13 22:10 Order name: EKG - Nurse/Tech; Complete Time: 22:20 sp4 EC/30 22:51 Rate is 67 beats/min. Rhythm is regular, Normal Sinus Rhythm. QRS [place] is Normal. [place] sp4 interval is normal. QRS interval is normal. QT interval is normal. No Q waves. T waves are Normal. No ST changes noted. Clinical impression: Normal ECG. Interpreted by me. Administered Medications: 22:23 Drug: Diazepam PO 10 mg Route: PO; 04/14 00:42 Follow up: Response: No adverse reaction; Marked relief of symptoms 04/13 22:23 Drug: Aspirin PO Chewable Tablet 324 mg Route: PO; 04/14 00:42 Follow up: Response: No adverse reaction Disposition Summary: 04/14/23 00:36 Discharge Ordered Location: Home sp4 Problem: new sp4 Symptoms: have improved sp4 Condition: Stable sp4 Diagnosis - Anxiety disorder, unspecified sp4 - Acute anxiety attack sp4 Followup: sp4 - With: Private Physician - When: 7 - 10 days - Reason: Recheck today's complaints Discharge Instructions: - Discharge Summary Sheet sp4 - Managing Anxiety, Adult sp4 Forms: - Patient Portal Instructions sp4 - Leadership Thank You Letter sp4 Prescriptions: - Valium 5 mg Oral Tablet - take 1 tablet by ORAL route once daily As needed PRN anxiety attack; 20 tablet; sp4 Refills: 0, Product Selection Permitted Signatures: Dispatcher [employer] Nemo Yañez RN Maddison Contreras RN RN lg3 Osorio Suero MD MD sp4
[2023-04-14 00:47] VITALS: BP 117/88; TEMP 98.2; O2SAT 100
--- NOTE | 2023-04-14 12:03 | EKG ---
Test Date: 2023-04-13 Test Time: 22:21:13 Healthcare Analyst: DOMINIQUE MEASUREMENT RESULTS: Intervals: Rate: 67 NC: 138 QRSD: 82 QT: 384 QTc: 405 [place]: P: 49 NC: 138 QRS: 64 T: 43 INTERPRETIVE STATEMENTS: Normal sinus rhythm with sinus arrhythmia Normal ECG Compared to ECG 01/18/2018 16:12:33 No significant changes Electronically Signed On 04-14-23 12:02:31 CDT by Adolfo Terrell
== END 2023-04-14 00:43 | disposition home or self-care (01) ==
LOC: ER 21:05
DX: F41.0 Panic disorder [episodic paroxysmal anxiety] (principal); F41.9 Anxiety disorder, unspecified
CPT/HCPCS: 81025; 93005; 99284

== ENCOUNTER 2023-11-19 19:39 | Emergency (ER) | payer SELFPAY ==
--- OUTSIDE RECORDS SUMMARY | 2023-11-19 19:42 | XMS REPORT | Continuity of Care Document ---
Author Name Unknown Address [address] [facility]. [address] [place] [address] [facility] Address [address] [facility] [address] [place] [address] Care Team Providers Care Chemist Organic Name Role Phone Nabila Juan MD Primary Care Physician [phone] MILLER PELAEZ Attending Clinician Unavailable LAXMI BAILEY Attending Clinician UnavailLAXMI Durham Attending Clinician Unavailmeena dunn Doctor Unassigned, [place] Attending Clinician U navailNABILA Reyes Attending Clinician Unavailable HODAN CRAWFORD Attending Clinician Unav ailable 2, Adc Lab Attending Clinician Unavailable Nabila Juan MD Attending Clinician [phone] Sergio Brantley MD Attending Clinicia n Tata Hardwick RN Attending Clinician Jacqueline Pelaez PA-C Attending Clinician [phone] JACQUELINE BISWAS Attending Clinician Unavailable Ultrasound, Adc Mfm Attending Clinician UnavailElizabeth Randolph MD Attending Clinician [phone] ELIZABETH BARRAZA Attending Clinician Unavailable ELIZABETH BARRAZA Attending Clinician Unavailable Asa Garzon DO Attending Clinician MARY VIVAS Attending Clinician Unavail able Ortega WHMary MILLER Attending Clinician + OSITO LACY Attending Clinician Unavailable OSITO LACY Attending Clinician Unavailable LOUANN DOMINIQUE Attending Clinician Unavailable NABILA JUAN Admitting Clinician Unavailable MILLER PELAEZ Admitting Clinician Unavailable Nabila Juan MD Admitting Clinician [phone] Payers Payer Name Policy Type Policy Number Effective Date Expirati on Date Source [employer] MEDICAID [id number] 2019 00:00:00 [facility] [id number] 2020 00:00:00 Problems Condition Name Condition Details Condition Category Status Onset Date Resolution Date Last Treatment Date Treating Clinician Comments Source Mood altered Mood altered Disease Active 6-14 00:00: 00 [facility] Left upper arm pain Left upper arm pain Disease Active 6-14 00:00: 00 [facility] Nexplanon removal Nexplanon removal Disease Active 3-16 00:00: 00 [facility] History of herpes genitalis History of herpes genitalis Disease Active 1-20 00:00: 00 [facility] BMI 45.0-49.9, adult BMI 45.0-49.9, adult Disease Active 8-10 00:00: 00 [facility] General counseling and advice on female contracept ion General counseling and advice on female contracept ion Disease Active 2-09 00:00: 00 [facility] LGSIL Pap smear of vagina LGSIL Pap smear of vagina Disease Active 2-04 00:00: 00 Overview: Formattin g of this note might be different from the original. See scanned records 07/2019, patient pending repeat pap [facility] Incontinen ce of feces, unspecifie d fecal incontinen ce type Incontinen ce of feces, unspecifie d fecal incontinen ce type Disease Active 1-12 00:00: 00 Overview: Formattin g of this note might be different from the original. Added automatic ally from request for surgery [id number] [facility] Allergies, Adverse Reactions, Alerts Allergy Name Allergy Type Status Severity Reaction(s) Onset Date Inactive Date Treating Clinician Comments Source NO KNOWN ALLERGIE S Drug Class Active [facility] Social History Social Habit Start Date Stop Date Quantity Comments Source Exposure to SARS-CoV-2 (event) Not sure [facility] Tobacco use and exposure 2023-01-26 00:00:00 2023-01-26 00:00:00 Smokeless tobacco non-user [facility] Alcohol intake 2023-01-26 00:00:00 2023-01-26 00:00:00 Current drinker of alcohol (finding) [facility] Alcohol Comment 2021-03-24 00:00:00 2021-03-24 00:00:00 SPECIAL OCCASSIONS [facility] History SDOH Alcohol Frequency 2020-07-17 00:00:00 2020-07-17 00:00:00 99 [facility] History SDOH Alcohol Std Drinks 2020-07-17 00:00:00 2020-07-17 00:00:00 99 [facility] History SDOH Alcohol Binge 2020-07-17 00:00:00 2020-07-17 00:00:00 99 [facility] Sex Assigned At 1995 00:00:00 1995 00:00:00 [facility] Smoking Status Start Date Stop Date Source Never smoked tobacco [facility] Medications Ordered Medication Name Filled Medication Name Start Date Stop Date Current Medication? Ordering Clinician Indication Dosage Frequency Signature (SIG) Comments Components Source etonogestre L (NEXPLANON) implant 68 mg 10-28 23:15: 00 10-28 22:14 :00 No [id number] 68mg Univer s [facility] SERTraline (ZOLOFT) 50 mg tablet -09 00:00: 00 Yes [id number] 50mg Take 1 tablet by mouth daily. [facility] hydroCHLORO thiazide 12.5 mg capsule -15 00:00: 00 Yes [id number] 25mg Take 2 capsules by mouth daily. [facility] vitamin w/FA tablet 09-28 00:00: 00 Yes [id number] 1{tbl} Take 1 tablet by mouth daily. [facility] Vital Signs Vital Name Observation Time Observation Value Comments Rashawn turk Systolic blood pressure 2023-01-26 18:26:00 122 mm[Hg] [facility] Diastolic blood pressure 2023-01-26 18:26:00 83 mm[Hg] [facility] Heart rate 2023-01-26 18:26:00 98 /min [facility] Respiratory rate 2023-01-26 18:26:00 18 /min [facility] Body height 2023-01-26 18:26:00 167.6 cm [facility] Body weight 2023-01-26 18:26:00 128.368 kg [facility] BMI 2023-01-26 18:26:00 45.68 kg/m2 [facility] Systolic blood pressure 2021-10-28 15:59:00 124 mm[Hg] [facility] Diastolic blood pressure 2021-10-28 15:59:00 78 mm[Hg] [facility] Heart rate 2021-10-28 15:59:00 86 /min [facility] Body temperature 2021-10-28 15:59:00 36.89 Cynthia [facility] Respiratory rate 2021-10-28 15:59:00 18 /min [facility] Body height 2021-10-28 15:59:00 167.6 cm [facility] Body weight 2021-10-28 15:59:00 113.853 kg [facility] BMI 2021-10-28 15:59:00 40.51 kg/m2 [facility] Procedures Procedure Date / Time Performed Performing Clinician Source ASSIGNMENT OF BENEFITS 2023-01-26 18:14:24 Docto r Unassigned, [place] [facility] CONSENT FOR CONTRACEPTION 2021-10-28 05:01:00 Doctor Unassigned, [place] [facility] POCT TEST 2021-10-28 00:00:00 Nabila Juan [facility] Encounters Start Date/Time End Date/Time Encounter Type Admission Type Attending [facility] Care Facility Care Department Encounter ID Source 2021-09-25 23:27:44 Outpatient P [facility] BAR[facility] [id number] [facility] 2021-06-13 17:00:34 Outpatient R MILLER PELAEZ [facility] G[facility] [id number] [facility] 2023-01-26 16:00:00 2023-01-26 16:00:00 Office Visit Laxmi Bailey [facility] 1..114 350.1.13.10 4.2.7.2.686 [id number] 134 [id number] [facility] 2023-01-26 16:00:00 2023-01-26 14:02:03 Out[facility] [id number] [facility] 2023-01-26 00:00:00 2023-01-26 00:00:00 Orders Only Doctor Unassigned, [place] [facility] 1..114 350.1.13.10 4.2.7.2.686 [id number] [id number] [facility] 2022-09-15 14:30:00 2022-09-15 14:30:00 Outpatient R BLANCA-LEONIE THURSTONBETH [facility] [id number] [facility] 2022-06-30 09:30:00 2022-06-30 09:30:00 Outpatient R BLANCA-MADONNA ISALEONIE JonesHODAN [facility] [id number] [facility] 2021-12-03 13:30:00 2021-12-03 13:30:00 Outpatient R NABILA JUAN [facility] [id number] [facility] 2021-10-28 11:45:00 2021-10-28 12:00:00 Fruit Thinner Visit 2, [facility] Lab [facility] 1.840.114 350.1.13.10 4.2.7.2.686 [id number] [facility] 2021-10-28 10:30:00 2021-10-28 11:24:27 Outpatient R NABILA JUAN [facility] [id number] [facility] 2021-10-28 10:30:00 2021-10-28 11:24:27 [facility] 1.2.840.114 350.1.13.10 4.2.7.2.686 [id number] 134 [id number] [facility] 2021-10-28 00:00:00 2021-10-28 00:00:00 Orders Only Doctor Unassigned, [place] [facility] 1.2.840.114 350.1.13.10 4.2.7.2.686 [id number] [facility] 2021-10-21 13:00:00 2021-10-21 13:25:55 Outpatient R MARYJANE JUANEN [facility] [id number] [facility] 2021-10-21 13:00:00 2021-10-21 13:25:55 Routine Visit Nabila Juan Vishal [facility] 1.2.840.114 350.1.13.10 4.2.7.2.686 [id number] 134 [id number] [facility] 2021-10-09 15:00:00 2021-10-09 15:00:00 Outpatient R [facility] [id number] [facility] 2021-10-06 15:00:00 2021-10-06 15:00:00 Outpatient R [facility] [id number] [facility] 2021-09-27 10:56:00 2021-09-29 21:30:00 [facility] [id number] 2021-09-27 10:56:00 2021-09-29 21:30:00 Hospital Encounter Juan, Nabila [facility] 1.2.840.114 350.1.13.10 4.2.7.2.686 [id number] [facility] 2021-09-28 20:00:03 2021-09-28 20:00:03 Anesthesia Event Yoli ibarra [facility] 1.2.840.114 350.1.13.10 4.2.7.2.686 [id number] [facility] 2021-09-27 14:58:00 2021-09-27 19:49:00 Anesthesia Event Yoli ibarra [facility] 1.2.840.114 350.1.13.10 4.2.7.2.686 [id number] [facility] 2021-09-27 10:56:00 2021-09-27 10:56:00 Inpatient X NABILA JUAN [facility] [id number] [facility] 2021-09-27 00:00:00 2021-09-27 00:00:00 Orders Only Doctor Unassigned, [place] [facility] 1.2.840.114 350.1.13.10 4.2.7.2.686 [id number] [facility] 2021-09-25 21:18:00 2021-09-25 23:19:00 Outpatient P NABILA JUAN [facility] [id number] [facility] 2021-09-25 21:18:00 2021-09-25 23:19:00 Hospital Encounter Nabila Juan [facility] 1.2.840.114 350.1.13.10 4.2.7.2.686 [id number] [facility] 2021-09-25 00:00:00 2021-09-25 00:00:00 Nurse Triage Tata Hardwick [facility] 1.2.840.114 350.1.13.10 4.2.7.2.686 [id number] [facility] 2021-09-23 16:00:00 2021-09-23 17:01:09 Outpatient R NABILA JUAN [facility] [id number] [facility] 2021-09-23 16:00:00 2021-09-23 17:01:09 Routine Visit Nabila Juan [facility] 1.2.840.114 350.1.13.10 4.2.7.2.686 [id number] 134 [id number] [facility] 2021-09-23 00:00:00 2021-09-23 00:00:00 Orders Only Doctor Unassigned, [place] [facility] 1.2.840.114 350.1.13.10 4.2.7.2.686 [id number] [facility] 2021-09-17 16:30:00 2021-09-17 16:30:00 [facility] 1.2.840.114 350.1.13.10 4.2.7.2.686 [id number] 134 [id number] [facility] 2021-09-17 16:30:00 2021-09-17 15:05:02 [facility] [id number] [facility] 2021-09-17 11:30:00 2021-09-17 11:30:00 Outpatient Kaylee BISWAS [facility] [id number] [facility] 2021-09-10 14:00:00 2021-09-10 14:00:00 Fruit Thinner Visit 2, Adc Lab Nabila Juan [facility] 1.2.840.114 350.1.13.10 4.2.7.2.686 [id number] [facility] 2021-09-10 13:00:00 2021-09-10 13:46:24 Outpatient R NABILA JUAN [facility] [id number] [facility] 2021-09-10 13:00:00 2021-09-10 13:46:24 Routine Visit [facility]abil[facility] 1..840.114 350.1.13.10 4.2.7.2.686 [id number] 134 [id number] [facility] 2021-09-10 00:00:00 2021-09-10 00:00:00 Orders Only Doctor Unassigned, [place] [facility] 1..840.114 350.1.13.10 4.2.7.2.686 [id number] [facility] 2021-09-03 16:00:00 2021-09-03 16:45:26 Outpatient R NABILA JUAN [facility] [id number] [facility] 2021-09-03 16:00:00 2021-09-03 16:45:26 Routine [facility]abil[facility] 1..840.114 350.1.13.10 4.2.7.2.686 [id number] [facility] 2021-09-03 16:00:00 2021-09-03 16:00:00 Outpatient R NABILA JUAN [facility] [id number] [facility] 2021-09-01 09:45:00 2021-09-01 10:15:00 Fruit Thinner Visit Ultrasound, Adc Elizabeth Nielson [facility] 1..840.114 350.1.13.10 4.2.7.2.686 [id number] 134 [id number] [facility] 2021-09-01 09:45:00 2021-09-01 09:45:00 Outpatient ELIZABETH HITCHCOCK SHANNON [facility] [id number] [facility] 2021-09-01 00:00:00 2021-09-01 00:00:00 Case Management Nabila Juan [facility] 1.2.840.114 350.1.13.10 4.2.7.2.686 [id number] 134 [id number] [facility] 2021-08-27 00:00:00 2021-08-27 00:00:00 Case Management Nabila Juan [facility] 1.2.840.114 350.1.13.10 4.2.7.2.686 [id number] [facility] 2021-08-26 00:00:00 2021-08-26 00:00:00 Orders Only Doctor Unassigned, [place] [facility] 1.2840.114 350.1.13.10 4.2.7.2.686 [id number] [facility] 2021-08-25 16:00:00 2021-08-25 16:33:08 Outpatient Kaylee BISWAS [facility] [id number] [facility] 2021-08-25 16:00:00 2021-08-25 16:33:08 Routine Visit Zulay Jacqueline [facility] 1.2.840.114 350.1.13.10 4.2.7.2.686 [id number] [facility] 2021-08-24 00:00:00 2021-08-24 00:00:00 Telephone Nabila Juan [facility] 1.2.840.114 350.1.13.10 4.2.7.2.686 [id number] [facility] 2021-08-20 16:00:00 2021-08-20 16:13:45 [facility] [id number] [facility] 2021-08-20 16:00:00 2021-08-20 16:13:45 Routine Visit DevanJacqueline sanders [facility] 1.2.840.114 350.1.13.10 4.2.7.2.686 [id number] 134 [id number] [facility] 2021-08-13 08:15:00 2021-08-13 08:15:00 Outpatient R NABILA JUAN [facility] [id number] [facility] 2021-08-13 08:15:00 2021-08-13 08:15:00 Fruit Thinner Visit 2, Adc Lab [facility] 1.2.840.114 350.1.13.10 4.2.7.2.686 [id number] [facility] 2021-08-12 00:00:00 2021-08-12 00:00:00 Telephone Nabila Juan [facility] 1.2.840.114 350.1.13.10 4.2.7.2.686 [id number] 134 [id number] [facility] 2021-08-11 10:30:00 2021-08-11 10:30:00 [facility] [id number] 2021-08-11 10:30:00 2021-08-11 10:30:00 Fruit Thinner Visit 2, [facility] 1.2.840.114 350.1.13.10 4.2.7.2.686 [id number] [facility] 2021-08-11 00:00:00 2021-08-11 00:00:00 Case Management DevanJacqueline sanders [facility] 1.2.840.114 350.1.13.10 4.2.7.2.686 [id number] 134 [id number] [facility] 2021-08-06 16:00:00 2021-08-06 16:07:53 Outpatient R NABILA JUAN [facility] [id number] [facility] 2021-08-06 16:00:00 2021-08-06 16:07:53 Routine Visit JuanNabila [facility] 1.2.840.114 350.1.13.10 4.2.7.2.686 [id number] [facility] 2021-06-16 15:30:00 2021-06-16 15:30:00 Outpatient R NABILA JUAN [facility] [id number] [facility] 2021-06-09 08:08:34 2021-06-09 09:08:34 Fruit Thinner Visit Ultrasound, Adc [facility] 1..840.114 350.1.13.10 4.2.7.2.686 [id number] [facility] 2021-06-09 08:00:00 2021-06-09 08:00:00 Outpatient P [facility] [id number] [facility] 2021-06-05 00:00:00 2021-06-05 00:00:00 Orders Only Doctor Unassigned, [place] [facility] 1..840.114 350.1.13.10 4.2.7.2.686 [id number] [facility] 2021-05-19 15:50:33 2021-05-19 16:24:43 Routine Visit Jacqueline BiswasNabila [facility] 1.2.840.114 350.1.13.10 4.2.7.2.686 [id number] [facility] 2021-05-19 16:00:00 2021-05-19 16:00:00 Outpatient R NABILA JUAN [facility] [id number] [facility] 2021-05-19 00:00:00 2021-05-19 00:00:00 Orders Only Doctor Unassigned, [place] [facility] 1.2.840.114 350.1.13.10 4.2.7.2.686 [id number] [facility] 2021-05-15 10:00:00 2021-05-15 10:00:00 Outpatient P [facility] [id number] [facility] 2021-04-21 11:39:14 2021-04-21 11:54:14 Fruit Thinner Visit 2, Adc Lab Zulay [facility] 1.2.840.114 350.1.13.10 4.2.7.2.686 [id number] [facility] 2021-04-21 10:48:23 2021-04-21 11:36:52 Routine Visit Zulay [facility] 1.2.840.114 350.1.13.10 4.2.7.2.686 [id number] [facility] 2021-04-21 10:45:00 2021-04-21 10:45:00 Outpatient R ZULAY [facility] [id number] [facility] 2021-03-30 00:00:00 2021-03-30 00:00:00 Orders Only Doctor Unassigned, [place] [facility] 1.2.840.114 350.1.13.10 4.2.7.2.686 [id number] [facility] 2021-03-24 10:00:00 2021-03-24 10:00:00 Outpatient NABILA GREGORIO [facility] [id number] [facility] 2021-03-19 10:00:00 2021-03-19 10:00:00 Outpatient NABILA GREGORIO [facility] [id number] [facility] 2020-10-09 15:30:00 2020-10-09 15:30:00 Outpatient R SHARONVANESA MARY [facility] [id number] [facility] 2020-09-23 13:30:00 2020-09-23 13:30:00 Outpatient R SHARONVANESA MARY [facility] [id number] [facility] 2020-09-18 00:00:00 2020-09-18 00:00:00 Telephone Mary Vivas [facility] 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 [facility] 1.2.840.114 350.1.13.10 4.2.7.2.686 [id number] 2020-08-29 15:45:00 2020-08-29 15:45:00 Outpatient R OSITO LACY GABRIEL [facility] [id number] [facility] 2020-07-17 15:45:00 2020-07-17 15:45:00 Outpatient R SHARONVANESA MARY [facility] [id number] [facility] 2020-07-14 14:30:00 2020-07-14 14:30:00 Outpatient R SHARONVANESAMARY [facility] [id number] [facility] 2020-07-02 15:30:00 2020-07-02 15:30:00 Outpatient R HODAN VERONICA [facility] [id number] [facility] 2020-06-20 14:00:00 2020-06-20 14:00:00 Outpatient R HODAN VERONICA [facility] [id number] [facility] 2020-05-16 13:30:00 2020-05-16 13:30:00 Outpatient R HODAN VERONICA [facility] [id number] [facility] 2020-04-22 14:00:00 2020-04-22 14:00:00 Outpatient R LOUANN DOMINIQUE [facility] [id number] [facility] Results Test Description Test Time Test Comments Results Result Co mments Source [facility]
[2023-11-19] MEDS ORDERED: MECLIZINE HCL 12.5 MG TAB ONE (20:45)
[2023-11-19] MEDS ORDERED: dexAMETHasone 10 MG/ML VIAL ONE (20:45)
[2023-11-19] MEDS ORDERED: METOCLOPRAMIDE 10 MG/2mL INJ ONE (20:45)
[2023-11-19] MEDS ORDERED: DIPHENHYDRAMINE 50 MG/ML VIAL ONE (20:45)
[2023-11-19] MEDS ORDERED: NA CHLORIDE 0.9% 1,000 ML ONE (20:46)
[2023-11-19 20:52] LABS: Specific Gravity 1.025 (1.005-1.030)
[2023-11-19 20:53] LABS: Specific Gravity 1.025 (1.005-1.030); Transitional Epithelial <5 /HPF (None Seen); Urine Bacteria <20 /HPF (<20); Urine Bilirubin NEGATIVE (Negative); Urine Blood 3+ (Negative); Urine Clarity Extremely Turbid (Clear); Urine Color Yellow (Yellow); Urine Culture Reflex Order NOT NEEDED; Urine Glucose NEGATIVE (Negative); Urine Ketones NEGATIVE (Negative); Urine Micro Reflex YN NO BILL MICROSCOPIC; Urine Mucus Slight /HPF (None Seen); Urine Nitrite NEGATIVE (Negative); Urine Protein TRACE (Negative); Urine RBC 21-50 /HPF (None Seen); Urine Urobilinogen Normal (Normal); Urine pH 5.5 (5.0-7.0)
--- NOTE | 2023-11-19 20:53 | RAD REPORT ---
EXAM DESCRIPTION: CT - Head Brain Wo Cont - 11/19/2023 8:44 pm CLINICAL HISTORY: HEADACHE COMPARISON: Facial Bones W/ Mpr dated 10/15/2022 TECHNIQUE: All CT scans are performed using dose optimization technique as appropriate and may inclu de automated exposure control or mA/KV adjustment according to patient size. FINDINGS: No intracranial hemorrhage, hydrocephalus or extra-axial fluid collection.No areas of brai n edema or evidence of midline shift. The paranasal sinuses and mastoids are clear. The calvarium is intact. IMPRESSION: No acute intracranial abnormality.
[2023-11-19 21:10] LABS: Absolute Basophils 0.1 K/uL (0-0.5); Absolute Eosinophils 0.1 K/uL (0-0.5); Absolute Lymphocytes (CBC) 2.5 K/uL (0.7-4.9); Absolute Monocytes 0.6 K/uL (0.1-1.3); Basophils % 0.7 % (0-1.3); Eosinophils % 0.9 % (0-4.4); Hematocrit 39.6 % (36.0-45.0); Hemoglobin 13.3 g/dL (12.0-15.0); Lymphocytes % 17.4 % (15.3-44.8); MCH 30.5 pg (27.0-35.0); MCHC 33.5 g/dL (32.0-36.0); MCV 90.9 fL (80-100); MPV 7.6 fL (7.6-11.3); Monocytes % 4.5 % (3.3-12.3); Neutrophils % 76.5 % (41.7-73.7); Platelets 364 thou/uL (152-406); RBC Red Blood Cell Count 4.35 M/uL (3.86-4.86); Red Cell Distribution Width 13.3 % (12.1-15.2)
[2023-11-19 21:21] LABS: PT Prothrombin Time 12.3 SECONDS (9.5-12.5); PTT, Activated Partial Thromb 37.2 SECONDS (24.3-36.9); Protime INR 1.12
[2023-11-19 21:25] LABS: Albumin 3.6 g/dL (3.4-5.0); Albumin/Globulin Ratio 0.8 (1.1-1.8); Anion Gap 6.8 mEq/L (5.0-15.0); Bilirubin Direct 0.1 mg/dL (0-0.2); Bilirubin Indirect, Calculated 0.2 mg/dL (0.2-0.8); Bilirubin Total 0.3 mg/dL (0.2-1.0); Globulin 4.3 g/dL (2.3-3.5); Potassium 3.8 mEq/L (3.5-5.1); Protein, Total 7.9 g/dL (6.4-8.2)
--- NOTE | 2023-11-19 23:20 | ER ---
Nurse's Notes [facility] Name: Kaela Gonzales Age: 28 yrs Sex: Female : 1995 Arrival Date: 11/19/2023 Time: 19:39 Bed 16 Private MD: Diagnosis: Headache Presentation: 11/18 20:15 Chief complaint: Patient states: Patient reports constant migraine since last Tuesday. tl4 No relief with Excedrin or Tylenol. +nausea +blurred vision. Coronavirus screen: At this time, the client does not indicate any symptoms associated with coronavirus-19. Ebola Screen: No symptoms or risks identified at this time. Initial Sepsis Screen: Does the patient meet any 2 criteria? No. Patient's initial sepsis screen is negative. Does the patient have a suspected source of infection? No. Patient's initial sepsis screen is negative. Risk Assessment: Do you want to hurt yourself or someone else? Patient reports no desire to harm self or others. Onset of symptoms was November 13, 2023. 20:15 Method Of Arrival: Ambulatory tl4 20:15 Acuity: ANNABELLE 3 tl4 Triage Assessment: 20:19 Headache History: The patient has had previous headaches and this one is more severe tl4 than previous episodes. General: Appears uncomfortable, Behavior is calm, cooperative. Pain: Complains of pain in head Pain currently is 8 out of 10 on a pain scale. Pain began gradually, 1 week ago Also complains of nausea, photophobia, sleeplessness. EENT: No deficits noted. No signs and/or symptoms were reported regarding the EENT system. Neuro: Level of Consciousness is awake, alert, obeys commands, Oriented to person, place, time, situation, Moves all extremities. Gait is steady, Speech is normal, Facial symmetry appears normal. Cardiovascular: Capillary refill < 3 seconds Patient's skin is warm and dry. Respiratory: Airway is patent Respiratory effort is even, unlabored, Respiratory pattern is regular, symmetrical. GI: Reports nausea. : No deficits noted. No signs and/or symptoms were reported regarding the genitourinary system. Derm: No deficits noted. No signs and/or symptoms reported regarding the dermatologic system. Musculoskeletal: No deficits noted. No signs and/or symptoms reported regarding the musculoskeletal system. 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 - Infectious Disease History:: Denies. - Social history:: Smoking status: Reported history of juuling and/or vaping. Screenin:24 [facility] ED Fall Risk Assessment (Adult) History of falling in the last 3 months, me1 including since admission No falls in past 3 months (0 pts) Confusion or Disorientation No (0 pts) Intoxicated or Sedated No (0 pts) Impaired Gait No (0 pts) Mobility Assist Device Used No (0 pt) Altered Elimination No (0 pt) Score/Fall Risk Level 0 - 2 = Low Risk Maintained a safe environment, Provided non-skid footwear, Hourly rounding (assess needs \T\ fall precautionary measures) done. Abuse screen: Denies threats or abuse. Nutritional screening: No deficits noted. Tuberculosis screening: No symptoms or risk factors identified. Assessment: 20:24 General: Appears uncomfortable, well groomed, well developed, well nourished, Behavior me1 is calm, cooperative, appropriate for age, Reports Patient reports constant migraine since last Tuesday. No relief with Excedrin or Tylenol. +nausea +blurred vision. Pain: Complains of pain in head Pain does not radiate. Pain currently is 8 out of 10 on a pain scale. Quality of pain is described as aching, Pain began one week ago Is continuous. Neuro: Level of Consciousness is awake, alert, obeys commands, Oriented to person, place, time, situation, Appropriate for age. Neuro: Reports blurred vision. Cardiovascular: Capillary refill < 3 seconds Patient's skin is warm and dry. Respiratory: Airway is patent Respiratory effort is even, unlabored, Respiratory pattern is regular, symmetrical. GI: Reports nausea. : No signs and/or symptoms were reported regarding the genitourinary system. Derm: Skin is intact, is healthy with good turgor, Skin is pink, warm \T\ dry. Musculoskeletal: No signs and/or symptoms reported regarding the musculoskeletal system. 22:59 Reassessment: Patient appears in no apparent distress at this time. Patient and/or bm8 family updated on plan of care and expected duration. Pain level reassessed. Patient is alert, oriented x 3, equal unlabored respirations, skin warm/dry/pink. pt states that she is ready to go home Patient denies pain at this time. Patient states feeling better. Patient states symptoms have improved. Vital Signs: 20:15 BP 152 / 98; Pulse 85; Resp 16; Temp 98.7(O); Pulse Ox 98% on R/A; Weight 127.01 kg; tl4 Height 5 ft. 6 in. ; Pain 8/10; 20:15 BP 130 / 88; Pulse 87; Resp 16; Pulse Ox 99% on R/A; me1 21:09 BP 129 / 74; Pulse 85; Resp 16; Pulse Ox 100% on R/A; me1 22:59 BP 133 / 82; Pulse 83; Resp 17; Temp 98.7; Pulse Ox 99% ; Pain 0/10; bm8 20:15 Body Mass Index 45.19 (127.01 kg, 167.64 cm) tl4 20:15 Pain Scale: Adult tl4 22:59 Pain Scale: Adult bm8 ED Course: 19:41 Patient arrived in ED. jj6 19:58 Asa Salamanca PA is PHCP. cp 19:58 Jai Mercado MD is Attending Physician. cp 20:18 Triage completed. tl4 20:18 Arm band placed on right wrist. tl4 20:22 Fani Stahl, KIZZY is Primary Nurse. me1 20:24 Patient has correct armband on for positive identification. Bed in low position. Call [facility] light in reach. Side rails up X 1. Provided Education on: POC. Verbalized understanding. . 20:24 No provider procedures requiring assistance completed. me1 20:39 Client placed on continuous cardiac and pulse oximetry monitoring. NIBP monitoring me1 applied. final rail cutter on. Pulse ox on. NIBP on. 20:46 CT Head Brain wo Cont In Process Unspecified. EDMS 20:55 Inserted saline lock: 22 gauge in left antecubital area, using aseptic technique. me1 20:56 Basic Metabolic Panel Sent. me1 20:56 CBC with Diff Sent. me1 20:56 LFT's Sent. me1 20:56 Magnesium Sent. me1 20:56 PT-INR Sent. me1 20:56 Initial lab(s) drawn, by me, sent to lab. me1 20:56 Urine collected: clean catch specimen, cloudy. me1 21:01 EKG done, by robotic technician. reviewed by Asa SEWELL. oe 23:19 Ted Villalobos MD is Referral Physician. cp 23:25 Patient did not have IV access during this emergency room visit. IV discontinued, bm8 intact, bleeding controlled, No redness/swelling at site. Pressure dressing applied. Administered Medications: 20:56 Drug: NS 0.9% IV 1000 ml IV at 1 bolus Per protocol; 1000 mL bolus Route: IV; Rate: 1 me1 bolus; Site: left antecubital; 23:27 Follow up: Response: No adverse reaction; IV Status: Completed infusion; IV Intake: bm8 1000ml 21:03 Drug: Dexamethasone IVP 10 mg IVP once; (not to exceed 40 mg) Route: IVP; Site: left me1 antecubital; 21:18 Follow up: Response: No adverse reaction; Pain is decreased me1 21:04 Drug: metoCLOPramide IVP 10 mg IVP once; over 1 to 2 minutes Route: IVP; Site: left me1 antecubital; 21:18 Follow up: Response: No adverse reaction; Pain is decreased me1 21:04 Drug: diphenhydrAMINE IVP 25 mg IVP once Route: IVP; Site: left antecubital; me1 21:18 Follow up: Response: No adverse reaction; Pain is decreased me1 21:04 Drug: Meclizine PO 25 mg PO once Route: PO; me1 21:18 Follow up: Response: No adverse reaction me1 Medication: 20:24 VIS not applicable for this client. me1 Intake: 23:27 IV: 1000ml; Total: 1000ml. bm8 Outcome: 23:19 Discharge ordered by . cp 23:25 Discharged to home ambulatory, bm8 23:25 Condition: stable 23:25 Discharge instructions given to patient, Instructed on discharge instructions, follow up and referral plans. no drinking with medication, no driving heavy equipment, medication usage, safety practices, Demonstrated understanding of instructions, follow-up care, Prescriptions given X 3, 23:26 Patient left the ED. bm8 Signatures: Dispatcher [employer] [facility] Page, Asa, Alejandro Stephenson cp, Jennifer jj6 Fani Stahl RN RN me1 Adrián Woods RN RN tl4 Greg Tong RN RN bm8 Corrections: (The following items were deleted from the chart) 20:24 20:15 Chief complaint: Patient states: Patient reports constant migraine since last me1 Tuesday. No relief with Excedrin or Tylenol. +nausea +blurred vision tl4
--- NOTE | 2023-11-19 23:20 | EDPHYS ---
Physician Documentation [facility] Name: Kaela Gonzales Age: 28 yrs Sex: Female : 1995 Arrival Date: 11/19/2023 Time: 19:39 Bed 16 Private MD: ED Physician Jai Mrecado HPI: 11/18 20:40 This 28 yrs old Female presents to ER via Ambulatory with complaints of cp Headache. 20:40 The patient complains of pain to the general. The patient describes the headache as cp aching, constant. 20:40 Onset: The symptoms/episode began/occurred last week on Tuesday. Associated signs and cp symptoms: Pertinent positives: nausea, Photophobia blurred vision, Pertinent negatives: altered mental status, fever, neck stiffness, active vomiting. Severity of symptoms: in the emergency department the pain is unchanged, despite home interventions, a " 8" out of "10". Headache History: The patient has had previous headaches and this one is more severe than previous episodes. 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 - Infectious Disease History:: Denies. - Social history:: Smoking status: Reported history of juuling and/or vaping. ROS: 20:45 Constitutional: Negative for body aches, chills, fever, poor PO intake, cp 20:45 Eyes: Positive for blurry vision, photophobia, Negative for discharge, pain, redness, cp 20:45 ENT: Negative for drainage from ear(s), ear pain, sore throat, difficulty swallowing, difficulty handling secretions, 20:45 Cardiovascular: Negative for chest pain, edema, palpitations, 20:45 Respiratory: Negative for cough, shortness of breath, wheezing, 20:45 Abdomen/GI: Negative for abdominal pain, vomiting, diarrhea, constipation, 20:45 : Negative for urinary symptoms, 20:45 Neuro: Positive for headache, Negative for altered mental status, seizure activity, speech changes, weakness, 20:45 All other systems are negative, Exam: 20:50 Constitutional: The patient appears in no acute distress, alert, awake, non-toxic, well cp developed, well nourished, obese, 20:50 Head/Face: Normocephalic, atraumatic. cp 20:50 Eyes: Periorbital structures: appear normal, Pupils: equal, round, and reactive to light and accomodation, Extraocular movements: intact throughout, Conjunctiva: normal, no exudate, no injection, Sclera: no appreciated abnormality, Lids and lashes: appear normal, bilaterally, 20:50 ENT: External ear(s): are unremarkable, Nose: is normal, Mouth: Lips: moist, Oral mucosa: pink and intact, moist, Posterior pharynx: is normal, airway is patent, no erythema, no exudate, 20:50 Neck: ROM/movement: is normal, is supple, without pain, no range of motions limitations, no meningismus, no nuchal rigidity, 20:50 Chest/axilla: Inspection: normal, 20:50 Cardiovascular: Rate: normal, Rhythm: regular, 20:50 Respiratory: the patient does not display signs of respiratory distress, Respirations: normal, no use of accessory muscles, no retractions, labored breathing, is not present, Breath sounds: are clear throughout, no decreased breath sounds, no stridor, no wheezing, 20:50 Abdomen/GI: Inspection: abdomen appears normal, Palpation: abdomen is soft and non-tender, in all quadrants, 20:50 Neuro: Orientation: to person, place \\T\\ time. Mentation: is normal, Cerebellar function: is grossly normal, Motor: moves all fours, strength is normal, Sensation: is normal, 21:05 ECG was reviewed by the Attending Physician. cp Vital Signs: 20:15 BP 152 / 98; Pulse 85; Resp 16; Temp 98.7(O); Pulse Ox 98% on R/A; Weight 127.01 kg; tl4 Height 5 ft. 6 in. ; Pain 8/10; 20:15 BP 130 / 88; Pulse 87; Resp 16; Pulse Ox 99% on R/A; me1 21:09 BP 129 / 74; Pulse 85; Resp 16; Pulse Ox 100% on R/A; me1 22:59 BP 133 / 82; Pulse 83; Resp 17; Temp 98.7; Pulse Ox 99% ; Pain 0/10; bm8 20:15 Body Mass Index 45.19 (127.01 kg, 167.64 cm) tl4 20:15 Pain Scale: Adult tl4 22:59 Pain Scale: Adult bm8 MDM: 20:25 Patient medically screened. 23:18 Data reviewed: vital signs, nurses notes, lab test result(s), EKG, radiologic studies, cp CT scan, and as a result, I will discharge patient. 23:18 I considered the following discharge prescriptions or medication management in the emergency department Medications were administered in the Emergency Department. See MAR. Counseling: I had a detailed discussion with the patient and/or guardian regarding the historical points, exam findings, and any diagnostic results supporting the discharge/admit diagnosis, lab results, radiology results, to return to the emergency department if symptoms worsen or persist or if there are any questions or concerns that arise at home. Refusal of service: The patient/guardian displays adequate decision making capability and despite a detailed discussion of alternatives, benefits, risks, and consequences refuses: Lumbar Puncture procedure. ED course: Patient reports headache markedly improved, will discharge to home for continued monitoring. 04 20:34 Order name: Basic Metabolic Panel; Complete Time: 21:54 cp 04 20:34 Order name: CBC with Diff; Complete Time: 21:54 cp 11/18 21:54 Interpretation: Normal except: WBC 14.30; SHAYAN% 76.5; NEUT A 11.0. cp 11/18 20:34 Order name: LFT's; Complete Time: 21:54 cp 11/18 21:54 Interpretation: Normal except: AST 9; GLOB 4.3; A/G 0.8. cp 11/18 20:34 Order name: Magnesium; Complete Time: 21:54 cp 11/18 20:34 Order name: PT-INR; Complete Time: 21:54 cp 11/18 20:34 Order name: Ptt, Activated; Complete Time: 21:54 cp 04 20:34 Order name: Urinalysis W/Microscopic; Complete Time: 21:54 cp 0406 21:54 Interpretation: Normal except: [facility] Extremely Turbid; UBLD 3+; UPROT TRACE; UESTR 75; cp URBC 21-50. 11/18 20:34 Order name: Test, Urine; Complete Time: 21:54 cp 11/18 20:34 Order name: CT Head Brain wo Cont; Complete Time: 21:54 cp 11/18 21:55 Interpretation: Report reviewed. cp 11/18 20:34 Order name: EKG; Complete Time: 20:34 cp 11/18 20:34 Order name: Cardiac monitoring; Complete Time: 21:04 cp 11/18 20:34 Order name: EKG - Nurse/Tech; Complete Time: 21:04 cp 11/18 20:34 Order name: IV Saline Lock; Complete Time: 20:56 cp 11/18 20:34 Order name: Labs collected and sent; Complete Time: 20:56 cp 11/18 20:34 Order name: O2 Per Protocol; Complete Time: 20:39 cp 11/18 20:34 Order name: O2 Sat Monitoring; Complete Time: 20:39 cp EC:05 Rate is 78 beats/min. Rhythm is regular. MO interval is normal. QRS interval is normal. cp QT interval is normal. T waves are Inverted in lead aVR. Interpreted by me. Reviewed by me. Administered Medications: 20:56 Drug: NS 0.9% IV 1000 ml IV at 1 bolus Per protocol; 1000 mL bolus Route: IV; Rate: 1 me1 bolus; Site: left antecubital; 23:27 Follow up: Response: No adverse reaction; IV Status: Completed infusion; IV Intake: bm8 1000ml 21:03 Drug: Dexamethasone IVP 10 mg IVP once; (not to exceed 40 mg) Route: IVP; Site: left ak1 antecubital; 21:18 Follow up: Response: No adverse reaction; Pain is decreased me1 21:04 Drug: metoCLOPramide IVP 10 mg IVP once; over 1 to 2 minutes Route: IVP; Site: left ak1 antecubital; 21:18 Follow up: Response: No adverse reaction; Pain is decreased me1 21:04 Drug: diphenhydrAMINE IVP 25 mg IVP once Route: IVP; Site: left antecubital; me1 21:18 Follow up: Response: No adverse reaction; Pain is decreased me1 21:04 Drug: Meclizine PO 25 mg PO once Route: PO; me1 21:18 Follow up: Response: No adverse reaction me1 Disposition: 11/19 01:55 Co-signature as Attending Physician, Jai Mercado MD I reviewed the patient's care rt provided by the Advanced Practice Provider and agree with the diagnosis and treatment plan. Disposition Summary: 11/19/23 23:19 Discharge Ordered Notes: Location: Home cp Problem: new cp Symptoms: have improved cp Condition: Stable cp Diagnosis - Headache cp Followup: cp - With: Ted Villalobos MD - When: 2 - 3 days - Reason: Recheck today's complaints Discharge Instructions: - Discharge Summary Sheet cp - Migraine Headache cp Forms: - Medication Reconciliation Form cp - Thank You Letter cp - Antibiotic Education cp - Prescription Opioid Use cp - Patient Portal Instructions cp - Leadership Thank You Letter cp Prescriptions: - Fioricet 50-300-40 mg Oral capsule - take 1 capsule ORAL route every 6 hours; 20 capsule; Refills: 0, Product cp Selection Permitted - Ibuprofen 800 mg Oral Tablet - take 1 tablet ORAL route every 8 hours As needed take with food; 30 tablet; cp Refills: 0, Product Selection Permitted - Reglan 10 mg Oral Tablet - take 1 tablet ORAL route every 6 hours take 30 minutes before meals and at cp bedtime; 20 tablet; Refills: 0, Product Selection Permitted Signatures: Dispatcher [employer] EDMS Asa Salamanca PA PA cp Jai Mercado MD MD rt Fani Stahl RN RN me1 Adrián Woods RN RN tl4 Greg Tong RN bm8 Corrections: (The following items were deleted from the chart) 11/18 20:35 20:34 BASIC METABOLIC PANEL+C.LAB.BRZ ordered. EDMS EDMS 20:35 20:34 CBC+H.LAB.BRZ ordered. EDMS EDMS 20:35 20:34 HEPATIC FUNCTION+C.LAB.BRZ ordered. EDMS EDMS 20:35 20:34 MAGNESIUM+C.LAB.BRZ ordered. EDMS EDMS 20:35 20:34 PROTIME (+INR)+COAG.LAB.BRZ ordered. EDMS EDMS 20:35 20:34 PTT, ACTIVATED+COAG.LAB.BRZ ordered. EDMS EDMS 20:35 20:34 Urinalysis W/Microscopic+U.LAB.BRZ ordered. EDMS EDMS 20:35 20:34 Test, Urine+UC.LAB.BRZ ordered. EDMS EDMS
[2023-11-20 07:06] VITALS: BP 133/82; TEMP 98.7; O2SAT 99
--- NOTE | 2023-11-21 12:45 | EKG ---
Test Date: 2023-11-19 Test Time: 20:58:37 Java Development Team Lead: SELWYN MEASUREMENT RESULTS: Intervals: Rate: 78 NM: 138 QRSD: 80 QT: 376 QTc: 428 [place]: P: 42 NM: 138 QRS: 56 T: 40 INTERPRETIVE STATEMENTS: Normal sinus rhythm Normal ECG Compared to ECG 04/13/2023 22:21:13 Sinus arrhythmia no longer present Electronically Signed On 11-21-23 12:41:21 CDT by Adolfo Terrell
== END 2023-11-19 23:26 | disposition home or self-care (01) ==
LOC: ER 19:39
DX: R51.9 Headache, unspecified (principal)
CPT/HCPCS: 36415; 70450; 80048; 80076; 81001; 81025; 83735; 85025; 85610; 85730; 93005; 96361; 96374; 96375; 99285; J1100; J1200; J2765; J7030; J8597